=== PATIENT | male | born 1975 | race Hispanic/Latino ===

== ENCOUNTER 2017-09-18 19:22 | Inpatient (IN) | payer MEDICARE, OTHER ==
[~2017-09-18] VITALS: Ht 165.1 cm; Wt 73.7 kg
[~2017-09-18 19:22] MED LIST: CEFTIN500 MG PO; CITALOPRAM HBR20 MG PO; CLONAZEPAM0.5 MG PO; COPAXONE20 MG SQ; COPAXONE20 MG/KIT SQ; LACTULOSE20 GM/30 M PO; LEVAQUIN500 MG PO; MULTIVITAMIN1 EAC1 PO; NORCO 10-325 T1 EACH PO; OXYBUTYNIN CHLOR5 MG PO; ULTRAM50 MG PO; Z.0.CLONAZEPAM0.5 MG; Z.0.COLACE100 MG PO; Z.1.TIZANIDINE HCL2 PO; [UNRECOGNIZED DRUG - OTHER] PO
[2017-09-18 19:52] LABS: BASOPHILS # (AUTO) 0.1 (0.0-0.1); BASOPHILS % 0.4 % (0.0-1.0); EOSINOPHILS # (AUTO) 0.1 (0.0-0.4); EOSINOPHILS % 0.5 % (0.0-6.0); HEMATOCRIT 47.2 % (38.2-49.6); HEMOGLOBIN 16.3 g/dL (14.0-18.0); LYMPHOCYTES # (AUTO) 2.7 (1.0-3.2); MEAN CORPUSCULAR HEMOGLOBIN 30.1 pg (28-32); MEAN CORPUSCULAR HGB CONC 34.5 g/dL (31-35); MEAN CORPUSCULAR VOLUME 87.2 fL (81-99); MONOCYTES # (AUTO) 0.7 (0.2-0.8); MONOCYTES % 5.8 % (4.4-11.3); NEUTROPHILS # (AUTO) 8.4 (2.1-6.9); PLATELET COUNT 295 x10e3/uL (140-360); RED BLOOD COUNT 5.41 x10e6/uL (4.3-5.7); RED CELL DISTRIBUTION WIDTH 12.1 % (11.7-14.4)
[2017-09-18 20:11] LABS: ALANINE AMINOTRANSFERASE 19 IU/L (0-55); ALBUMIN 3.9 g/dL (3.5-5.0); ALBUMIN/GLOBULIN RATIO 1.1 (0.8-2.0); ALKALINE PHOSPHATASE 115 IU/L (40-150); ANION GAP 10.5 mmol/L (8-16); BLOOD UREA NITROGEN 14 mg/dL (7-26); BUN/CREATININE RATIO 20 (6-25); CALCIUM 9.3 mg/dL (8.4-10.2); CARBON DIOXIDE 28 mmol/L (22-29); CHLORIDE 103 mmol/L (98-107); CREATININE, SERUM 0.71 mg/dL (0.72-1.25); EST GLOMERULAR FILTRATION RATE > 60 ML/MIN (60-); GLUCOSE 91 mg/dL (74-118); POTASSIUM 3.5 mmol/L (3.5-5.1); SODIUM 138 mmol/L (136-145)
[2017-09-18] MEDS ORDERED: AMITIZA24 MCG PO (20:16)
[2017-09-18 20:58] LABS: BILIRUBIN,URINE NEGATIVE (NEGATIVE); COLOR,URINE YELLOW (YELLOW); KETONES,URINE NEGATIVE (NEGATIVE); LEUKOCYTE ESTERASE ,URINE 2+ (NEGATIVE); NITRITE,URINE NEGATIVE (NEGATIVE); PROTEIN,URINE DIPSTICK NEGATIVE (NEGATIVE); URINE UROBILINOGEN 0.2 mg/dL (0.2 - 1)
[2017-09-18 20:59] LABS: CLARITY,URINE HAZY (CLEAR)
[2017-09-18 21:03] LABS: AMORPHOUS SEDIMENT,URINE MODERATE (FEW); BACTERIA,URINE MODERATE /HPF; MUCUS,URINE FEW (RARE); WBC,URINE (MAN) 21-50 /HPF (0-5)
--- NOTE | 2017-09-18 21:34 | Diagnostic Imaging Report ---
EXAMINATION: Head CT without contrast. HISTORY:Headache. COMPARISON:CT brain from 09/25/2012. TECHNIQUE: Multidetector axial images were obtained from the foramen magnum to the vertex without contrast. The images were reconstructed using brain and bone algorithms. Thin section brain images were reformatted into coronal and sagittal planes. Intravenous contrast: None IMAGE QUALITY: Acceptable. FINDINGS: Skull/scalp: No abnormality. Parenchyma: Nonspecific few, scattered supratentorial white matter hypodensity are likely related to known demyelinating disease. Mild to moderate atrophy of the corpus callosum. No acute hemorrhage, mass or acute major vascular territorial infarct. Arteries: No density suggestive of thrombosis. Dural sinuses: No abnormal density suggestive of thrombosis. Ventricles: Unchanged mild prominence of the lateral and third ventricles. Extra-axial spaces: No abnormal density. Brain volume: Normal for age. Craniocervical junction: No mass, Chiari malformation, or basilar invagination. Sella: No mass. Paranasal/mastoid sinuses: Imaged portions unremarkable. IMPRESSION: No acute intracranial abnormality, particularly no acute hemorrhage, mass or acute major vascular territorial infarct. Interval development of mild supratentorial white matter microvascular disease, possibly related to known multiple sclerosis as described in MRI from 08/06/2012. Unchanged mild prominence of bilateral lateral and third ventricles and mild cerebral volume loss, advanced for patient's given age. Signed by: Dr. Ana M Ward M.D. on 09/18/2017 9:30 PM
[2017-09-18] MEDS ORDERED: VANCOMYCIN 1GM/NS 250 ML 250 ML IV STA (21:59)
[2017-09-18] MEDS ORDERED: MEROPENEM 1 GM VIAL ONE (22:09)
[2017-09-18] MEDS: MEROPENEM 1GRAM 1 GM in SODIUM CHLORIDE 0.9% 100 ML 100 ML IV SCH (22:20)
[2017-09-18] MEDS ORDERED: D5.45%NS/KCL 20MEQ 1,000 ML IV ONE (23:15)
[2017-09-18] MEDS ORDERED: ONDANSETRON HCL INJ 2 MG/ML VIAL IV PRN (23:15)
[2017-09-19] VITALS (9 sets, daily range): BP systolic 115–147; BP diastolic 67–96
[2017-09-19] MEDS ORDERED: D5.45%NS/KCL 20MEQ 1,000 ML IV ONE (03:41)
[2017-09-19] MEDS ORDERED: MEROPENEM 1 GM VIAL ONE ×3 (03:53→22:30)
[2017-09-19] MEDS: MEROPENEM 1GRAM 1 GM in SODIUM CHLORIDE 0.9% 100 ML 100 ML IV SCH ×3 (05:13→22:26)
[2017-09-19 06:12] LABS: BASOPHILS % 0.4 % (0.0-1.0); EOSINOPHILS # (AUTO) 0.1 (0.0-0.4); EOSINOPHILS % 1.1 % (0.0-6.0); HEMATOCRIT 44.3 % (38.2-49.6); LYMPHOCYTES # (AUTO) 2.1 (1.0-3.2); LYMPHOCYTES % 21.1 % (18.0-39.1); MEAN CORPUSCULAR HEMOGLOBIN 29.9 pg (28-32); MEAN CORPUSCULAR HGB CONC 33.9 g/dL (31-35); MEAN CORPUSCULAR VOLUME 88.2 fL (81-99); MONOCYTES # (AUTO) 0.8 (0.2-0.8); MONOCYTES % 7.9 % (4.4-11.3); NEUTROPHILS # (AUTO) 6.8 (2.1-6.9); NEUTROPHILS % 69.1 % (38.7-80.0); PLATELET COUNT 261 x10e3/uL (140-360); RED BLOOD COUNT 5.02 x10e6/uL (4.3-5.7); RED CELL DISTRIBUTION WIDTH 12.2 % (11.7-14.4)
[2017-09-19 07:28] LABS: ANION GAP 14.5 mmol/L (8-16); BLOOD UREA NITROGEN 14 mg/dL (7-26); BUN/CREATININE RATIO 22 (6-25); CALCIUM 8.8 mg/dL (8.4-10.2); CARBON DIOXIDE 21 mmol/L (22-29); CHLORIDE 109 mmol/L (98-107); CREATININE, SERUM 0.64 mg/dL (0.72-1.25); EST GLOMERULAR FILTRATION RATE > 60 ML/MIN (60-); GLUCOSE 115 mg/dL (74-118); POTASSIUM 3.5 mmol/L (3.5-5.1); SODIUM 141 mmol/L (136-145)
[2017-09-19 07:29] LABS: ALANINE AMINOTRANSFERASE 16 IU/L (0-55); ALBUMIN 3.6 g/dL (3.5-5.0); ALBUMIN/GLOBULIN RATIO 1.1 (0.8-2.0); ALKALINE PHOSPHATASE 102 IU/L (40-150)
[2017-09-19] MEDS: LUBIPROSTONE 24 MCG CAP PO SCH ×2 (08:56→16:28)
[2017-09-19] MEDS: CITALOPRAM HYDROBROMIDE 20 MG TAB PO SCH (08:56)
[2017-09-19] MEDS: GLATIRAMER (COPOLYMER-1) 20 MG SYR SQ SCH (09:00)
--- NOTE | 2017-09-19 09:00 | Progress Note ---
NO DICTATION, LENGTH 0:3 Job#: [id number] RI
--- NOTE | 2017-09-19 09:14 | History and Physical ---
CHIEF COMPLAINT: Confusion. HISTORY OF PRESENT ILLNESS: A 42-year-old man with a history of multiple sclerosis, history of complicated urinary tract infection with catheter-associated infection due to suprapubic catheter, now developing confusion. Here, he was found to have a urinary tract infection, and was admitted for further evaluation and management. PAST MEDICAL HISTORY: Complicated urinary tract infection with catheter-associated urinary tract infection, multiple sclerosis, chronic indwelling suprapubic catheter, urinary retention, status post suprapubic catheter placement, ambulatory dysfunction with multiple extremity contractures, anxiety/depression. PAST SURGICAL HISTORY: Suprapubic catheter placement. ALLERGIES: PER ELECTRONIC MEDICAL RECORD. FAMILY HISTORY: Noncontributory. SOCIAL HISTORY: No alcohol or illicits. MEDICATIONS: Per electronic medical record. REVIEW OF SYSTEMS: Unreliable. PHYSICAL EXAMINATION VITAL SIGNS: Have been reviewed. GENERAL: A tired-appearing man resting in bed. HEENT: Anicteric. Pupils respond to light. No oral lesions. CARDIOVASCULAR: Normal S1 and S2. LUNGS: He has moderate breath sounds. ABDOMEN: Soft and nontender. : He has a suprapubic catheter in place. EXTREMITIES: No edema. He has contracted lower extremities. Left arm contracture. SKIN: Dry. PSYCHIATRIC: Unable to assess. NEUROLOGICAL: Awake, alert and appropriate. LABS: Reviewed. MEDICATIONS: Reviewed. ASSESSMENT AND PLAN: This is a 42-year-old man with: 1. Complicated urinary tract infection/suprapubic catheter-associated urinary tract infection: Started on meropenem. Will get infectious disease on board to assist in management. 2. Indwelling suprapubic catheter: Urology consulted. Should be changed at this time. 3. Acute delirium secondary to urinary tract infection. 4. Multiple sclerosis: Continue . 5. Anxiety/depression: Continue citalopram. 6. Prophylaxis: Will use sequential compression devices. 7. Disposition: Antibiotics and skilled facility placement. Job#: [id number] AMISH
--- NOTE | 2017-09-19 15:14 | Consultation ---
DATE OF CONSULTATION: September 19, 2017 REASON FOR CONSULTATION: Evaluate and assist in treatment of the patient with complicated genitourinary tract infection. Information is gathered from the current medical record. I interviewed the patient at the bedside. He is a 42-year-old male with multiple sclerosis, who is bedridden with contractures. He has a suprapubic Roth catheter. He has had past urinary tract infections. He was admitted to the hospital on September 18, 2017, with reports of confusion. There was no report of fevers. No report of hematuria. At presentation, he had a temperature of 98.2 degrees Fahrenheit. His pulse rate was 80. His respiratory rate was 18. His blood pressure was 118/79. His CBC showed a white count of 11.9. Creatinine was 0.7. Urinalysis showed hazy urine with negative nitrite, positive esterase, 11-20 rbcs, 21-50 wbcs with moderate bacteria. His urine culture is pending. Blood cultures are pending. There is concern for urinary tract infection for which he has been started on treatment with meropenem. MEDICAL HISTORY: As reported above. There is no report of diabetes mellitus, hypertension, chronic kidney disease, liver disease, myocardial infarction, or CVA. SOCIAL HISTORY: The patient is bedridden with contractures. No report of tobacco, alcohol or other forms of recreational drug use. FAMILY HISTORY: Noncontributory to his current hospitalization. ALLERGIES: HE IS REPORTED ALLERGIC TO LEVOFLOXACIN. As reported earlier, he is on treatment with meropenem. The rest of his medications are per medication administration report. REVIEW OF SYSTEMS: The patient is awake. His sensorium is clear. He is oriented to person, place and time. He has no complaint of headache or neck stiffness. No sore throat. No report of nausea, vomiting or diarrhea. No hematuria. PHYSICAL EXAMINATION GENERAL: He is an adult male. He is alert, responsive. He appears ill, but nontoxic. He is in no acute distress. VITALS: Maximum temperature recorded since admission is 98.2 degrees Fahrenheit. He is hemodynamically stable. HEENT: He has no pallor. No icterus. No oropharyngeal lesions. NECK: Supple. CHEST: Symmetric. Lungs are clear. HEART: Sounds are regular. There is no significant murmur. ABDOMEN: Soft and nontender. Bowel sounds are present. : A suprapubic Roth catheter is in place. The site is without acute erythema. There is scant mucopurulent material at the exit site. EXTREMITIES: No acute erythema of his extremities. He has contractures of his lower extremities. His white count is 11.9 at presentation and 9.8 currently. Hemoglobin 15 and platelet count 261,000. Differential on the white count appear unremarkable. His serum creatinine is 0.6 currently. Urine and blood cultures are pending. CT of the brain reports no acute intracranial abnormality. IMPRESSION: This 42-year-old male with multiple sclerosis and suprapubic Roth catheter presenting with altered mental status has a urinary tract infection. Cultures are pending, including blood and urine. His leukocytosis has resolved. He is afebrile. I suggest continue treatment with meropenem. Follow up on his cultures. Monitor temperature, CBC and renal function. Monitor clinical response to treatment. I have discussed the findings and treatment with the patient at the bedside. I will discuss the patient with the primary physician, who I thank for the consult and the opportunity to participate in the patient's care. Job#: [id number] AMISH
--- NOTE | 2017-09-19 15:33 | Diagnostic Imaging Report ---
PROCEDURE: A single AP view of the chest. COMPARISON: Chest radiograph 09/25/2012 INDICATIONS: PICC LINE PLACEMENT FINDINGS: Lines/tubes: Right PICC tip overlies the cavoatrial junction. Lungs: The lungs are well inflated. Mild left basilar atelectasis. There is no evidence of pneumonia or pulmonary edema. Pleura: There is no pleural effusion or pneumothorax. Heart and mediastinum: The heart and the mediastinum are unremarkable. Bones: No acute bony abnormality. IMPRESSION: 1. Right PICC tip overlies the cavoatrial junction. 2. No acute cardiopulmonary disease. Dictated by: Marcos Frank M.D. on 09/19/2017 at 15:42 Electronically approved by: Marcos Frank M.D. on 09/19/2017 at 15:42
[2017-09-19] MEDS ORDERED: DIPHENHYDRAMINE HCL 25 MG CAP PO PRN (16:15)
[2017-09-19] MEDS: FAMOTIDINE 20 MG/2 ML VIAL IV SCH (16:27)
--- NOTE | 2017-09-19 21:55 | Consultation ---
DATE OF CONSULTATION: September 19, 2017 INITIAL VISIT SERVICE: Urology. ATTENDING PHYSICIAN: Dr. Bernardo Montilla HISTORY OF PRESENT ILLNESS: This is a 42-year-old quadriplegic patient that has MS and is known to me for quite some time. Patient was admitted to the hospital with diagnosis of change in mental status. He has been treated for urinary retention, neurogenic bladder, and he does have a suprapubic tube in place. In the past, he had several UTIs. SOCIAL HISTORY: Patient is bedridden he reports. No use of alcohol, illicit drugs, or tobacco. MEDICATIONS: See MAR. ALLERGIES TO MEDICATION: LEVAQUIN. REVIEW OF SYSTEMS: Twelve systems reviewed. Patient is awake. Presently, his mental status appears to be unremarkable. Except what is related to the quadriplegia and the SP tube, everything else is negative. PHYSICAL EXAMINATION: GENERAL: Patient is alert and oriented x3. VITAL SIGNS: Blood pressure 120/80, pulse 88, temperature 98, respirations 18. HEAD: Symmetric. EYES: Normal movement. NECK: No JVD. No masses. CHEST: Clear. HEART: Regular. ABDOMEN: Soft. : SP site unremarkable, suprapubic tube is functioning well. External genitalia, no masses. LABORATORY DATA: White count 9.84, hemoglobin 15. Potassium 3.5. Rest of the electrolytes unremarkable. Bilirubin 0.8. CT scan of the brain appeared to be unremarkable with some areas that may suggest MS. IMPRESSION: 1. Multiple sclerosis. 2. Quadriplegia. 3. Suprapubic tube. 4. History of change in mental status. 5. Urinary tract infection. PLAN: Recommend to keep the Roth catheter in the suprapubic site. We are going to follow him . Thank you. Job#: [id number]
[2017-09-20] VITALS (8 sets, daily range): BP systolic 111–141; BP diastolic 76–91
[2017-09-20] MEDS ORDERED: MEROPENEM 1 GM VIAL ONE ×2 (05:02→06:31)
[2017-09-20] MEDS: MEROPENEM 1GRAM 1 GM in SODIUM CHLORIDE 0.9% 100 ML 100 ML IV SCH (05:42)
--- NOTE | 2017-09-20 07:54 | Progress Note ---
DATE: September 20, 2017 TIME: 7:16 a.m. OVERNIGHT: No events. REVIEW OF SYSTEMS: Unobtainable. PHYSICAL EXAMINATION: VITAL SIGNS: Reviewed temperature 97.1, pulse 82, blood pressure 114/82. GENERAL APPEARANCE: Tired-appearing man resting in bed. HEENT: Anicteric. CARDIOVASCULAR: Normal S1 and S2. LUNGS: Bilateral breath sounds. ABDOMEN: Soft, nontender, nondistended. : He has suprapubic catheter in place. EXTREMITIES: No edema. He has contracted lower extremity, left arm contracture. SKIN: Dry. PSYCHIATRIC: Unable to assess. NEUROLOGICAL: Awake, alert. LABS: Reviewed. MEDICATIONS: Reviewed. ASSESSMENT: A 42-year-old man: 1. Complicated urinary tract infection/suprapubic catheter-associated urinary tract infection. 2. Acute delirium secondary to urinary tract infection. 3. Multiple sclerosis. 4. Anxiety/depression. PLAN: 1. Continue IV meropenem. 2. Continue multiple sclerosis medication. 3. Continue Pepcid for GI prophylaxis. 4. Physical therapy as tolerated inpatient. 5. SCD bilaterally. 6. Skilled facility placement is pending. 7. Follow up microbiology. All cultures negative to date. Job#: [id number]
[2017-09-20] MEDS: LUBIPROSTONE 24 MCG CAP PO SCH ×2 (08:48→17:22)
[2017-09-20] MEDS: CITALOPRAM HYDROBROMIDE 20 MG TAB PO SCH (08:54)
[2017-09-20] MEDS: FAMOTIDINE 20 MG/2 ML VIAL IV SCH ×2 (09:01→21:04)
[2017-09-20] MEDS: GLATIRAMER (COPOLYMER-1) 20 MG SYR SQ SCH (12:25)
--- NOTE | 2017-09-20 14:49 | Progress Note ---
DATE: September 20, 2017 INFECTIOUS DISEASE PROGRESS NOTE The patient is awake and responsive. He is in no acute distress. He is not coughing. No dyspnea. No vomiting. No diarrhea. No adverse medication reaction reported. PHYSICAL EXAMINATION VITALS: In the past 24 hours, maximum temperature was up to 98.4 degrees Fahrenheit. He is hemodynamically stable. HEENT: He has no pallor. No icterus. No oropharyngeal lesions. NECK: Supple. CHEST: Symmetric. The lungs are clear. HEART: Sounds are regular. There is no new murmur. ABDOMEN: Soft, nontender. Bowel sounds are normal. EXTREMITIES: No acute erythema of the extremities. His white count 11.9 on September 18, 2017 and 9.8 on September 19, 2017. His creatinine 0.6 on September 19, 2017. His urine culture on September 18, 2017 is growing 2 different strains of gram-negative rods. One set of blood culture from September 18, 2017 is negative, one set is positive. Identification of the blood culture isolate is not available. IMPRESSION: He has gram-negative urinary tract infection. He has a positive blood culture, difficult to determine at this point whether this is contamination or true positive culture. The patient is afebrile. His leukocytosis has resolved. He has multiple sclerosis. He has a suprapubic Roth catheter. I suggest continue his antibiotics, monitor temperature, CBC and renal function. Follow up on his cultures. Continue supportive care. Job#: [id number] AMBER
[2017-09-20] MEDS: MEROPENEM 1 GM VIAL IV SCH ×2 (15:05→21:04)
[2017-09-20] MEDS ORDERED: SODIUM CHLORIDE 0.9% 250ML 250 ML ONE (19:31)
[2017-09-21] VITALS (8 sets, daily range): BP systolic 113–127; BP diastolic 60–84
[2017-09-21] MEDS: MEROPENEM 1 GM VIAL IV SCH ×3 (05:07→21:00)
--- NOTE | 2017-09-21 07:10 | Progress Note ---
DATE: September 21, 2017 TIME: 6:30 a.m. OVERNIGHT: No events. REVIEW OF SYSTEMS: No chest pain. PHYSICAL EXAMINATION VITAL SIGNS: Reviewed. GENERAL: Tired-appearing man resting in bed. HEENT: Anicteric. CARDIOVASCULAR: Normal S1/S2. LUNGS: Bilateral breath sounds. ABDOMEN: Soft, nontender, nondistended. : Suprapubic catheter in place. EXTREMITIES: No edema. He has contracted left arm and he has contracted left lower extremity. SKIN: Dry. PSYCHIATRIC: Flat affect. NEUROLOGICAL: Awake and alert. LABS: Reviewed. MEDICATIONS: Reviewed. ASSESSMENT: A 42-year-old man. 1. Complicated urinary tract infection/suprapubic catheter-associated urinary tract infection. 2. Acute delirium secondary to urinary tract infection. 3. Multiple sclerosis. 4. Anxiety/depression. 5. Questionable bacteremia. PLAN 1. Continue IV meropenem. 2. Continue treatment for multiple sclerosis. 3. Obtain labs this morning. 4. Follow up cultures, gram-negative rods in the urine and gram-negative rods in the blood. 5. SNF pending. Job#: [id number] CQ
[2017-09-21 08:21] LABS: BASOPHILS # (AUTO) 0.1 (0.0-0.1); BASOPHILS % 0.7 % (0.0-1.0); EOSINOPHILS # (AUTO) 0.5 (0.0-0.4); EOSINOPHILS % 5.2 % (0.0-6.0); HEMATOCRIT 44.4 % (38.2-49.6); HEMOGLOBIN 15.6 g/dL (14.0-18.0); LYMPHOCYTES # (AUTO) 2.2 (1.0-3.2); LYMPHOCYTES % 24.3 % (18.0-39.1); MEAN CORPUSCULAR HEMOGLOBIN 30.5 pg (28-32); MEAN CORPUSCULAR HGB CONC 35.1 g/dL (31-35); MEAN CORPUSCULAR VOLUME 86.9 fL (81-99); MONOCYTES # (AUTO) 0.8 (0.2-0.8); MONOCYTES % 9.1 % (4.4-11.3); NEUTROPHILS # (AUTO) 5.4 (2.1-6.9); NEUTROPHILS % 60.5 % (38.7-80.0); PLATELET COUNT 268 x10e3/uL (140-360); RED BLOOD COUNT 5.11 x10e6/uL (4.3-5.7); RED CELL DISTRIBUTION WIDTH 12.1 % (11.7-14.4)
[2017-09-21] MEDS: GLATIRAMER (COPOLYMER-1) 20 MG SYR SQ SCH (09:00)
[2017-09-21 09:04] LABS: ANION GAP 12.6 mmol/L (8-16); BLOOD UREA NITROGEN 11 mg/dL (7-26); BUN/CREATININE RATIO 17 (6-25); CALCIUM 9.1 mg/dL (8.4-10.2); CARBON DIOXIDE 26 mmol/L (22-29); CHLORIDE 107 mmol/L (98-107); CREATININE, SERUM 0.66 mg/dL (0.72-1.25); EST GLOMERULAR FILTRATION RATE > 60 ML/MIN (60-); GLUCOSE 103 mg/dL (74-118); MAGNESIUM 1.8 MG/DL (1.3-2.1); PHOSPHORUS 2.4 MG/DL (2.3-4.7); POTASSIUM 3.6 mmol/L (3.5-5.1); SODIUM 142 mmol/L (136-145)
[2017-09-21] MEDS: MEGESTROL ACETATE 40 MG TAB PO SCH ×2 (09:37→17:06)
[2017-09-21] MEDS: FAMOTIDINE 20 MG/2 ML VIAL IV SCH ×2 (09:37→20:55)
[2017-09-21] MEDS: CITALOPRAM HYDROBROMIDE 20 MG TAB PO SCH (09:37)
[2017-09-21] MEDS: LUBIPROSTONE 24 MCG CAP PO SCH ×2 (09:37→17:06)
--- NOTE | 2017-09-21 13:46 | Progress Note ---
DATE: September 21, 2017 The patient is fairly stable. He is alert and responsive. He is not coughing. No dyspnea at rest. No vomiting. No diarrhea. No adverse medication reaction reported. PHYSICAL EXAMINATION VITALS: In the past 24 hours, he had temperatures up to 98.6 degrees Fahrenheit. He is hemodynamically stable. HEENT: There is no pallor. No icterus. No oropharyngeal lesions. NECK: Supple. CHEST: Symmetric. The lungs are clear. HEART: Sounds are regular. There is no new murmur. ABDOMEN: Soft. Bowel sounds are present. EXTREMITIES: No acute erythema of the extremities. SKIN: He has facial seborrhea. His white count is 8.9. His creatinine 0.6. His urine culture from September 18, 2017 growing 2 different strains of gram-negative rods. His blood cultures from September 18, 2017 growing coagulase-negative staph and gram-negative bacillus as well as strep species. IMPRESSION: He is on treatment for sepsis and gram-negative urinary tract infection. I suspect his blood culture is contaminated. He is afebrile. There is no leukocytosis currently. I suggest continue current antibiotic treatment, follow up on his urine culture, continue supportive care. Job#: [id number] VAS
[2017-09-22] VITALS: BP 126/81
[2017-09-22 04:00] VITALS: BP 121/76
[2017-09-22] MEDS: MEROPENEM 1 GM VIAL IV SCH ×2 (05:02→14:27)
[2017-09-22 08:15] VITALS: BP 111/74
--- NOTE | 2017-09-22 08:47 | Progress Note ---
DATE: September 22, 2017 The patient is fairly stable. He is awake and responsive. He is in no acute distress. He is not coughing. No dyspnea at rest. No vomiting. No diarrhea. No other systemic complaints reported. PHYSICAL EXAMINATION VITALS: In the past 24 hours, his maximum temperature was up to 98.9 degrees Fahrenheit. He is hemodynamically stable. HEENT: There is no pallor. No icterus. No oropharyngeal lesions. He has facial seborrheic dermatitis. NECK: Supple. CHEST: Symmetric. Lungs are clear. HEART: Sounds are regular without significant murmur. ABDOMEN: Soft. Bowel sounds are present. EXTREMITIES: No acute erythema of his extremities. On September 21, 2017, his white count was 8.9. His creatinine was 0.6. His urine culture from September 18, 2017, is growing Citrobacter, and a 2nd gram-negative sandrita that has not yet been identified. Blood cultures are contaminated with coagulase-negative staph. IMPRESSION: He has a urinary tract infection associated with suprapubic Roth catheter. He has contaminated blood culture. He is afebrile. There is no leukocytosis. I suggest to continue his antibiotics. Follow up on his cultures. Monitor temperature, CBC and renal function. Continue supportive care. Job#: [id number] AMISH
[2017-09-22] MEDS: LUBIPROSTONE 24 MCG CAP PO SCH ×2 (09:00→17:00)
[2017-09-22] MEDS: CITALOPRAM HYDROBROMIDE 20 MG TAB PO SCH (09:00)
[2017-09-22] MEDS: MEGESTROL ACETATE 40 MG TAB PO SCH ×2 (09:00→17:00)
[2017-09-22] MEDS ORDERED: GLATIRAMER (COPOLYMER-1) 20 MG SYR SQ SCH (10:00)
[2017-09-22] MEDS: FAMOTIDINE 20 MG/2 ML VIAL IV SCH (10:15)
--- NOTE | 2017-09-22 11:09 | Progress Note ---
DATE: September 22, 2017 TIME: 6 a.m. OVERNIGHT: No events. REVIEW OF SYSTEMS: Denies any chest pain. PHYSICAL EXAMINATION VITAL SIGNS: Reviewed. GENERAL: A tired-appearing man resting in bed. HEENT: Anicteric. CARDIOVASCULAR: Normal S1 and S2. LUNGS: Moderate breath sounds. ABDOMEN: Soft, nontender and nondistended. EXTREMITIES: No edema or calf tenderness. He has contracted lower extremities. SKIN: Dry. PSYCHIATRIC: Flat affect. NEUROLOGICAL: Awake and alert. LABS: Reviewed. MEDICATIONS: Reviewed. ASSESSMENT: A 42-year-old man with: 1. Complicated urinary tract infection/suprapubic catheter associated urinary tract infection with Citrobacter freundii. 2. Bacteremia with coagulase-negative staphylococcus and gram-negative bacillus. 3. Acute delirium secondary to urinary tract infection. 4. Multiple sclerosis. 5. Anxiety/depression. 6. Sepsis due to bacteremia. PLAN 1. Continue IV meropenem per infectious disease. 2. Continue physical therapy. 3. Continue treatment for multiple sclerosis. 4. SNF placement is pending. Will need at least 14 days of IV antibiotics. Job#: [id number] HI
[2017-09-22 11:50] VITALS: BP 122/85
[2017-09-22 16:00] VITALS: BP 118/74
[2017-09-22 16:18] VITALS: BP 118/74
--- NOTE | 2017-10-17 09:09 | Discharge Summary ---
PRINCIPAL DIAGNOSES 1. Complicated urinary tract infection. 2. Suprapubic catheter associated urinary tract infection with Citrobacter freundii. 3. Bacteremia with coagulase-negative staphylococcus and gram-negative bacillus. 4. Acute delirium secondary to urinary tract infection. 5. Anxiety disorder. 6. Sepsis due to bacteremia. SECONDARY DIAGNOSIS: Multiple sclerosis. CHIEF COMPLAINT: Confusion. HISTORY OF PRESENT ILLNESS: A 42-year-old man developing confusion. Refer to the H and P for further details. HOSPITAL COURSE: The patient was found to have complicated urinary tract infection with suprapubic catheter associated urinary tract infection with findings of Citrobacter freundii as the organism. He had bacteremia with coagulase-negative staph and gram-negative bacillus. Had acute delirium secondary to UTI. Anxiety and sepsis due to bacteremia. He received antibiotics of IV meropenem and transitioned to skilled facility for 14 days of antibiotics. Suprapubic catheter was changed. DISCHARGE MEDICATIONS: Per electronic medical records. FOLLOWUP 1. Primary care doctor in 1 week. 2. Urology in 2 weeks. CONDITION ON DISCHARGE: Stable and improving. DISCHARGE LOCATION: Skilled facility. JOSETTE KELLEY MD Job#: [id number] RI
== END 2017-09-22 19:07 | DRG 698 ==
LOC: ER 19:22 → ERHOLD 23:35 → MED/SURG2 09-19 00:06 → IMCU 09-20 00:11
PROVIDERS: ADMIT Internal Medicine; ATTEND Internal Medicine
PROC: 02HV33Z Insertion of Infusion Device into Superior Vena Cava, Percutaneous Approach (ICD-10-PCS; principal; 2017-09-19)
DX: T83.511A Infection and inflammatory reaction due to indwelling urethral catheter, initial encounter (principal); G82.50 Quadriplegia, unspecified; A41.1 Sepsis due to other specified staphylococcus; G95.89 Other specified diseases of spinal cord; N30.90 Cystitis, unspecified without hematuria; F41.8 Other specified anxiety disorders; R41.0 Disorientation, unspecified; G35 Multiple sclerosis; N31.9 Neuromuscular dysfunction of bladder, unspecified; Z74.01 Bed confinement status; F41.9 Anxiety disorder, unspecified; F32.9 Major depressive disorder, single episode, unspecified
CPT/HCPCS: 36415; 36569; 70450; 71045; 80048; 80053; 81001; 83605; 83735; 84100; 85025; 87040; 87071; 87086; 87186; 87205; 87400; 97139; 99284; J1595; J2185; J3370; J7050

== ENCOUNTER 2018-02-24 14:09 | Observation (INO) | payer MEDICARE, OTHER ==
[~2018-02-24] VITALS: Ht 165.1 cm; Wt 73.5 kg
[~2018-02-24 14:09] MED LIST changes: +AMITIZA24 MCG PO
[2018-02-24] MEDS ORDERED: SODIUM CHLORIDE 0.9% 1000ML 1,000 ML IV STA (14:12)
[2018-02-24] MEDS ORDERED: ONDANSETRON HCL INJ 2 MG/ML VIAL IV STA (14:12)
[2018-02-24] MEDS ORDERED: PANTOPRAZOLE 40 MG 10ML VIAL IV STA (14:12)
--- OUTSIDE RECORDS SUMMARY | 2018-02-24 14:13 | XMS REPORT ---
Author Author [facility] Address Unknown Phone Unavailable Care Team Providers Care Generation Manager Name Role Phone JOSETTE KELLEY Unavailable Unavailable Problems This patient has no known problems. Allergies, Adverse Reactions, Alerts This patient has no known allergies or adverse reactions. Medications This patient has no known medications. Results Test Description Test Time Test Comments Text Results Atomic Results Result Comments CHEST XRAY LINE PLACEMENT [place] [address] Patient Name: ARIK VELIZ MR #: [id number] : 1975 Age/Sex: 42/M Req #: [id number] Adm Physician: JOSETTE KELLEY MD Ordered by: JOSETTE KELLEY MD Report #: [id number] Location: MED/SURG2 Room/Bed: [facility] _ Procedure: [id number] DX/CHEST XRAY LINE PLACEMENT Exam Date: 09/19/17 Exam Time: 1525 REPORT STATUS: Signed PROCEDURE: A single AP view of the chest. COMPARISON: Chest radiograph 09/25/2012 INDICATIONS: PICC LINE PLACEMENT FINDINGS : Lines/tubes: Right PICC tip overlies the cavoatrial junction. Lungs: The lungs are well inflated. Mild left basilar atelectasis. There is no evidence of pneumonia or pulmonary edema. Pleura: There is no pleural effusion or pneumothorax. Heart and mediastinum: The heart and the mediastinum are unremarkable. Bones: No acute bony abnormality. IMPRESSION: 1. Right PICC tip overlies the cavoatrial junction. 2. No acute cardiopulmonary disease. Dictated by: Marcos Medina M.D. on 10/2017 at 15:42 Electronically approved by: Marcos Medina M.D. on 09/19 at 15:42 Dictated By: MARCOS MEDINA MD 41 Transcribed By: ARIELLA on 09/19/171541 COPY TO: JOSETTE KELLEY MD CT BRAIN WO [place] [id number] [place] [address] Patient Name: ARIK VELIZ MR #: [id number] : 1975 Age/Sex: 42/M Req # : [id number] Adm Physician: Ordered by: LEMUEL BARRIOS MD Report #: [id number] Location: ER Room/Bed: Procedure: [id number] CT/CT BRAIN WO Exam Date: 09/18/17 Exam Time: 2029 REPORT STATUS: Signed EXAMINATION: Head CT without contrast. HISTORY:Headache. COMPARISON:CT brain from 09/25/2012. TECHNIQUE: Multidetector axial images were obtained from the foramen magnum to the vertex without contrast. The images were reconstructed using brain and bone algorithms. Thin section brain images were reformatted into coronal and sagittal planes. Intravenous contrast: None IMAGE QUALITY: Acceptable. FINDINGS: Skull/scalp: No abnormality. Parenchyma: Nonspecific few, scattered supratentorial white matter hypodensity are likely related to known demyelinating disease. Mild to moderate atrophy of the corpus callosum. No acute hemorrhage, mass or acute major vascular territorial infarct. Arteries: No density suggestive of thrombosis. Dural sinuses: No abnormal density suggestive of thrombosis. Ventricles: Unchanged mild prominence of the lateral and third ventricles. Extra-axial spaces: No abnormal density. Brain volume: Normal for age. Craniocervical junction: No mass, Chiari malformation, or basilar invagination. Sella: No mass. Paranasal/mastoid sinuses: Imaged portions unremarkable. IMPRESSION: No acute intracranial abnormality, particularly no acute hemorrhage, mass or acute major vascular territorial infarct. Interval development of mild supratentorial white matter microvascular disease, possibly related to known multiple sclerosis as described in MRI from 08/06/2012. Unchanged mild prominence of bilateral lateral and third ventricles and mild cerebral volume loss, advanced for patient's given age. Signed by: Dr. Ana M Ward M.D. on 09/18/2017 9:30 PM Dictated By: ANA M WARD MD 29 Transcribed By: ZO on 09/18/172129 COPY TO: LEMUEL BARRIOS MD
[2018-02-24 15:02] LABS: BASOPHILS # (AUTO) 0.1 (0.0-0.1); BASOPHILS % 0.6 % (0.0-1.0); EOSINOPHILS # (AUTO) 0.1 (0.0-0.4); EOSINOPHILS % 1.4 % (0.0-6.0); HEMATOCRIT 43.6 % (38.2-49.6); HEMOGLOBIN 14.9 g/dL (14.0-18.0); LYMPHOCYTES # (AUTO) 2.8 (1.0-3.2); LYMPHOCYTES % 28.1 % (18.0-39.1); MEAN CORPUSCULAR HEMOGLOBIN 30.2 pg (28-32); MEAN CORPUSCULAR HGB CONC 34.2 g/dL (31-35); MEAN CORPUSCULAR VOLUME 88.4 fL (81-99); MONOCYTES # (AUTO) 0.8 (0.2-0.8); MONOCYTES % 8.3 % (4.4-11.3); NEUTROPHILS # (AUTO) 6.2 (2.1-6.9); NEUTROPHILS % 61.3 % (38.7-80.0); PLATELET COUNT 271 x10e3/uL (140-360); RED BLOOD COUNT 4.93 x10e6/uL (4.3-5.7)
[2018-02-24] MEDS ORDERED: MORPHINE SULFATE 2 MG/ML SYR IV STA (15:06)
[2018-02-24 15:21] LABS: ALANINE AMINOTRANSFERASE 21 IU/L (0-55); ALBUMIN 3.7 g/dL (3.5-5.0); ALBUMIN/GLOBULIN RATIO 1.2 (0.8-2.0); ALKALINE PHOSPHATASE 109 IU/L (40-150); AMYLASE 49 U/L (25-125); ANION GAP 11.8 mmol/L (8-16); BLOOD UREA NITROGEN 18 mg/dL (7-26); BUN/CREATININE RATIO 23 (6-25); CALCIUM 9.1 mg/dL (8.4-10.2); CARBON DIOXIDE 28 mmol/L (22-29); CHLORIDE 105 mmol/L (98-107); CREATININE, SERUM 0.77 mg/dL (0.72-1.25); EST GLOMERULAR FILTRATION RATE > 60 ML/MIN (60-); GLUCOSE 106 mg/dL (74-118); LIPASE 19 U/L (8-78); POTASSIUM 3.8 mmol/L (3.5-5.1); SODIUM 141 mmol/L (136-145)
[2018-02-24] MEDS ORDERED: ONDANSETRON HCL INJ 2 MG/ML VIAL IV ONE (15:30)
[2018-02-24] MEDS ORDERED: PANTOPRAZOLE 40 MG 10ML VIAL IV ONE (15:30)
[2018-02-24 15:32] LABS: BILIRUBIN,URINE NEGATIVE (NEGATIVE); CLARITY,URINE SL CLOUDY (CLEAR); COLOR,URINE YELLOW (YELLOW); KETONES,URINE NEGATIVE (NEGATIVE); LEUKOCYTE ESTERASE ,URINE 1+ (NEGATIVE); NITRITE,URINE NEGATIVE (NEGATIVE); PROTEIN,URINE DIPSTICK TRACE (NEGATIVE); URINE UROBILINOGEN 0.2 mg/dL (0.2 - 1)
[2018-02-24 15:36] LABS: WBC,URINE (MAN) >50 /HPF (0-5)
[2018-02-24 15:39] LABS: BACTERIA,URINE FEW /HPF
[2018-02-24 15:44] LABS: EPITHELIAL CELLS,URINE FEW /LPF
[2018-02-24] MEDS ORDERED: SODIUM CHLORIDE 0.9% 50ML 50 ML ONE (16:45)
[2018-02-24] MEDS ORDERED: CEFTRIAXONE SOD 1 GM VIAL IV ONE (16:45)
--- NOTE | 2018-02-24 16:58 | Diagnostic Imaging Report ---
EXAM: CT Abdomen and Pelvis WITH contrast INDICATION: Abdominal pain. History of multiple sclerosis. COMPARISON: None. TECHNIQUE: Abdomen and pelvis were scanned utilizing a multidetector helical scanner from the lung base to the ischial tuberosities after administration of IV contrast. Coronal and sagittal reformations were obtained. Routine protocol was performed. Scan was performed when during portal venous phase. IV CONTRAST: 100 mL of Isovue-370 ORAL CONTRAST: None RADIATION DOSE: Total DLP: 572.34 mGy*cm Estimated effective dose: DLP x 0.015 mSv COMPLICATIONS: None FINDINGS: LINES and TUBES: There is a suprapubic catheter within the bladder. LOWER THORAX: Subsegmental atelectasis in the lung bases. HEPATOBILIARY: No focal hepatic lesions. No biliary ductal dilation. GALLBLADDER: No radio-opaque stones or sludge. No wall thickening. SPLEEN: No splenomegaly. PANCREAS: No focal masses or ductal dilatation. ADRENALS: No adrenal nodules KIDNEYS/URETERS: Kidneys enhance symmetrically. No hydronephrosis. 1.3 cm hypodensity in the upper pole the right kidney (series 2, image 23) appears to contain thin septations. Other tiny hypodensities in the right kidney are too small to characterize. No stones. GI TRACT: The rectum is distended with mild, circumferential wall thickening of the distal rectum which could be due to chronic constipation. No bowel obstruction. Appendix is normal. PELVIC ORGANS/BLADDER: The bladder is collapsed by a suprapubic catheter. A curvilinear density at the tip of the suprapubic catheter may be a portion of the catheter or chronic bladder/prostate calcification. LYMPH NODES: No lymphadenopathy. VESSELS: Unremarkable. PERITONEUM / RETROPERITONEUM: No free air or fluid. BONES: Unremarkable. SOFT TISSUES: Unremarkable. IMPRESSION: 1. The rectum is distended. There is mild circumferential wall thickening of the distal rectum which may be due to chronic constipation. 2. The bladder is collapsed by a suprapubic catheter. A curvilinear density at the tip of the suprapubic catheter may represent a portion of the catheter or a chronic bladder/prostate calcification. 3. Mildly complex cystic lesion in the upper pole the right kidney. Recommend nonemergent renal protocol CT or MRI (with and without contrast) for further evaluation. Signed by: Dr. Alcon Taylor M.D. on 02/24/2018 4:54 PM
[2018-02-24] MEDS ORDERED: METHYLPREDNISOLONE SOD SUCC 125 MG/2ML VIAL IV ONE (17:00)
[2018-02-24] MEDS ORDERED: DIPHENHYDRAMINE HCL INJ 50 MG/ML VIAL IV ONE ×2 (17:00→18:30)
[2018-02-24] MEDS ORDERED: DIPHENHYDRAMINE HCL INJ 50 MG/ML VIAL ONE (17:01)
[2018-02-24] MEDS ORDERED: SODIUM CHLORIDE 0.9% 1000ML 1,000 ML ONE (17:43)
[2018-02-24] MEDS ORDERED: ONDANSETRON HCL INJ 2 MG/ML VIAL IV PRN (17:45)
[2018-02-24] MEDS ORDERED: SODIUM CHLORIDE 0.9% 100 ML 100 ML IV ONE (17:45)
[2018-02-24] MEDS ORDERED: DIPHENHYDRAMINE HCL INJ 50 MG/ML VIAL IV PRN (17:45)
[2018-02-24] MEDS: SODIUM CHLORIDE 0.9% 1000ML 1,000 ML IV SCH ×3 (17:55→22:19)
[2018-02-24] MEDS: METHYLPREDNISOLONE SOD SUCC 40 MG/ML VIAL IV SCH (18:25)
[2018-02-24] MEDS ORDERED: FAMOTIDINE 20 MG/2 ML VIAL IV ONE (18:30)
[2018-02-24 20:00] VITALS: BP 136/79
[2018-02-24 22:00] VITALS: BP 136/79
[2018-02-25] VITALS (7 sets, daily range): BP systolic 113–175; BP diastolic 70–80
[2018-02-25] MEDS ORDERED: SODIUM CHLORIDE 0.9% 50ML 50 ML ONE (00:17)
[2018-02-25] MEDS ORDERED: IOPAMIDOL 370 MG/ML 200 ML INFUS..BTL INJ ONE (00:17)
[2018-02-25] MEDS: SODIUM CHLORIDE 0.9% 1000ML 1,000 ML IV SCH ×5 (00:39→20:50)
[2018-02-25] MEDS: METHYLPREDNISOLONE SOD SUCC 40 MG/ML VIAL IV SCH ×5 (05:26→23:03)
[2018-02-25] MEDS: NITROFURANTOIN MACROCRYSTALS 100 MG CAP PO SCH ×2 (08:20→17:06)
[2018-02-25 10:04] LABS: BASOPHILS % 0.2 % (0.0-1.0); HEMATOCRIT 49.4 % (38.2-49.6); HEMOGLOBIN 16.5 g/dL (14.0-18.0); LYMPHOCYTES # (AUTO) 1.4 (1.0-3.2); LYMPHOCYTES % 13.6 % (18.0-39.1); MEAN CORPUSCULAR HEMOGLOBIN 30.4 pg (28-32); MEAN CORPUSCULAR HGB CONC 33.4 g/dL (31-35); MEAN CORPUSCULAR VOLUME 91.1 fL (81-99); MONOCYTES # (AUTO) 0.1 (0.2-0.8); MONOCYTES % 0.5 % (4.4-11.3); NEUTROPHILS # (AUTO) 8.8 (2.1-6.9); NEUTROPHILS % 85.2 % (38.7-80.0); PLATELET COUNT 225 x10e3/uL (140-360); RED BLOOD COUNT 5.42 x10e6/uL (4.3-5.7); RED CELL DISTRIBUTION WIDTH 12.3 % (11.7-14.4)
[2018-02-25 12:32] LABS: ALANINE AMINOTRANSFERASE 22 IU/L (0-55); ALBUMIN 3.8 g/dL (3.5-5.0); ALBUMIN/GLOBULIN RATIO 1.1 (0.8-2.0); ALKALINE PHOSPHATASE 115 IU/L (40-150); ANION GAP 17.1 mmol/L (8-16); BLOOD UREA NITROGEN 9 mg/dL (7-26); BUN/CREATININE RATIO 12 (6-25); CALCIUM 9.5 mg/dL (8.4-10.2); CARBON DIOXIDE 20 mmol/L (22-29); CHLORIDE 110 mmol/L (98-107); CREATININE, SERUM 0.74 mg/dL (0.72-1.25); EST GLOMERULAR FILTRATION RATE > 60 ML/MIN (60-); GLUCOSE 168 mg/dL (74-118); POTASSIUM 4.1 mmol/L (3.5-5.1); SODIUM 143 mmol/L (136-145)
[2018-02-25] MEDS ORDERED: TRAMADOL HCL 50 MG TAB PO PRN (18:30)
[2018-02-25] MEDS: LINEZOLID 600 MG/D5W 300ML 300 ML IV SCH (19:15)
[2018-02-26] VITALS (8 sets, daily range): BP systolic 102–142; BP diastolic 54–81
[2018-02-26] MEDS: SODIUM CHLORIDE 0.9% 1000ML 1,000 ML IV SCH ×4 (01:41→17:45)
[2018-02-26 05:45] LABS: BASOPHILS % 0.1 % (0.0-1.0); HEMATOCRIT 43.9 % (38.2-49.6); HEMOGLOBIN 14.9 g/dL (14.0-18.0); LYMPHOCYTES # (AUTO) 1.6 (1.0-3.2); LYMPHOCYTES % 8.4 % (18.0-39.1); MEAN CORPUSCULAR HEMOGLOBIN 30.5 pg (28-32); MEAN CORPUSCULAR HGB CONC 33.9 g/dL (31-35); MONOCYTES # (AUTO) 0.5 (0.2-0.8); MONOCYTES % 2.8 % (4.4-11.3); NEUTROPHILS # (AUTO) 16.2 (2.1-6.9); PLATELET COUNT 270 x10e3/uL (140-360); RED BLOOD COUNT 4.88 x10e6/uL (4.3-5.7); RED CELL DISTRIBUTION WIDTH 12.3 % (11.7-14.4)
[2018-02-26] MEDS: MEROPENEM 500MG 500 MG in SODIUM CHLORIDE 0.9% 50ML 50 ML IV SCH ×3 (05:48)
[2018-02-26] MEDS: METHYLPREDNISOLONE SOD SUCC 40 MG/ML VIAL IV SCH ×3 (05:48→21:50)
[2018-02-26 06:02] LABS: ANION GAP 14.1 mmol/L (8-16); BLOOD UREA NITROGEN 8 mg/dL (7-26); BUN/CREATININE RATIO 12 (6-25); CALCIUM 9.1 mg/dL (8.4-10.2); CARBON DIOXIDE 24 mmol/L (22-29); CHLORIDE 109 mmol/L (98-107); CREATININE, SERUM 0.65 mg/dL (0.72-1.25); EST GLOMERULAR FILTRATION RATE > 60 ML/MIN (60-); GLUCOSE 131 mg/dL (74-118); POTASSIUM 4.1 mmol/L (3.5-5.1); SODIUM 143 mmol/L (136-145)
--- NOTE | 2018-02-26 07:22 | Progress Note ---
DATE: February 26, 2018 OVERNIGHT: No events. REVIEW OF SYSTEMS: Denies any chest pain or shortness of breath. PHYSICAL EXAMINATION VITAL SIGNS: Reviewed. GENERAL: A tired-appearing man resting in bed. HEENT: Anicteric. CARDIOVASCULAR: Normal S1 and S2. LUNGS: Moderate breath sounds. ABDOMEN: Soft, nontender and nondistended. EXTREMITIES: He has contractures of all extremities except the right arm. NEUROLOGIC: He moves his right arm. He is alert and appropriate. SKIN: Dry. PSYCHIATRIC: Flat affect. LABS: Reviewed. MEDICATIONS: Reviewed. ASSESSMENT: A 42-year-old man with: 1. Complicated urinary tract infection/catheter-associated urinary tract infection. 2. Metabolic acidosis. 3. Constipation. 4. Right kidney cystic lesion. 5. Allergic rash due to drug reaction. 6. Ambulatory dysfunction. 7. Multiple sclerosis. 8. Anxiety disorder. PLAN 1. Continue IV meropenem. 2. Continue steroids for allergic reaction. 3. Continue linezolid. 4. Antibiotics per infectious disease. 5. Monitor closely. 6. The patient has multidrug organism in urine . Follow up urology recommendations. Job#: [id number] PR
[2018-02-26] MEDS: LINEZOLID 600 MG/D5W 300ML 300 ML IV SCH ×2 (08:27→21:50)
[2018-02-26] MEDS: FAMOTIDINE 20 MG TAB PO SCH ×2 (08:27→17:21)
[2018-02-26] MEDS: CITALOPRAM HYDROBROMIDE 20 MG TAB PO SCH (08:27)
[2018-02-26] MEDS: GLATIRAMER SC SCH (08:28)
[2018-02-26] MEDS: MULTIVITAMINS/MINERALS TAB PO SCH (08:28)
--- NOTE | 2018-02-26 08:35 | History and Physical ---
NO DICTATION, LENGTH 0:1 Job#: [id number] RI
--- NOTE | 2018-02-26 08:55 | Consultation ---
DATE OF CONSULTATION: February 26, 2018 UROLOGY CONSULTATION CHIEF UROLOGIC COMPLAINT/REASON FOR CONSULTATION: Urinary tract infection and leaking SP tube. HISTORY OF PRESENT ILLNESS: Mr. Orellana is a 42-year-old male patient of Dr. Dang Warner, who was admitted through the emergency room with urologic diagnosis consisting of urinary tract infection and urinary incontinence. However, no call was made to the urologist whom he is being treated by. The patient denied fevers nor chills. States his suprapubic changed just 10-12 days ago. Denied gross hematuria. Has had some urinary incontinence around the tube site, which has been chronic. PAST MEDICAL HISTORY: Notable for neurogenic bladder, multiple sclerosis, multiple urinary tract infections, anxiety disorder, delirium, history of sepsis, history of hematuria. MEDICATIONS: Please see MAR. ALLERGIES: LEVAQUIN, CEFTRIAXONE AND TAPE. SOCIAL HISTORY: Denied smoking or drinking. FAMILY HISTORY: Denied urologic stones or malignancies. REVIEW OF SYSTEMS: Noncontributory to the above 12-point review of systems. PHYSICAL EXAMINATION GENERAL: A middle-aged male currently in no acute distress. VITALS: Temperature 97, pulse 69, respirations 18, blood pressure 142/64. HEENT: The sclerae are anicteric. NECK: Supple. BACK: Without costovertebral angle tenderness bilaterally. ABDOMEN: Soft. It is nontender. It is not distended. There is no palpable mass. No palpable hernias. No palpable lymphadenopathy. : Normal male external genitalia. Suprapubic tube draining crystal clear urine. There is a dry sponge dressing around the tape. There is no evidence of leakage around the suprapubic tube at this time. The suprapubic tube is draining as I was speaking to the patient. EXTREMITIES: Contracted and nontender. NEURO: Alert. PSYCH: Mood appropriate. SKIN: Normal color. PERTINENT LABORATORY DATA: CT scan showing a 1.3 cm right complex renal cyst. Urinalysis greater than 50 whites, 6-10 reds. Hemoglobin 14, hematocrit 43 and platelet count 270,000, white cell count 2300. Sodium 143, potassium 4.1, chloride 109, bicarb 24, BUN 8, creatinine 0.65, glucose 131. IMPRESSION 1. Chronic suprapubic tube. 2. Neurogenic bladder. 3. Urinary tract infection, [id number]. 4. Microscopic hematuria. 5. Complex renal cyst, right side. 6. Leukocytosis. 7. Urinary incontinence. PLAN: The patient will need dedicated imaging for the complex renal cysts, which can be safely performed as an outpatient. For the patient's urinary tract infection, he has been started on broad-spectrum antibiotics. Agree with this until culture-specific antibiotics are available. Reminder that the patient need for an annual cystoscopy. Would not change the tube more frequently than monthly unless there is encrustation or obstruction, which the CT scan has ruled out. Due to the patient's body habitus, occasional leakage around the suprapubic tube currently appears to have been resolved. For the hypertension, will defer this to the primary service. Would continue multidisciplinary care. Thank you, Dr. Montilla, for allowing us to continue to participate in the care of this patient. Job#: [id number] RI cc:MD MEHDI FERNANDES MD NEHEMIA HAMPEL, MD
[2018-02-26] MEDS ORDERED: TIZANIDINE HCL 4 MG TAB PO SCH (09:00)
[2018-02-26] MEDS ORDERED: LUBIPROSTONE 24 MCG CAP PO SCH (09:00)
[2018-02-26] MEDS ORDERED: CLONAZEPAM 0.5 MG TAB PO PRN (14:45)
--- NOTE | 2018-02-26 15:31 | Consultation ---
DATE OF CONSULTATION: February 26, 2018 INFECTIOUS DISEASE CONSULTATION REASON FOR CONSULTATION: To evaluate and assist in treating a patient with suspected urinary tract infection. HISTORY: Information is gathered from the current medical record. The patient is known to me from previous hospitalization. I interviewed the patient's mother at the bedside. The patient is a 42-year-old male with multiple sclerosis with neurogenic bladder for which he has had a suprapubic Roth catheter for more than 10 years. He has had recurrent urinary tract infections., The mother reports that the patient has been having urine coming out of the suprapubic Roth catheter as well as through the penile urethra. She reports that the patient was recently seen at [facility], at which time he had some hematuria. He was apparently treated for a urinary tract infection. He is admitted to this facility mainly with the concern of urine coming out of the suprapubic Roth catheter as well as the penile urethra. There is no report of fevers. The patient has had no significant temperature spike since his presentation. His temperature was 97.6 degrees at presentation here. The highest temperature recorded is 98.4. On February 24, he had a urinalysis that showed a slightly cloudy urine with 2+ blood, positive esterase, negative nitrite, 6-10 RBCs, more than 50 WBCs, and a few bacteria. His urine culture is reported negative at 36 to 48 hours. His blood cultures drawn on February 26 are being processed. His CBC at the time of presentation showed a white count of 10,000. His white count has since increased to 18.3. It should be noted that the patient is on treatment with Solu-Medrol. His medical history is as reported above. There is no report of chronic kidney disease, liver disease, myocardial infarction or CVA. SOCIAL HISTORY: No report of recent tobacco, alcohol or other forms of recreational drug use. FAMILY HISTORY: Not contributory to his current hospitalization. HE IS REPORTED ALLERGIC TO CEPHALOSPORINS AND FLUOROQUINOLONES. OVERNIGHT HE WAS STARTED ON TREATMENT WITH MEROPENEM. WHILE RECEIVING THE FIRST DOSE, HIS HEART RATE INCREASED TO 125 FROM AROUND 60. THE NURSING STAFF REPORTS THAT HE BECAME FLUSHED. THE MEROPENEM WAS DISCONTINUED. CARBAPENEMS SHOULD, THEREFORE, BE ADDED TO HIS LIST OF ALLERGIES. MEDICATIONS: He is on Zyvox currently. The rest of his medications are per the medication administration report. REVIEW OF SYSTEMS: The patient is alert and responsive. He is in no acute distress. He is not coughing currently. No dyspnea at rest. No headache or neck stiffness. No sore throat. No nausea, vomiting or diarrhea. No pruritus or rash. The mother reports that the patient has been having some involuntary movements of his right upper extremity since today. PHYSICAL EXAMINATION GENERAL: He is an adult male. He is awake, responsive. He appears nontoxic and is in no acute distress. VITAL SIGNS: His maximum temperature recorded since admission is 98.4 degrees Fahrenheit, his current temperature 96.7. His pulse rate 75. Respiratory rate 18. Blood pressure 102/54. HEENT: Shows no gross pallor, no obvious icterus. There is mild facial seborrhea. NECK: Supple. CHEST: Symmetric. LUNGS: Clear. HEART: Sounds are regular without a significant murmur. ABDOMEN: Full, soft. Bowel sounds are present. A suprapubic Roth catheter is in place. The nursing staff reports that since the patient's admission here they have not noticed any wetness of his diaper to indicate urine coming through the penile urethra, and Roth suprapubic catheter is in place. The drainage appears clear. EXTREMITIES: No acute erythema of his extremities. His white count currently 18.3. Again it should be noted that he is on Solu-Medrol. His hemoglobin 14.9, platelet count 270. Differential on the white count 88% neutrophils. His serum creatinine 0.6. His urine culture from February 24 is negative. Blood cultures drawn today are pending. CT of the abdomen and pelvis from February 24 reports a distended rectum with circumferential wall thickening of the distal rectum which may be due to chronic constipation. The bladder is collapsed, with a suprapubic Roth catheter. There is a complex cystic lesion in the upper pole of the right kidney. IMPRESSION: This 42-year-old male with multiple sclerosis and neurogenic bladder has a chronic suprapubic Roth catheter. His urine culture from February 24 is negative. Currently he does not have an active urinary tract infection. There is no other obvious focus of infection. His leukocytosis is likely due to steroid therapy. HE DEVELOPED TACHYCARDIA AND GENERALIZED FLUSHING WHEN MEROPENEM WAS BEING ADMINISTERED. THERE IS CONCERN FOR AN ALLERGIC REACTION. I suggest since the patient is afebrile and his urine culture is negative we should discontinue all antibiotics and monitor him clinically, continue to follow up on his cultures and continue supportive care. I have discussed the findings and impression with the patient and his mother at the bedside along with the nursing care of the patient. I will discuss the patient with Dr. Montilla, whom I thank for the consult and opportunity to participate in the patient's care. Job#: [id number] EV
--- NOTE | 2018-02-26 15:34 | History and Physical ---
CHIEF COMPLAINT: Fever and urinary discomfort. HISTORY OF PRESENT ILLNESS: This is a 42-year-old male with a history of multiple sclerosis and recurrent complicated urinary tract infection secondary to suprapubic catheter-associated infection, now developing a fever at home and discomfort in the pelvic region, brought to the hospital and found to have a urinary tract infection. He is admitted for further evaluation and management. He denies any chest pain or shortness of breath. PAST MEDICAL HISTORY: Complicated urinary tract infection with catheter-associated urinary tract infection; multiple sclerosis; chronic indwelling suprapubic catheter; urinary retention, status post suprapubic catheter placement; ambulatory dysfunction with multiple extremity contractures; anxiety/depression; bacteremia with coagulase-negative Staph aureus and gram-negative bacillus; sepsis due to bacteremia; ESBL Klebsiella pneumonia infection in the blood; Enterococcus faecalis infection in the blood and Staphylococcus coagulase-negative staph infections in the blood in September 2017; and Citrobacter freundii infection in the urine in September 2017. PAST SURGICAL HISTORY: Suprapubic catheter placement. ALLERGIES: PER ELECTRONIC MEDICAL RECORD. FAMILY AND SOCIAL HISTORY: Patient lives with his mother. No alcohol, illicits, or cigarettes. MEDICATIONS: Per electronic medical record. REVIEW OF SYSTEMS: Denies any chest pain or shortness of breath. PHYSICAL EXAMINATION VITAL SIGNS: Reviewed. GENERAL: A tired-appearing man resting in bed. HEENT: Anicteric. CARDIOVASCULAR: Normal S1 and S2. LUNGS: Moderate breath sounds. ABDOMEN: Soft. : He has a suprapubic catheter in place. EXTREMITIES: No edema. He does have contractures of the lower extremities. His left arm is contracted. He is able to move his right arm only. SKIN: Dry. PSYCHIATRIC: Flat affect. NEUROLOGICAL: Awake and appropriate. LABS: Reviewed. MEDICATIONS: Reviewed. ASSESSMENT AND PLAN: This is a 42-year-old man with 1. Complicated urinary tract infection/suprapubic catheter-associated urinary tract infection: We will continue antibiotics. Infectious disease consultation. Patient had a severe reaction to antibiotic in the emergency room. We will get infectious disease on board. Patient likely needs meropenem or other antibiotics as he could have extended spectrum beta-lactamase infection again. 2. Allergic rash, continue steroid therapy as HE HAD ALLERGY TO ANTIBIOTIC TREATMENT IN THE EMERGENCY ROOM. 3. Metabolic acidosis, recheck. 4. Constipation. Continue . 5. Right kidney cystic lesion. Consider further workup. 6. Ambulatory dysfunction on physical deconditioning. We will get physical therapy consultation. 7. History of multiple sclerosis, continue glatiramer treatment. 8. Anxiety/depression: Continue citalopram. 9. Prophylaxis: We will use sequential compression device and Pepcid. 7. Disposition: Monitor closely. Follow up cultures. Infectious disease consultation. Job#: [id number] CF
[2018-02-26] MEDS: ENOXAPARIN INJ 80 MG/0.8 ML SYR SC SCH (20:36)
[2018-02-27] VITALS: BP 128/81
[2018-02-27] MEDS: SODIUM CHLORIDE 0.9% 1000ML 1,000 ML IV SCH (01:45)
[2018-02-27] MEDS: METHYLPREDNISOLONE SOD SUCC 40 MG/ML VIAL IV SCH ×2 (01:59→08:59)
[2018-02-27 04:00] VITALS: BP 136/73
[2018-02-27] MEDS: LINEZOLID 600 MG/D5W 300ML 300 ML IV SCH (06:57)
[2018-02-27 07:15] VITALS: BP 138/86
[2018-02-27 07:58] VITALS: BP 138/86
[2018-02-27] MEDS ORDERED: PREDNISONE20 MG PO (08:07)
[2018-02-27] MEDS ORDERED: FAMOTIDINE20 MG PO (08:07)
[2018-02-27] MEDS ORDERED: FUROSEMIDE INJ 10 MG/ML 2 ML VIAL IV NR (08:15)
[2018-02-27] MEDS: GLATIRAMER SC SCH (08:39)
[2018-02-27 08:51] LABS: BASOPHILS % 0.1 % (0.0-1.0); HEMATOCRIT 44.5 % (38.2-49.6); HEMOGLOBIN 15.1 g/dL (14.0-18.0); LYMPHOCYTES # (AUTO) 1.6 (1.0-3.2); LYMPHOCYTES % 8.3 % (18.0-39.1); MEAN CORPUSCULAR HEMOGLOBIN 30.1 pg (28-32); MEAN CORPUSCULAR HGB CONC 33.9 g/dL (31-35); MEAN CORPUSCULAR VOLUME 88.8 fL (81-99); MONOCYTES # (AUTO) 0.4 (0.2-0.8); MONOCYTES % 2.2 % (4.4-11.3); NEUTROPHILS # (AUTO) 17.3 (2.1-6.9); NEUTROPHILS % 88.8 % (38.7-80.0); PLATELET COUNT 283 x10e3/uL (140-360); RED BLOOD COUNT 5.01 x10e6/uL (4.3-5.7); RED CELL DISTRIBUTION WIDTH 12.6 % (11.7-14.4)
[2018-02-27] MEDS: ENOXAPARIN INJ 80 MG/0.8 ML SYR SC SCH (08:59)
[2018-02-27] MEDS: MULTIVITAMINS/MINERALS TAB PO SCH (08:59)
[2018-02-27] MEDS: FAMOTIDINE 20 MG TAB PO SCH (08:59)
[2018-02-27] MEDS: CITALOPRAM HYDROBROMIDE 20 MG TAB PO SCH (08:59)
[2018-02-27 10:29] LABS: CLARITY,URINE SL CLOUDY (CLEAR); COLOR,URINE YELLOW (YELLOW); LEUKOCYTE ESTERASE ,URINE TRACE (NEGATIVE)
[2018-02-27 10:30] LABS: BILIRUBIN,URINE NEGATIVE (NEGATIVE); KETONES,URINE NEGATIVE (NEGATIVE); NITRITE,URINE NEGATIVE (NEGATIVE); PROTEIN,URINE DIPSTICK NEGATIVE (NEGATIVE); URINE UROBILINOGEN 0.2 mg/dL (0.2 - 1)
[2018-02-27 11:40] VITALS: BP 135/68
[2018-02-27] MEDS ORDERED: LUBIPROSTONE 24 MCG CAP PO SCH (21:00)
== END 2018-02-27 13:30 | disposition home or self-care (01) ==
LOC: ER 14:09 → ERHOLD 18:06 → MED/SURG3 19:42 → ACU 02-26 11:35
PROVIDERS: ADMIT Internal Medicine; ATTEND Internal Medicine
DX: T83.510A Infection and inflammatory reaction due to cystostomy catheter, initial encounter (principal); G35 Multiple sclerosis; E87.2 Acidosis; K59.00 Constipation, unspecified; R53.81 Other malaise; T36.1X5A Adverse effect of cephalosporins and other beta-lactam antibiotics, initial encounter; Y92.230 Patient room in hospital as the place of occurrence of the external cause; N31.9 Neuromuscular dysfunction of bladder, unspecified; Z88.1 Allergy status to other antibiotic agents; Z87.440 Personal history of urinary (tract) infections; R31.29 Other microscopic hematuria; N28.1 Cyst of kidney, acquired; D72.829 Elevated white blood cell count, unspecified; R32 Unspecified urinary incontinence; I10 Essential (primary) hypertension; T83.030A Leakage of cystostomy catheter, initial encounter; F41.9 Anxiety disorder, unspecified
CPT/HCPCS: 36415 ×4; 74177; 80048; 80053 ×2; 81001; 81003; 82150; 82948; 83690; 85025 ×4; 87040; 87086; 93971; 96361 ×2; 97139; 99285; G0378 ×4; J0696; J1200 ×2; J1595; J1650; J1940; J2020 ×3; J2185 ×2; J2270; J2405; J2920 ×4; J2930; J7030 ×3; Q9967

== ENCOUNTER 2018-03-18 12:39 | Emergency (ER) | payer MEDICARE, OTHER ==
[~2018-03-18] VITALS: Ht 165.1 cm; Wt 73.5 kg
[~2018-03-18 12:39] MED LIST changes: +FAMOTIDINE20 MG PO; +PREDNISONE20 MG PO
[2018-03-18] MEDS ORDERED: SODIUM CHLORIDE 0.9% 1000ML 1,000 ML IV STA (12:49)
[2018-03-18 14:06] LABS: BASOPHILS # (AUTO) 0.1 (0.0-0.1); BASOPHILS % 0.4 % (0.0-1.0); EOSINOPHILS # (AUTO) 0.1 (0.0-0.4); HEMATOCRIT 46.5 % (38.2-49.6); HEMOGLOBIN 15.8 g/dL (14.0-18.0); LYMPHOCYTES # (AUTO) 3.8 (1.0-3.2); LYMPHOCYTES % 29.8 % (18.0-39.1); MEAN CORPUSCULAR HEMOGLOBIN 30.4 pg (28-32); MEAN CORPUSCULAR VOLUME 89.6 fL (81-99); MONOCYTES % 8.1 % (4.4-11.3); NEUTROPHILS # (AUTO) 7.7 (2.1-6.9); NEUTROPHILS % 60.4 % (38.7-80.0); PLATELET COUNT 291 x10e3/uL (140-360); RED BLOOD COUNT 5.19 x10e6/uL (4.3-5.7); RED CELL DISTRIBUTION WIDTH 12.3 % (11.7-14.4)
[2018-03-18 14:10] LABS: INR 1.08; PARTIAL THROMBOPLASTIN TIME 26.6 seconds (23.8-35.5); PROTHROMBIN TIME 13.2 seconds (11.9-14.5)
[2018-03-18] MEDS ORDERED: GENTAMICIN SULFATE 320 MG in SODIUM CHLORIDE 0.9% 100 ML 100 ML IV ONE (14:15)
[2018-03-18 14:19] LABS: ALANINE AMINOTRANSFERASE 49 IU/L (0-55); ALBUMIN 3.8 g/dL (3.5-5.0); ALBUMIN/GLOBULIN RATIO 1.1 (0.8-2.0); ALKALINE PHOSPHATASE 100 IU/L (40-150); ANION GAP 14.1 mmol/L (8-16); BLOOD UREA NITROGEN 14 mg/dL (7-26); BUN/CREATININE RATIO 17 (6-25); CALCIUM 9.7 mg/dL (8.4-10.2); CARBON DIOXIDE 32 mmol/L (22-29); CHLORIDE 101 mmol/L (98-107); CREATININE, SERUM 0.84 mg/dL (0.72-1.25); EST GLOMERULAR FILTRATION RATE > 60 ML/MIN (60-); GLUCOSE 98 mg/dL (74-118); POTASSIUM 4.1 mmol/L (3.5-5.1); SODIUM 143 mmol/L (136-145)
[2018-03-18 14:36] LABS: BILIRUBIN,URINE NEGATIVE (NEGATIVE); CLARITY,URINE SL CLOUDY (CLEAR); COLOR,URINE RED (YELLOW); KETONES,URINE NEGATIVE (NEGATIVE); LEUKOCYTE ESTERASE ,URINE 1+ (NEGATIVE); NITRITE,URINE NEGATIVE (NEGATIVE); PROTEIN,URINE DIPSTICK 1+ (NEGATIVE); URINE UROBILINOGEN 0.2 mg/dL (0.2 - 1)
[2018-03-18 15:14] LABS: RBC,URINE >50 /HPF (0-5)
[2018-03-18 17:14] VITALS: BP 119/80
== END 2018-03-18 17:22 ==
LOC: ER 12:39
DX: Z46.6 Encounter for fitting and adjustment of urinary device (principal); I05.0 Rheumatic mitral stenosis; F41.9 Anxiety disorder, unspecified; F32.9 Major depressive disorder, single episode, unspecified
CPT/HCPCS: 36415; 51702; 80053; 81001; 85025; 85610; 85730; 99284; J1580; J7030

== ENCOUNTER → 2018-04-25 | Outpatient (CLI) | payer MEDICARE, OTHER ==
--- NOTE | 2018-04-25 18:33 | Diagnostic Imaging Report ---
PROCEDURE:X-RAY MODIFIED BARIUM SWALLOW COMPARISON:None. INDICATIONS:Not provided. DISCUSSION: Fluoroscopic examination was performed in conjunction with speech pathology, during swallowing of a variety of thin and thick liquid consistencies. Laryngeal penetration was noted to the level of the vocal cords with thin liquids, nectar thick liquids, and honey thick liquids. Overt miriam aspiration of thin liquids was observed during swallowing with cup and straw sips. Minimal to miriam overt aspiration was observed with nectar thick liquids during swallowing with cup and straw sips. Minimal overt aspiration was observed with honey thick liquids during swallowing with cup and straw sips. CONCLUSION: Aspiration across multiple consistencies as above. Please see the report from speech pathology for complete details. Dictated by: Marcos Frank M.D. on 04/25/2018 at 18:39 Electronically approved by: Marcos Frank M.D. on 04/25/2018 at 18:39
== END ==
LOC: DX 12:58
PROVIDERS: ATTEND Internal Medicine
DX: R13.10 Dysphagia, unspecified (principal)
CPT/HCPCS: 74230; 92611; G8996; G8997

== ENCOUNTER 2018-06-16 18:19 | Inpatient (IN) | payer MEDICARE, OTHER ==
[~2018-06-16] VITALS: Ht 165.1 cm; Wt 78.7 kg
[~2018-06-16 18:19] MED LIST changes: +COPAXONE20 MG/KIT SC; +SENNA S TABLET1 EACH PO; +TIZANIDINE HCL4 M1
[2018-06-16] MEDS ORDERED: ACETAMINOPHEN 1000 MG/100 ML IV STA (19:05)
[2018-06-16] MEDS ORDERED: SODIUM CHLORIDE 0.9% 1000ML 1,000 ML ONE (19:09)
[2018-06-16] MEDS: SODIUM CHLORIDE 0.9% 1000ML 1,000 ML IV SCH ×5 (19:28→23:19)
[2018-06-16 20:08] LABS: INR 0.92; PROTHROMBIN TIME 13.2 seconds (11.9-14.5)
[2018-06-16 20:12] LABS: BASOPHILS # (AUTO) 0.1 (0.0-0.1); BASOPHILS % 0.4 % (0.0-1.0); EOSINOPHILS % 0.3 % (0.0-6.0); HEMATOCRIT 43.7 % (38.2-49.6); HEMOGLOBIN 14.5 g/dL (14.0-18.0); LYMPHOCYTES # (AUTO) 1.4 (1.0-3.2); LYMPHOCYTES % 10.2 % (18.0-39.1); MEAN CORPUSCULAR HEMOGLOBIN 29.4 pg (28-32); MEAN CORPUSCULAR HGB CONC 33.2 g/dL (31-35); MEAN CORPUSCULAR VOLUME 88.5 fL (81-99); MONOCYTES # (AUTO) 1.1 (0.2-0.8); MONOCYTES % 7.7 % (4.4-11.3); NEUTROPHILS # (AUTO) 11.2 (2.1-6.9); NEUTROPHILS % 80.9 % (38.7-80.0); PLATELET COUNT 305 x10e3/uL (140-360); RED BLOOD COUNT 4.94 x10e6/uL (4.3-5.7); RED CELL DISTRIBUTION WIDTH 12.9 % (11.7-14.4)
[2018-06-16 20:17] LABS: ALANINE AMINOTRANSFERASE 15 IU/L (0-55); ALBUMIN 3.9 g/dL (3.5-5.0); ALBUMIN/GLOBULIN RATIO 1.1 (0.8-2.0); ALKALINE PHOSPHATASE 115 IU/L (40-150); BLOOD UREA NITROGEN 14 mg/dL (7-26); BUN/CREATININE RATIO 19 (6-25); CALCIUM 9.4 mg/dL (8.4-10.2); CARBON DIOXIDE 26 mmol/L (22-29); CHLORIDE 104 mmol/L (98-107); CREATININE, SERUM 0.75 mg/dL (0.72-1.25); EST GLOMERULAR FILTRATION RATE > 60 ML/MIN (60-); GLUCOSE 98 mg/dL (74-118); SODIUM 141 mmol/L (136-145)
--- NOTE | 2018-06-16 20:55 | Diagnostic Imaging Report ---
EXAM: CHEST SINGLE (PORTABLE), AP 1 view INDICATION: P now pain COMPARISON: None FINDINGS: LINES/TUBES: None LUNGS: No consolidations or edema. Subsegmental atelectasis left lung base. PLEURA: No effusions or pneumothorax. HEART AND MEDIASTINUM: Normal size and contour. BONES AND SOFT TISSUES: No acute findings. IMPRESSION: No acute thoracic abnormality. Signed by: Dr. Teresa Tavarez M.D. on 06/16/2018 8:51 PM
[2018-06-16 21:31] LABS: CLARITY,URINE HAZY (CLEAR); COLOR,URINE YELLOW (YELLOW); LEUKOCYTE ESTERASE ,URINE TRACE (NEGATIVE)
[2018-06-16 21:32] LABS: BILIRUBIN,URINE NEGATIVE (NEGATIVE); KETONES,URINE NEGATIVE (NEGATIVE); NITRITE,URINE POSITIVE (NEGATIVE); PROTEIN,URINE DIPSTICK NEGATIVE (NEGATIVE); RBC,URINE >50 /HPF (0-5); URINE UROBILINOGEN 0.2 mg/dL (0.2 - 1); WBC,URINE (MAN) >50 /HPF (0-5)
[2018-06-16 21:33] LABS: BACTERIA,URINE MODERATE /HPF; EPITHELIAL CELLS,URINE FEW /LPF; YEAST,URINE MODERATE
[2018-06-16] MEDS: PIPER-TAZ 3.375 GM 50 ML IV SCH (21:48)
[2018-06-16] MEDS ORDERED: ONDANSETRON HCL INJ 2 MG/ML VIAL IV PRN (22:00)
[2018-06-16] MEDS ORDERED: MORPHINE SULFATE 2 MG/ML SYR IV PRN (22:00)
[2018-06-16 22:52] VITALS: BP 168/72
[2018-06-17] VITALS (7 sets, daily range): BP systolic 114–138; BP diastolic 68–93
[2018-06-17] MEDS: SODIUM CHLORIDE 0.9% 1000ML 1,000 ML IV SCH ×16 (00:20→20:36)
[2018-06-17 05:19] LABS: BASOPHILS # (AUTO) 0.1 (0.0-0.1); BASOPHILS % 0.5 % (0.0-1.0); EOSINOPHILS # (AUTO) 0.1 (0.0-0.4); EOSINOPHILS % 0.6 % (0.0-6.0); HEMATOCRIT 40.5 % (38.2-49.6); HEMOGLOBIN 13.4 g/dL (14.0-18.0); LYMPHOCYTES % 16.2 % (18.0-39.1); MEAN CORPUSCULAR HEMOGLOBIN 29.1 pg (28-32); MEAN CORPUSCULAR HGB CONC 33.1 g/dL (31-35); MONOCYTES # (AUTO) 1.4 (0.2-0.8); MONOCYTES % 10.7 % (4.4-11.3); NEUTROPHILS # (AUTO) 9.1 (2.1-6.9); NEUTROPHILS % 71.8 % (38.7-80.0); PLATELET COUNT 246 x10e3/uL (140-360)
[2018-06-17] MEDS: PIPER-TAZ 3.375 GM 50 ML IV SCH ×3 (06:36→17:13)
[2018-06-17] MEDS ORDERED: TRAMADOL HCL 50 MG TAB PO PRN (08:00)
[2018-06-17 08:02] LABS: ALANINE AMINOTRANSFERASE 14 IU/L (0-55); ALBUMIN 3.4 g/dL (3.5-5.0); ALBUMIN/GLOBULIN RATIO 1.2 (0.8-2.0); ALKALINE PHOSPHATASE 97 IU/L (40-150); ANION GAP 13.7 mmol/L (8-16); BLOOD UREA NITROGEN 7 mg/dL (7-26); BUN/CREATININE RATIO 11 (6-25); CALCIUM 8.6 mg/dL (8.4-10.2); CARBON DIOXIDE 22 mmol/L (22-29); CHLORIDE 110 mmol/L (98-107); CREATININE, SERUM 0.65 mg/dL (0.72-1.25); EST GLOMERULAR FILTRATION RATE > 60 ML/MIN (60-); GLUCOSE 107 mg/dL (74-118); POTASSIUM 3.7 mmol/L (3.5-5.1); SODIUM 142 mmol/L (136-145)
[2018-06-17] MEDS: LUBIPROSTONE 24 MCG CAP PO SCH ×2 (08:56→17:13)
[2018-06-17] MEDS: OXYBUTYNIN CHLORIDE 5 MG TAB PO SCH ×3 (08:56→20:36)
[2018-06-17] MEDS: TIZANIDINE HCL 4 MG TAB PO SCH ×2 (08:56→17:13)
[2018-06-17] MEDS: SENNA-S TABLET PO SCH ×2 (08:56→17:14)
[2018-06-17] MEDS: CLONAZEPAM 0.5 MG TAB PO SCH ×2 (08:56→20:36)
[2018-06-17] MEDS ORDERED: GLATIRAMER (COPOLYMER-1) 20 MG SYR SQ SCH (09:00)
--- NOTE | 2018-06-17 13:52 | History and Physical ---
CHIEF COMPLAINT: Penile pain and fever. HISTORY OF PRESENT ILLNESS: This is a 43-year-old man with a history of recurrent, complicated, and catheter-associated urinary tract infection including ESBL organisms, now developing fever at home and penile pain, prompted visit to hospital. The last time his suprapubic catheter changed was in early May. No other symptoms. PAST MEDICAL HISTORY: Complicated urinary tract infection/catheter-associated urinary tract infection, ESBL Klebsiella pneumoniae UTI, Enterococcus faecalis bacteremia, Staphylococcus coag-negative staph bacteremia in September 2017, Citrobacter freundii infection in the urine in September 2017, multiple sclerosis, chronic indwelling suprapubic catheter, urinary retention/suprapubic catheter placement, ambulatory dysfunction with multiple extremity contractures, anxiety/depression, sepsis due to bacteremia, and constipation. PAST SURGICAL HISTORY: Suprapubic catheter placement. ALLERGIES: PER ELECTRONIC MEDICAL RECORD. FAMILY/SOCIAL HISTORY: Patient lives with his mother. No alcohol. MEDICATIONS: Per electronic medical record. REVIEW OF SYSTEMS: Unobtainable at this time. PHYSICAL EXAMINATION VITAL SIGNS: Reviewed. GENERAL APPEARANCE: Tired-appearing man, resting in bed. HEENT: Anicteric. CARDIOVASCULAR: Normal S1, S2. LUNGS: He has moderate breath sounds. ABDOMEN: Soft, nontender. He has suprapubic catheter in place, which was not bleeding and dry. : His penis normal, exam done in presence of his mom. EXTREMITIES: He has contracted lower extremities and contracted left arm. Right arm is mobile and functional. SKIN: Dry. PSYCHIATRIC: Flat affect. NEUROLOGICAL: Alert, oriented, appropriate. LABS: Reviewed. MEDICATIONS: Reviewed. ASSESSMENT: This is a 43-year-old man with; 1. Complicated urinary tract infection/suprapubic catheter-associated urinary tract infection, this was present on admission. He has had extended-spectrum beta-lactamases infections in the past. 2. Elevated signs of sepsis. 3. Depression. 4. Multiple sclerosis. 5. Chronic urinary retention, status post suprapubic catheter placement. 6. Ambulatory dysfunction. 7. Constipation. PLAN 1. IV Zosyn, the patient had an allergy to meropenem. 2. Infectious disease consultation. 3. Urology consultation. 4. Followup cultures. 5. Resume home medications for multiple sclerosis. 6. Avoid anticoagulation as patient has had severe hematuria on last admission. Job#: [id number] CORNELIO
[2018-06-17] MEDS ORDERED: ACETAMINOPHEN 325 MG TAB PO PRN (17:30)
[2018-06-17] MEDS ORDERED: ACETAMINOPHEN 325 MG TAB PO ONE (18:00)
[2018-06-17] MEDS: FLUCONAZOLE 200 MG/100 ML 100 ML IV SCH (18:00)
[2018-06-18] VITALS (7 sets, daily range): BP systolic 81–134; BP diastolic 57–82
[2018-06-18] MEDS: PIPER-TAZ 3.375 GM 50 ML IV SCH ×5 (00:15→23:36)
[2018-06-18 06:33] LABS: BASOPHILS # (AUTO) 0.1 (0.0-0.1); BASOPHILS % 0.4 % (0.0-1.0); EOSINOPHILS # (AUTO) 0.2 (0.0-0.4); EOSINOPHILS % 1.3 % (0.0-6.0); LYMPHOCYTES # (AUTO) 2.9 (1.0-3.2); LYMPHOCYTES % 20.1 % (18.0-39.1); MEAN CORPUSCULAR HEMOGLOBIN 29.5 pg (28-32); MEAN CORPUSCULAR HGB CONC 33.3 g/dL (31-35); MEAN CORPUSCULAR VOLUME 88.6 fL (81-99); MONOCYTES # (AUTO) 1.9 (0.2-0.8); MONOCYTES % 13.1 % (4.4-11.3); NEUTROPHILS # (AUTO) 9.4 (2.1-6.9); NEUTROPHILS % 64.7 % (38.7-80.0); PLATELET COUNT 257 x10e3/uL (140-360)
[2018-06-18 06:52] LABS: ANION GAP 13.7 mmol/L (8-16); BLOOD UREA NITROGEN 6 mg/dL (7-26); BUN/CREATININE RATIO 9 (6-25); CALCIUM 8.3 mg/dL (8.4-10.2); CARBON DIOXIDE 23 mmol/L (22-29); CHLORIDE 109 mmol/L (98-107); CREATININE, SERUM 0.65 mg/dL (0.72-1.25); EST GLOMERULAR FILTRATION RATE > 60 ML/MIN (60-); GLUCOSE 94 mg/dL (74-118); POTASSIUM 3.7 mmol/L (3.5-5.1); SODIUM 142 mmol/L (136-145)
[2018-06-18] MEDS: SODIUM CHLORIDE 0.9% 1000ML 1,000 ML IV SCH ×5 (07:11→21:46)
[2018-06-18 07:47] LABS: LYMPHOCYTES % (MANUAL) 28 % (19-48); MONOCYTES % (MANUAL) 5 % (3.4-9.0); NEUTROPHILS % (MANUAL) 65 % (40-74)
[2018-06-18 07:48] LABS: PLATELET ESTIMATE ADEQUATE; PLATELET MORPHOLOGY COMMENT NORMAL; RBC MORPHOLOGY COMMENT NORMAL
[2018-06-18] MEDS: LUBIPROSTONE 24 MCG CAP PO SCH ×2 (09:00→17:09)
[2018-06-18] MEDS: SENNA-S TABLET PO SCH ×2 (09:00→17:09)
[2018-06-18] MEDS ORDERED: INFLUENZA VIRUS VAC SPLIT INJ 0.5 ML SYR IM NR (10:00)
[2018-06-18] MEDS ORDERED: INFLUENZA VIRUS VAC SPLIT INJ 0.5 ML SYR IM ONE (10:00)
[2018-06-18] MEDS: TIZANIDINE HCL 4 MG TAB PO SCH ×2 (10:26→17:09)
[2018-06-18] MEDS: CLONAZEPAM 0.5 MG TAB PO SCH ×2 (10:26→20:27)
[2018-06-18] MEDS: OXYBUTYNIN CHLORIDE 5 MG TAB PO SCH ×3 (10:26→20:27)
--- NOTE | 2018-06-18 10:50 | Consultation ---
DATE OF CONSULTATION: June 18, 2018 INFECTIOUS DISEASE CONSULTATION REASON FOR CONSULTATION: Catheter-associated urinary tract infection. Thank you, Dr. Montilla, for asking me to see this patient. HISTORY: The patient is a 43-year-old man referred for catheter-associated urinary tract infection. He presented to the emergency department on June 16, 2018, with fever and malodorous urine. The patient has neurogenic bladder from advanced multiple sclerosis. He has a suprapubic catheter exchanged once a month. The exchange was done on June 01, 2018. In the emergency department, he was noted to have a temperature of 100.1 degrees Fahrenheit, pulse 117, respiratory rate 20, blood pressure 132/92, and oxygen saturation 99% on room air. Initial laboratory studies showed leukocyte count of 13,830 with 80.9% neutrophils and abnormal urinalysis. Chest x-ray showed no acute cardiopulmonary abnormality. Urine culture later grew Klebsiella pneumonia ESBL positive and yeast. PAST MEDICAL HISTORY: Multiple sclerosis, neurogenic bladder and bedridden. PAST SURGICAL HISTORY: Suprapubic catheter placement. ALLERGIES: CEFTRIAXONE, FLUOROQUINOLONES AND MEROPENEM, WHICH CAUSED DIFFUSE ERYTHEMA AND CAUSED RASH. MEDICATIONS: See MAR. The current antimicrobials are Zosyn 3.375 g IVPB q.6 h. and fluconazole 200 mg IVPB q.24 h. IMMUNIZATION: He has not received influenza or pneumococcal vaccination. FAMILY HISTORY: Noncontributory. SOCIAL HISTORY: No alcohol or tobacco use. REVIEW OF SYSTEMS: As per history of present illness. PHYSICAL EXAMINATION GENERAL: No acute distress. VITAL SIGNS: T-max 99.5, pulse 79, respiratory rate 20, blood pressure 116/82, weight 166 pounds. HEENT: Atraumatic. There is no icterus or injection of conjunctivae. There is no ear or nasal discharge. Moist oral mucosa. No pharyngeal erythema. NECK: Supple. No lymphadenopathy. LUNGS: Good air entry bilaterally. HEART: Normal S1 and S2. Regular. ABDOMEN: The suprapubic catheter exit site is without redness or discharge. Soft. There is suprapubic tenderness. EXTREMITIES: There is mild contractures of the limbs. No edema, clubbing or cyanosis. SKIN: There is no acute erythema or breakdown. [employer]ES REPRESENTATIVE: Awake, alert and oriented. LABORATORY AND DIAGNOSTICS: WBC 14,540, hemoglobin 13, platelets 257,000, neutrophils 64.3, lymphs 20.1, monos 13.1, eosinophil 1.3, basophils 0.4. BUN 6 and creatinine 0.65. Urine culture grew Klebsiella pneumoniae, ESBL positive and yeast. Blood culture grew gram-positive cocci in clusters from 1 bottle. Chest x-ray showed no acute thoracic abnormality. IMPRESSION 1. Complicated cystitis, present on admission. 2. Neurogenic bladder. 3. Positive blood culture due to gram-positive cocci in clusters. 4. Multiple sclerosis. PLAN: Continue current antimicrobials and administer influenza vaccination. Job#: [id number] AMISH ESCOBEDO
--- NOTE | 2018-06-18 11:55 | Progress Note ---
DATE: June 18, 2018 TIME: 8:05 a.m. OVERNIGHT: No events. REVIEW OF SYSTEMS: The patient denies any symptoms. Denies chest pain or shortness of breath. Denies any fever, chills or sweats. Denies any headache. Denies any vomiting. PHYSICAL EXAMINATION VITAL SIGNS: Have been reviewed. GENERAL: A tired-appearing man resting in bed. HEENT: Anicteric. CARDIOVASCULAR: Normal S1 and S2. LUNGS: Moderate breath sounds. ABDOMEN: Soft and nontender. He has a suprapubic catheter in place. Not bleeding. : Penis is normal in appearance. EXTREMITIES: He has contractures of the lower extremities and the left arm. Right arm is mobile and functional. SKIN: Dry. PSYCHIATRIC: Flat affect. NEUROLOGIC: Alert, awake and appropriate. LABS: Reviewed. MEDICATIONS: Reviewed. ASSESSMENT: A 43-year-old man with: 1. Complicated urinary tract infection/suprapubic catheter-associated urinary tract infection present on admission: He has gram-negative rods growing and he has a history of extended spectrum beta-lactamase infection. 2. Signs of sepsis. 3. Depression. 4. Multiple sclerosis. 5. Chronic urinary retention: Status post suprapubic catheter placement. 6. Ambulatory dysfunction. 7. Constipation. PLAN 1. Continue IV Zosyn. He is allergic to meropenem. 2. Follow up cultures. 3. Urology and infectious disease on board. 4. Check labs this morning. Job#: [id number] AMISH
[2018-06-18] MEDS ORDERED: MORPHINE SULFATE INJ 4 MG/ML INJ IV PRN (12:45)
[2018-06-18] MEDS: FLUCONAZOLE 200 MG/100 ML 100 ML IV SCH (17:41)
[2018-06-19] VITALS (7 sets, daily range): BP systolic 96–128; BP diastolic 60–87
[2018-06-19] MEDS: SODIUM CHLORIDE 0.9% 1000ML 1,000 ML IV SCH ×3 (05:45→23:06)
[2018-06-19] MEDS: PIPER-TAZ 3.375 GM 50 ML IV SCH ×4 (05:45→23:06)
[2018-06-19] MEDS: CLONAZEPAM 0.5 MG TAB PO SCH ×2 (08:50→20:18)
[2018-06-19] MEDS ORDERED: GLATIRAMER ACETATE 40 MG/ML SYRINGE SQ SCH (09:00)
[2018-06-19] MEDS: LUBIPROSTONE 24 MCG CAP PO SCH ×2 (09:23→17:16)
[2018-06-19] MEDS: OXYBUTYNIN CHLORIDE 5 MG TAB PO SCH ×3 (09:23→20:18)
[2018-06-19] MEDS: SENNA-S TABLET PO SCH ×2 (09:24→17:16)
[2018-06-19] MEDS: TIZANIDINE HCL 4 MG TAB PO SCH ×2 (09:24→17:16)
[2018-06-19] MEDS ORDERED: COPAXONE 40 MG SC SCH (10:00)
[2018-06-19] MEDS: GLATIRAMER ACETATE 40 MG/ML SYRINGE SQ SCH (15:46)
[2018-06-19] MEDS: FLUCONAZOLE 200 MG/100 ML 100 ML IV SCH (17:16)
--- NOTE | 2018-06-19 23:06 | Progress Note ---
DATE: June 19, 2018 TIME: 7:30 a.m. OVERNIGHT: No events. REVIEW OF SYSTEMS: Unreliable. PHYSICAL EXAM VITAL SIGNS: Reviewed. GENERAL: A tired-appearing man resting in bed. HEENT: Anicteric. CARDIOVASCULAR: Normal S1, S2. LUNGS: Moderate breath sounds. ABDOMEN: Soft, nontender. He has a suprapubic catheter in place. EXTREMITIES: He has contractures of lower extremities and contractility of left arm. His right arm is mobile and functional. SKIN: Dry. PSYCHIATRIC: Flat affect. NEUROLOGIC: Awake and appropriate. LABS: Reviewed. MEDICATIONS: Reviewed. ASSESSMENT: A 43-year-old man. 1. Extended spectrum beta-lactamase klebsiella urinary tract infection. 2. Complicated/catheter-associated urinary tract infection, which was present on admission. 3. Signs of sepsis. 4. Depression. 5. Multiple sclerosis. 6. Chronic urinary retention. 7. Ambulatory dysfunction. 8. Constipation. PLAN 1. Continue IV Zosyn. Patient is allergic to meropenem. 2. Continue follow up labs. 3. SNF placement versus home with IV antibiotics. 4. Discharge planning. Job#: [id number] CQ
[2018-06-20] VITALS (8 sets, daily range): BP systolic 101–127; BP diastolic 60–89
--- NOTE | 2018-06-20 00:32 | Consultation ---
DATE OF CONSULTATION: June 19, 2018 INFECTIOUS DISEASE INITIAL CONSULTATION CONSULTING PHYSICIAN: Dr. Bernardo Montilla REASON FOR CONSULTATION: Urinary tract infection, management of IV antibiotics. HISTORY OF PRESENT ILLNESS: This is a 43-year-old male with past medical history of recurrent and complicated catheter-associated urinary tract infections including ESBL organisms, Enterococcus faecalis bacteremia, Staphylococcus coag-negative bacteremia in September 2017, Citrobacter freundii infection in the urine in September 2017, multiple sclerosis, chronic indwelling suprapubic catheter, urinary retention, suprapubic catheter placement, multiple extremity contractures, anxiety, depression, sepsis due to bacteremia, chronic constipation. He was admitted to [facility] after developing fever, T-max of 102 degrees Fahrenheit at home with pain in the penile area. Last suprapubic catheter was changed on May 27, 2018. PAST SURGICAL HISTORY: Includes suprapubic catheter placement. PAST MEDICAL HISTORY: See HPI. ALLERGIES: NO KNOWN DRUG ALLERGIES. FAMILY AND SOCIAL HISTORY: Patient lives with mother. Negative ETOH. Negative tobacco. Negative for illicit drug use. MEDICATIONS: See MAR. REVIEW OF SYSTEMS: Unobtainable due to patient's altered mental status. PHYSICAL EXAMINATION: VITAL SIGNS: Currently, temp 96.2 degrees Fahrenheit, blood pressure 117/87, heart rate 71, respirations 16. GENERAL APPEARANCE: Patient is sleeping comfortably in bed, in no acute distress. HEENT: Head normocephalic, atraumatic. Extraocular movements intact. PERRLA. Trachea midline. NECK: No lymphadenopathy. CARDIOVASCULAR: Regular rate and rhythm. Normal S1 and S2. No murmurs audible. LUNGS: Clear to auscultation bilaterally. Symmetrical chest expansion. ABDOMEN: Soft, nontender. Bowel sounds present x4. Suprapubic catheter in place. No bleeding or erythema to periwound. EXTREMITIES: Contracted lower extremities in the left arm. SKIN: Warm and dry. There are no wounds noted. NEUROLOGICAL: He is alert and oriented x2 to 3. LABS: Dated June 19, white blood cell count 14.54, hemoglobin of 13, hematocrit 39, platelet count of 257,000. Sodium 142, potassium 3.7, chloride 109, bicarb 23, BUN of 6, creatinine 0.65, glucose of 94. Urine cultures growing Klebsiella pneumoniae, ESBL as well as some yeast. ASSESSMENT: 1. Complicated urinary tract infection with suprapubic catheter-associated urinary tract infection that was present on admission. Got Klebsiella pneumoniae with extended-spectrum beta-lactamase. 2. Leukocytosis. 3. Multiple sclerosis. 4. Chronic urinary retention. 5. Depression. 6. Constipation. 7. Ambulatory dysfunction. PLAN: Will continue IV Zosyn and fluconazole. Urology has been consulted. Case was discussed with Dr. Spears. She will see patient in the morning. Thank you Dr. Montilla for the consultation. We will follow the patient along with you. Dictated By: Chase Gonzalez NP Job#: [id number]
[2018-06-20] MEDS: SODIUM CHLORIDE 0.9% 1000ML 1,000 ML IV SCH ×2 (05:33→17:11)
[2018-06-20] MEDS: PIPER-TAZ 3.375 GM 50 ML IV SCH ×3 (05:33→17:12)
[2018-06-20] MEDS: LUBIPROSTONE 24 MCG CAP PO SCH ×2 (09:20→17:11)
[2018-06-20] MEDS: OXYBUTYNIN CHLORIDE 5 MG TAB PO SCH ×3 (09:20→21:40)
[2018-06-20] MEDS: CLONAZEPAM 0.5 MG TAB PO SCH ×2 (09:20→21:40)
[2018-06-20] MEDS: SENNA-S TABLET PO SCH ×2 (09:20→17:11)
[2018-06-20] MEDS: TIZANIDINE HCL 4 MG TAB PO SCH ×2 (09:20→17:11)
--- NOTE | 2018-06-20 15:15 | Diagnostic Imaging Report ---
EXAM: CT Abdomen and Pelvis WITHOUT contrast INDICATION: Stone COMPARISON: CT pelvis 05/18/[address] abdomen pelvis 02/24/2018. TECHNIQUE: Abdomen and pelvis were scanned utilizing a multidetector helical scanner from the lung base to the pubic symphysis without administration of IV contrast. Absence of intravenous contrast decreases sensitivity for detection of focal lesions and vascular pathology. Coronal and sagittal reformations were obtained. Routine protocol was performed. IV CONTRAST: None. ORAL CONTRAST: Water RADIATION DOSE: Total DLP: 601.9 mGy*cm Estimated effective dose: (DLP x 0.015 x size factor) mSv COMPLICATIONS: None FINDINGS: LINES and TUBES: There is a suprapubic catheter within the bladder. LOWER THORAX: Unremarkable HEPATOBILIARY: The dome of the bladder is excluded from the study. No focal hepatic lesions. No biliary ductal dilation. GALLBLADDER: No radio-opaque stones or sludge. No wall thickening. SPLEEN: No splenomegaly. PANCREAS: No focal masses or ductal dilatation. ADRENALS: No adrenal nodules KIDNEYS/URETERS: No hydronephrosis. No cystic or solid mass lesions. No stones. Previously noted right upper pole hypodense lesion is not well seen on non-contrast study and is better characterized on CT abdomen/pelvis with contrast from 02/24/2018. GI TRACT: No evidence of bowel obstruction. Again noted is retained stool within the rectum, which is dilated, measuring up to 10.2 cm. Normal appendix. PELVIC ORGANS/BLADDER: Suprapubic catheter is within a nondistended bladder. A chronic appearing bladder stone is again noted, the stone is slightly smaller compared to CT on 02/24/18. LYMPH NODES: No lymphadenopathy. VESSELS: Unremarkable. PERITONEUM / RETROPERITONEUM: No free air or fluid. BONES AND SOFT TISSUES: No acute bony abnormality. IMPRESSION: No evidence of renal stone. Suprapubic catheter in place. Chronic appearing bladder stone. Signed by: Dr. Raffi Medina MD on 06/20/2018 3:12 PM
[2018-06-20] MEDS: FLUCONAZOLE 200 MG/100 ML 100 ML IV SCH (18:10)
--- NOTE | 2018-06-20 22:29 | Progress Note ---
DATE: June 20, 2018 TIME: 6:35 a.m. OVERNIGHT: No events. REVIEW OF SYSTEMS: Unreliable. PHYSICAL EXAMINATION VITAL SIGNS: Reviewed. GENERAL: A tired-appearing man resting in bed. HEENT: Anicteric. CARDIOVASCULAR: Normal S1 and S2. LUNGS: Moderate breath sounds. ABDOMEN: Soft. Suprapubic catheter in place. EXTREMITIES: He has contractures of the lower extremities and contracture to the left arm. Right arm mobile and functional. SKIN: Dry. PSYCHIATRIC: Flat affect. NEUROLOGIC: Awake. LABS: Reviewed. MEDICATIONS: Reviewed. ASSESSMENT: A 43-year-old man with: 1. Extended spectrum beta-lactamase Klebsiella urinary tract infection. 2. Complicated/catheter-associated urinary tract infection, which was present on admission. 3. Samara albicans infection in the urine. 4. Depression. 5. Multiple sclerosis. 6. Status post sepsis. 7. Ambulatory dysfunction. 8. Constipation. 9. Coagulase-negative staphylococcus in 1 of 2 blood cultures, possibly a contaminate. PLAN 1. Continue IV Zosyn. 2. Continue antifungal. 3. SNF placement versus IV antibiotics as per infectious disease. 4. Follow up further lab testing. Job#: [id number] AMISH
[2018-06-21] VITALS (8 sets, daily range): BP systolic 98–129; BP diastolic 77–88
[2018-06-21] MEDS: PIPER-TAZ 3.375 GM 50 ML IV SCH ×4 (00:22→17:57)
[2018-06-21] MEDS: SODIUM CHLORIDE 0.9% 1000ML 1,000 ML IV SCH ×4 (04:39→22:16)
[2018-06-21] MEDS: LUBIPROSTONE 24 MCG CAP PO SCH ×2 (09:42→17:57)
[2018-06-21] MEDS: CLONAZEPAM 0.5 MG TAB PO SCH ×2 (09:42→22:16)
[2018-06-21] MEDS: OXYBUTYNIN CHLORIDE 5 MG TAB PO SCH ×3 (09:42→22:16)
[2018-06-21] MEDS: SENNA-S TABLET PO SCH ×2 (09:42→17:57)
[2018-06-21] MEDS: TIZANIDINE HCL 4 MG TAB PO SCH ×2 (09:42→17:57)
[2018-06-21] MEDS: GLATIRAMER ACETATE 40 MG/ML SYRINGE SQ SCH (13:02)
[2018-06-21] MEDS ORDERED: MAGNESIUM HYDROXIDE 30 ML UDC PO ONE (16:30)
[2018-06-21] MEDS: BISACODYL 5 MG TAB EC PO SCH (17:57)
[2018-06-21] MEDS: FLUCONAZOLE 200 MG/100 ML 100 ML IV SCH (18:50)
[2018-06-22] VITALS (8 sets, daily range): BP systolic 100–130; BP diastolic 63–80
[2018-06-22] MEDS: PIPER-TAZ 3.375 GM 50 ML IV SCH ×4 (00:01→17:22)
[2018-06-22] MEDS: SODIUM CHLORIDE 0.9% 1000ML 1,000 ML IV SCH ×3 (00:45→15:14)
[2018-06-22] MEDS: SENNA-S TABLET PO SCH ×2 (09:17→17:21)
[2018-06-22] MEDS: BISACODYL 5 MG TAB EC PO SCH (09:17)
[2018-06-22] MEDS: CLONAZEPAM 0.5 MG TAB PO SCH ×2 (09:17→20:00)
[2018-06-22] MEDS: OXYBUTYNIN CHLORIDE 5 MG TAB PO SCH ×3 (09:17→20:37)
[2018-06-22] MEDS: TIZANIDINE HCL 4 MG TAB PO SCH ×2 (09:17→17:21)
[2018-06-22] MEDS: LUBIPROSTONE 24 MCG CAP PO SCH ×2 (09:17→17:21)
[2018-06-22 09:52] LABS: BASOPHILS # (AUTO) 0.1 (0.0-0.1); BASOPHILS % 0.6 % (0.0-1.0); EOSINOPHILS # (AUTO) 0.2 (0.0-0.4); EOSINOPHILS % 1.9 % (0.0-6.0); HEMATOCRIT 44.3 % (38.2-49.6); LYMPHOCYTES # (AUTO) 2.3 (1.0-3.2); LYMPHOCYTES % 27.6 % (18.0-39.1); MEAN CORPUSCULAR HEMOGLOBIN 29.3 pg (28-32); MEAN CORPUSCULAR HGB CONC 31.6 g/dL (31-35); MEAN CORPUSCULAR VOLUME 92.7 fL (81-99); MONOCYTES # (AUTO) 0.5 (0.2-0.8); MONOCYTES % 5.6 % (4.4-11.3); NEUTROPHILS # (AUTO) 5.4 (2.1-6.9); NEUTROPHILS % 63.8 % (38.7-80.0); PLATELET COUNT 240 x10e3/uL (140-360); RED BLOOD COUNT 4.78 x10e6/uL (4.3-5.7)
[2018-06-22 10:12] LABS: BLOOD UREA NITROGEN 8 mg/dL (7-26); BUN/CREATININE RATIO 10 (6-25); CARBON DIOXIDE 21 mmol/L (22-29); CHLORIDE 111 mmol/L (98-107); CREATININE, SERUM 0.84 mg/dL (0.72-1.25); EST GLOMERULAR FILTRATION RATE > 60 ML/MIN (60-); GLUCOSE 128 mg/dL (74-118); SODIUM 143 mmol/L (136-145)
[2018-06-22] MEDS: FLUCONAZOLE 200 MG/100 ML 100 ML IV SCH (18:49)
[2018-06-23] VITALS (8 sets, daily range): BP systolic 105–210; BP diastolic 67–89
[2018-06-23] MEDS: PIPER-TAZ 3.375 GM 50 ML IV SCH ×4 (05:20→17:19)
[2018-06-23] MEDS: CLONAZEPAM 0.5 MG TAB PO SCH ×2 (08:40→20:00)
[2018-06-23] MEDS: OXYBUTYNIN CHLORIDE 5 MG TAB PO SCH ×3 (09:26→20:51)
[2018-06-23] MEDS: LUBIPROSTONE 24 MCG CAP PO SCH ×2 (09:26→17:18)
[2018-06-23] MEDS: SENNA-S TABLET PO SCH ×2 (09:26→17:18)
[2018-06-23] MEDS: BISACODYL 5 MG TAB EC PO SCH (09:26)
[2018-06-23] MEDS: TIZANIDINE HCL 4 MG TAB PO SCH ×2 (09:27→17:18)
[2018-06-23] MEDS: SODIUM CHLORIDE 0.9% 1000ML 1,000 ML IV SCH ×2 (11:00→20:30)
[2018-06-23] MEDS: FLUCONAZOLE 200 MG/100 ML 100 ML IV SCH (18:06)
[2018-06-24] VITALS: BP 107/56
--- NOTE | 2018-06-24 01:31 | Progress Note ---
DATE: June 22, 2018 TIME: 08:05 a.m. OVERNIGHT: No events. REVIEW OF SYSTEMS: Unreliable. PHYSICAL EXAMINATION VITAL SIGNS: Reviewed. GENERAL: A tired-appearing man resting in bed. HEENT: Anicteric. CARDIOVASCULAR: Normal S1 and S2. LUNGS: Moderate breath sounds. ABDOMEN: Soft and nontender. Suprapubic catheter in place. EXTREMITIES: Contractures of the lower extremities and left arm. SKIN: Dry. PSYCHIATRIC: Flat affect. NEUROLOGIC: Awake and alert. LABS: Reviewed. MEDICATIONS: Reviewed. ASSESSMENT: A 43-year-old man with: 1. Extended spectrum beta-lactamase Klebsiella urinary tract infection. 2. Complicated/catheter-associated urinary tract infection, which was present on admission. 3. Samara albicans infection in the urine. 4. Depression. 5. Multiple sclerosis. 6. Ambulatory dysfunction. 7. Constipation. 8. Bladder infection. PLAN 1. IV antibiotics. 2. Antifungal. 3. Local care. 4. Discharge planning and check labs. Job#: [id number] HARSHIL
--- NOTE | 2018-06-24 01:34 | Progress Note ---
DATE: June 23, 2018 TIME: 8:05 a.m. OVERNIGHT: No events. REVIEW OF SYSTEMS: Unreliable. PHYSICAL EXAMINATION VITAL SIGNS: Reviewed. GENERAL: A tired-appearing man resting in bed. HEENT: Anicteric. CARDIOVASCULAR: Normal S1 and S2. LUNGS: Normal breath sounds. ABDOMEN: Soft and nontender. He has a suprapubic catheter in place. EXTREMITIES: He has contractures of the lower extremities and left arm. SKIN: Dry. PSYCHIATRIC: Flat affect. NEUROLOGIC: Awake. LABS: Reviewed. MEDICATIONS: Reviewed. ASSESSMENT: A 43-year-old man with: 1. Extended spectrum beta-lactamase Klebsiella urinary tract infection. 2. Complicated/catheter-associated urinary tract infection, which was present on admission. 3. Saamra albicans infection in the urine. 4. Depression. 5. Multiple sclerosis. 6. Ambulatory dysfunction. 7. Constipation. 8. Coagulase-negative staphylococcus infection in 1 of 2 blood cultures. PLAN 1. Continue antibiotics. 2. Continue local care. 3. Per infection disease, IV antibiotics over the weekend; likely home on Monday. Job#: [id number] RAMÍREZ
[2018-06-24] MEDS: SODIUM CHLORIDE 0.9% 1000ML 1,000 ML IV SCH ×3 (05:10→22:07)
[2018-06-24 06:17] LABS: BASOPHILS # (AUTO) 0.1 (0.0-0.1); BASOPHILS % 0.5 % (0.0-1.0); EOSINOPHILS # (AUTO) 0.3 (0.0-0.4); EOSINOPHILS % 2.9 % (0.0-6.0); HEMATOCRIT 37.7 % (38.2-49.6); HEMOGLOBIN 12.5 g/dL (14.0-18.0); LYMPHOCYTES # (AUTO) 3.5 (1.0-3.2); LYMPHOCYTES % 35.6 % (18.0-39.1); MEAN CORPUSCULAR HEMOGLOBIN 28.9 pg (28-32); MEAN CORPUSCULAR HGB CONC 33.2 g/dL (31-35); MONOCYTES # (AUTO) 0.8 (0.2-0.8); MONOCYTES % 7.7 % (4.4-11.3); NEUTROPHILS # (AUTO) 5.1 (2.1-6.9); NEUTROPHILS % 52.9 % (38.7-80.0); PLATELET COUNT 366 x10e3/uL (140-360); RED BLOOD COUNT 4.32 x10e6/uL (4.3-5.7)
[2018-06-24 06:21] LABS: MEAN CORPUSCULAR VOLUME 87.3 fL (81-99)
[2018-06-24 07:15] LABS: ANION GAP 6.6 mmol/L (8-16); BLOOD UREA NITROGEN 6 mg/dL (7-26); BUN/CREATININE RATIO 9 (6-25); CALCIUM 9.5 mg/dL (8.4-10.2); CARBON DIOXIDE 28 mmol/L (22-29); CHLORIDE 112 mmol/L (98-107); CREATININE, SERUM 0.66 mg/dL (0.72-1.25); EST GLOMERULAR FILTRATION RATE > 60 ML/MIN (60-); GLUCOSE 91 mg/dL (74-118); POTASSIUM 3.6 mmol/L (3.5-5.1); SODIUM 143 mmol/L (136-145)
[2018-06-24 08:15] VITALS: BP 122/90
[2018-06-24 08:30] VITALS: BP 122/90
[2018-06-24] MEDS: BISACODYL 5 MG TAB EC PO SCH (09:00)
[2018-06-24] MEDS: OXYBUTYNIN CHLORIDE 5 MG TAB PO SCH ×3 (09:18→21:00)
[2018-06-24] MEDS: LUBIPROSTONE 24 MCG CAP PO SCH ×2 (09:18→17:48)
[2018-06-24] MEDS: SENNA-S TABLET PO SCH ×2 (09:18→17:00)
[2018-06-24] MEDS: TIZANIDINE HCL 4 MG TAB PO SCH ×2 (09:18→17:48)
[2018-06-24 12:38] VITALS: BP 116/84
[2018-06-24 16:29] VITALS: BP 109/87
--- NOTE | 2018-06-24 19:52 | Progress Note ---
DATE: June 24, 2018 TIME: 12:15. OVERNIGHT: No acute events. REVIEW OF SYSTEMS: Unreliable. PHYSICAL EXAMINATION VITAL SIGNS: T 96.9, P 56, R 14, BP 122/90, and SpO2 95% on RA. GENERAL: This is a tired-appearing man, resting quietly in bed with eyes closed, arousable to stimuli. HEENT: Normocephalic. Oral mucosa moist and intact with poor dentition. Trachea midline. CV: S1 and S2 without clicks, murmurs, or rubs. LUNGS: Bilateral breath sounds are clear with fair excursion. ABDOMEN: Soft and nontender. Positive suprapubic catheter in place with dressing and diaper noted. EXTREMITIES: Bilateral contractures with padding to lower extremities. Left elbow and shoulder with limited range of motion as well. SKIN: Dry. PSYCHIATRIC: Flat affect. NEUROLOGIC: Follows 1-step commands, somewhat verbal with examiner and states he is tired. LABS: WBC is 9.68, H and H 12.5/37.7, platelets 366, NA 143, K 3.5, Cl 112, CO2 28, gap 6.6, BUN 6, creatinine 0.66, GFR 16. MEDICATIONS 1. Ditropan 5 mg tab p.o. t.i.d. 2. Normal saline at 125 mL an hour IV. 3. Zanaflex 4 mg p.o. b.i.d. 4. Senokot-F p.o. b.i.d. 5. Lubiprostone 24 mcg p.o. b.i.d. 6. Fluconazole IV q.d. 7. Zofran 4 mg p.r.n. 8. Dulcolax 10 mg p.o. daily. 9. Tylenol 650 mg q. 6 hours p.r.n. ASSESSMENT AND PLAN: This is a 43-year-old man with; 1. Extended spectrum beta-lactamase Klebsiella urinary tract infection. Continue intravenous antibiotic. 2. Complicated catheter-associated urinary tract infection, present on admission. Infectious consult reviewed. Urology consult noted. 3. Samara albicans infection in the urine, intravenous fluconazole. 4. Depression. 5. Multiple sclerosis. Medications as above. 6. Ambulatory dysfunction. 7. Constipation, resolved, with previous stated orders. Nursing staff medications noted significantly effective. 8. Coagulase-negative Staphylococcus infection in prior blood culture. Appreciate infectious disease input. DISPOSITION: Continue IV antibiotics and local care as indicated above. DISCHARGE: Pending. Dictated by: Sekou Gregorio NP Job#: [id number] LPA
[2018-06-24 20:00] VITALS: BP 113/77
[2018-06-25] VITALS (7 sets, daily range): BP systolic 109–141; BP diastolic 77–89
[2018-06-25] MEDS: SODIUM CHLORIDE 0.9% 1000ML 1,000 ML IV SCH (06:17)
[2018-06-25] MEDS: SENNA-S TABLET PO SCH (09:21)
[2018-06-25] MEDS: BISACODYL 5 MG TAB EC PO SCH (09:21)
[2018-06-25] MEDS: OXYBUTYNIN CHLORIDE 5 MG TAB PO SCH (09:21)
[2018-06-25] MEDS: LUBIPROSTONE 24 MCG CAP PO SCH (09:21)
[2018-06-25] MEDS: TIZANIDINE HCL 4 MG TAB PO SCH (09:21)
[2018-06-25] MEDS ORDERED: CIPRO500 MG PO (09:24)
--- NOTE | 2018-06-26 22:07 | Discharge Summary ---
PRINCIPAL DIAGNOSES: 1. Extended-spectrum beta-lactamase Klebsiella urinary tract infection. 2. Complicated and catheter-associated urinary tract infection present on admission. 3. Samara albicans infection in the urine. 4. Depression. 5. Coagulase-negative staphylococcus infection in 1 of 2 blood cultures. 6. Constipation. SECONDARY DIAGNOSIS: Ambulatory dysfunction and multiple sclerosis. CHIEF COMPLAINT AND HISTORY OF PRESENT ILLNESS: Please refer to [facility] and [facility]. HOSPITAL COURSE: Patient found to have ESBL Klebsiella urinary tract infection related to complicated and catheter-associated urinary tract infection due to suprapubic catheter. Had Samara albicans infection in the urine. Also had coagulase-negative staph in 1 of 2 blood cultures. Patient received IV antibiotics, subsequently transitioned home on oral medication per infectious disease . FOLLOWUP: 1. Patient will follow up with primary care doctor in 1 week. 2. Follow up with infectious disease, Dr. Spears in 1 week. CONDITION ON DISCHARGE: Stable and improving. DISCHARGE LOCATION: Home. JOSETTE KELLEY MD Job#: [id number]
== END 2018-06-25 13:07 | disposition home or self-care (01) | DRG 698 ==
LOC: ER 18:19 → ERHOLD 21:55 → MED/SURG2 22:44 → IMCU 06-18 04:38 → MED/SURG3 06-18 14:45
PROVIDERS: ADMIT Internal Medicine; ATTEND Internal Medicine
DX: T83.510A Infection and inflammatory reaction due to cystostomy catheter, initial encounter (principal); A41.9 Sepsis, unspecified organism; N30.01 Acute cystitis with hematuria; B37.49 Other urogenital candidiasis; G82.20 Paraplegia, unspecified; T83.511A Infection and inflammatory reaction due to indwelling urethral catheter, initial encounter; G35 Multiple sclerosis; R33.9 Retention of urine, unspecified; K59.00 Constipation, unspecified; F32.9 Major depressive disorder, single episode, unspecified; N31.9 Neuromuscular dysfunction of bladder, unspecified; Z74.01 Bed confinement status; B96.1 Klebsiella pneumoniae [K. pneumoniae] as the cause of diseases classified elsewhere; Z16.12 Extended spectrum beta lactamase (ESBL) resistance; Z88.1 Allergy status to other antibiotic agents; Z91.048 Other nonmedicinal substance allergy status; N28.1 Cyst of kidney, acquired; D64.9 Anemia, unspecified
CPT/HCPCS: 36415; 71045; 74176; 80048; 80053; 81001; 83605; 83735; 85025; 85610; 85730; 87040; 87071; 87086; 87186; 87205; 96361; 96367; 96372; 99285; J1450; J1595; J2270; J2405; J2543; J7030

== ENCOUNTER 2018-08-13 11:18 | Inpatient (IN) | payer MEDICARE, OTHER ==
[~2018-08-13] VITALS: Ht 165.1 cm; Wt 80.7 kg
[~2018-08-13 11:18] MED LIST changes: +CIPRO500 MG PO
[2018-08-13 14:00] LABS: BASOPHILS % 0.3 % (0.0-1.0); EOSINOPHILS % 0.2 % (0.0-6.0); HEMATOCRIT 44.6 % (38.2-49.6); LYMPHOCYTES # (AUTO) 2.3 (1.0-3.2); LYMPHOCYTES % 19.1 % (18.0-39.1); MEAN CORPUSCULAR HEMOGLOBIN 28.6 pg (28-32); MEAN CORPUSCULAR HGB CONC 33.6 g/dL (31-35); MONOCYTES # (AUTO) 0.9 (0.2-0.8); MONOCYTES % 7.3 % (4.4-11.3); NEUTROPHILS # (AUTO) 8.9 (2.1-6.9); NEUTROPHILS % 72.9 % (38.7-80.0); PLATELET COUNT 318 x10e3/uL (140-360); RED BLOOD COUNT 5.25 x10e6/uL (4.3-5.7); RED CELL DISTRIBUTION WIDTH 13.4 % (11.7-14.4)
[2018-08-13 14:18] LABS: ALANINE AMINOTRANSFERASE 18 IU/L (0-55); ALBUMIN 4.1 g/dL (3.5-5.0); ALBUMIN/GLOBULIN RATIO 1.1 (0.8-2.0); ALKALINE PHOSPHATASE 106 IU/L (40-150); ANION GAP 13.3 mmol/L (8-16); BLOOD UREA NITROGEN 17 mg/dL (7-26); BUN/CREATININE RATIO 25 (6-25); CALCIUM 9.7 mg/dL (8.4-10.2); CARBON DIOXIDE 25 mmol/L (22-29); CHLORIDE 103 mmol/L (98-107); CREATININE, SERUM 0.69 mg/dL (0.72-1.25); EST GLOMERULAR FILTRATION RATE > 60 ML/MIN (60-); GLUCOSE 82 mg/dL (74-118); POTASSIUM 4.3 mmol/L (3.5-5.1); SODIUM 137 mmol/L (136-145)
[2018-08-13] MEDS ORDERED: PIPER-TAZ 3.375 GM 50 ML IV SCH (20:30)
[2018-08-13 22:31] LABS: CLARITY,URINE TURBID (CLEAR); COLOR,URINE YELLOW (YELLOW)
[2018-08-13 22:32] LABS: LEUKOCYTE ESTERASE ,URINE 2+ (NEGATIVE); NITRITE,URINE POSITIVE (NEGATIVE); PROTEIN,URINE DIPSTICK 3+ (NEGATIVE)
[2018-08-13 22:33] LABS: BACTERIA,URINE MANY /HPF; BILIRUBIN,URINE NEGATIVE (NEGATIVE); EPITHELIAL CELLS,URINE RARE /LPF; KETONES,URINE TRACE (NEGATIVE); RBC,URINE 0-5 /HPF (0-5); URINE UROBILINOGEN 0.2 mg/dL (0.2 - 1)
[2018-08-14] VITALS (8 sets, daily range): BP systolic 111–135; BP diastolic 71–102
[2018-08-14] MEDS ORDERED: SODIUM CHLORIDE 0.9% 250ML 250 ML ONE (03:59)
[2018-08-14] MEDS: PIPER-TAZ 3.375 GM 50 ML IV SCH ×3 (04:58→20:02)
[2018-08-14] MEDS ORDERED: TRAMADOL HCL 50 MG TAB PO PRN (07:45)
[2018-08-14] MEDS: CLONAZEPAM 0.5 MG TAB PO SCH ×2 (09:00→20:24)
[2018-08-14] MEDS: SENNA-S TABLET PO SCH ×2 (09:00→17:34)
[2018-08-14] MEDS: TIZANIDINE HCL 4 MG TAB PO SCH ×2 (09:45→17:34)
[2018-08-14] MEDS: CITALOPRAM HYDROBROMIDE 20 MG TAB PO SCH (09:45)
[2018-08-14] MEDS: FAMOTIDINE 20 MG TAB PO SCH ×2 (09:45→17:34)
[2018-08-14] MEDS: OXYBUTYNIN CHLORIDE 5 MG TAB PO SCH ×3 (09:45→20:24)
[2018-08-14] MEDS: LUBIPROSTONE 24 MCG CAP PO SCH ×2 (10:00→17:34)
[2018-08-15] VITALS (7 sets, daily range): BP systolic 108–137; BP diastolic 77–83
[2018-08-15] MEDS: PIPER-TAZ 3.375 GM 50 ML IV SCH ×3 (03:48→21:00)
--- NOTE | 2018-08-15 07:53 | Progress Note ---
DATE: August 15, 2018 TIME: 7:20 a.m. OVERNIGHT: No change. He had a suprapubic catheter change. REVIEW OF SYSTEMS: Unobtainable. PHYSICAL EXAMINATION VITAL SIGNS: Reviewed. GENERAL: A tired-appearing man resting in bed. HEENT: Anicteric. CARDIOVASCULAR: Normal S1 and S2. LUNGS: He has moderate breath sounds. ABDOMEN: Soft. : He has a suprapubic catheter in place. EXTREMITIES: No edema. He has contractures of bilateral lower extremities and left arm. He has movement of the right arm. SKIN: Dry. PSYCHIATRIC: Flat affect. NEUROLOGICAL: Awake and alert. LABS: Reviewed. MEDICATIONS: Reviewed. ASSESSMENT: A 43-year-old man with: 1. Urinary retention. 2. Complicated/catheter-associated urinary tract infection. 3. Depression. 4. Ambulatory dysfunction. PLAN 1. Continue antibiotics. 2. Catheter has been changed. 3. Follow up cultures. 4. Discharge planning. Possibly home later today versus tomorrow if cultures remain negative. Job#: [id number] ND
[2018-08-15] MEDS: FAMOTIDINE 20 MG TAB PO SCH ×2 (08:00→16:15)
--- NOTE | 2018-08-15 08:01 | History and Physical ---
DATE OF SERVICE: 08/14/2018 at 2 p.m. CHIEF COMPLAINT: Suprapubic catheter malfunction. HISTORY OF PRESENT ILLNESS: This is a 43-year-old man with history of suprapubic catheter with recurrent complicated urinary tract infections, now developing malfunction of the catheter. He was brought to the hospital for further evaluation and management. PAST MEDICAL HISTORY 1. Complicated urinary tract infections/catheter-associated urinary tract infections, ESBL Klebsiella pneumoniae urinary tract infection, Enterococcus faecalis bacteremia, Staphylococcus coagulase-negative staph bacteremia in September 2017; citrobacter freundii infection in the urine in March 2018. 2. Multiple sclerosis. 3. Chronic indwelling suprapubic catheter. 4. Urinary retention. 5. Ambulatory dysfunction with multiple extremity contractures. 6. Anxiety/depression. 7. Sepsis due to bacteremia. 8. Constipation. PAST SURGICAL HISTORY: Suprapubic catheter placement. ALLERGIES: PER ELECTRONIC MEDICAL RECORD. FAMILY/SOCIAL HISTORY: Patient lives with mother. No alcohol, illicits or cigarettes. MEDICATIONS: Per electronic medical record. REVIEW OF SYSTEMS: Unreliable. VITAL SIGNS: Reviewed. PHYSICAL EXAMINATION GENERAL: A tired-appearing man resting in bed. HEENT: Anicteric. CARDIOVASCULAR: Normal S1 and S2. LUNGS: Moderate breath sounds. ABDOMEN: Soft. He has a suprapubic catheter in place. Dressing is clean and dry. EXTREMITIES: He has contracted lower extremities and left arm. His right arm is mobile and functional. SKIN: Dry. PSYCHIATRIC: Flat affect. NEUROLOGIC: Awake. LABS: Reviewed. MEDICATIONS: Reviewed. ASSESSMENT: This is a 43-year-old man. 1. Urinary retention. 2. Complicated/catheter-associated urinary tract infection. 3. Depression. 4. Ambulatory dysfunction. PLAN 1. Continue IV Zosyn. 2. Follow up cultures. 3. Catheter exchange is pending. 4. Continue home medications. 5. Continue Pepcid for GI prophylaxis. 6. Disposition: Await catheter change. Job#: [id number]
[2018-08-15] MEDS: CLONAZEPAM 0.5 MG TAB PO SCH ×2 (08:55→21:00)
[2018-08-15] MEDS: TIZANIDINE HCL 4 MG TAB PO SCH ×2 (08:55→16:16)
[2018-08-15] MEDS: SENNA-S TABLET PO SCH ×2 (08:55→16:15)
[2018-08-15] MEDS: LUBIPROSTONE 24 MCG CAP PO SCH ×2 (08:55→16:15)
[2018-08-15] MEDS: CITALOPRAM HYDROBROMIDE 20 MG TAB PO SCH (08:55)
[2018-08-15] MEDS: OXYBUTYNIN CHLORIDE 5 MG TAB PO SCH ×3 (08:55→21:00)
[2018-08-15] MEDS: GLATIRAMER 40 MG SC SCH (08:56)
[2018-08-15] MEDS ORDERED: SODIUM CHLORIDE 0.9% 50ML 50 ML ONE (21:13)
[2018-08-16] VITALS: BP 123/81
[2018-08-16 04:00] VITALS: BP 115/71
[2018-08-16] MEDS: PIPER-TAZ 3.375 GM 50 ML IV SCH ×3 (04:24→20:30)
[2018-08-16 07:54] LABS: BASOPHILS % 0.4 % (0.0-1.0); EOSINOPHILS # (AUTO) 0.2 (0.0-0.4); EOSINOPHILS % 2.3 % (0.0-6.0); HEMATOCRIT 41.9 % (38.2-49.6); HEMOGLOBIN 14.1 g/dL (14.0-18.0); LYMPHOCYTES # (AUTO) 2.1 (1.0-3.2); MEAN CORPUSCULAR HEMOGLOBIN 28.1 pg (28-32); MEAN CORPUSCULAR HGB CONC 33.7 g/dL (31-35); MEAN CORPUSCULAR VOLUME 83.5 fL (81-99); MONOCYTES % 10.2 % (4.4-11.3); NEUTROPHILS # (AUTO) 6.5 (2.1-6.9); NEUTROPHILS % 65.9 % (38.7-80.0); PLATELET COUNT 320 x10e3/uL (140-360); RED BLOOD COUNT 5.02 x10e6/uL (4.3-5.7); RED CELL DISTRIBUTION WIDTH 13.6 % (11.7-14.4)
[2018-08-16 08:00] VITALS: BP 113/65
[2018-08-16 08:13] LABS: ANION GAP 11.4 mmol/L (8-16); BLOOD UREA NITROGEN 13 mg/dL (7-26); BUN/CREATININE RATIO 19 (6-25); CALCIUM 9.2 mg/dL (8.4-10.2); CARBON DIOXIDE 25 mmol/L (22-29); CHLORIDE 105 mmol/L (98-107); CREATININE, SERUM 0.69 mg/dL (0.72-1.25); EST GLOMERULAR FILTRATION RATE > 60 ML/MIN (60-); GLUCOSE 104 mg/dL (74-118); POTASSIUM 3.4 mmol/L (3.5-5.1); SODIUM 138 mmol/L (136-145)
[2018-08-16] MEDS: OXYBUTYNIN CHLORIDE 5 MG TAB PO SCH ×3 (09:07→20:34)
[2018-08-16] MEDS: CITALOPRAM HYDROBROMIDE 20 MG TAB PO SCH (09:07)
[2018-08-16] MEDS: LUBIPROSTONE 24 MCG CAP PO SCH ×2 (09:07→17:00)
[2018-08-16] MEDS: SENNA-S TABLET PO SCH ×2 (09:07→17:00)
[2018-08-16] MEDS: CLONAZEPAM 0.5 MG TAB PO SCH ×2 (09:07→20:34)
[2018-08-16] MEDS: FAMOTIDINE 20 MG TAB PO SCH ×2 (09:07→16:30)
[2018-08-16] MEDS: TIZANIDINE HCL 4 MG TAB PO SCH ×2 (09:07→17:00)
[2018-08-16 11:59] VITALS: BP 110/62
[2018-08-16 15:51] VITALS: BP 116/86
[2018-08-16 21:36] VITALS: BP 107/72
[2018-08-17] VITALS (7 sets, daily range): BP systolic 112–126; BP diastolic 71–86
[2018-08-17] MEDS: PIPER-TAZ 3.375 GM 50 ML IV SCH ×2 (04:24→12:30)
[2018-08-17] MEDS: FAMOTIDINE 20 MG TAB PO SCH ×2 (07:30→17:04)
[2018-08-17 08:47] LABS: BASOPHILS % 0.4 % (0.0-1.0); EOSINOPHILS # (AUTO) 0.3 (0.0-0.4); EOSINOPHILS % 3.4 % (0.0-6.0); HEMATOCRIT 43.4 % (38.2-49.6); HEMOGLOBIN 14.4 g/dL (14.0-18.0); LYMPHOCYTES # (AUTO) 2.1 (1.0-3.2); LYMPHOCYTES % 26.6 % (18.0-39.1); MEAN CORPUSCULAR HEMOGLOBIN 28.3 pg (28-32); MEAN CORPUSCULAR HGB CONC 33.2 g/dL (31-35); MEAN CORPUSCULAR VOLUME 85.4 fL (81-99); MONOCYTES # (AUTO) 0.7 (0.2-0.8); MONOCYTES % 8.6 % (4.4-11.3); NEUTROPHILS # (AUTO) 4.8 (2.1-6.9); PLATELET COUNT 307 x10e3/uL (140-360); RED BLOOD COUNT 5.08 x10e6/uL (4.3-5.7); RED CELL DISTRIBUTION WIDTH 13.7 % (11.7-14.4)
[2018-08-17] MEDS: LUBIPROSTONE 24 MCG CAP PO SCH ×2 (09:23→17:44)
[2018-08-17] MEDS: SENNA-S TABLET PO SCH ×2 (09:23→17:44)
[2018-08-17] MEDS: TIZANIDINE HCL 4 MG TAB PO SCH ×2 (09:23→17:44)
[2018-08-17] MEDS: CITALOPRAM HYDROBROMIDE 20 MG TAB PO SCH (09:23)
[2018-08-17] MEDS: OXYBUTYNIN CHLORIDE 5 MG TAB PO SCH ×3 (09:23→21:18)
[2018-08-17] MEDS: CLONAZEPAM 0.5 MG TAB PO SCH ×2 (09:23→21:18)
[2018-08-17] MEDS: GLATIRAMER 40 MG SC SCH (13:00)
[2018-08-17] MEDS ORDERED: DIPHENHYDRAMINE HCL 25 MG CAP PO PRN (17:00)
[2018-08-17] MEDS: SODIUM CHLORIDE 0.9% 1000ML 1,000 ML IV SCH (17:57)
[2018-08-17] MEDS: CEFEPIME HCL 1 GM VIAL IV SCH (17:57)
[2018-08-17] MEDS: SODIUM CHLORIDE 0.9% IV SCH (18:20)
[2018-08-17] MEDS: TOBRAMYCIN IV SCH (18:20)
[2018-08-17] MEDS ORDERED: TOBRAMYCIN 40 MG/ML 2ML VIAL IV SCH (22:00)
[2018-08-18] VITALS (8 sets, daily range): BP systolic 95–117; BP diastolic 54–84
[2018-08-18] MEDS: CEFEPIME HCL 1 GM VIAL IV SCH ×3 (01:00→18:21)
[2018-08-18] MEDS: SODIUM CHLORIDE 0.9% IV SCH ×3 (02:12→18:22)
[2018-08-18] MEDS: TOBRAMYCIN IV SCH ×3 (02:12→18:22)
[2018-08-18] MEDS: CLONAZEPAM 0.5 MG TAB PO SCH ×2 (09:05→21:01)
[2018-08-18] MEDS: OXYBUTYNIN CHLORIDE 5 MG TAB PO SCH ×3 (09:05→21:01)
[2018-08-18] MEDS: CITALOPRAM HYDROBROMIDE 20 MG TAB PO SCH (09:05)
[2018-08-18] MEDS: SENNA-S TABLET PO SCH ×2 (09:05→18:21)
[2018-08-18] MEDS: TIZANIDINE HCL 4 MG TAB PO SCH ×2 (09:05→18:22)
[2018-08-18] MEDS: LUBIPROSTONE 24 MCG CAP PO SCH ×2 (09:05→18:21)
[2018-08-18] MEDS: FAMOTIDINE 20 MG TAB PO SCH ×2 (09:05→18:21)
[2018-08-18] MEDS: SODIUM CHLORIDE 0.9% 1000ML 1,000 ML IV SCH (14:46)
[2018-08-19] VITALS (8 sets, daily range): BP systolic 90–134; BP diastolic 60–97
[2018-08-19] MEDS: CEFEPIME HCL 1 GM VIAL IV SCH ×3 (00:39→17:43)
[2018-08-19] MEDS: SODIUM CHLORIDE 0.9% IV SCH ×3 (02:30→18:05)
[2018-08-19] MEDS: TOBRAMYCIN IV SCH ×3 (02:30→18:05)
[2018-08-19] MEDS: FAMOTIDINE 20 MG TAB PO SCH ×2 (07:46→16:30)
[2018-08-19] MEDS: LUBIPROSTONE 24 MCG CAP PO SCH ×2 (08:30→17:43)
[2018-08-19] MEDS: TIZANIDINE HCL 4 MG TAB PO SCH ×2 (09:30→17:43)
[2018-08-19] MEDS: SENNA-S TABLET PO SCH ×2 (09:30→17:43)
[2018-08-19] MEDS: CLONAZEPAM 0.5 MG TAB PO SCH ×2 (09:30→21:02)
[2018-08-19] MEDS: CITALOPRAM HYDROBROMIDE 20 MG TAB PO SCH (09:30)
[2018-08-19] MEDS: OXYBUTYNIN CHLORIDE 5 MG TAB PO SCH ×3 (09:30→21:02)
[2018-08-19] MEDS: SODIUM CHLORIDE 0.9% 1000ML 1,000 ML IV SCH (12:29)
[2018-08-20] VITALS (7 sets, daily range): BP systolic 127–158; BP diastolic 70–92
[2018-08-20] MEDS: CEFEPIME HCL 1 GM VIAL IV SCH ×3 (01:20→16:15)
[2018-08-20] MEDS: TOBRAMYCIN IV SCH ×3 (02:19→17:20)
[2018-08-20] MEDS: SODIUM CHLORIDE 0.9% IV SCH ×3 (02:19→17:20)
[2018-08-20 05:56] LABS: BASOPHILS # (AUTO) 0.1 (0.0-0.1); BASOPHILS % 0.6 % (0.0-1.0); EOSINOPHILS # (AUTO) 0.4 (0.0-0.4); EOSINOPHILS % 3.7 % (0.0-6.0); HEMATOCRIT 40.8 % (38.2-49.6); HEMOGLOBIN 13.5 g/dL (14.0-18.0); LYMPHOCYTES # (AUTO) 2.2 (1.0-3.2); LYMPHOCYTES % 22.8 % (18.0-39.1); MEAN CORPUSCULAR HEMOGLOBIN 28.4 pg (28-32); MEAN CORPUSCULAR HGB CONC 33.1 g/dL (31-35); MEAN CORPUSCULAR VOLUME 85.7 fL (81-99); MONOCYTES # (AUTO) 0.8 (0.2-0.8); MONOCYTES % 8.4 % (4.4-11.3); NEUTROPHILS # (AUTO) 6.2 (2.1-6.9); NEUTROPHILS % 64.2 % (38.7-80.0); PLATELET COUNT 290 x10e3/uL (140-360); RED BLOOD COUNT 4.76 x10e6/uL (4.3-5.7); RED CELL DISTRIBUTION WIDTH 13.7 % (11.7-14.4)
[2018-08-20 06:21] LABS: ANION GAP 13.4 mmol/L (8-16); BLOOD UREA NITROGEN 6 mg/dL (7-26); BUN/CREATININE RATIO 9 (6-25); CALCIUM 8.8 mg/dL (8.4-10.2); CARBON DIOXIDE 25 mmol/L (22-29); CHLORIDE 109 mmol/L (98-107); CREATININE, SERUM 0.64 mg/dL (0.72-1.25); EST GLOMERULAR FILTRATION RATE > 60 ML/MIN (60-); GLUCOSE 97 mg/dL (74-118); POTASSIUM 3.4 mmol/L (3.5-5.1); SODIUM 144 mmol/L (136-145)
[2018-08-20] MEDS: OXYBUTYNIN CHLORIDE 5 MG TAB PO SCH ×3 (09:24→21:45)
[2018-08-20] MEDS: FAMOTIDINE 20 MG TAB PO SCH ×2 (09:24→16:15)
[2018-08-20] MEDS: LUBIPROSTONE 24 MCG CAP PO SCH ×2 (09:24→16:15)
[2018-08-20] MEDS: SENNA-S TABLET PO SCH ×2 (09:24→16:15)
[2018-08-20] MEDS: CLONAZEPAM 0.5 MG TAB PO SCH ×2 (09:24→21:45)
[2018-08-20] MEDS: CITALOPRAM HYDROBROMIDE 20 MG TAB PO SCH (09:24)
[2018-08-20] MEDS: TIZANIDINE HCL 4 MG TAB PO SCH ×2 (09:25→16:16)
[2018-08-20] MEDS: SODIUM CHLORIDE 0.9% 1000ML 1,000 ML IV SCH (09:29)
[2018-08-20] MEDS: GLATIRAMER 40 MG SC SCH (09:33)
[2018-08-20] MEDS ORDERED: POTASSIUM CHLORIDE 20 MEQ TAB CR PO NR (13:30)
[2018-08-20] MEDS ORDERED: POTASSIUM CHLORIDE 20MEQ/15ML UDC PO NR (14:00)
[2018-08-20] MEDS ORDERED: SODIUM CHLORIDE 0.9% 50ML 50 ML ONE (15:58)
[2018-08-21] VITALS (7 sets, daily range): BP systolic 99–137; BP diastolic 68–92
[2018-08-21] MEDS: CEFEPIME HCL 1 GM VIAL IV SCH ×3 (00:18→16:57)
[2018-08-21] MEDS: SODIUM CHLORIDE 0.9% 1000ML 1,000 ML IV SCH ×2 (01:30→21:39)
[2018-08-21] MEDS: SODIUM CHLORIDE 0.9% IV SCH ×3 (02:00→17:51)
[2018-08-21] MEDS: TOBRAMYCIN IV SCH ×3 (02:00→17:51)
[2018-08-21 06:16] LABS: BASOPHILS % 0.5 % (0.0-1.0); EOSINOPHILS # (AUTO) 0.3 (0.0-0.4); EOSINOPHILS % 3.8 % (0.0-6.0); HEMATOCRIT 37.4 % (38.2-49.6); HEMOGLOBIN 12.4 g/dL (14.0-18.0); LYMPHOCYTES # (AUTO) 2.5 (1.0-3.2); LYMPHOCYTES % 29.4 % (18.0-39.1); MEAN CORPUSCULAR HEMOGLOBIN 28.4 pg (28-32); MEAN CORPUSCULAR HGB CONC 33.2 g/dL (31-35); MEAN CORPUSCULAR VOLUME 85.6 fL (81-99); MONOCYTES # (AUTO) 0.9 (0.2-0.8); MONOCYTES % 10.2 % (4.4-11.3); NEUTROPHILS # (AUTO) 4.7 (2.1-6.9); NEUTROPHILS % 55.6 % (38.7-80.0); PLATELET COUNT 287 x10e3/uL (140-360); RED BLOOD COUNT 4.37 x10e6/uL (4.3-5.7); RED CELL DISTRIBUTION WIDTH 13.9 % (11.7-14.4)
[2018-08-21 06:33] LABS: ANION GAP 9.5 mmol/L (8-16); BLOOD UREA NITROGEN 7 mg/dL (7-26); BUN/CREATININE RATIO 11 (6-25); CALCIUM 8.7 mg/dL (8.4-10.2); CARBON DIOXIDE 25 mmol/L (22-29); CHLORIDE 111 mmol/L (98-107); CREATININE, SERUM 0.61 mg/dL (0.72-1.25); EST GLOMERULAR FILTRATION RATE > 60 ML/MIN (60-); GLUCOSE 104 mg/dL (74-118); POTASSIUM 3.5 mmol/L (3.5-5.1); SODIUM 142 mmol/L (136-145)
[2018-08-21] MEDS ORDERED: SODIUM CHLORIDE 0.9% 50ML 50 ML ONE ×2 (07:21→15:46)
[2018-08-21] MEDS: SENNA-S TABLET PO SCH ×2 (08:54→16:57)
[2018-08-21] MEDS: OXYBUTYNIN CHLORIDE 5 MG TAB PO SCH ×3 (08:54→21:39)
[2018-08-21] MEDS: FAMOTIDINE 20 MG TAB PO SCH ×2 (08:54→16:57)
[2018-08-21] MEDS: CITALOPRAM HYDROBROMIDE 20 MG TAB PO SCH (08:54)
[2018-08-21] MEDS: TIZANIDINE HCL 4 MG TAB PO SCH ×2 (08:54→16:57)
[2018-08-21] MEDS: LUBIPROSTONE 24 MCG CAP PO SCH ×2 (08:54→16:57)
[2018-08-22] VITALS: BP 118/80
[2018-08-22] MEDS: CEFEPIME HCL 1 GM VIAL IV SCH ×3 (01:00→17:52)
[2018-08-22] MEDS: SODIUM CHLORIDE 0.9% IV SCH ×3 (02:00→18:16)
[2018-08-22] MEDS: TOBRAMYCIN IV SCH ×3 (02:00→18:16)
[2018-08-22 04:00] VITALS: BP 102/63
[2018-08-22 08:06] VITALS: BP 121/71
[2018-08-22] MEDS: OXYBUTYNIN CHLORIDE 5 MG TAB PO SCH ×2 (09:57→14:45)
[2018-08-22] MEDS: CITALOPRAM HYDROBROMIDE 20 MG TAB PO SCH (09:57)
[2018-08-22] MEDS: TIZANIDINE HCL 4 MG TAB PO SCH ×2 (09:57→17:52)
[2018-08-22] MEDS: LUBIPROSTONE 24 MCG CAP PO SCH ×2 (09:57→17:52)
[2018-08-22] MEDS: GLATIRAMER 40 MG SC SCH (09:57)
[2018-08-22] MEDS: SENNA-S TABLET PO SCH ×2 (09:57→17:52)
[2018-08-22] MEDS: FAMOTIDINE 20 MG TAB PO SCH ×2 (09:57→17:52)
[2018-08-22 11:38] VITALS: BP 100/59
[2018-08-22 16:28] VITALS: BP 124/73
[2018-08-22] MEDS: SODIUM CHLORIDE 0.9% 1000ML 1,000 ML IV SCH (17:30)
== END 2018-08-22 20:00 | DRG 699 ==
LOC: ER 11:18 → ERHOLD 15:38 → UNDOADMOB 15:38 → ERHOLD 08-14 02:40 → IMCU 08-14 05:15 → OBSVTOIN 08-15 11:35 → MED/SURG3 08-15 20:24
PROVIDERS: ADMIT Internal Medicine; ATTEND Internal Medicine
PROC: 0T2BX0Z Change Drainage Device in Bladder, External Approach (ICD-10-PCS; principal; 2018-08-14)
PROC: 02HV33Z Insertion of Infusion Device into Superior Vena Cava, Percutaneous Approach (ICD-10-PCS; 2018-08-18)
PROC: B548ZZA Ultrasonography of Superior Vena Cava, Guidance (ICD-10-PCS; 2018-08-18)
DX: T83.511A Infection and inflammatory reaction due to indwelling urethral catheter, initial encounter (principal); G82.20 Paraplegia, unspecified; T83.010A Breakdown (mechanical) of cystostomy catheter, initial encounter; R30.0 Dysuria; Z87.440 Personal history of urinary (tract) infections; G35 Multiple sclerosis; R33.8 Other retention of urine; F32.9 Major depressive disorder, single episode, unspecified; N28.1 Cyst of kidney, acquired; Z88.1 Allergy status to other antibiotic agents; Z91.048 Other nonmedicinal substance allergy status; B96.4 Proteus (mirabilis) (morganii) as the cause of diseases classified elsewhere; B96.5 Pseudomonas (aeruginosa) (mallei) (pseudomallei) as the cause of diseases classified elsewhere; N34.2 Other urethritis; D64.9 Anemia, unspecified; Z16.11 Resistance to penicillins; Z16.29 Resistance to other single specified antibiotic
CPT/HCPCS: 36415; 74470; 80048; 80053; 81001; 84132; 85025; 87086; 87186; 96361; 96367; 96376; 99284; G0378; J0692; J2543; J3260; J7030; J7050

== ENCOUNTER 2019-03-01 18:36 | Emergency (ER) | payer MEDICARE, OTHER ==
[~2019-03-01] VITALS: Ht 165.1 cm; Wt 80.7 kg
--- NOTE | 2019-03-01 19:20 | NUR ---
bladder scan performed, 0ml x 4 scans. freitas is draining into bag to gravity. specimen collected and sent to lab. pt refuses blood draw, aware
--- NOTE | 2019-03-01 19:21 | NUR ---
PT REFUSED BLOOD DRAW; DAKOTA CARSON NOTIFIED
[2019-03-01 19:24] LABS: BILIRUBIN,URINE SMALL (NEGATIVE); CLARITY,URINE SL CLOUDY (CLEAR); COLOR,URINE YELLOW (YELLOW); KETONES,URINE TRACE (NEGATIVE); LEUKOCYTE ESTERASE ,URINE LARGE (NEGATIVE); NITRITE,URINE POSITIVE (NEGATIVE); URINE UROBILINOGEN 2 mg/dL (0.2 - 1)
[2019-03-01 19:29] LABS: PROTEIN,URINE DIPSTICK 2+ (NEGATIVE)
--- NOTE | 2019-03-01 19:31 | NUR ---
mom and caregiver here, dr blake spoke with them at length regarding plan of care, verbalized understanding.
[2019-03-01 19:35] LABS: BACTERIA,URINE MANY /HPF
--- NOTE | 2019-03-01 20:00 | NUR ---
dr blake discussed with dr whitney huber, pt to be discharged home with po antibx. rx given to mom and caregiver. [facility] notified for transport home
== END 2019-03-01 21:00 | disposition home or self-care (01) ==
LOC: ER 18:36
DX: T83.511A Infection and inflammatory reaction due to indwelling urethral catheter, initial encounter (principal); N30.01 Acute cystitis with hematuria; B96.4 Proteus (mirabilis) (morganii) as the cause of diseases classified elsewhere; Y84.6 Urinary catheterization as the cause of abnormal reaction of the patient, or of later complication, without mention of misadventure at the time of the procedure; Y92.009 Unspecified place in unspecified non-institutional (private) residence as the place of occurrence of the external cause
CPT/HCPCS: 81001; 87086; 87186; 99283

== ENCOUNTER → 2019-04-08 | Outpatient (CLI) | payer MEDICARE, OTHER ==
[~2019-04-08] MED LIST changes: +MIRALAX17 GM PO
--- NOTE | 2019-04-08 10:20 | Diagnostic Imaging Report ---
EXAM: Renal Ultrasound INDICATION: ^UTI/MICROSCOPIC HEMATURIA COMPARISON: None TECHNIQUE: Transverse and longitudinal images of the kidneys and bladder were obtained. FINDINGS: Right Kidney: Length: 9.0 cm Appearance: Normal echogenicity. Collecting system: No hydronephrosis Stones: None Cyst/Mass: 1.2 x 1.0 x 1.1 cm cystic lesion with thin internal septations and minimal internal vascularity. Left Kidney: Length: 10.6 cm Appearance: Normal echogenicity. Collecting system: No hydronephrosis Stones: None Cyst/Mass: None Bladder: Decompressed bladder with Roth catheter. IMPRESSION: 1.2 x 1.0 x 1.1 cm cystic lesion at the upper pole of the right kidney with thin internal septations and minimal internal vascularity. Recommend follow-up on subsequent imaging. Signed by: Radha Dixon MD on 04/08/2019 10:17 AM
== END ==
LOC: US 08:35
PROVIDERS: ATTEND Urology
DX: N39.0 Urinary tract infection, site not specified (principal); R31.21 Asymptomatic microscopic hematuria
CPT/HCPCS: 76770

== ENCOUNTER 2019-05-27 14:20 | Inpatient (IN) | payer MEDICARE, OTHER ==
[~2019-05-27] VITALS: Ht 170.2 cm; Wt 64.4 kg
[~2019-05-27 14:20] MED LIST changes: -MIRALAX17 GM PO
--- NOTE | 2019-05-27 15:06 | NUR ---
H&P cc: difficulty urinating via suprapubic cath HISTORY OF PRESENT ILLNESS: This is a 43-year-old man with history of suprapubic catheter with recurrent complicated urinary tract infections, now developing malfunction of the catheter. He was brought to the hospital for further evaluation and management. PAST MEDICAL HISTORY 1. Complicated urinary tract infections/catheter-associated urinary tract infections, ESBL Klebsiella pneumoniae urinary tract infection, Enterococcus faecalis bacteremia, Staphylococcus coagulase-negative staph bacteremia in September 2017; citrobacter freundii infection in the urine in March 2018. 2. Multiple sclerosis. 3. Chronic indwelling suprapubic catheter. 4. Urinary retention. 5. Ambulatory dysfunction with multiple extremity contractures. 6. Anxiety/depression. 7. Sepsis due to bacteremia. 8. Constipation. PAST SURGICAL HISTORY: Suprapubic catheter placement. ALLERGIES: PER ELECTRONIC MEDICAL RECORD. FAMILY/SOCIAL HISTORY: Patient lives with mother. No alcohol, illicits or cigarettes. MEDICATIONS: Per electronic medical record. REVIEW OF SYSTEMS: Unreliable. VITAL SIGNS: Reviewed. PHYSICAL EXAMINATION GENERAL: A tired-appearing man resting in bed. HEENT: Anicteric. CARDIOVASCULAR: Normal S1 and S2. LUNGS: Moderate breath sounds. ABDOMEN: Soft. M ildly tender mid abdomen He has a suprapubic catheter in place. Dressing is clean and dry. EXTREMITIES: He has contracted lower extremities and left arm. His right arm is mobile and functional. SKIN: Dry. PSYCHIATRIC: Flat affect. NEUROLOGIC: Awake. LABS: Reviewed. MEDICATIONS: Reviewed. ASSESSMENT: This is a 43-year-old man. 1. Urinary retention. 2. Presumed Complicated/catheter-associated urinary tract infection. 3. Suprapubic catheter dysfunction 4. Depression. 5. Ambulatory dysfunction. PLAN 1. Continue IV Zosyn. 2. Follow up cultures. 3. Catheter exchange is pending. 4. Continue home medications. 5. Continue Pepcid for GI prophylaxis. 6. Disposition: Await catheter change. F/u UA using condom catheter. Bernardo Montilla MD, PhD.
[2019-05-27] MEDS ORDERED: ONDANSETRON HCL INJ 2MG/ML 2ML 2 MG/ML VIAL IV ONE (17:23)
[2019-05-27] MEDS ORDERED: SODIUM CHLORIDE 0.9% 1000ML 1,000 ML IV STA (17:23)
[2019-05-27] MEDS ORDERED: SODIUM CHLORIDE 0.9% 1000ML 500 ML IV STA (17:23)
[2019-05-27] MEDS ORDERED: MORPHINE SULFATE 2 MG/ML SYR 1ML IV ONE (17:23)
[2019-05-27] MEDS ORDERED: MORPHINE SULFATE 2 MG/ML SYR 1ML IV PRN (17:30)
[2019-05-27] MEDS ORDERED: AZTREONAM 1 GM/NS 50 ML 50 ML IV ONE (17:30)
[2019-05-27] MEDS ORDERED: ONDANSETRON HCL INJ 2MG/ML 2ML 2 MG/ML VIAL IV PRN (17:30)
--- NOTE | 2019-05-27 17:40 | NUR ---
PT PRESENTED WITH 100 CC IN TORRES BAG, SPECIMEN WAS NOT COLLECTED IT IS NOT CONSIDERED TO BE A CLEAN SPECIMEN, PT UNABLE TO RECALL HOW LONG URINE HAS BEEN PRESENT IN BAG, INFORMED DR. MERCADO.
[2019-05-27 17:53] LABS: BASOPHILS # (AUTO) 0.1 (0.0-0.1); BASOPHILS % 0.5 % (0.0-1.0); EOSINOPHILS # (AUTO) 0.1 (0.0-0.4); EOSINOPHILS % 0.6 % (0.0-6.0); HEMATOCRIT 42.9 % (38.2-49.6); HEMOGLOBIN 14.6 g/dL (14.0-18.0); LYMPHOCYTES # (AUTO) 2.4 (1.0-3.2); LYMPHOCYTES % 22.5 % (18.0-39.1); MEAN CORPUSCULAR HEMOGLOBIN 30.1 pg (28-32); MEAN CORPUSCULAR VOLUME 88.5 fL (81-99); MONOCYTES # (AUTO) 0.7 (0.2-0.8); MONOCYTES % 6.7 % (4.4-11.3); NEUTROPHILS # (AUTO) 7.5 (2.1-6.9); NEUTROPHILS % 69.3 % (38.7-80.0); PLATELET COUNT 318 x10e3/uL (140-360); RED BLOOD COUNT 4.85 x10e6/uL (4.3-5.7); RED CELL DISTRIBUTION WIDTH 12.4 % (11.7-14.4)
[2019-05-27 18:01] LABS: INR 0.92; PROTHROMBIN TIME 12.9 seconds (11.9-14.5)
[2019-05-27 18:02] LABS: PARTIAL THROMBOPLASTIN TIME 32.9 seconds (23.8-35.5)
[2019-05-27 18:11] LABS: ALANINE AMINOTRANSFERASE 37 IU/L (0-55); ALBUMIN 3.8 g/dL (3.5-5.0); ALBUMIN/GLOBULIN RATIO 1.1 (0.8-2.0); ALKALINE PHOSPHATASE 123 IU/L (40-150); BLOOD UREA NITROGEN 18 mg/dL (7-26); BUN/CREATININE RATIO 25 (6-25); CALCIUM 9.3 mg/dL (8.4-10.2); CARBON DIOXIDE 26 mmol/L (22-29); CHLORIDE 104 mmol/L (98-107); CREATINE KINASE 35 IU/L (30-200); CREATININE, SERUM 0.71 mg/dL (0.72-1.25); EST GLOMERULAR FILTRATION RATE > 60 ML/MIN (60-); GLUCOSE 97 mg/dL (74-118); LIPASE 18 U/L (8-78); MAGNESIUM 2.1 MG/DL (1.3-2.1); SODIUM 140 mmol/L (136-145)
[2019-05-27 18:19] LABS: B-TYPE NATRIURETIC PEPTIDE2 < 10.0 pg/mL (0-100)
--- NOTE | 2019-05-27 18:29 | Diagnostic Imaging Report ---
EXAM: CT Abdomen and Pelvis WITHOUT contrast INDICATION: ^STONE PROTOCOL ^[id number] ^1755 ^Y COMPARISON: Renal ultrasound 04/08/[address] abdomen and pelvis 06/20/2018 TECHNIQUE: Abdomen and pelvis were scanned utilizing a multidetector helical scanner from the lung base to the pubic symphysis without administration of IV contrast. Absence of intravenous contrast decreases sensitivity for detection of focal lesions and vascular pathology. Coronal and sagittal reformations were obtained. Routine protocol was performed. IV CONTRAST: None. ORAL CONTRAST: Water RADIATION DOSE: Total DLP: 427 mGy*cm Estimated effective dose: (DLP x 0.015 x size factor) mSv COMPLICATIONS: None FINDINGS: LINES and TUBES: Suprapubic catheter within the urinary bladder is seen in adequate position. LOWER THORAX: Unremarkable HEPATOBILIARY: No focal hepatic lesions. No biliary ductal dilation. GALLBLADDER: No radio-opaque stones or sludge. No wall thickening. SPLEEN: No splenomegaly. PANCREAS: No focal masses or ductal dilatation. ADRENALS: No adrenal nodules KIDNEYS/URETERS: No hydronephrosis. No cystic or solid mass lesions. No stones. GI TRACT: The rectum is markedly distended and filled with large amount of a specific feces suggestive of fecal impaction. Otherwise, no abnormal distention, wall thickening, or evidence of bowel obstruction. Appendix is normal. PELVIC ORGANS/BLADDER: The urinary bladder is partially collapsed and anteriorly displaced by a severely distended rectum. LYMPH NODES: No lymphadenopathy. VESSELS: Unremarkable. PERITONEUM / RETROPERITONEUM: No free air or fluid. BONES: Unremarkable. SOFT TISSUES: Unremarkable. IMPRESSION: 1. Severe distention of the rectal with retention of large amount of feces highly suggestive of fecal impaction. 2. Suprapubic catheter in adequate position with a partially coiled in the bladder. Note that the urinary bladder has been anteriorly displaced by the enlarged rectum. Signed by: Dr. Jina Beavers M.D. on 05/27/2019 6:25 PM
--- NOTE | 2019-05-27 18:30 | Diagnostic Imaging Report ---
EXAMINATION: CHEST SINGLE (PORTABLE) INDICATION: ^ERMD ORDER ^[id number] ^1755 ^Y COMPARISON: CT abdomen and pelvis 05/27/2019 and chest radiograph 06/16/2018 FINDINGS: AP view TUBES and LINES: None. LUNGS: Lungs are well inflated. Mild bibasilar atelectasis. There is no evidence of pneumonia or pulmonary edema. PLEURA: No pleural effusion or pneumothorax. HEART AND MEDIASTINUM: The cardiomediastinal silhouette is unremarkable.. BONES AND SOFT TISSUES: No acute osseous lesion. Soft tissues are unremarkable. UPPER ABDOMEN: No free air under the diaphragm. IMPRESSION: No acute thoracic abnormality. Stable mild bibasilar atelectasis. Signed by: Dr. Jina Beavers M.D. on 05/27/2019 6:26 PM
--- NOTE | 2019-05-27 19:05 | NUR ---
Jonh beltran in [facility] - 05/27/19 at 1939 by MAU UA SPECIMEN COLLECTED FROM URINE PRESENT IN TORRES BAG, SENT TO LAB FOR UA.
[2019-05-27] MEDS ORDERED: MINERAL OIL 132 ML BTL PR PRN (19:30)
[2019-05-27] MEDS ORDERED: LACTULOSE SYRUP 20 GM/30 ML UDC PO ONE (19:30)
[2019-05-27] MEDS ORDERED: BISACODYL 10 MG SUPP PR ONE (19:30)
--- NOTE | 2019-05-27 22:22 | NUR ---
PER ALBERTO CROFT DR. IS REQUESTING TO NOT CHANGE SUPRAPUBIC CATH, WILL AWAIT FOR PT TO HAVE BM TO FACILIATE SPECIMEN PRODUCTION.
--- NOTE | 2019-05-27 23:18 | NUR ---
PT HAD LARGE BOWEL MOVEMENT, INCONTIENCE CARE PROVIDED.
--- NOTE | 2019-05-27 23:28 | NUR ---
PT CONTINUES WITHOUT URINE IN COLLECTION BAG, NOTED THAT SOME URINE IS PRESENT AROUND SUPRAPUBIC AREA, CLEANED PT AND APPLIED NEW DRESSING TO SITE.
--- NOTE | 2019-05-27 23:32 | NUR ---
AWAITING PRODUCTION OF SPECIMEN FOR UA, WILL CONTINUE TO MONITOR.
[2019-05-28] VITALS (10 sets, daily range): BP systolic 108–130; BP diastolic 61–98
[2019-05-28] MEDS: SODIUM CHLORIDE 0.9% 1000ML 1,000 ML IV SCH ×4 (01:28→18:31)
--- NOTE | 2019-05-28 03:52 | NUR ---
PT IS TRANSFERRED FROM ER AOX2 .RESPIRATIONS ARE EVEN AND UNLABORED IV AT RT AC 20G .BILATERAL EXTREMITIES CONTRACTED.SUPRA PUBIC CATHETER IS NOT WORKING NOTED URINE IN THE DIAPER .NOT ABLE TO COLLECT THE URINE PT HAD BOWEL MOMENT X2 .NS IS RUNNING AT 125 CC/HR CALL LIGHT WITH IN REACH .CONTINUE TO MONITOR
--- NOTE | 2019-05-28 03:56 | NUR ---
HOME MEDS ARE NOT RENEWED ,WAITING FOR THE CURRENT HOME MEDS FROM THE FAMILY
[2019-05-28] MEDS ORDERED: TRAMADOL HCL 50 MG TAB PO PRN (06:45)
--- NOTE | 2019-05-28 06:49 | NUR ---
NO URINE IN THE F/C BAG AND NOT ABLE TO COLLECT URINE . IV ABT IS NOT GIVEN .NOTIFIED DR KELLEY AND GIVEN ORDER FOR PUTTING CONDOM CATHETER TO COLLECT URINE ORDER TO DO KUB .BEDSIDE REPORT GIVEN TO THE ONCOMING NURSE
[2019-05-28 08:24] LABS: BASOPHILS % 0.3 % (0.0-1.0); EOSINOPHILS # (AUTO) 0.1 (0.0-0.4); EOSINOPHILS % 0.6 % (0.0-6.0); HEMOGLOBIN 14.7 g/dL (14.0-18.0); LYMPHOCYTES # (AUTO) 2.7 (1.0-3.2); LYMPHOCYTES % 20.2 % (18.0-39.1); MEAN CORPUSCULAR HEMOGLOBIN 30.2 pg (28-32); MEAN CORPUSCULAR HGB CONC 34.2 g/dL (31-35); MEAN CORPUSCULAR VOLUME 88.3 fL (81-99); MONOCYTES % 7.4 % (4.4-11.3); NEUTROPHILS # (AUTO) 9.4 (2.1-6.9); NEUTROPHILS % 71.2 % (38.7-80.0); PLATELET COUNT 310 x10e3/uL (140-360); RED BLOOD COUNT 4.87 x10e6/uL (4.3-5.7); RED CELL DISTRIBUTION WIDTH 12.4 % (11.7-14.4)
[2019-05-28 08:32] LABS: ALANINE AMINOTRANSFERASE 30 IU/L (0-55); ALBUMIN 3.7 g/dL (3.5-5.0); ALBUMIN/GLOBULIN RATIO 1.2 (0.8-2.0); ALKALINE PHOSPHATASE 119 IU/L (40-150); ANION GAP 15.8 mmol/L (8-16); BLOOD UREA NITROGEN 15 mg/dL (7-26); BUN/CREATININE RATIO 23 (6-25); CALCIUM 9.3 mg/dL (8.4-10.2); CARBON DIOXIDE 24 mmol/L (22-29); CHLORIDE 105 mmol/L (98-107); CREATININE, SERUM 0.66 mg/dL (0.72-1.25); EST GLOMERULAR FILTRATION RATE > 60 ML/MIN (60-); GLUCOSE 98 mg/dL (74-118); POTASSIUM 3.8 mmol/L (3.5-5.1); SODIUM 141 mmol/L (136-145)
[2019-05-28] MEDS: GLATIRAMER 20 MG SC SCH (09:00)
[2019-05-28] MEDS: FAMOTIDINE 20 MG TAB PO SCH ×2 (09:58→18:31)
[2019-05-28] MEDS: CLONAZEPAM 0.5 MG TAB PO SCH ×2 (09:58→21:00)
[2019-05-28] MEDS: CITALOPRAM HYDROBROMIDE 20 MG TAB PO SCH (09:58)
[2019-05-28] MEDS: TIZANIDINE HCL 4 MG TAB PO SCH ×2 (09:59→18:32)
[2019-05-28] MEDS: SENNA-S TABLET PO SCH ×2 (09:59→18:32)
[2019-05-28] MEDS: LUBIPROSTONE 24 MCG CAP PO SCH ×2 (11:52→18:31)
--- NOTE | 2019-05-28 12:02 | NUR ---
PT NEEDS AN EARLY DISCHARGE TIME DUE TO GETTING HIS 24 HOUR PROVIDER SET UP TO ASSIST AT HOME HE GETS 90 HOURS A WEEK AND MOTHER DOES REST.
[2019-05-28] MEDS: AZTREONAM 1 GM/NS 50 ML 50 ML IV SCH ×2 (12:18→18:31)
--- NOTE | 2019-05-28 12:57 | NUR ---
IM- progress note O/N; no events ROS: unobtainable VITAL SIGNS: Reviewed. PHYSICAL EXAMINATION GENERAL: A tired-appearing man resting in bed. HEENT: Anicteric. CARDIOVASCULAR: Normal S1 and S2. LUNGS: Moderate breath sounds. ABDOMEN: Soft. M ildly tender mid abdomen He has a suprapubic catheter in place. Dressing is clean and dry. EXTREMITIES: He has contracted lower extremities and left arm. His right arm is mobile and functional. SKIN: Dry. PSYCHIATRIC: Flat affect. NEUROLOGIC: Awake. LABS: Reviewed. MEDICATIONS: Reviewed. ASSESSMENT: This is a 43-year-old man. 1. Urinary retention. 2. Presumed Complicated/catheter-associated urinary tract infection. 3. Suprapubic catheter dysfunction 4. Depression. 5. Ambulatory dysfunction. PLAN 1. Continue IV Zosyn. 2. Follow up cultures. 3. Catheter exchange is pending. 4. Continue home medications. 5. Continue Pepcid for GI prophylaxis. 6. Disposition: Await catheter change. F/u UA using condom catheter. 05/28 f/u Urine; cont abx; f/u urology; Bernardo Montilla MD, PhD.
[2019-05-28 13:42] LABS: BILIRUBIN,URINE NEGATIVE (NEGATIVE); CLARITY,URINE CLOUDY (CLEAR); COLOR,URINE YELLOW (YELLOW); KETONES,URINE TRACE (NEGATIVE); LEUKOCYTE ESTERASE ,URINE SMALL (NEGATIVE); NITRITE,URINE POSITIVE (NEGATIVE); PROTEIN,URINE DIPSTICK 2+ (NEGATIVE); URINE UROBILINOGEN 1 mg/dL (0.2 - 1)
[2019-05-28 14:10] LABS: BACTERIA,URINE MODERATE /HPF
--- NOTE | 2019-05-28 14:40 | NUR ---
Visit made by the Spiritual Care Department Pastoral Visitor, Verito Barcenas. PV provided pastoral presence, prayer, hospitality, and supportive listening. Pastoral Visitor informed pt/family of the scope of Segment Block Layer Services and availability. GERMAIN SEVERINO Device Repair Technician Spiritual Care Department O: [phone] Pager: [phone] ([phone] number calling from)
--- NOTE | 2019-05-28 14:47 | Diagnostic Imaging Report ---
Abdomen, 1 view. History: Abdominal pain. Findings: Air is scattered throughout nondilated small and large bowel. There are no masses or abnormal calcifications. The osseous structures are intact. IMPRESSION: Non-specific bowel gas pattern. Signed by: Emigdio Pimentel on 05/28/2019 2:44 PM
--- NOTE | 2019-05-28 19:00 | NUR ---
BS rounds completed with morning nurse. Pt alert to name. Lying in bed HOB 90 degrees. Denies pain at this time. Call lau within reach. Will continue to monitor.
[2019-05-29] VITALS (9 sets, daily range): BP systolic 100–142; BP diastolic 67–96
[2019-05-29] MEDS ORDERED: BISACODYL 10 MG SUPP PR ONE (00:30)
[2019-05-29] MEDS ORDERED: CITRATE OF MAGNESIA 300ML BOTTLE PO ONE ×2 (01:15→03:15)
[2019-05-29] MEDS: SODIUM CHLORIDE 0.9% 1000ML 1,000 ML IV SCH ×3 (03:00→20:45)
--- NOTE | 2019-05-29 04:00 | NUR ---
Called sister, Lewis baxter with numbers on facesheet, unable to contact. Patient needs consent for EGD. Pt is currently NPO. Will continue to try and notify family. Addendum: 05/29/19 at 0611 by Eitan Blankenship RN wrong chart
[2019-05-29] MEDS: AZTREONAM 1 GM/NS 50 ML 50 ML IV SCH ×2 (05:19→17:41)
--- NOTE | 2019-05-29 07:30 | NUR ---
pt had large BM: liquid and brown in color Addendum: 05/29/19 at 1445 by Tosha Padron RN Amended: Links added.
--- NOTE | 2019-05-29 07:34 | NUR ---
IM- progress note O/N; no events ROS: unobtainable VITAL SIGNS: Reviewed. PHYSICAL EXAMINATION GENERAL: A tired-appearing man resting in bed. HEENT: Anicteric. CARDIOVASCULAR: Normal S1 and S2. LUNGS: Moderate breath sounds. ABDOMEN: Soft. M ildly tender mid abdomen He has a suprapubic catheter in place. Dressing is clean and dry. EXTREMITIES: He has contracted lower extremities and left arm. His right arm is mobile and functional. SKIN: Dry. PSYCHIATRIC: Flat affect. NEUROLOGIC: Awake. LABS: Reviewed. MEDICATIONS: Reviewed. ASSESSMENT: This is a 43-year-old man. 1. Urinary retention. 2. Presumed Complicated/catheter-associated urinary tract infection. 3. Suprapubic catheter dysfunction 4. Depression. 5. Ambulatory dysfunction. PLAN 1. Continue IV Zosyn. 2. Follow up cultures. 3. Catheter exchange is pending. 4. Continue home medications. 5. Continue Pepcid for GI prophylaxis. 6. Disposition: Await catheter change. F/u UA using condom catheter. 05/28 f/u Urine; cont abx; f/u urology; 05/29 check cbc; cont abx; Bernardo Montilla MD, PhD.
[2019-05-29 08:40] LABS: BASOPHILS # (AUTO) 0.1 (0.0-0.1); BASOPHILS % 0.4 % (0.0-1.0); EOSINOPHILS # (AUTO) 0.2 (0.0-0.4); EOSINOPHILS % 0.9 % (0.0-6.0); HEMATOCRIT 47.5 % (38.2-49.6); HEMOGLOBIN 15.8 g/dL (14.0-18.0); LYMPHOCYTES # (AUTO) 1.8 (1.0-3.2); LYMPHOCYTES % 7.8 % (18.0-39.1); MEAN CORPUSCULAR HGB CONC 33.3 g/dL (31-35); MEAN CORPUSCULAR VOLUME 90.3 fL (81-99); MONOCYTES # (AUTO) 1.8 (0.2-0.8); MONOCYTES % 7.7 % (4.4-11.3); NEUTROPHILS # (AUTO) 19.6 (2.1-6.9); NEUTROPHILS % 82.7 % (38.7-80.0); PLATELET COUNT 314 x10e3/uL (140-360); RED BLOOD COUNT 5.26 x10e6/uL (4.3-5.7); RED CELL DISTRIBUTION WIDTH 12.3 % (11.7-14.4)
[2019-05-29] MEDS ORDERED: ONDANSETRON HCL 4 MG ORAL DISINTEGRATING TAB PO PRN (08:45)
[2019-05-29] MEDS: SENNA-S TABLET PO SCH ×2 (09:00→17:00)
[2019-05-29] MEDS: TIZANIDINE HCL 4 MG TAB PO SCH ×2 (09:20→17:42)
[2019-05-29] MEDS: FAMOTIDINE 20 MG TAB PO SCH ×2 (09:20→17:42)
[2019-05-29] MEDS: LUBIPROSTONE 24 MCG CAP PO SCH ×2 (09:20→17:00)
[2019-05-29] MEDS: CITALOPRAM HYDROBROMIDE 20 MG TAB PO SCH (09:21)
[2019-05-29] MEDS: CLONAZEPAM 0.5 MG TAB PO SCH ×2 (09:21→21:00)
[2019-05-29] MEDS: GLATIRAMER 20 MG SC SCH ×2 (09:22→09:23)
--- NOTE | 2019-05-29 15:57 | NUR ---
pt had small BM: liquid and brown in color Addendum: 05/29/19 at 1558 by Tosha Padron RN Amended: Links added.
[2019-05-29] MEDS: PIPER-TAZ 3.375 GM 50 ML IV SCH (20:45)
--- NOTE | 2019-05-29 20:45 | NUR ---
PATIENT IN STABLE CONDITION, NO SIGNS OF DISTRESS NOTED. PATIENT DOES NOT COMPLAIN OF PAIN AT THIS TIME, AND REFUSED HIS KLONOPIN MEDICATION VOICED THAT HE WAS ALREADY SLEEPY. BED IS LOCKED IN LOWEST POSITION POSSIBLE, BOTH SIDE RAILS ARE UP, CALL LIGHT WITHIN EASY REACH, WILL CONTINUE TO MONITOR.
[2019-05-30] VITALS (8 sets, daily range): BP systolic 100–142; BP diastolic 61–95
[2019-05-30] MEDS ORDERED: CITRATE OF MAGNESIA 300ML BOTTLE PO ONE (00:30)
[2019-05-30] MEDS ORDERED: BISACODYL 5 MG TAB EC PO PRN (00:30)
[2019-05-30] MEDS: PIPER-TAZ 3.375 GM 50 ML IV SCH ×2 (02:05→06:08)
--- NOTE | 2019-05-30 02:14 | Consultation ---
DATE OF CONSULTATION: 05/28/2019 Infectious Disease Initial Consultation DICTATOR FOR: Dr. Slime Spears. CONSULTING PHYSICIAN: Bernardo Montilla MD. REASON FOR CONSULTATION: Sepsis and urinary tract infection. HISTORY OF PRESENT ILLNESS: This is a 44-year-old male with past medical history of multiple sclerosis, hypertension, neurogenic bladder with chronic indwelling suprapubic catheter, hypothyroidism, chronic UTI, and anxiety, who presented via EMS to the [facility] ED secondary to a clogged suprapubic catheter. Upon workup, he was found to have elevated white blood cell count as well as urinary tract infection, growing gram negative sandrita organism. He was initially started on Azactam IV. WBCs were 13,000. Today, the patient was afebrile. Did voice suprapubic pain as well as left lower quadrant and right lower quadrant discomfort. He was also found to have per CT scan rectal impaction. He was given laxatives last night and apparently this did well. Blood cultures are currently negative 24 hours. PAST MEDICAL HISTORY: See HPI. PAST SURGICAL HISTORY: See HPI. MEDICATIONS: See MAR. ALLERGIES: TAPE, CEFTRIAXONE, CIPROFLOXACIN, LEVOFLOXACIN, AND MEROPENEM. SOCIAL HISTORY: Denies any tobacco, EtOH, or illicit drug use. FAMILY HISTORY: Hypertension in a first-degree relative. PHYSICAL EXAMINATION: VITAL SIGNS: Currently, temperature is 97.3, heart rate is 83, respirations 18, and blood pressure is 108/72. HEENT: Head, normocephalic and atraumatic. PERRLA. Extraocular movements intact. NECK: Supple. No lymphadenopathy. CHEST: Clear to auscultation bilaterally. HEART: Regular rate and rhythm. Normal S1 and S2. ABDOMEN: Slightly distended. Diffuse abdominal tenderness noted. Suprapubic catheter is clogged. The patient also is found to have rectal impaction. EXTREMITIES: Contracted, both upper and lower extremities. No cyanosis or edema is noted. NEUROLOGIC: Nonfocal. Cranial nerves II through XII grossly intact. LABORATORY DATA: Labs dated, 05/28, showed WBCs of 13.1, hemoglobin 14.7, hematocrit 43, platelet count 310. Sodium 141, potassium 3.8, chloride 108, bicarb 24, BUN 15, creatinine 0.6, glucose is 98, lactic acid level of 5.8. Urine culture growing gram negative sandrita, greater than 100,000 CFU. Preliminary results only. Radiology studies; CT scan showing large rectal distention pressing the bladder forward, but otherwise negative. ASSESSMENT: 1. Sepsis secondary to urinary tract infection and clogged suprapubic catheter. 2. Gram negative urinary tract infection. However, results are pending. 3. Chronic indwelling suprapubic catheter. 4. Multiple sclerosis. PLAN AND RECOMMENDATIONS: We will continue with Azactam. We will get CBC and BMP in the morning. Urology following the patient and plans to exchange suprapubic catheter out. We will continue to follow the patient along with you. Further recommendations to follow based on the patient's clinic course. Thank you, Dr. Montilla for the consultation. Case was discussed with Dr. Spears. LAURA Cuellar/MODL /[id number]
[2019-05-30] MEDS: SODIUM CHLORIDE 0.9% 1000ML 1,000 ML IV SCH ×4 (05:26→23:39)
[2019-05-30 05:55] LABS: ANION GAP 12.1 mmol/L (8-16); BLOOD UREA NITROGEN 7 mg/dL (7-26); BUN/CREATININE RATIO 10 (6-25); CALCIUM 8.7 mg/dL (8.4-10.2); CARBON DIOXIDE 27 mmol/L (22-29); CHLORIDE 105 mmol/L (98-107); CREATININE, SERUM 0.72 mg/dL (0.72-1.25); EST GLOMERULAR FILTRATION RATE > 60 ML/MIN (60-); GLUCOSE 84 mg/dL (74-118); POTASSIUM 4.1 mmol/L (3.5-5.1); SODIUM 140 mmol/L (136-145)
--- NOTE | 2019-05-30 06:55 | NUR ---
IM- progress note O/N; no events ROS: unobtainable VITAL SIGNS: Reviewed. PHYSICAL EXAMINATION GENERAL: A tired-appearing man resting in bed. HEENT: Anicteric. CARDIOVASCULAR: Normal S1 and S2. LUNGS: Moderate breath sounds. ABDOMEN: Soft. M ildly tender mid abdomen He has a suprapubic catheter in place. Dressing is clean and dry. EXTREMITIES: He has contracted lower extremities and left arm. His right arm is mobile and functional. SKIN: Dry. PSYCHIATRIC: Flat affect. NEUROLOGIC: Awake. LABS: Reviewed. MEDICATIONS: Reviewed. ASSESSMENT: This is a 43-year-old man. 1. Urinary retention. 2. Presumed Complicated/catheter-associated urinary tract infection. 3. Suprapubic catheter dysfunction 4. Depression. 5. Ambulatory dysfunction. PLAN 1. Continue IV Zosyn. 2. Follow up cultures. 3. Catheter exchange is pending. 4. Continue home medications. 5. Continue Pepcid for GI prophylaxis. 6. Disposition: Await catheter change. F/u UA using condom catheter. 05/28 f/u Urine; cont abx; f/u urology; 05/29 check cbc; cont abx; 05/30 f/u labs; suprapubic catheter mgmt per urology. Bernardo Montilla MD, PhD.
--- NOTE | 2019-05-30 07:30 | NUR ---
Walking rounds completed and the patient is sleeping, no visitors, IV infusing.
[2019-05-30 07:34] LABS: BASOPHILS # (AUTO) 0.1 (0.0-0.1); BASOPHILS % 0.6 % (0.0-1.0); EOSINOPHILS # (AUTO) 0.4 (0.0-0.4); EOSINOPHILS % 3.5 % (0.0-6.0); HEMATOCRIT 40.3 % (38.2-49.6); HEMOGLOBIN 13.2 g/dL (14.0-18.0); LYMPHOCYTES # (AUTO) 2.7 (1.0-3.2); LYMPHOCYTES % 25.9 % (18.0-39.1); MEAN CORPUSCULAR HEMOGLOBIN 29.7 pg (28-32); MEAN CORPUSCULAR HGB CONC 32.8 g/dL (31-35); MEAN CORPUSCULAR VOLUME 90.8 fL (81-99); MONOCYTES # (AUTO) 0.9 (0.2-0.8); MONOCYTES % 8.3 % (4.4-11.3); NEUTROPHILS # (AUTO) 6.3 (2.1-6.9); NEUTROPHILS % 61.5 % (38.7-80.0); PLATELET COUNT 295 x10e3/uL (140-360); RED BLOOD COUNT 4.44 x10e6/uL (4.3-5.7); RED CELL DISTRIBUTION WIDTH 12.4 % (11.7-14.4)
--- NOTE | 2019-05-30 09:00 | NUR ---
Patient has been given his meds and the mom is at the bedside. The mom refused the klonopin because the patient is too sleepy afterward. He slept 8 hours during the day yesterday. Will note the change.
[2019-05-30] MEDS: SENNA-S TABLET PO SCH ×2 (11:09→17:00)
[2019-05-30] MEDS: LUBIPROSTONE 24 MCG CAP PO SCH ×2 (11:09→17:00)
[2019-05-30] MEDS: FAMOTIDINE 20 MG TAB PO SCH ×2 (11:09→16:30)
[2019-05-30] MEDS: CITALOPRAM HYDROBROMIDE 20 MG TAB PO SCH (11:09)
[2019-05-30] MEDS: TIZANIDINE HCL 4 MG TAB PO SCH ×2 (11:09→17:00)
[2019-05-30] MEDS: CLONAZEPAM 0.5 MG TAB PO SCH ×3 (11:09→21:06)
--- NOTE | 2019-05-30 13:50 | NUR ---
patient changed and repositioned, patient taking med with no problem
--- NOTE | 2019-05-30 18:55 | NUR ---
walking round complete, patient is awake and watching tele
[2019-05-30] MEDS ORDERED: METHYLPREDNISOLONE SOD SUCC 125 MG/2ML VIAL IV SCH (21:00)
--- NOTE | 2019-05-30 21:00 | NUR ---
PATIENT IN STABLE CONDITION, NO SIGNS OF DISTRESS NOTED. PATIENT DOES NOT COMPLAIN OF PAIN AT THIS TIME, AND REFUSED HIS KLONOPIN MEDICATION VOICED THAT HE WAS ALREADY SLEEPY, PATIENT ALSO REPOSITIONED. BED IS LOCKED IN LOWEST POSITION POSSIBLE, BOTH SIDE RAILS ARE UP, CALL LIGHT WITHIN EASY REACH, WILL CONTINUE TO MONITOR.
[2019-05-31 04:00] VITALS: BP 143/86
--- NOTE | 2019-05-31 06:15 | NUR ---
RADIOLOGY IS AT BEDSIDE WITH PATIENT FOR X-RAY.
--- NOTE | 2019-05-31 07:30 | NUR ---
PT IN BED RESTING NO S/S DISCOMFORT
--- NOTE | 2019-05-31 08:02 | Diagnostic Imaging Report ---
EXAM: Abdomen Radiograph 1 View(s) INDICATION: Abdominal pain COMPARISON: Abdominal radiograph 05/28/2019 FINDINGS: No abnormalities in the lower chest. No lines or tubes. Similar gaseous distention of loops of bowel compared to 05/28/2019. No abnormal abdominal calcifications.. No abnormal soft tissue masses. No pneumoperitoneum. No acute osseous abnormality. Mild degenerative changes in the lumbar spine and pelvis. IMPRESSION: Similar gaseous distention of loops of bowel compared to 05/28/2019. Low suspicion for bowel obstruction. Signed by: Refugio Gonzalez DO on 05/31/2019 7:59 AM
--- NOTE | 2019-05-31 08:20 | NUR ---
IM- progress note O/N; no events ROS: unobtainable VITAL SIGNS: Reviewed. PHYSICAL EXAMINATION GENERAL: A tired-appearing man resting in bed. HEENT: Anicteric. CARDIOVASCULAR: Normal S1 and S2. LUNGS: Moderate breath sounds. ABDOMEN: Soft. M ildly tender mid abdomen He has a suprapubic catheter in place. Dressing is clean and dry. EXTREMITIES: He has contracted lower extremities and left arm. His right arm is mobile and functional. SKIN: Dry. PSYCHIATRIC: Flat affect. NEUROLOGIC: Awake. LABS: Reviewed. MEDICATIONS: Reviewed. ASSESSMENT: This is a 43-year-old man. 1. Urinary retention. 2. Presumed Complicated/catheter-associated urinary tract infection. 3. Suprapubic catheter dysfunction 4. Depression. 5. Ambulatory dysfunction. PLAN 1. Continue IV Zosyn. 2. Follow up cultures. 3. Catheter exchange is pending. 4. Continue home medications. 5. Continue Pepcid for GI prophylaxis. 6. Disposition: Await catheter change. F/u UA using condom catheter. 05/28 f/u Urine; cont abx; f/u urology; 05/29 check cbc; cont abx; 05/30 f/u labs; suprapubic catheter mgmt per urology. 05/31 leukocytosis resolved; Proteus mirabilis and Pseudomonas aeruginosa UTIs; off abx? defer to ID. d/c planning; Bernardo Montilla MD, PhD.
[2019-05-31] MEDS: FAMOTIDINE 20 MG TAB PO SCH ×2 (08:30→17:28)
[2019-05-31] MEDS: METHYLPREDNISOLONE SOD SUCC 40 MG/ML VIAL 1ML IV SCH ×2 (08:30→20:00)
[2019-05-31] MEDS: LUBIPROSTONE 24 MCG CAP PO SCH ×2 (08:30→17:28)
[2019-05-31] MEDS: CITALOPRAM HYDROBROMIDE 20 MG TAB PO SCH (08:30)
--- NOTE | 2019-05-31 08:30 | NUR ---
MOTHER AT BEDSIDE ,C/O PT GLASSES ARE MISSING,SEARCHED ROOM AND [facility]ENS BUT WAS NOT ABLE TO FIND GLASSES ,NOTIFIED NURSE RN ENT.
[2019-05-31 08:49] VITALS: BP 131/87
[2019-05-31] MEDS: CLONAZEPAM 0.5 MG TAB PO SCH ×2 (09:00→20:00)
[2019-05-31 09:16] VITALS: BP 131/87
[2019-05-31] MEDS: GLATIRAMER 20 MG SC SCH (09:19)
[2019-05-31] MEDS: POLYETHYLENE GLYCOL 3350 17 GM PACK PO SCH (09:20)
[2019-05-31] MEDS: SENNA-S TABLET PO SCH ×2 (09:20→17:28)
[2019-05-31] MEDS: TIZANIDINE HCL 4 MG TAB PO SCH ×2 (09:20→17:28)
[2019-05-31] MEDS: SODIUM CHLORIDE 0.9% 1000ML 1,000 ML IV SCH ×2 (09:28→17:59)
[2019-05-31 12:00] VITALS: BP 129/96
--- NOTE | 2019-05-31 12:14 | NUR ---
EDUCATED ABOUT IMM, SIGNED, FILED IN CHART, WITH COPY LEFT WITH FAMILY AT BEDSIDE.
[2019-05-31] MEDS: AZTREONAM 1 GM/NS 50 ML 50 ML IV SCH ×2 (14:00→21:50)
[2019-05-31] MEDS ORDERED: CEFTAZIDIME 1 GM VIAL IV SCH (14:00)
[2019-05-31 16:18] VITALS: BP 102/67
--- NOTE | 2019-05-31 17:59 | NUR ---
PT UP IN BED NO DISTRESS NOTED ,DENIES PAIN,
--- NOTE | 2019-05-31 19:00 | NUR ---
Pt visited in room during nursing rounds. Patient alert and oriented x3. Suprapubic catheter in place draining clear yellow urine. Pt is bed bound due to hx of multiple sclerosis. Incontinent. On GI soft nectar-thickened diet. On IVF (NS at 125ml/hr) and scheduled IV antibiotics. Call lau within reach. Bed alarm active.
--- NOTE | 2019-05-31 19:10 | NUR ---
Dr. Eros Paz at bedside visiting patient. aware of patient condition.
[2019-05-31 19:30] VITALS: BP 103/67
[2019-06-01] VITALS (7 sets, daily range): BP systolic 88–128; BP diastolic 52–85
[2019-06-01] MEDS: SODIUM CHLORIDE 0.9% 1000ML 1,000 ML IV SCH ×3 (02:52→13:47)
--- NOTE | 2019-06-01 03:00 | NUR ---
Dr. Arian Rosas came and visited pt in room. MD aware of patient condition.
[2019-06-01] MEDS: AZTREONAM 1 GM/NS 50 ML 50 ML IV SCH ×3 (06:26→21:40)
--- NOTE | 2019-06-01 07:30 | NUR ---
pt in bed sleeping no s/s discomfort.
[2019-06-01] MEDS: FAMOTIDINE 20 MG TAB PO SCH ×2 (08:30→17:23)
[2019-06-01] MEDS: CLONAZEPAM 0.5 MG TAB PO SCH ×2 (09:00→21:40)
[2019-06-01] MEDS: LUBIPROSTONE 24 MCG CAP PO SCH ×2 (09:31→17:23)
[2019-06-01] MEDS: CITALOPRAM HYDROBROMIDE 20 MG TAB PO SCH (09:31)
[2019-06-01] MEDS: METHYLPREDNISOLONE SOD SUCC 40 MG/ML VIAL 1ML IV SCH ×2 (09:31→21:40)
[2019-06-01] MEDS: SENNA-S TABLET PO SCH ×2 (09:32→17:23)
[2019-06-01] MEDS: TIZANIDINE HCL 4 MG TAB PO SCH ×2 (09:32→17:24)
[2019-06-01] MEDS: POLYETHYLENE GLYCOL 3350 17 GM PACK PO SCH (09:32)
--- NOTE | 2019-06-01 17:24 | NUR ---
pt upp in bed denies pain ,no distress ntoed.
--- NOTE | 2019-06-01 17:39 | NUR ---
Nutrition Screen Note RD Recommendation for Physician: 1.Continue with current diet order as tolerated Plan of Care: RD following, monitoring for tolerance and adequacy Nutrition reason for involvement: LOS Primary Diagnose(s): Abdominal pain, uncomplicated UTI, complication of catheter PMH: 1. Complicated urinary tract infections/catheter-associated urinary tract infections 2. Multiple sclerosis. 3. Chronic indwelling suprapubic catheter. 4. Urinary retention. 5. Ambulatory dysfunction with multiple extremity contractures. 6. Anxiety/depression. 7. Sepsis due to bacteremia 8. Constipation. Ht: 67in Wt: 130lbs BMI: 20.35kg/m2 IBW:148lb+/- 10% RD Assessment: (06/01) Chart reviewed. Labs and meds reviewed. 43 y/o M admitted with UTI. Visited patient in room, appeared to be in the middle of eating lunch. Patients mother reports she along with provider help patient with feeding. Reports overall good appetite and intake during admission and at home, tolerating current diet. Denied any N/V/D/C or any difficulties with chewing/swallowing. Noted UBW of 130lbs and showed no specific nutrition related concerns. Will continue to monitor and follow as needed. Current Diet: GI soft diet Malnutrition Evaluation (06/01) The patient does not meet criteria for a specified degree of malnutrition at this time. Will re-evaluate at follow-up as appropriate. Diet Education Needs Assessment: Diet education not indicated. Nutrition Care Level: LOW Signed: Shirley Orellana, MS, RDN, LD
--- NOTE | 2019-06-01 19:00 | NUR ---
Pt visited in room during nursing rounds. Patient alert and oriented x3. Suprapubic catheter in place draining clear yellow urine. Pt is bed bound due to hx of multiple sclerosis. Incontinent. Turn Q2hrs. On GI soft nectar-thickened diet. On IVF and scheduled IV antibiotics. Call lau within reach. Bed alarm active.
[2019-06-02] VITALS (8 sets, daily range): BP systolic 95–142; BP diastolic 63–91
[2019-06-02] MEDS: SODIUM CHLORIDE 0.9% 1000ML 1,000 ML IV SCH (02:30)
[2019-06-02] MEDS: AZTREONAM 1 GM/NS 50 ML 50 ML IV SCH ×3 (06:26→21:49)
--- NOTE | 2019-06-02 07:30 | NUR ---
pt up in bed sleeping ,no s/s discomfort ,supra pubic cath in place,clear urine
[2019-06-02] MEDS: CLONAZEPAM 0.5 MG TAB PO SCH ×2 (08:45→20:40)
[2019-06-02] MEDS: LUBIPROSTONE 24 MCG CAP PO SCH ×2 (08:45→17:37)
[2019-06-02] MEDS: FAMOTIDINE 20 MG TAB PO SCH ×2 (08:45→17:00)
[2019-06-02] MEDS: CITALOPRAM HYDROBROMIDE 20 MG TAB PO SCH (08:45)
[2019-06-02] MEDS: METHYLPREDNISOLONE SOD SUCC 40 MG/ML VIAL 1ML IV SCH ×2 (08:45→20:40)
[2019-06-02] MEDS: SENNA-S TABLET PO SCH ×2 (08:46→17:37)
[2019-06-02] MEDS: TIZANIDINE HCL 4 MG TAB PO SCH ×2 (08:46→17:37)
[2019-06-02] MEDS: POLYETHYLENE GLYCOL 3350 17 GM PACK PO SCH ×2 (08:46→17:37)
--- NOTE | 2019-06-02 10:25 | NUR ---
IM- progress note O/N; no events ROS: unobtainable VITAL SIGNS: Reviewed. PHYSICAL EXAMINATION GENERAL: A tired-appearing man resting in bed. HEENT: Anicteric. CARDIOVASCULAR: Normal S1 and S2. LUNGS: Moderate breath sounds. ABDOMEN: Soft. M ildly tender mid abdomen He has a suprapubic catheter in place. Dressing is clean and dry. EXTREMITIES: He has contracted lower extremities and left arm. His right arm is mobile and functional. SKIN: Dry. PSYCHIATRIC: Flat affect. NEUROLOGIC: Awake. LABS: Reviewed. MEDICATIONS: Reviewed. ASSESSMENT: This is a 43-year-old man. 1. Urinary retention. 2. Presumed Complicated/catheter-associated urinary tract infection. 3. Suprapubic catheter dysfunction 4. Depression. 5. Ambulatory dysfunction. PLAN 1. Continue IV Zosyn. 2. Follow up cultures. 3. Catheter exchange is pending. 4. Continue home medications. 5. Continue Pepcid for GI prophylaxis. 6. Disposition: Await catheter change. F/u UA using condom catheter. 05/28 f/u Urine; cont abx; f/u urology; 05/29 check cbc; cont abx; 05/30 f/u labs; suprapubic catheter mgmt per urology. 05/31 leukocytosis resolved; Proteus mirabilis and Pseudomonas aeruginosa UTIs; off abx? defer to ID. d/c planning; 06/01 cont IV abx over weekend for complicated UTI. 06/02 d/c planning; Bernardo Montilla MD, PhD.
[2019-06-02 11:32] LABS: BASOPHILS % 0.2 % (0.0-1.0); EOSINOPHILS % 0.1 % (0.0-6.0); HEMATOCRIT 41.6 % (38.2-49.6); HEMOGLOBIN 14.2 g/dL (14.0-18.0); LYMPHOCYTES # (AUTO) 1.3 (1.0-3.2); LYMPHOCYTES % 9.8 % (18.0-39.1); MEAN CORPUSCULAR HEMOGLOBIN 30.3 pg (28-32); MEAN CORPUSCULAR HGB CONC 34.1 g/dL (31-35); MEAN CORPUSCULAR VOLUME 88.7 fL (81-99); MONOCYTES # (AUTO) 0.7 (0.2-0.8); MONOCYTES % 4.9 % (4.4-11.3); NEUTROPHILS # (AUTO) 11.3 (2.1-6.9); NEUTROPHILS % 84.7 % (38.7-80.0); PLATELET COUNT 333 x10e3/uL (140-360); RED BLOOD COUNT 4.69 x10e6/uL (4.3-5.7); RED CELL DISTRIBUTION WIDTH 12.7 % (11.7-14.4)
[2019-06-02 11:46] LABS: ANION GAP 12.9 mmol/L (8-16); BLOOD UREA NITROGEN 8 mg/dL (7-26); BUN/CREATININE RATIO 13 (6-25); CALCIUM 8.9 mg/dL (8.4-10.2); CARBON DIOXIDE 27 mmol/L (22-29); CHLORIDE 108 mmol/L (98-107); CREATININE, SERUM 0.64 mg/dL (0.72-1.25); EST GLOMERULAR FILTRATION RATE > 60 ML/MIN (60-); GLUCOSE 162 mg/dL (74-118); POTASSIUM 3.9 mmol/L (3.5-5.1); SODIUM 144 mmol/L (136-145)
--- NOTE | 2019-06-02 14:19 | NUR ---
spoke to dr mckeon re; antibiotics ,stated will see pt tomorrow and determine which antibiotic to go home on
--- NOTE | 2019-06-02 14:50 | NUR ---
Visit made by the Spiritual Care Department Pastoral Visitor, Braden Yost. PV provided pastoral presence, communion, prayer, hospitality, and supportive listening. Pastoral Visitor informed pt/family of the scope of Licensed Appraiser Services and availability. GERMAIN SEVERINO Tool Keeper Spiritual Care Department O: [phone] Pager: [phone] ([phone] number calling from)
--- NOTE | 2019-06-02 17:38 | NUR ---
PT UP IN BED DENIES PAION,NO DISTRESS NOTED,
--- NOTE | 2019-06-02 19:00 | NUR ---
Pt visited in room during nursing rounds. Patient alert and oriented x3. Suprapubic catheter in place draining clear yellow urine. Pt is bed bound and contracted on all upper and lower extremities due to hx of multiple sclerosis. Incontinent and diapered. Turn Q2hrs. On GI soft nectar-thickened diet. On scheduled IV antibiotics. Call lau within reach. Bed alarm active.
[2019-06-02] MEDS ORDERED: SODIUM CHLORIDE 0.9% 250ML 250 ML ONE (20:45)
[2019-06-03 04:29] VITALS: BP 111/82
[2019-06-03] MEDS: AZTREONAM 1 GM/NS 50 ML 50 ML IV SCH (06:17)
[2019-06-03] MEDS ORDERED: MIRALAX17 GM PO (07:14)
[2019-06-03] MEDS ORDERED: PREDNISONE20 MG PO (07:14)
--- NOTE | 2019-06-03 07:19 | NUR ---
D/C Summary Principal Dx: 1. Urinary retention. 2. Complicated/catheter-associated urinary tract infection with Proteus mirabilis and Pseudomonas aeruginosa Secondary dx: 1. Suprapubic catheter dysfunction 2. Depression. 3. Ambulatory dysfunction. PLAN 1. Continue IV Zosyn. 2. Follow up cultures. 3. Catheter exchange is pending. 4. Continue home medications. 5. Continue Pepcid for GI prophylaxis. 6. Disposition: Await catheter change. F/u UA using condom catheter. 05/28 f/u Urine; cont abx; f/u urology; 05/29 check cbc; cont abx; 05/30 f/u labs; suprapubic catheter mgmt per urology. 05/31 leukocytosis resolved; Proteus mirabilis and Pseudomonas aeruginosa UTIs; off abx? defer to ID. d/c planning; 06/01 cont IV abx over weekend for complicated UTI. 06/02 d/c planning; d/c home f/u pcp 1 week and 1 week stable d/c >35mins Bernardo Montilla MD, PhD.
--- NOTE | 2019-06-03 07:45 | NUR ---
spoke to Dr. Spears and informed that patient to be discharged today, states "that patient can be discharged and that no script is needed for antibiotics and to follow up in office in 2 days, call placed to Dr. Montilla that no antibiotics are needed, ok given to discharge
[2019-06-03 08:08] VITALS: BP 116/77
[2019-06-03] MEDS: LUBIPROSTONE 24 MCG CAP PO SCH (08:27)
[2019-06-03] MEDS: FAMOTIDINE 20 MG TAB PO SCH (08:27)
[2019-06-03] MEDS: GLATIRAMER 20 MG SC SCH ×2 (08:29→08:39)
[2019-06-03 08:30] VITALS: BP 116/77
[2019-06-03] MEDS: METHYLPREDNISOLONE SOD SUCC 40 MG/ML VIAL 1ML IV SCH (08:36)
[2019-06-03] MEDS: SENNA-S TABLET PO SCH (08:37)
[2019-06-03] MEDS: POLYETHYLENE GLYCOL 3350 17 GM PACK PO SCH (08:37)
[2019-06-03] MEDS: TIZANIDINE HCL 4 MG TAB PO SCH (08:37)
[2019-06-03] MEDS: CLONAZEPAM 0.5 MG TAB PO SCH (08:37)
[2019-06-03] MEDS: CITALOPRAM HYDROBROMIDE 20 MG TAB PO SCH (08:37)
== END 2019-06-03 11:07 | disposition home or self-care (01) | DRG 698 ==
LOC: ER 14:20 → ERHOLD 19:42 → MED/SURG3 05-28 00:34
PROVIDERS: ADMIT Internal Medicine; ATTEND Internal Medicine
DX: T83.511A Infection and inflammatory reaction due to indwelling urethral catheter, initial encounter (principal); A41.9 Sepsis, unspecified organism; N39.0 Urinary tract infection, site not specified; G35 Multiple sclerosis; E03.9 Hypothyroidism, unspecified; F41.9 Anxiety disorder, unspecified; K56.41 Fecal impaction; B96.89 Other specified bacterial agents as the cause of diseases classified elsewhere; R33.9 Retention of urine, unspecified; F32.9 Major depressive disorder, single episode, unspecified; R21 Rash and other nonspecific skin eruption
CPT/HCPCS: 36415; 71045; 74018; 74019; 74176; 80048; 80053; 81001; 82550; 82553; 83605; 83690; 83735; 83880; 84443; 84484; 85025; 85610; 85730; 87040; 87086; 87186; 93005; 99285; J2543; J2920; J2930; J7030; J7050

== ENCOUNTER 2020-07-27 20:50 | Emergency (ER) | payer MEDICARE, OTHER ==
[~2020-07-27] VITALS: Ht 170.2 cm; Wt 64.4 kg
[~2020-07-27 20:50] MED LIST changes: +MIRALAX17 GM PO
--- OUTSIDE RECORDS SUMMARY | 2020-07-27 21:29 | XMS REPORT | Continuity of Care Document ---
Author Author [facility] t Organization [facility] Address [address] [place] [address] Phone Unavailable Care Team Providers Care Hat Lacer Name Role Phone MICHOACANO ARSHAD MD PCP BERNARDO KELLEY Attphys Unavailable HAMPEL, NEHEMIA Attphys Unavailable MICHOACANO ARSHAD Attphys Unavailable Emiliano KILGORE Attphys Unavailable BERNARDO KELLEY Admphys Unavailable Payers Payer Name Policy Type Policy Number Effective Date Expiration Date Agatha Azevedo [facility] [id number] 2017 00:00:00 [facility] [id number] 2016 00:00 :00 [facility] Problems Condition Name Condition Details Condition Category Status Onset Date Resolution Date Last Treatment Date Treating Clinician Comments Source 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 Problem Active 2015-05-02 00:00:00 [facility] Multiple sclerosis Multiple sclerosis Problem Active 2015-05-02 00:00:0 0 [facility] Allergic reaction Allergic reaction Problem Active [facility] Atrophic urethritis Atrophic urethritis Problem Active [facility] Confusion Confusion Problem Active [facility] Presence of suprapubic catheter Suprapubic catheter Problem Active [facility] Urinary tract infection Urinary tract infection Problem Active [facility] Obstruction of Roth catheter Complication, blocked Roth cathet er Problem Active [facility] Indwelling catheter present on admission Indwelling ca theter present on admission Problem Active [facility] Problem with Roth catheter Roth catheter problem Problem Active [facility] Abdominal pain Abdominal pain Problem Active [facility] Allergies, Adverse Reactions, Alerts Allergy Name Allergy Type Status Severity Reaction(s) Onset Date Inacti ve Date Treating Clinician Comments Source ciprofloxacin DA Active SV 2019-09-18 00:00:00 [facility] adhesive tape DA Active SV 2019-09-18 00:00:00 [facility] ceftriaxone DA Active U 2019-09-18 00:00:00 [facility] meropenem DA Active U 2019-09-18 00:00:00 [facility] levofloxacin DA Active SV 2019-09-18 00:00:00 [facility] ciprofloxacin DA Active SV 2019-07-22 00:00:00 [facility] adhesive tape DA Active SV 2019-07-22 00:00:00 [facility] ceftriaxone DA Active U 2019-07-22 00:00:00 [facility] meropenem DA Active U 2019-07-22 00:00:00 [facility] levofloxacin DA Active SV 2019-07-22 00:00:00 [facility] ciprofloxacin DA Active SV 2019-07-03 00:00:00 [facility] adhesive tape DA Active SV 2019-07-03 00:00:00 [facility] ceftriaxone DA Active U 2019-07-03 00:00:00 [facility] meropenem DA Active U 2019-07-03 00:00:00 [facility] levofloxacin DA Active SV 2019-07-03 00:00:00 [facility] ceftriaxone DA Active U 2019-04-15 00:00:00 [facility] meropenem DA Active U 2019-04-15 00:00:00 [facility] ciprofloxacin DA Active SV 2019-03-04 00:00:00 [facility] meropenem DA Active SV 2019-03-04 00:00:00 [facility] ceftriaxone DA Active MO 2019-01-18 00:00:00 [facility] levofloxacin DA Active U 2019-01-18 00:00:00 [facility] Ciprofloxacin Allergy to Substance Active 2018-06-16 00:00: 00 [facility] Ceftriaxone Allergy to Substance Active Severe hives, SOB, re dness 2018-06-16 00:00:00 [facility] Meropenem Allergy to Substance Active 2018-06-16 00:00:00 [facility] Levofloxacin Allergy to Substance Active Severe Rash, Hives, SOB 2018-06-16 00:00:00 [facility] TAPE Allergy to Substance Active Moderate 2018-02-24 00:00:00 [facility] ciprofloxacin DA Active SV 2018-01-08 00:00:00 [facility] adhesive tape DA Active SV 2018-01-08 00:00:00 [facility] levofloxacin DA Active SV 2018-01-08 00:00:00 [facility] levofloxacin DA Active U 2016-10-31 00:00:00 [facility] Medications Ordered Medication Name Filled Medication Name Start Date Stop Da te Current Medication? Ordering Clinician Indication Dosage Frequency Signature (SIG) Comments Components Source Polyethylene Glycol 3350 (Miralax) 17 Gm Powd.pack Ronn yethylene Glycol 3350 (Miralax) 17 Gm Powd.pack 2019-06-03 00:00:00 Yes Bernardo Kelley Md 17 Daily [facility] Prednisone 20 Mg Tab Prednisone 20 Mg Tab 2019-06-03 00:00:00 Yes Bernardo Kelley Md 20 Daily [facility] Ciprofloxacin Hcl (Cipro) 500 Mg Tablet, 500 Mg Oral C iprofloxacin Hcl (Cipro) 500 Mg Tablet, 500 Mg Oral 2018-06-25 00:00:00 2019-06-03 00:00:00 No Bernardo Kelley Md 500 Every 12 Hours [facility] Famotidine 20 Mg Tab Famotidine 20 Mg Tab 2018-05-23 00:00:00 Yes Bernardo Kelley Md 20 Twice Daily Before Meals [facility] Sennosides/Docusate Sodium (Senna S Tablet) 1 Each Tab let Sennosides/Docusate Sodium (Senna S Tablet) 1 Each Tablet 2018-05-23 00:00:00 Yes Bernardo Kelley Md 1 Twice A Day [facility] Famotidine 20 Mg Tab, 20 Mg Oral Famotidine 20 Mg Tab, 20 Mg Oral 2018-02-27 00:00:00 2018-05-18 00:00:00 No Bernardo Kelley Md 20 Twic e Daily Before Meals [facility] Prednisone 20 Mg Tab, 20 Mg Oral Prednisone 20 Mg Tab, 20 Mg Oral 2018-02-27 00:00:2018-05-18 00:00:00 No Bernardo Kelley Md 20 Daily [facility] Citalopram Hydrobromide (Citalopram Hbr) 20 Mg Tablet Citalopram Hydrobromide (Citalopram Hbr) 20 Mg Tablet Yes 20 Daily [facility] Clonazepam 0.5 Mg Tablet Clonazepam 0.5 Mg Tablet Yes .5 Every 12 Hours [facility] Glatiramer (Copolymer-1) (Copaxone) 20 Mg/Kit Syr Glat iramer (Copolymer-1) (Copaxone) 20 Mg/Kit Syr Yes 40 Three Times P er Week [facility] Lubiprostone (Amitiza) 24 Mcg Capsule Lubiprostone (Amitiza) 24 Mcg Capsule Yes 24 Twice A Day [facility] Oxybutynin Chloride 5 Mg Tablet Oxybutynin Chloride 5 Mg Tablet Yes 5 Three Times A Day [facility] Tizanidine Hcl 4 Mg Capsule Tizanidine Hcl 4 Mg Capsule Yes 4 Twice A Day [facility] Tramadol Hcl (Ultram) 50 Mg Tablet Tramadol Hcl (Ultram) 50 Mg Tablet Yes 50 Every 6 Hours as needed for Pain [facility] Glatiramer (Copolymer-1) (Copaxone) 20 Mg/Kit Syr, 20 Mg Sub-Q Glatiramer (Copolymer-1) (Copaxone) 20 Mg/Kit Syr, 20 Mg Sub-Q 2018-05-18 00:0 0:00 No 20 Daily [facility] Lubiprostone (Amitiza) 24 Mcg Capsule, 24 Mcg Oral Lub iprostone (Amitiza) 24 Mcg Capsule, 24 Mcg Oral 2018-05-18 00:00:00 No 24 Twi ce A Day [facility] Multivitamins (Multivitamin) 1 Each Capsule, 1 Tab Ora l Multivitamins (Multivitamin) 1 Each Capsule, 1 Tab Oral 2018-05-18 00:00:00 No 1 Rt Daily [facility] Tizanidine Hcl 2 Mg Tablet, 2 Mg Oral Tizanidine Hcl 2 Mg Tablet , 2 Mg Oral 2018-05-18 00:00:00 No 2 Twice A Day [facility] Clonazepam 0.5 Mg Tablet, 0.5 Mg Oral Clonazepam 0.5 Mg Tablet, 0.5 Mg Oral 2017-09-18 00:00:00 No .5 Twice A Day [facility] Hydrocodone Bit/Acetaminophen (Crandon 10-325 Tablet) 1 Each Tablet, 10 Mg Oral Hydrocodone Bit/Acetaminophen (Crandon 10-325 Tablet) 1 Each Tablet, 10 Mg Oral 2017-09-18 00:00:00 No 10 Every 4 Hours as nee ded for Pain [facility] Cefuroxime Axetil (Ceftin) 500 Mg Tablet, 500 Mg Oral Cefuroxime Axetil (Ceftin) 500 Mg Tablet, 500 Mg Oral 2014-09-05 00:00:00 No 500 Twice A Day [facility] Docusate Sodium (Colace) 100 Mg Capsule, 100 Mg Oral D ocusate Sodium (Colace) 100 Mg Capsule, 100 Mg Oral 2014-09-05 00:00:00 No 100 Rt Daily [facility] Lactulose 20 Gm/30 Ml Solution, 30 Ml Oral Lactulose 2 0 Gm/30 Ml Solution, 30 Ml Oral 2014-09-05 00:00:00 No 30 Every 6 Hours for Constipation [facility] Oxybutynin Chloride 5 Mg Tablet, 5 Mg Oral Oxybutynin Chloride 5 Mg Tablet, 5 Mg Oral 2014-09-05 00:00:00 No 5 Twice A Day [facility] Clonazepam 0.5 Mg Tablet, Clonazepam 0.5 Mg Tablet, 00:00:00 No Rt Bid [facility] Glatiramer (Copolymer-1) (Copaxone) 20 Mg Kit, 20 Mg S ub-Q Glatiramer (Copolymer-1) (Copaxone) 20 Mg Kit, 20 Mg Sub-Q 2012-09-26 00:00:00 No 20 Rt Daily [facility] Levofloxacin (Levaquin) 500 Mg Tablet, 500 Mg Oral Lev ofloxacin (Levaquin) 500 Mg Tablet, 500 Mg Oral 2012-09-26 00:00:00 No 500 D aily [facility] Tyanidine , Oral Tyanidine , Oral 2012-09-26 00:00:00 No Twice A Day [facility] Procedures Procedure Date / Time Performed Performing Clinician [facility] e CT of abdomen and pelvis without contrast 2019-05-27 00:00:00 MICKIE RAGSDALE [facility] Ultrasound, renal 2019-04-08 00:00:00 AMALIA PETERS [facility] INSERTION OF INFUSION DEV INTO SUP VENA CAVA, PERC APPROACH 2018-08-18 00:00:00 BERNARDO KELLEY [facility] ULTRASONOGRAPHY OF SUPERIOR VENA CAVA, GUIDANCE 2018-08-18 0 0:00:00 BERNARDO KELLEY [facility] CHANGE DRAINAGE DEVICE IN BLADDER, EXTERNAL APPROACH 2018-07 00:00:00 CAROLINA PETERS [facility] Encounters Start Date/Time End Date/Time En[facility] ID Source 2019-05-27 19:42:00 2019-06-03 11:07:00 Discharged Inpatient [address] [facility] [id number] [facility] 2019-04-08 08:35:00 2019-04-08 08:35:00 Registered Clinic [address] [facility] [id number] [facility] 2019-03-01 18:36:00 2019-03-01 21:00:[address] [facility] [id number] [facility] 2018-08-15 11:35:00 2018-08-22 20:00:[address] [facility] [id number] [facility] 2018-06-16 21:55:00 2018-06-25 13:07:00 Discharged Inpatient [address] [facility] [id number] [facility] 2018-05-18 20:41:00 2018-05-23 15:25:00 Discharged Inpatient [address] [facility] [id number] [facility] 2018-04-25 12:58:00 2018-04-25 12:58:00 Registered Clinic [address] [facility] [id number] [facility] 2018-03-18 12:39:00 2018-03-18 17:22:[address] [facility] [id number] [facility] 2018-02-24 18:06:00 2018-02-27 13:30:00 Discharged Inpatient (obs) [address] [facility] [id number] [facility] 2017-09-18 23:35:00 2017-09-22 19:07:00 Discharged Inpatient ER BERNARDO KELLEY [facility] [id number] [facility] Results Test Description Test Time Test Comments Results Result Comments Source URINALYSIS COMPLETE 2020-04-10 12:47:00 Test Item UA COLOR (test code = COLU) YELLOW YELLOW UA APPEARANCE (test code = APPU) CLOUDY CLEAR A UA GLUCOSE DIPSTICK (test code = DGLUU) norm mg/dL NEGATIVE UA BILIRUBIN DIPSTICK (test code = BILU) NEGATIVE mg/dL NEGATIVE UA KETONE DIPSTICK (test code = KETU) neg mg/dL NEGATIVE UA SPECIFIC GRAVITY (test code = SGU) 1.005 1.001-1.035 UA BLOOD DIPSTICK (test code = FAIZAN) 250 (4+) Flynn/uL NEGATIVE A UA PH DIPSTICK (test code = FREDI) 7.0 5.0-8.0 UA PROTEIN DIPSTICK (test code = PROU) 100 (2+) mg/dL Neg-15 A UA UROBILINIOGEN DIPSTICK (test code = URO) norm mg/dL 0.0-0.2 UA NITRITE DIPSTICK (test code = SARIAH) POSITIVE NEGATIVE UA LEUKOCYTE ESTERASE DIPSTICK (test code = LEUU) 500 Sahil/uL (3+) u L NEGATIVE A UA WBC (test code = WBCU) >50 per HPF 0-5 A UA RBC (test code = RBCU) 15-25 per HPF 0-5 A UA EPITHELIAL CELLS (test code = EPIU) Few (2-5/hpf) per HPF Few UA BACTERIA (test code = BACU) LOADED per HPF NONE A Urine Source? Clean CatchURINALYSIS [id number] 12:39:00* Test Item Value Reference Range Interpretation Comments UA COLOR (test code = COLU) YELLOW YELLOW UA APPEARANCE (test code = APPU) CLOUDY CLEAR A UA GLUCOSE DIPSTICK (test code = DGLUU) norm mg/dL NEGATIVE UA BILIRUBIN DIPSTICK (test code = BILU) NEGATIVE mg/dL NEGATIVE UA KETONE DIPSTICK (test code = KETU) neg mg/dL NEGATIVE UA SPECIFIC GRAVITY (test code = SGU) 1.005 1.001-1.035 UA BLOOD DIPSTICK (test code = FAIZAN) 250 (4+) Flynn/uL NEGATIVE A UA PH DIPSTICK (test code = FREDI) 7.0 5.0-8.0 UA PROTEIN DIPSTICK (test code = PROU) 100 (2+) mg/dL Neg-15 A UA UROBILINIOGEN DIPSTICK (test code = URO) norm mg/dL 0.0-0.2 UA NITRITE DIPSTICK (test code = SARIAH) POSITIVE NEGATIVE UA LEUKOCYTE ESTERASE DIPSTICK (test code = LEUU) 500 Sahil/uL (3+) u L NEGATIVE A UA WBC (test code = WBCU) per HPF 0-5 UA RBC (test code = RBCU) per HPF 0-5 UA EPITHELIAL CELLS (test code = EPIU) per HPF Few UA BACTERIA (test code = BACU) per HPF NONE Urine Source? Clean CatchBASIC METABOLIC [id number] 13:38:00* Test Item Value Reference Range Interpretation Comments SODIUM (test code = NA) 141 mmol/L 136-145 N POTASSIUM (test code = K) 4.4 mmol/L 3.5-5.1 N CHLORIDE (test code = CL) 102 mmol/L 101-109 N CARBON DIOXIDE (test code = CO2) 29.6 mmol/L 21-32 N ANION GAP (test code = GAP) 14 mmol/L 10-20 N GLUCOSE (test code = GLU) 90 mg/dL 74-106 N BLOOD UREA NITROGEN (test code = BUN) 14 mg/dL 3-21 N GLOMERULAR FILTRATION RATE (test code = GFR) > 60 mL/min >=60 Estimated GFR by using Modified MDRD formula.Chronic kidney disease is defined as either kidney damageor GFR <60 mL/min/1.73 m2 for >3 months. CREATININE (test code = CREAT) 0.76 mg/dL 0.55-1.3 N BUN/CREATININE RATIO (test code = BUN/CREA) 18.4 10-20 N CALCIUM (test code = CA) 8.9 mg/dL 8.4-10.2 N URINALYSIS [id number] 13:01:00* Test Item Value Reference Range Interpretation Comments UA COLOR (test code = COLU) DARK YELLOW YELLOW A UA APPEARANCE (test code = APPU) Cloudy CLEAR A UA GLUCOSE DIPSTICK (test code = DGLUU) norm mg/dL NEGATIVE UA BILIRUBIN DIPSTICK (test code = BILU) NEGATIVE mg/dL NEGATIVE UA KETONE DIPSTICK (test code = KETU) neg mg/dL NEGATIVE UA SPECIFIC GRAVITY (test code = SGU) 1.010 1.001-1.035 UA BLOOD DIPSTICK (test code = FAIZAN) 250 (4+) Flynn/uL NEGATIVE A UA PH DIPSTICK (test code = FREDI) 8.0 5.0-8.0 UA PROTEIN DIPSTICK (test code = PROU) 30 (1+) mg/dL Neg-15 A UA UROBILINIOGEN DIPSTICK (test code = URO) 1 mg/dL 0.0-0.2 A UA NITRITE DIPSTICK (test code = SARIAH) POSITIVE NEGATIVE UA LEUKOCYTE ESTERASE DIPSTICK (test code = LEUU) 500 Sahil/uL (3+) u L NEGATIVE A UA WBC (test code = WBCU) >100 per HPF 0-5 A UA RBC (test code = RBCU) >100 per HPF 0-5 UA EPITHELIAL CELLS (test code = EPIU) Few (2-5/hpf) per HPF Few UA BACTERIA (test code = BACU) MODERATE per HPF NONE A Urine Source? Clean CatchURINALYSIS [id number] 13:00:00* Test Item Value Reference Range Interpretation Comments UA COLOR (test code = COLU) DARK YELLOW YELLOW A UA APPEARANCE (test code = APPU) Cloudy CLEAR A UA GLUCOSE DIPSTICK (test code = DGLUU) norm mg/dL NEGATIVE UA BILIRUBIN DIPSTICK (test code = BILU) NEGATIVE mg/dL NEGATIVE UA KETONE DIPSTICK (test code = KETU) neg mg/dL NEGATIVE UA SPECIFIC GRAVITY (test code = SGU) 1.010 1.001-1.035 UA BLOOD DIPSTICK (test code = FAIZAN) 250 (4+) Flynn/uL NEGATIVE A UA PH DIPSTICK (test code = FREDI) 8.0 5.0-8.0 UA PROTEIN DIPSTICK (test code = PROU) 30 (1+) mg/dL Neg-15 A UA UROBILINIOGEN DIPSTICK (test code = URO) 1 mg/dL 0.0-0.2 A UA NITRITE DIPSTICK (test code = SARIAH) POSITIVE NEGATIVE UA LEUKOCYTE ESTERASE DIPSTICK (test code = LEUU) 500 Sahil/uL (3+) u L NEGATIVE A UA WBC (test code = WBCU) per HPF 0-5 UA RBC (test code = RBCU) per HPF 0-5 UA EPITHELIAL CELLS (test code = EPIU) per HPF Few UA BACTERIA (test code = BACU) per HPF NONE Urine Source? Clean Catch- XR ABDOMEN AP 1 [id number] 13:30:00 Name: ARIK VELIZ [facility] : 1975 Age/S:44 /M [address] [facility] Unit#:[id number] Loc: [place] [address] Phys: Zacarias Cook MD Dis Date: PHONE #: [phone] Status: REG ER FAX #: [phone] Exam Date: 02/04/2020 Re ason: suprapubic catheter placement EXAMS: CPT CODE: [id number] XR ABDOMEN AP 1 V [id number] HISTORY: Suprapubic catheter placeme nt. COMPARISON: CT pelvis from November 27, 2016 2 view s of the abdomen: The safety deposit supervisor view demonstrating suprapubic catheter in the pelvis. Large amount of fecal material in the rectosigmoid region. The second image demonstrated contrast opacifying what appears to be urinary bladder however small amount of contrast is noted and is difficult to assess. IMPRESSION: Small amount of contrast in the pelvis around the suprapubic catheter likely within the bladder however is difficult to assess due to instillation of a smal l amount of contrast. Additional contrast recommended for further defini tion. at 13 30 Reported and signed by: Joseph Shannon M.D. CC: Zacarias Cook MD; Michoacano Arshad Technbhavna st: Adilia Patino RT(R)(CT) Trnscrpt Data: 2019 (1330) [email or web address] Orig Print D/T: S: 02/04/2020 (13 33) PAGE 1 Signed Report URINALYSIS [id number] 16:06:00* Test Item Value Reference Range Interpretation Comments UA COLOR (test code = COLU) Light-Yellow YELLOW UA APPEARANCE (test code = APPU) Cloudy CLEAR A UA GLUCOSE DIPSTICK (test code = DGLUU) NEGATIVE mg/dL NEGATIVE UA BILIRUBIN DIPSTICK (test code = BILU) NEGATIVE mg/dL NEGATIVE UA KETONE DIPSTICK (test code = KETU) NEGATIVE mg/dL NEGATIVE UA SPECIFIC GRAVITY (test code = SGU) 1.015 1.001-1.035 UA BLOOD DIPSTICK (test code = FAIZAN) 0.03 mg/dL (Trace) mg/dL NEGATI VE A UA PH DIPSTICK (test code = FREDI) 8.0 5.0-8.0 UA PROTEIN DIPSTICK (test code = PROU) 20 (Trace) mg/dL NEGATIVE A UA UROBILINIOGEN DIPSTICK (test code = URO) Normal mg/dL NEGATIVE UA NITRITE DIPSTICK (test code = SARIAH) NEGATIVE NEGATIVE UA LEUKOCYTE ESTERASE W REFLEX (test code = LEUUR) 500 Sahil/u L (3+) Sahil/uL NEGATIVE A UA WBC (test code = WBCU) 51-100 per HPF 0-5 A UA RBC (test code = RBCU) 3-5 #/HPF 0-5 UA WBC CLUMPS (test code = WBCUCL) 3-6 /HPF NONE A UA EPITHELIAL CELLS (test code = EPIU) FEW per HPF FEW UA BACTERIA (test code = BACU) MANY #/HPF NONE A UA HYALINE CAST (test code = HYALU) 0-2 #/LPF 0-5 UA MUCUS (test code = MUCU) FEW #/LPF FEW UA AMORPHOUS SEDIMENT (test code = AMORU) FEW #/LPF Urine Source? Clean Catch- XR CHEST 1 [id number] 12:20:00 FAX: Mag Santillan DO [place]: B St: REG FAX: Michoacano Weber MD [phone] Name: JOSE ALFREDOARIKO [facility] : 1975 Age/S: 44/M [address] Unit #: [id number] Loc: [place], [place] [address] Phys: Mag Santillan DO Acct: [id number] Dis Date: Status: REG ER PHONE #: [phone] Exam Date: 11/05/2019 1150 FAX #: [phone] Reason: CODE SEPSIS EXAMS: CPT CODE: [id number] XR CHEST 1 V [id number] REASON FOR EXAM: CODE SEPSIS Exam Order Date: 11/05/2019 10:57 AM Ordering Sarah: Mag Santillan DO PROCEDURE: - XR CHEST 1 V COMPARISON: Chest x-ray May 13, 2019 FINDINGS: The lungs are hypoinflated but clear. Th ere is no pleural effusion or pneumothorax. Pulmonary vascularity is withi n normal limits. Cardiomediastinal silhouette is normal in size fo r technique. The mediastinal contours are within normal limits. Musculoskeletal structures are within normal limits. The visua lized upper abdomen is within normal limits. IMPRESSION: No acute cardiopulmonary process. Location: [facility] at 1220 Reported and signed by: Andrae Knight MD CC: Mag Santillan DO; Michoacano Arshad Technologist: RT ZORAIDA(R) Trnscrd Date/Time/By: 11/05/2019 (1220) : By: celso [email or web address] Orig Print D/T: S: 11/05/2019 (6631) P AGE 3 Signed Report BASIC METABOLIC [id number] 12:17:00* Test Item Value Reference Range Interpretation Comments SODIUM (test code = NA) 143 mmol/L 136-145 N POTASSIUM (test code = K) 4.7 mmol/L 3.5-5.1 N CHLORIDE (test code = CL) 108.0 mmol/L 98-107 H CARBON DIOXIDE (test code = CO2) 26.0 mmol/L 21-32 N ANION GAP (test code = GAP) 13.7 10-20 N GLUCOSE (test code = GLU) 87 mg/dL 74-106 N BLOOD UREA NITROGEN (test code = BUN) 19 mg/dL 7-18 H GLOMERULAR FILTRATION RATE (test code = GFR) > 60 mL/min >=60 Estimated GFR by using Modified MDRD formula.Chronic kidney disease is defined as either kidney damageor GFR <60 mL/min/1.73 m2 for >3 months. CREATININE (test code = CREAT) 0.60 mg/dL 0.7-1.3 L BUN/CREATININE RATIO (test code = BUN/CREA) 31.7 10-20 H CALCIUM (test code = CA) 9.2 mg/dL 8.5-10.1 N HEPATIC FUNCTION [id number] 12:17:00* Test Item Value Reference Range Interpretation Comments TOTAL PROTEIN (test code = PROT) 7.4 gram/dL 6.4-8.2 N ALBUMIN (test code = ALB) 3.7 g/dL 3.4-5.0 N GLOBULIN (test code = GLOB) 3.7 gram/dL 2.7-4.2 N ALBUMIN/GLOBULIN RATIO (test code = A/G) 1.0 0.75-1.50 N BILIRUBIN TOTAL (test code = BILT) 0.40 mg/dL 0.0-1.0 N BILIRUBIN DIRECT (test code = BILD) 0.11 mg/dL 0.0-0.20 N SGOT/AST (test code = AST) 24 IUnit/L 15-37 N SGPT/ALT (test code = ALT) 31 IUnit/L 12-78 N ALKALINE PHOSPHATASE TOTAL (test code = ALKP) 136 IUnit/L 45-117 H Note change in reference range due to change in reagent. [id number] 12:17:00* Test Item Value Reference Range Interpretation Comments TROPONIN-I (test code = TROPI) <0.015 ng/mL 0-0.045 N LACTIC [id number] 12:17:00* Test Item Value Reference Range Interpretation Comments LACTIC ACID (test code = LACT) 1.2 mmol/L 0.4-1.9 N BASIC METABOLIC [id number] 12:04:00* Test Item Value Reference Range Interpretation Comments SODIUM (test code = NA) 143 mmol/L 136-145 N POTASSIUM (test code = K) 4.7 mmol/L 3.5-5.1 N CHLORIDE (test code = CL) 108.0 mmol/L 98-107 H CARBON DIOXIDE (test code = CO2) mmol/L 21-32 ANION GAP (test code = GAP) 10-20 GLUCOSE (test code = GLU) mg/dL 74-106 BLOOD UREA NITROGEN (test code = BUN) mg/dL 7-18 GLOMERULAR FILTRATION RATE (test code = GFR) mL/min >=60 CREATININE (test code = CREAT) mg/dL 0.7-1.3 BUN/CREATININE RATIO (test code = BUN/CREA) 10-20 CALCIUM (test code = CA) mg/dL 8.5-10.1 HEPATIC FUNCTION [id number] 12:04:00* Test Item Value Reference Range Interpretation Comments TOTAL PROTEIN (test code = PROT) gram/dL 6.4-8.2 ALBUMIN (test code = ALB) g/dL 3.4-5.0 GLOBULIN (test code = GLOB) gram/dL 2.7-4.2 ALBUMIN/GLOBULIN RATIO (test code = A/G) 0.75-1.50 BILIRUBIN TOTAL (test code = BILT) mg/dL 0.0-1.0 BILIRUBIN DIRECT (test code = BILD) mg/dL 0.0-0.20 SGOT/AST (test code = AST) IUnit/L 15-37 SGPT/ALT (test code = ALT) IUnit/L 12-78 ALKALINE PHOSPHATASE TOTAL (test code = ALKP) IUnit/L 45-117 [id number] 12:04:00* Test Item Value Reference Range Interpretation Comments TROPONIN-I (test code = TROPI) ng/mL 0-0.045 CBC W/AUTO [id number] 12:00:00* Test Item Value Reference Range Interpretation Comments WHITE BLOOD CELL (test code = WBC) 9.5 K/mm3 4.5-12.5 N RED BLOOD CELL (test code = RBC) 4.93 mill/mm3 4.0-5.8 N HEMOGLOBIN (test code = HGB) 14.7 gram/dL 13.0-17.5 N HEMATOCRIT (test code = HCT) 44.1 % 42.0-52.0 N MEAN CELL VOLUME (test code = MCV) 89.5 fL 80-98 N MEAN CELL HGB (test code = MCH) 29.8 picogram 27.0-33.0 N MEAN CELL HGB CONCETRATION (test code = MCHC) 33.3 gram/dL 33.0-36. 0 N RED CELL DISTRIBUTION WIDTH (test code = RDW) 12.6 % 11.6-16. 2 N RED CELL DISTRIBUTION WIDTH SD (test code = RDW-SD) 41.0 fL 37 .0-51.0 N PLATELET COUNT (test code = PLT) 282 K/mm3 150-450 N MEAN PLATELET VOLUME (test code = MPV) 10.9 fL 6.7-11.0 N NEUTROPHIL % (test code = NT%) 61.1 % 39.0-69.0 N IMMATURE GRANULOCYTE % (test code = IG%) 0.2 % 0.0-5.0 N LYMPHOCYTE % (test code = LY%) 28.3 % 25.0-55.0 N MONOCYTE % (test code = MO%) 9.1 % 0.0-10.0 N EOSINOPHIL % (test code = EO%) 0.7 % 0.0-5.0 N BASOPHIL % (test code = BA%) 0.6 % 0.0-1.0 N NUCLEATED RBC % (test code = NRBC%) 0.0 % 0-0 N NEUTROPHIL # (test code = NT#) 5.78 K/mm3 1.8-7.7 N IMMATURE GRANULOCYTE # (test code = IG#) 0.02 x10 3/uL 0-0.03 N LYMPHOCYTE # (test code = LY#) 2.68 K/mm3 1.0-5.0 N MONOCYTE # (test code = MO#) 0.86 K/mm3 0-0.8 H EOSINOPHIL # (test code = EO#) 0.07 K/mm3 0.0-0.5 N BASOPHIL # (test code = BA#) 0.06 K/mm3 0.0-0.2 N NUCLEATED RBC # (test code = NRBC#) 0.00 K/mm3 0.0-0.1 N MANUAL DIFF REQUIRED (test code = MDIFF) NO CBC W/AUTO [id number] 11:59:00* Test Item Value Reference Range Interpretation Comments WHITE BLOOD CELL (test code = WBC) K/mm3 4.5-12.5 RED BLOOD CELL (test code = RBC) mill/mm3 4.0-5.8 HEMOGLOBIN (test code = HGB) 14.7 gram/dL 13.0-17.5 N HEMATOCRIT (test code = HCT) 44.1 % 42.0-52.0 N MEAN CELL VOLUME (test code = MCV) fL 80-98 MEAN CELL HGB (test code = MCH) picogram 27.0-33.0 MEAN CELL HGB CONCETRATION (test code = MCHC) gram/dL 33.0-36. 0 RED CELL DISTRIBUTION WIDTH (test code = RDW) % 11.6-16. 2 RED CELL DISTRIBUTION WIDTH SD (test code = RDW-SD) fL 37 .0-51.0 PLATELET COUNT (test code = PLT) K/mm3 150-450 MEAN PLATELET VOLUME (test code = MPV) fL 6.7-11.0 NEUTROPHIL % (test code = NT%) % 39.0-69.0 IMMATURE GRANULOCYTE % (test code = IG%) % 0.0-5.0 LYMPHOCYTE % (test code = LY%) % 25.0-55.0 MONOCYTE % (test code = MO%) % 0.0-10.0 EOSINOPHIL % (test code = EO%) % 0.0-5.0 BASOPHIL % (test code = BA%) % 0.0-1.0 NEUTROPHIL # (test code = NT#) K/mm3 1.8-7.7 LYMPHOCYTE # (test code = LY#) K/mm3 1.0-5.0 MONOCYTE # (test code = MO#) K/mm3 0-0.8 EOSINOPHIL # (test code = EO#) K/mm3 0.0-0.5 BASOPHIL # (test code = BA#) K/mm3 0.0-0.2 [id number] 12:18:00* Test Item Value Reference Range Interpretation Comments GLUBED (test code = GLUBED) 104 mg/dL 74-106 N Performed by certified burglar alarm operator at [facility] COMPREHENSIVE METABOLIC [id number] 05:29:00* Test Item Value Reference Range Interpretation Comments SODIUM (test code = NA) 142 mmol/L 136-145 N POTASSIUM (test code = K) 4.0 mmol/L 3.5-5.1 N CHLORIDE (test code = CL) 110.0 mmol/L 98-107 H CARBON DIOXIDE (test code = CO2) 27.0 mmol/L 21-32 N ANION GAP (test code = GAP) 9.0 10-20 L GLUCOSE (test code = GLU) 95 mg/dL 74-106 N BLOOD UREA NITROGEN (test code = BUN) 9 mg/dL 7-18 N GLOMERULAR FILTRATION RATE (test code = GFR) > 60 mL/min >=60 Estimated GFR by using Modified MDRD formula.Chronic kidney disease is defined as either kidney damageor GFR <60 mL/min/1.73 m2 for >3 months. CREATININE (test code = CREAT) 0.50 mg/dL 0.7-1.3 L BUN/CREATININE RATIO (test code = BUN/CREA) 18.0 10-20 N TOTAL PROTEIN (test code = PROT) 6.6 gram/dL 6.4-8.2 N ALBUMIN (test code = ALB) 3.1 g/dL 3.4-5.0 L GLOBULIN (test code = GLOB) 3.5 gram/dL 2.7-4.2 N ALBUMIN/GLOBULIN RATIO (test code = A/G) 0.9 0.75-1.50 N CALCIUM (test code = CA) 8.8 mg/dL 8.5-10.1 N BILIRUBIN TOTAL (test code = BILT) 0.50 mg/dL 0.0-1.0 N SGOT/AST (test code = AST) 26 IUnit/L 15-37 N SGPT/ALT (test code = ALT) 33 IUnit/L 12-78 N ALKALINE PHOSPHATASE TOTAL (test code = ALKP) 114 IUnit/L 45-117 N Note change in reference range due to change in reagent. COMPREHENSIVE METABOLIC [id number] 05:21:00* Test Item Value Reference Range Interpretation Comments SODIUM (test code = NA) 142 mmol/L 136-145 N POTASSIUM (test code = K) 4.0 mmol/L 3.5-5.1 N CHLORIDE (test code = CL) 110.0 mmol/L 98-107 H CARBON DIOXIDE (test code = CO2) mmol/L 21-32 ANION GAP (test code = GAP) 10-20 GLUCOSE (test code = GLU) mg/dL 74-106 BLOOD UREA NITROGEN (test code = BUN) mg/dL 7-18 GLOMERULAR FILTRATION RATE (test code = GFR) mL/min >=60 CREATININE (test code = CREAT) mg/dL 0.7-1.3 BUN/CREATININE RATIO (test code = BUN/CREA) 10-20 TOTAL PROTEIN (test code = PROT) gram/dL 6.4-8.2 ALBUMIN (test code = ALB) g/dL 3.4-5.0 GLOBULIN (test code = GLOB) gram/dL 2.7-4.2 ALBUMIN/GLOBULIN RATIO (test code = A/G) 0.75-1.50 CALCIUM (test code = CA) mg/dL 8.5-10.1 BILIRUBIN TOTAL (test code = BILT) mg/dL 0.0-1.0 SGOT/AST (test code = AST) IUnit/L 15-37 SGPT/ALT (test code = ALT) IUnit/L 12-78 ALKALINE PHOSPHATASE TOTAL (test code = ALKP) IUnit/L 45-117 CBC W/AUTO [id number] 05:05:00* Test Item Value Reference Range Interpretation Comments WHITE BLOOD CELL (test code = WBC) 9.3 K/mm3 4.5-12.5 N RED BLOOD CELL (test code = RBC) 4.59 mill/mm3 4.0-5.8 N HEMOGLOBIN (test code = HGB) 13.6 gram/dL 13.0-17.5 N HEMATOCRIT (test code = HCT) 41.7 % 42.0-52.0 L MEAN CELL VOLUME (test code = MCV) 90.8 fL 80-98 N MEAN CELL HGB (test code = MCH) 29.6 picogram 27.0-33.0 N MEAN CELL HGB CONCETRATION (test code = MCHC) 32.6 gram/dL 33.0-36. 0 L RED CELL DISTRIBUTION WIDTH (test code = RDW) 12.7 % 11.6-16. 2 N RED CELL DISTRIBUTION WIDTH SD (test code = RDW-SD) 41.9 fL 37 .0-51.0 N PLATELET COUNT (test code = PLT) 288 K/mm3 150-450 N MEAN PLATELET VOLUME (test code = MPV) 10.7 fL 6.7-11.0 N NEUTROPHIL % (test code = NT%) 56.8 % 39.0-69.0 N IMMATURE GRANULOCYTE % (test code = IG%) 0.3 % 0.0-5.0 N LYMPHOCYTE % (test code = LY%) 31.6 % 25.0-55.0 N MONOCYTE % (test code = MO%) 9.4 % 0.0-10.0 N EOSINOPHIL % (test code = EO%) 1.1 % 0.0-5.0 N BASOPHIL % (test code = BA%) 0.8 % 0.0-1.0 N NUCLEATED RBC % (test code = NRBC%) 0.0 % 0-0 N NEUTROPHIL # (test code = NT#) 5.28 K/mm3 1.8-7.7 N IMMATURE GRANULOCYTE # (test code = IG#) 0.03 x10 3/uL 0-0.03 N LYMPHOCYTE # (test code = LY#) 2.94 K/mm3 1.0-5.0 N MONOCYTE # (test code = MO#) 0.87 K/mm3 0-0.8 H EOSINOPHIL # (test code = EO#) 0.10 K/mm3 0.0-0.5 N BASOPHIL # (test code = BA#) 0.07 K/mm3 0.0-0.2 N NUCLEATED RBC # (test code = NRBC#) 0.00 K/mm3 0.0-0.1 N MANUAL DIFF REQUIRED (test code = MDIFF) NO COMPREHENSIVE METABOLIC [id number] 05:45:00* Test Item Value Reference Range Interpretation Comments SODIUM (test code = NA) 143 mmol/L 136-145 N POTASSIUM (test code = K) 4.0 mmol/L 3.5-5.1 N CHLORIDE (test code = CL) 110.0 mmol/L 98-107 H CARBON DIOXIDE (test code = CO2) 26.0 mmol/L 21-32 N ANION GAP (test code = GAP) 11.0 10-20 N GLUCOSE (test code = GLU) 112 mg/dL 74-106 H BLOOD UREA NITROGEN (test code = BUN) 12 mg/dL 7-18 N GLOMERULAR FILTRATION RATE (test code = GFR) > 60 mL/min >=60 Estimated GFR by using Modified MDRD formula.Chronic kidney disease is defined as either kidney damageor GFR <60 mL/min/1.73 m2 for >3 months. CREATININE (test code = CREAT) 0.60 mg/dL 0.7-1.3 L BUN/CREATININE RATIO (test code = BUN/CREA) 20.0 10-20 N TOTAL PROTEIN (test code = PROT) 6.4 gram/dL 6.4-8.2 N ALBUMIN (test code = ALB) 3.2 g/dL 3.4-5.0 L GLOBULIN (test code = GLOB) 3.2 gram/dL 2.7-4.2 N ALBUMIN/GLOBULIN RATIO (test code = A/G) 1.0 0.75-1.50 N CALCIUM (test code = CA) 8.7 mg/dL 8.5-10.1 N BILIRUBIN TOTAL (test code = BILT) 0.50 mg/dL 0.0-1.0 N SGOT/AST (test code = AST) 17 IUnit/L 15-37 N SGPT/ALT (test code = ALT) 36 IUnit/L 12-78 N ALKALINE PHOSPHATASE TOTAL (test code = ALKP) 120 IUnit/L 45-117 H Note change in reference range due to change in reagent. COMPREHENSIVE METABOLIC [id number] 05:40:00* Test Item Value Reference Range Interpretation Comments SODIUM (test code = NA) 143 mmol/L 136-145 N POTASSIUM (test code = K) 4.0 mmol/L 3.5-5.1 N CHLORIDE (test code = CL) 110.0 mmol/L 98-107 H CARBON DIOXIDE (test code = CO2) mmol/L 21-32 ANION GAP (test code = GAP) 10-20 GLUCOSE (test code = GLU) mg/dL 74-106 BLOOD UREA NITROGEN (test code = BUN) mg/dL 7-18 GLOMERULAR FILTRATION RATE (test code = GFR) mL/min >=60 CREATININE (test code = CREAT) mg/dL 0.7-1.3 BUN/CREATININE RATIO (test code = BUN/CREA) 10-20 TOTAL PROTEIN (test code = PROT) gram/dL 6.4-8.2 ALBUMIN (test code = ALB) g/dL 3.4-5.0 GLOBULIN (test code = GLOB) gram/dL 2.7-4.2 ALBUMIN/GLOBULIN RATIO (test code = A/G) 0.75-1.50 CALCIUM (test code = CA) mg/dL 8.5-10.1 BILIRUBIN TOTAL (test code = BILT) mg/dL 0.0-1.0 SGOT/AST (test code = AST) IUnit/L 15-37 SGPT/ALT (test code = ALT) IUnit/L 12-78 ALKALINE PHOSPHATASE TOTAL (test code = ALKP) IUnit/L 45-117 CBC W/AUTO [id number] 05:05:00* Test Item Value Reference Range Interpretation Comments WHITE BLOOD CELL (test code = WBC) 10.4 K/mm3 4.5-12.5 N RED BLOOD CELL (test code = RBC) 4.75 mill/mm3 4.0-5.8 N HEMOGLOBIN (test code = HGB) 14.2 gram/dL 13.0-17.5 N HEMATOCRIT (test code = HCT) 41.7 % 42.0-52.0 L MEAN CELL VOLUME (test code = MCV) 87.8 fL 80-98 N MEAN CELL HGB (test code = MCH) 29.9 picogram 27.0-33.0 N MEAN CELL HGB CONCETRATION (test code = MCHC) 34.1 gram/dL 33.0-36. 0 N RED CELL DISTRIBUTION WIDTH (test code = RDW) 12.6 % 11.6-16. 2 N RED CELL DISTRIBUTION WIDTH SD (test code = RDW-SD) 40.6 fL 37 .0-51.0 N PLATELET COUNT (test code = PLT) 309 K/mm3 150-450 N MEAN PLATELET VOLUME (test code = MPV) 10.5 fL 6.7-11.0 N NEUTROPHIL % (test code = NT%) 64.3 % 39.0-69.0 N IMMATURE GRANULOCYTE % (test code = IG%) 0.2 % 0.0-5.0 N LYMPHOCYTE % (test code = LY%) 27.0 % 25.0-55.0 N MONOCYTE % (test code = MO%) 7.3 % 0.0-10.0 N EOSINOPHIL % (test code = EO%) 0.7 % 0.0-5.0 N BASOPHIL % (test code = BA%) 0.5 % 0.0-1.0 N NUCLEATED RBC % (test code = NRBC%) 0.0 % 0-0 N NEUTROPHIL # (test code = NT#) 6.70 K/mm3 1.8-7.7 N IMMATURE GRANULOCYTE # (test code = IG#) 0.02 x10 3/uL 0-0.03 N LYMPHOCYTE # (test code = LY#) 2.81 K/mm3 1.0-5.0 N MONOCYTE # (test code = MO#) 0.76 K/mm3 0-0.8 N EOSINOPHIL # (test code = EO#) 0.07 K/mm3 0.0-0.5 N BASOPHIL # (test code = BA#) 0.05 K/mm3 0.0-0.2 N NUCLEATED RBC # (test code = NRBC#) 0.00 K/mm3 0.0-0.1 N URINALYSIS [id number] 11:43:00* Test Item Value Reference Range Interpretation Comments UA COLOR (test code = COLU) YELLOW YELLOW UA APPEARANCE (test code = APPU) TURBID CLEAR A UA GLUCOSE DIPSTICK (test code = DGLUU) NEGATIVE mg/dL NEGATIVE UA BILIRUBIN DIPSTICK (test code = BILU) NEGATIVE mg/dL NEGATIVE UA KETONE DIPSTICK (test code = KETU) NEGATIVE mg/dL NEGATIVE UA SPECIFIC GRAVITY (test code = SGU) 1.023 1.001-1.035 UA BLOOD DIPSTICK (test code = FAIZAN) Negative mg/dL NEGATIVE UA PH DIPSTICK (test code = FREDI) 8.5 5.0-8.0 UA PROTEIN DIPSTICK (test code = PROU) 300 (3+) mg/dL NEGATIVE A UA UROBILINIOGEN DIPSTICK (test code = URO) Normal mg/dL NEGATIVE UA NITRITE DIPSTICK (test code = SARIAH) POSITIVE NEGATIVE A UA LEUKOCYTE ESTERASE W REFLEX (test code = LEUUR) 500 Sahil/u L (3+) Sahil/uL NEGATIVE A UA WBC (test code = WBCU) 51-100 per HPF 0-5 A UA RBC (test code = RBCU) 0-3 per HPF 0-5 UA WBC CLUMPS (test code = WBCUCL) >10 /HPF NONE A UA EPITHELIAL CELLS (test code = EPIU) FEW per HPF FEW UA BACTERIA (test code = BACU) FEW #/HPF NONE A UA TRIPLE PHOSPHATE CRYSTALS (test code = TRPHOSU) MODERATE #/HPF N ONE A UA MUCUS (test code = MUCU) FEW #/LPF FEW UA YEAST (test code = YEASTU) MODERATE #/HPF NONE A UA OVAL FAT BODY (test code = OFBU) NONE NONE Urine Source? Clean CatchURINALYSIS [id number] 11:38:00* Test Item Value Reference Range Interpretation Comments UA COLOR (test code = COLU) YELLOW YELLOW UA APPEARANCE (test code = APPU) TURBID CLEAR A UA GLUCOSE DIPSTICK (test code = DGLUU) NEGATIVE mg/dL NEGATIVE UA BILIRUBIN DIPSTICK (test code = BILU) NEGATIVE mg/dL NEGATIVE UA KETONE DIPSTICK (test code = KETU) NEGATIVE mg/dL NEGATIVE UA SPECIFIC GRAVITY (test code = SGU) 1.023 1.001-1.035 UA BLOOD DIPSTICK (test code = FAIZAN) Negative mg/dL NEGATIVE UA PH DIPSTICK (test code = FREDI) 8.5 5.0-8.0 UA PROTEIN DIPSTICK (test code = PROU) 300 (3+) mg/dL NEGATIVE A UA UROBILINIOGEN DIPSTICK (test code = URO) Normal mg/dL NEGATIVE UA NITRITE DIPSTICK (test code = SARIAH) POSITIVE NEGATIVE A UA LEUKOCYTE ESTERASE W REFLEX (test code = LEUUR) 500 Sahli/u L (3+) Sahil/uL NEGATIVE A UA WBC (test code = WBCU) 51-100 per HPF 0-5 A UA RBC (test code = RBCU) per HPF 0-5 UA WBC CLUMPS (test code = WBCUCL) >10 /HPF NONE A UA EPITHELIAL CELLS (test code = EPIU) FEW per HPF FEW UA BACTERIA (test code = BACU) FEW #/HPF NONE A UA TRIPLE PHOSPHATE CRYSTALS (test code = TRPHOSU) MODERATE #/HPF N ONE A UA MUCUS (test code = MUCU) FEW #/LPF FEW UA YEAST (test code = YEASTU) MODERATE #/HPF NONE A UA OVAL FAT BODY (test code = OFBU) NONE NONE Urine Source? Clean CatchBASIC METABOLIC [id number] 11:30:00* Test Item Value Reference Range Interpretation Comments SODIUM (test code = NA) 143 mmol/L 136-145 N POTASSIUM (test code = K) 4.5 mmol/L 3.5-5.1 N CHLORIDE (test code = CL) 107.0 mmol/L 98-107 N CARBON DIOXIDE (test code = CO2) 30.0 mmol/L 21-32 N ANION GAP (test code = GAP) 10.5 10-20 N GLUCOSE (test code = GLU) 95 mg/dL 74-106 N BLOOD UREA NITROGEN (test code = BUN) 21 mg/dL 7-18 H GLOMERULAR FILTRATION RATE (test code = GFR) > 60 mL/min >=60 Estimated GFR by using Modified MDRD formula.Chronic kidney disease is defined as either kidney damageor GFR <60 mL/min/1.73 m2 for >3 months. CREATININE (test code = CREAT) 0.60 mg/dL 0.7-1.3 L BUN/CREATININE RATIO (test code = BUN/CREA) 35.0 10-20 H CALCIUM (test code = CA) 9.1 mg/dL 8.5-10.1 N HEPATIC FUNCTION [id number] 11:30:00* Test Item Value Reference Range Interpretation Comments TOTAL PROTEIN (test code = PROT) 7.8 gram/dL 6.4-8.2 N ALBUMIN (test code = ALB) 3.7 g/dL 3.4-5.0 N GLOBULIN (test code = GLOB) 4.1 gram/dL 2.7-4.2 N ALBUMIN/GLOBULIN RATIO (test code = A/G) 0.9 0.75-1.50 N BILIRUBIN TOTAL (test code = BILT) 0.30 mg/dL 0.0-1.0 N BILIRUBIN DIRECT (test code = BILD) 0.11 mg/dL 0.0-0.20 N SGOT/AST (test code = AST) 26 IUnit/L 15-37 N SGPT/ALT (test code = ALT) 50 IUnit/L 12-78 N ALKALINE PHOSPHATASE TOTAL (test code = ALKP) 122 IUnit/L 45-117 H Note change in reference range due to change in reagent. [id number] 11:30:00* Test Item Value Reference Range Interpretation Comments LIPASE (test code = LIP) 92 U/L 73.0-393.0 N BASIC METABOLIC [id number] 11:23:00* Test Item Value Reference Range Interpretation Comments SODIUM (test code = NA) 143 mmol/L 136-145 N POTASSIUM (test code = K) 4.5 mmol/L 3.5-5.1 N CHLORIDE (test code = CL) 107.0 mmol/L 98-107 N CARBON DIOXIDE (test code = CO2) mmol/L 21-32 ANION GAP (test code = GAP) 10-20 GLUCOSE (test code = GLU) mg/dL 74-106 BLOOD UREA NITROGEN (test code = BUN) mg/dL 7-18 GLOMERULAR FILTRATION RATE (test code = GFR) mL/min >=60 CREATININE (test code = CREAT) mg/dL 0.7-1.3 BUN/CREATININE RATIO (test code = BUN/CREA) 10-20 CALCIUM (test code = CA) mg/dL 8.5-10.1 HEPATIC FUNCTION [id number] 11:23:00* Test Item Value Reference Range Interpretation Comments TOTAL PROTEIN (test code = PROT) gram/dL 6.4-8.2 ALBUMIN (test code = ALB) g/dL 3.4-5.0 GLOBULIN (test code = GLOB) gram/dL 2.7-4.2 ALBUMIN/GLOBULIN RATIO (test code = A/G) 0.75-1.50 BILIRUBIN TOTAL (test code = BILT) mg/dL 0.0-1.0 BILIRUBIN DIRECT (test code = BILD) mg/dL 0.0-0.20 SGOT/AST (test code = AST) IUnit/L 15-37 SGPT/ALT (test code = ALT) IUnit/L 12-78 ALKALINE PHOSPHATASE TOTAL (test code = ALKP) IUnit/L 45-117 [id number] 11:23:00* Test Item Value Reference Range Interpretation Comments LIPASE (test code = LIP) U/L 73.0-393.0 CBC W/O [id number] 11:17:00* Test Item Value Reference Range Interpretation Comments WHITE BLOOD CELL (test code = WBC) 10.5 K/mm3 4.5-12.5 N RED BLOOD CELL (test code = RBC) 5.01 mill/mm3 4.0-5.8 N HEMOGLOBIN (test code = HGB) 15.1 gram/dL 13.0-17.5 N HEMATOCRIT (test code = HCT) 45.7 % 42.0-52.0 N MEAN CELL VOLUME (test code = MCV) 91.2 fL 80-98 N MEAN CELL HGB (test code = MCH) 30.1 picogram 27.0-33.0 N MEAN CELL HGB CONCETRATION (test code = MCHC) 33.0 gram/dL 33.0-36. 0 N RED CELL DISTRIBUTION WIDTH (test code = RDW) 12.7 % 11.6-16. 2 N PLATELET COUNT (test code = PLT) 324 K/mm3 150-450 N MEAN PLATELET VOLUME (test code = MPV) 10.9 fL 6.7-11.0 N CBC W/O [id number] 11:11:00* Test Item Value Reference Range Interpretation Comments WHITE BLOOD CELL (test code = WBC) K/mm3 4.5-12.5 RED BLOOD CELL (test code = RBC) mill/mm3 4.0-5.8 HEMOGLOBIN (test code = HGB) 15.1 gram/dL 13.0-17.5 N HEMATOCRIT (test code = HCT) 45.7 % 42.0-52.0 N MEAN CELL VOLUME (test code = MCV) fL 80-98 MEAN CELL HGB (test code = MCH) picogram 27.0-33.0 MEAN CELL HGB CONCETRATION (test code = MCHC) gram/dL 33.0-36. 0 RED CELL DISTRIBUTION WIDTH (test code = RDW) % 11.6-16. 2 PLATELET COUNT (test code = PLT) K/mm3 150-450 MEAN PLATELET VOLUME (test code = MPV) fL 6.7-11.0 URINALYSIS [id number] 15:39:00* Test Item Value Reference Range Interpretation Comments UA COLOR (test code = COLU) Light-Yellow YELLOW UA APPEARANCE (test code = APPU) Cloudy CLEAR A UA GLUCOSE DIPSTICK (test code = DGLUU) NEGATIVE mg/dL NEGATIVE UA BILIRUBIN DIPSTICK (test code = BILU) NEGATIVE mg/dL NEGATIVE UA KETONE DIPSTICK (test code = KETU) NEGATIVE mg/dL NEGATIVE UA SPECIFIC GRAVITY (test code = SGU) 1.005 1.001-1.035 UA BLOOD DIPSTICK (test code = FAIZAN) 0.2 mg/dL (2+) mg/dL NEGATIVE A UA PH DIPSTICK (test code = FREDI) 8.0 5.0-8.0 UA PROTEIN DIPSTICK (test code = PROU) NEGATIVE mg/dL NEGATIVE UA UROBILINIOGEN DIPSTICK (test code = URO) Normal mg/dL NEGATIVE UA NITRITE DIPSTICK (test code = SARIAH) NEGATIVE NEGATIVE UA LEUKOCYTE ESTERASE W REFLEX (test code = LEUUR) 500 Sahil/u L (3+) Sahil/uL NEGATIVE A UA WBC (test code = WBCU) 5-10 per HPF 0-5 A UA RBC (test code = RBCU) 0-2 #/HPF 0-5 UA EPITHELIAL CELLS (test code = EPIU) FEW per HPF FEW UA BACTERIA (test code = BACU) MODERATE #/HPF NONE A UA TRIPLE PHOSPHATE CRYSTALS (test code = TRPHOSU) MANY #/HPF NON E UA MUCUS (test code = MUCU) FEW #/LPF FEW UA AMORPHOUS SEDIMENT (test code = AMORU) MODERATE #/LPF Urine Source? CatheterCOMPREHENSIVE METABOLIC [id number] 05:59:00* Test Item Value Reference Range Interpretation Comments SODIUM (test code = NA) 141 mmol/L 136-145 N POTASSIUM (test code = K) 4.1 mmol/L 3.5-5.1 N CHLORIDE (test code = CL) 106.0 mmol/L 98-107 N CARBON DIOXIDE (test code = CO2) 30.0 mmol/L 21-32 N ANION GAP (test code = GAP) 9.1 10-20 L GLUCOSE (test code = GLU) 103 mg/dL 74-106 N BLOOD UREA NITROGEN (test code = BUN) 12 mg/dL 7-18 N GLOMERULAR FILTRATION RATE (test code = GFR) > 60 mL/min >=60 Estimated GFR by using Modified MDRD formula.Chronic kidney disease is defined as either kidney damageor GFR <60 mL/min/1.73 m2 for >3 months. CREATININE (test code = CREAT) 0.60 mg/dL 0.7-1.3 L BUN/CREATININE RATIO (test code = BUN/CREA) 19.5 10-20 N TOTAL PROTEIN (test code = PROT) 7.8 gram/dL 6.4-8.2 N ALBUMIN (test code = ALB) 3.6 g/dL 3.4-5.0 N GLOBULIN (test code = GLOB) 4.2 gram/dL 2.7-4.2 N ALBUMIN/GLOBULIN RATIO (test code = A/G) 0.9 0.75-1.50 N CALCIUM (test code = CA) 9.6 mg/dL 8.5-10.1 N BILIRUBIN TOTAL (test code = BILT) 0.40 mg/dL 0.0-1.0 N SGOT/AST (test code = AST) 27 IUnit/L 15-37 N SGPT/ALT (test code = ALT) 46 IUnit/L 12-78 N ALKALINE PHOSPHATASE TOTAL (test code = ALKP) 139 IUnit/L 45-117 H Note change in reference range due to change in reagent. COMPREHENSIVE METABOLIC [id number] 05:44:00* Test Item Value Reference Range Interpretation Comments SODIUM (test code = NA) 141 mmol/L 136-145 N POTASSIUM (test code = K) 4.1 mmol/L 3.5-5.1 N CHLORIDE (test code = CL) 106.0 mmol/L 98-107 N CARBON DIOXIDE (test code = CO2) mmol/L 21-32 ANION GAP (test code = GAP) 10-20 GLUCOSE (test code = GLU) mg/dL 74-106 BLOOD UREA NITROGEN (test code = BUN) mg/dL 7-18 GLOMERULAR FILTRATION RATE (test code = GFR) mL/min >=60 CREATININE (test code = CREAT) mg/dL 0.7-1.3 BUN/CREATININE RATIO (test code = BUN/CREA) 10-20 TOTAL PROTEIN (test code = PROT) gram/dL 6.4-8.2 ALBUMIN (test code = ALB) g/dL 3.4-5.0 GLOBULIN (test code = GLOB) gram/dL 2.7-4.2 ALBUMIN/GLOBULIN RATIO (test code = A/G) 0.75-1.50 CALCIUM (test code = CA) mg/dL 8.5-10.1 BILIRUBIN TOTAL (test code = BILT) mg/dL 0.0-1.0 SGOT/AST (test code = AST) IUnit/L 15-37 SGPT/ALT (test code = ALT) IUnit/L 12-78 ALKALINE PHOSPHATASE TOTAL (test code = ALKP) IUnit/L 45-117 CBC W/AUTO [id number] 05:18:00* Test Item Value Reference Range Interpretation Comments WHITE BLOOD CELL (test code = WBC) 12.1 K/mm3 4.5-12.5 N RED BLOOD CELL (test code = RBC) 5.46 mill/mm3 4.0-5.8 N HEMOGLOBIN (test code = HGB) 16.0 gram/dL 13.0-17.5 N HEMATOCRIT (test code = HCT) 49.6 % 42.0-52.0 N MEAN CELL VOLUME (test code = MCV) 90.8 fL 80-98 N MEAN CELL HGB (test code = MCH) 29.3 picogram 27.0-33.0 N MEAN CELL HGB CONCETRATION (test code = MCHC) 32.3 gram/dL 33.0-36. 0 L RED CELL DISTRIBUTION WIDTH (test code = RDW) 12.5 % 11.6-16. 2 N RED CELL DISTRIBUTION WIDTH SD (test code = RDW-SD) 41.5 fL 37 .0-51.0 N PLATELET COUNT (test code = PLT) 355 K/mm3 150-450 N MEAN PLATELET VOLUME (test code = MPV) 10.8 fL 6.7-11.0 N NEUTROPHIL % (test code = NT%) 57.9 % 39.0-69.0 N IMMATURE GRANULOCYTE % (test code = IG%) 0.2 % 0.0-5.0 N LYMPHOCYTE % (test code = LY%) 30.1 % 25.0-55.0 N MONOCYTE % (test code = MO%) 9.9 % 0.0-10.0 N EOSINOPHIL % (test code = EO%) 1.2 % 0.0-5.0 N BASOPHIL % (test code = BA%) 0.7 % 0.0-1.0 N NUCLEATED RBC % (test code = NRBC%) 0.0 % 0-0 N NEUTROPHIL # (test code = NT#) 6.99 K/mm3 1.8-7.7 N IMMATURE GRANULOCYTE # (test code = IG#) 0.03 x10 3/uL 0-0.03 N LYMPHOCYTE # (test code = LY#) 3.63 K/mm3 1.0-5.0 N MONOCYTE # (test code = MO#) 1.19 K/mm3 0-0.8 H EOSINOPHIL # (test code = EO#) 0.14 K/mm3 0.0-0.5 N BASOPHIL # (test code = BA#) 0.08 K/mm3 0.0-0.2 N NUCLEATED RBC # (test code = NRBC#) 0.00 K/mm3 0.0-0.1 N CBC W/AUTO [id number] 05:17:00* Test Item Value Reference Range Interpretation Comments WHITE BLOOD CELL (test code = WBC) K/mm3 4.5-12.5 RED BLOOD CELL (test code = RBC) mill/mm3 4.0-5.8 HEMOGLOBIN (test code = HGB) 16.0 gram/dL 13.0-17.5 N HEMATOCRIT (test code = HCT) 49.6 % 42.0-52.0 N MEAN CELL VOLUME (test code = MCV) fL 80-98 MEAN CELL HGB (test code = MCH) picogram 27.0-33.0 MEAN CELL HGB CONCETRATION (test code = MCHC) gram/dL 33.0-36. 0 RED CELL DISTRIBUTION WIDTH (test code = RDW) % 11.6-16. 2 RED CELL DISTRIBUTION WIDTH SD (test code = RDW-SD) fL 37 .0-51.0 PLATELET COUNT (test code = PLT) K/mm3 150-450 MEAN PLATELET VOLUME (test code = MPV) fL 6.7-11.0 NEUTROPHIL % (test code = NT%) % 39.0-69.0 IMMATURE GRANULOCYTE % (test code = IG%) % 0.0-5.0 LYMPHOCYTE % (test code = LY%) % 25.0-55.0 MONOCYTE % (test code = MO%) % 0.0-10.0 EOSINOPHIL % (test code = EO%) % 0.0-5.0 BASOPHIL % (test code = BA%) % 0.0-1.0 NEUTROPHIL # (test code = NT#) K/mm3 1.8-7.7 LYMPHOCYTE # (test code = LY#) K/mm3 1.0-5.0 MONOCYTE # (test code = MO#) K/mm3 0-0.8 EOSINOPHIL # (test code = EO#) K/mm3 0.0-0.5 BASOPHIL # (test code = BA#) K/mm3 0.0-0.2 [id number] 17:23:00* Test Item Value Reference Range Interpretation Comments GLUBED (test code = GLUBED) 99 mg/dL 74-106 N Performed by certified burglar alarm operator at [facility] URINALYSIS [id number] 13:38:00* Test Item Value Reference Range Interpretation Comments UA COLOR (test code = COLU) Light-Yellow YELLOW UA APPEARANCE (test code = APPU) Cloudy CLEAR A UA GLUCOSE DIPSTICK (test code = DGLUU) NEGATIVE mg/dL NEGATIVE UA BILIRUBIN DIPSTICK (test code = BILU) NEGATIVE mg/dL NEGATIVE UA KETONE DIPSTICK (test code = KETU) NEGATIVE mg/dL NEGATIVE UA SPECIFIC GRAVITY (test code = SGU) 1.014 1.001-1.035 UA BLOOD DIPSTICK (test code = FAIZAN) 0.03 mg/dL (Trace) mg/dL NEGATI VE A UA PH DIPSTICK (test code = FREDI) 8.5 5.0-8.0 UA PROTEIN DIPSTICK (test code = PROU) 30 (1+) mg/dL NEGATIVE A UA UROBILINIOGEN DIPSTICK (test code = URO) Normal mg/dL NEGATIVE UA NITRITE DIPSTICK (test code = SARIAH) POSITIVE NEGATIVE A UA LEUKOCYTE ESTERASE W REFLEX (test code = LEUUR) 500 Sahil/u L (3+) Sahil/uL NEGATIVE A UA WBC (test code = WBCU) 21-50 per HPF 0-5 A UA RBC (test code = RBCU) 11-20 #/HPF 0-5 A UA WBC CLUMPS (test code = WBCUCL) 3-6 /HPF NONE A UA EPITHELIAL CELLS (test code = EPIU) Moderate (5-10/hpf) per HPF FEW A UA BACTERIA (test code = BACU) FEW #/HPF NONE A Urine Source? Clean CatchBASIC METABOLIC [id number] 13:21:00* Test Item Value Reference Range Interpretation Comments SODIUM (test code = NA) 142 mmol/L 136-145 N POTASSIUM (test code = K) 4.2 mmol/L 3.5-5.1 N CHLORIDE (test code = CL) 109.0 mmol/L 98-107 H CARBON DIOXIDE (test code = CO2) 29.0 mmol/L 21-32 N ANION GAP (test code = GAP) 8.2 10-20 L GLUCOSE (test code = GLU) 102 mg/dL 74-106 N BLOOD UREA NITROGEN (test code = BUN) 13 mg/dL 7-18 N GLOMERULAR FILTRATION RATE (test code = GFR) > 60 mL/min >=60 Estimated GFR by using Modified MDRD formula.Chronic kidney disease is defined as either kidney damageor GFR <60 mL/min/1.73 m2 for >3 months. CREATININE (test code = CREAT) 0.50 mg/dL 0.7-1.3 L BUN/CREATININE RATIO (test code = BUN/CREA) 26.0 10-20 H CALCIUM (test code = CA) 9.3 mg/dL 8.5-10.1 N HEPATIC FUNCTION [id number] 13:21:00* Test Item Value Reference Range Interpretation Comments TOTAL PROTEIN (test code = PROT) 7.4 gram/dL 6.4-8.2 N ALBUMIN (test code = ALB) 3.5 g/dL 3.4-5.0 N GLOBULIN (test code = GLOB) 3.9 gram/dL 2.7-4.2 N ALBUMIN/GLOBULIN RATIO (test code = A/G) 0.9 0.75-1.50 N BILIRUBIN TOTAL (test code = BILT) 0.30 mg/dL 0.0-1.0 N BILIRUBIN DIRECT (test code = BILD) 0.08 mg/dL 0.0-0.20 N SGOT/AST (test code = AST) 20 IUnit/L 15-37 N SGPT/ALT (test code = ALT) 38 IUnit/L 12-78 N ALKALINE PHOSPHATASE TOTAL (test code = ALKP) 125 IUnit/L 45-117 H Note change in reference range due to change in reagent. CBC W/AUTO [id number] 13:14:00* Test Item Value Reference Range Interpretation Comments WHITE BLOOD CELL (test code = WBC) 8.8 K/mm3 4.5-12.5 N RED BLOOD CELL (test code = RBC) 4.86 mill/mm3 4.0-5.8 N HEMOGLOBIN (test code = HGB) 14.3 gram/dL 13.0-17.5 N HEMATOCRIT (test code = HCT) 42.2 % 42.0-52.0 N MEAN CELL VOLUME (test code = MCV) 86.8 fL 80-98 N MEAN CELL HGB (test code = MCH) 29.4 picogram 27.0-33.0 N MEAN CELL HGB CONCETRATION (test code = MCHC) 33.9 gram/dL 33.0-36. 0 N RED CELL DISTRIBUTION WIDTH (test code = RDW) 12.5 % 11.6-16. 2 N RED CELL DISTRIBUTION WIDTH SD (test code = RDW-SD) 39.6 fL 37 .0-51.0 N PLATELET COUNT (test code = PLT) 355 K/mm3 150-450 N MEAN PLATELET VOLUME (test code = MPV) 10.9 fL 6.7-11.0 N NEUTROPHIL % (test code = NT%) 64.4 % 39.0-69.0 N IMMATURE GRANULOCYTE % (test code = IG%) 0.2 % 0.0-5.0 N LYMPHOCYTE % (test code = LY%) 27.1 % 25.0-55.0 N MONOCYTE % (test code = MO%) 7.3 % 0.0-10.0 N EOSINOPHIL % (test code = EO%) 0.5 % 0.0-5.0 N BASOPHIL % (test code = BA%) 0.5 % 0.0-1.0 N NUCLEATED RBC % (test code = NRBC%) 0.0 % 0-0 N NEUTROPHIL # (test code = NT#) 5.69 K/mm3 1.8-7.7 N IMMATURE GRANULOCYTE # (test code = IG#) 0.02 x10 3/uL 0-0.03 N LYMPHOCYTE # (test code = LY#) 2.39 K/mm3 1.0-5.0 N MONOCYTE # (test code = MO#) 0.64 K/mm3 0-0.8 N EOSINOPHIL # (test code = EO#) 0.04 K/mm3 0.0-0.5 N BASOPHIL # (test code = BA#) 0.04 K/mm3 0.0-0.2 N NUCLEATED RBC # (test code = NRBC#) 0.00 K/mm3 0.0-0.1 N BASIC METABOLIC [id number] 13:12:00* Test Item Value Reference Range Interpretation Comments SODIUM (test code = NA) 142 mmol/L 136-145 N POTASSIUM (test code = K) 4.2 mmol/L 3.5-5.1 N CHLORIDE (test code = CL) 109.0 mmol/L 98-107 H CARBON DIOXIDE (test code = CO2) mmol/L 21-32 ANION GAP (test code = GAP) 10-20 GLUCOSE (test code = GLU) mg/dL 74-106 BLOOD UREA NITROGEN (test code = BUN) mg/dL 7-18 GLOMERULAR FILTRATION RATE (test code = GFR) mL/min >=60 CREATININE (test code = CREAT) mg/dL 0.7-1.3 BUN/CREATININE RATIO (test code = BUN/CREA) 10-20 CALCIUM (test code = CA) mg/dL 8.5-10.1 HEPATIC FUNCTION [id number] 13:12:00* Test Item Value Reference Range Interpretation Comments TOTAL PROTEIN (test code = PROT) gram/dL 6.4-8.2 ALBUMIN (test code = ALB) g/dL 3.4-5.0 GLOBULIN (test code = GLOB) gram/dL 2.7-4.2 ALBUMIN/GLOBULIN RATIO (test code = A/G) 0.75-1.50 BILIRUBIN TOTAL (test code = BILT) mg/dL 0.0-1.0 BILIRUBIN DIRECT (test code = BILD) mg/dL 0.0-0.20 SGOT/AST (test code = AST) IUnit/L 15-37 SGPT/ALT (test code = ALT) IUnit/L 12-78 ALKALINE PHOSPHATASE TOTAL (test code = ALKP) IUnit/L 45-117 Sodium Kmapr4373-09-98 11:47:00* Test Item Value Reference Range Interpretation Comments Sodium Level (test code = 2951-2) 144 136-145 [facility]AllenPotassium Hdksg8259-27-63 11:47:00* Test Item Value Reference Range Interpretation Comments Potassium Level (test code = 2823-3) 3.9 3.5-5.1 [facility]AllenChloride Vkkxr1707-24-17 11:47:00* Test Item Value Reference Range Interpretation Comments Chloride Level (test code = 2075-0) 108 98-107 H [facility] McAllenCarbon Dioxide Ndjew4424-29-68 11:47:00* Test Item Value Reference Range Interpretation Comments Carbon Dioxide Level (test code = 2028-9) 27 22-29 [facility] McAllenAnion [id number] 11:47:00* Test Item Value Reference Range Interpretation Comments Anion Gap (test code = 55156-0) 12.9 8-16 [facility] McAllenBlood Urea Eextxnhp2947-06-56 11:47:00* Test Item Value Reference Range Interpretation Comments Blood Urea Nitrogen (test code = 3094-0) 8 7-26 [facility] McAllenCreatinine2019-09-15 11:47:00* Test Item Value Reference Range Interpretation Comments Creatinine (test code = 2160-0) 0.64 0.72-1.25 L [facility]AllenBUN/Creatinine Lncch2396-06-98 11:47:00* Test Item Value Reference Range Interpretation Comments BUN/Creatinine Ratio (test code = 3097-3) 13 6-25 [facility] McAllenEstimat Glomerular Filtration Rate 2019-06-02 11:47:00* Test Item Value Reference Range Interpretation Comments Estimat Glomerular Filtration Rate (test code = 419266076) > 60 >60 Ranges were taken from the National Kidney Disease Education Program and the [facility] literature.Reference ranges:60 or greater: Hjinru27-88 ( for 3 consecutive months): Chronic kidney disease 15 or less: Kidney failureSouth Texas Health System McAllenGlucose Puaie7076-56-90 11:47:00* Test Item Value Reference Range Interpretation Comments Glucose Level (test code = MHQ1892) 162 74-118 H [facility] McAllenCalcium Efpxt5622-74-57 11:47:00* Test Item Value Reference Range Interpretation Comments Calcium Level (test code = 20416-4) 8.9 8.4-10.2 [facility] McAllenWhite Blood Xneap2556-19-73 11:32:00* Test Item Value Reference Range Interpretation Comments White Blood Count (test code = 6690-2) 13.27 4.8-10.8 H [facility] McAllenRed Blood Acwjl6698-82-35 11:32:00* Test Item Value Reference Range Interpretation Comments Red Blood Count (test code = 789-8) 4.69 4.3-5.7 [facility]AllenHemoglobin2019-09-15 11:32:00* Test Item Value Reference Range Interpretation Comments Hemoglobin (test code = 58617-2) 14.2 14.0-18.0 [facility]AllenHematocrit2019-09-15 11:32:00* Test Item Value Reference Range Interpretation Comments Hematocrit (test code = 4544-3) 41.6 38.2-49.6 [facility] McAllenMean Corpuscular Nakmwu0045-79-54 11:32:00* Test Item Value Reference Range Interpretation Comments Mean Corpuscular Volume (test code = 787-2) 88.7 81-99 [facility]AllenMean Corpuscular Eazxfozaup7226-16-16 11:32:00* Test Item Value Reference Range Interpretation Comments Mean Corpuscular Hemoglobin (test code = 785-6) 30.3 28-32 [facility] McAllenMean Corpuscular Hemoglobin Concent 2019-06-02 11:32:00* Test Item Value Reference Range Interpretation Comments Mean Corpuscular Hemoglobin Concent (test code = 786-4) 34.1 31-35 [facility] McAllenRed Cell Distribution Dogdf5690-19-07 11:32:00* Test Item Value Reference Range Interpretation Comments Red Cell Distribution Width (test code = 72075-4) 12.7 11.7 -14.4 [facility] McAllenPlatelet Tkita1974-71-02 11:32:00* Test Item Value Reference Range Interpretation Comments Platelet Count (test code = 777-3) 333 140-360 [facility] McAllenNeutrophils (%) (Auto)2019-06-02 11:32:00 * Test Item Value Reference Range Interpretation Comments Neutrophils (%) (Auto) (test code = 67710-3) 84.7 38.7-80.0 H [facility] McAllenLymphocytes (%) (Auto)2019-06-02 11:32:00 * Test Item Value Reference Range Interpretation Comments Lymphocytes (%) (Auto) (test code = 736-9) 9.8 18.0-39.1 L [facility] McAllenMonocytes (%) (Auto)2019-06-02 11:32:00* Test Item Value Reference Range Interpretation Comments Monocytes (%) (Auto) (test code = 5905-5) 4.9 4.4-11.3 [facility]AllenEosinophils (%) (Auto)2019-06-02 11:32:00 * Test Item Value Reference Range Interpretation Comments Eosinophils (%) (Auto) (test code = 713-8) 0.1 0.0-6.0 [facility]AllenBasophils (%) (Auto)2019-06-02 11:32:00* Test Item Value Reference Range Interpretation Comments Basophils (%) (Auto) (test code = 706-2) 0.2 0.0-1.0 [facility] McAllenIM GRANULOCYTES %2019-06-02 11:32:00* Test Item Value Reference Range Interpretation Comments IM GRANULOCYTES % (test code = IM GRANULOCYTES %) 0.3 0.0- 1.0 [facility]AllenNeutrophils # (Auto)2019-06-02 11:32:00* Test Item Value Reference Range Interpretation Comments Neutrophils # (Auto) (test code = 751-8) 11.3 2.1-6.9 H [facility] McAllenLymphocytes # (Auto)2019-06-02 11:32:00* Test Item Value Reference Range Interpretation Comments Lymphocytes # (Auto) (test code = 15096-8) 1.3 1.0-3.2 [facility] McAllenMonocytes # (Auto)2019-06-02 11:32:00* Test Item Value Reference Range Interpretation Comments Monocytes # (Auto) (test code = 742-7) 0.7 0.2-0.8 [facility]AllenEosinophils # (Auto)2019-06-02 11:32:00* Test Item Value Reference Range Interpretation Comments Eosinophils # (Auto) (test code = 711-2) 0.0 0.0-0.4 [facility] McAllenBasophils # (Auto)2019-06-02 11:32:00* Test Item Value Reference Range Interpretation Comments Basophils # (Auto) (test code = 704-7) 0.0 0.0-0.1 [facility] McAllenAbsolute Immature Granulocyte (auto 2019-06-02 11:32:00* Test Item Value Reference Range Interpretation Comments Absolute Immature Granulocyte (auto (sekou t code = Absolute Immature Granulocyte (auto) 0.04 0-0.1 [facility] McAllenBlood Yhqhmmi4823-40-11 17:51:00* Test Item Value Reference Range Interpretation Comments Blood Culture (test code = 30342940) NO GROWTH AFTER 5 DAYS, FINAL REPORT [facility] McAllenThyroid Stimulating Hormone (TSH) 2019-05-31 08:37:00* Test Item Value Reference Range Interpretation Comments Thyroid Stimulating Hormone (TSH) (test code = 23842-3) 0.420 0.350-4.940 [facility] McAllenABDOMEN 2 MPTP5233-88-88 07:57:00 [facility] [address] [address] Patient Name: ARIK VELIZ MR #: [id number] : 1975 Age/Sex: 44/M Req #: [id number] Adm Physician: BERNARDO KELLEY MD Ordered by: PAGE CHAVEZ MD Report #: [id number] [facility]: [facility] Room/Bed: [facility] Procedure: [id number] DX /ABDOMEN 2 VIEW Exam Date: 05/31/19 Exam Time: 0630 REPORT STATUS: Signed EXAM: Abdo men Radiograph 1 View(s) INDICATION: Abdominal pain COMPARISON: Abdomin al radiograph 05/28/2019 FINDINGS: No abnormalities in the lower chest. No lines or tubes. Similar gaseous distention of loops of bowel comp ared to 05/28/2019. No abnormal abdominal calcifications.. No abnormal sof t tissue masses. No pneumoperitoneum. No acute osseous abnormality. Mild degenerative changes in the lumbar spine and pelvis. IMPRESSION: Similar gaseous distention of loops of bowel compared to 05/28/2019. Low ailyn picion for bowel obstruction. Signed by: Refugio Rubio DO on 05/31/2019 7: 59 AM Dictated By: REFUGIO A RAMIRO DO 8 Transcribed By: ZO on 05/31/19758 CO PY TO: PAGE CHAVEZ MD Urine Bfdxbey8566-14-08 07:26:00* Test Item Value Reference Range Interpretation Comments Urine Culture (test code = 630-4) Organism: PSEUDOMONAS AERUGINOSA [facility] [address] ([facility])2019-05-28 14:43:00 [facility] [address] [place] [address] Patient Name: ARIK VELIZ MR #: [id number] : 1975 Age/Sex: 44/M Req #: [id number] Adm Physician: BERNARDO KELLEY MD Ordered by: BERNARDO KELLEY MD Report #: [id number] Location: [facility] Room/Bed: [facility] Procedure: [id number] DX/AB [address] ([facility]) Exam Date: 05/28/19 Exam Time: 141 0 REPORT STATUS: Signed Abdom en, 1 view. History: Abdominal pain. Findings: Air is scattered thr oughout nondilated small and large bowel. There are no masses or abnormal calc ifications. The osseous structures are intact. IMPRESSION: Non-specifi c bowel gas pattern. Signed by: Emigdio Pimentel on 05/28/2019 2:44 PM D ictated By: EMIGDIO PIMENTEL MD 43 COPY TO: BERNARDO KELLEY MD Urine [id number] 14:10:00* Test Item Value Reference Range Interpretation Comments Urine WBC (test code = 5821-4) 6-10 0-5 H [facility] McAllenUrine [id number] 14:10:00* Test Item Value Reference Range Interpretation Comments Urine RBC (test code = 29255-4) 11-20 0-5 H [facility] McAllenUrine Gflefupr7794-08-44 14:10:00* Test Item Value Reference Range Interpretation Comments Urine Bacteria (test code = 17933-0) MODERATE NONE H [facility] McAllenUrine Epithelial Jeqhy1515-87-15 14:10:00 * Test Item Value Reference Range Interpretation Comments Urine Epithelial Cells (test code = 65836-6) NONE NONE [facility] McAllenUrine Zzzch3819-16-11 13:49:00* Test Item Value Reference Range Interpretation Comments Urine Color (test code = 5778-6) YELLOW YELLOW [facility]AllenUrine Ansthpk3226-65-29 13:49:00* Test Item Value Reference Range Interpretation Comments Urine Clarity (test code = 26108-5) CLOUDY CLEAR H [facility] McAllenUrine Specific Xjrstxi7973-04-09 13:49:00 * Test Item Value Reference Range Interpretation Comments Urine Specific [facility] (test code = 5811-5) >=1.030 1.010-1.02 5 [facility] McAllenUrine vG3083-65-20 13:49:00* Test Item Value Reference Range Interpretation Comments Urine pH (test code = 37781-0) 6 5-7 [facility]AllenUrine Leukocyte Rterqrzx2726-31-74 13:49:00* Test Item Value Reference Range Interpretation Comments Urine Leukocyte Esterase (test code = 60923-0) SMALL NEGATIV E [facility] McAllenUrine Kgqvbks0491-01-34 13:49:00* Test Item Value Reference Range Interpretation Comments Urine Nitrite (test code = 51728-2) POSITIVE NEGATIVE H [facility] McAllenUrine Guahhry3689-06-64 13:49:00* Test Item Value Reference Range Interpretation Comments Urine Protein (test code = 27920-5) 2+ NEGATIVE H [facility] McAllenUrine Glucose (UA)2019-05-28 13:49:00* Test Item Value Reference Range Interpretation Comments Urine Glucose (UA) (test code = 27066-9) NEGATIVE NEGATIVE [facility] McAllenUrine Xuebnku0147-93-16 13:49:00* Test Item Value Reference Range Interpretation Comments Urine Ketones (test code = 36241-7) TRACE NEGATIVE H [facility] Annmcctvxrsy7701-46-10 13:49:00* Test Item Value Reference Range Interpretation Comments Urine Urobilinogen (test code = 56120-4) 1 0.2-1 [facility]AllenUrine Ftsvdxwfg6369-00-41 13:49:00* Test Item Value Reference Range Interpretation Comments Urine Bilirubin (test code = 1977-8) NEGATIVE NEGATIVE [facility] Azjjv4895-77-43 13:49:00* Test Item Value Reference Range Interpretation Comments Urine Blood (test code = 70854-9) 3+ NEGATIVE [facility] McAllenTotal Elltrprot9201-66-19 08:44:00* Test Item Value Reference Range Interpretation Comments Total Bilirubin (test code = 1975-2) 0.8 0.2-1.2 [facility] McAllenAspartate Amino Transf (AST/SGOT) 2019-05-28 08:44:00* Test Item Value Reference Range Interpretation Comments Aspartate Amino Transf (AST/SGOT) (test code = Aspartate Amino Transf (AST/SGOT)) 16 5-34 [facility] McAllenAlanine Aminotransferase (ALT/SGPT) 2019-05-28 08:44:00* Test Item Value Reference Range Interpretation Comments Alanine Aminotransferase (ALT/SGPT) (test code = 1742-6) 30 0-55 [facility] McAllenTotal Grbgupd3518-21-86 08:44:00* Test Item Value Reference Range Interpretation Comments Total Protein (test code = 2885-2) 6.9 6.5-8.1 [facility] McAllenAlbumin2019-09-10 08:44:00* Test Item Value Reference Range Interpretation Comments Albumin (test code = 1751-7) 3.7 3.5-5.0 [facility] McAllenGlobulin2019-09-10 08:44:00* Test Item Value Reference Range Interpretation Comments Globulin (test code = 43398-0) 3.2 2.3-3.5 [facility] McAllenAlbumin/Globulin Wumkz1676-27-78 08:44:00 * Test Item Value Reference Range Interpretation Comments Albumin/Globulin Ratio (test code = 1759-0) 1.2 0.8-2.0 [facility] McAllenAlkaline Lswusplzatm2872-57-09 08:44:00* Test Item Value Reference Range Interpretation Comments Alkaline Phosphatase (test code = 6768-6) 119 40-150 [facility] McAllenCHEST SINGLE (PORTABLE)2019-05-27 18:25:00 [facility] [address] [place] [address] Patient Name: ARIK VELIZ MR #: [id number] : 1975 Age/Sex: 44/M Req #: [id number] Adm Physician: Ordered by: ROGELIO CARSON, MICKIE CARSON Report #: [id number] Location: ER Room/Bed: Procedure: [id number] DX/CHEST SINGLE (PORTABLE) Exam Date: 05/27/19 Exam Time: 1754 REPORT STATUS: Signed EXAMINATION: CHEST SINGLE (PORTABLE) INDICATION: ERMD ORDER [id number] 1755 Y COMPARISON: CT abdomen and pelvis 05/27/2019 and chest radiograph 06/16/2018 FINDINGS: AP view TUBES and LINES: None. LUNGS: Lungs are well inflated. Mild bibasilar atelectasis. There is no evidence of pneumonia or pulmonary edema. PLEURA: No pleural effusion or pneumothorax. HEART AND MEDIASTINUM: The cardiomediastinal s ilhouette is unremarkable.. BONES AND SOFT TISSUES: No acute osseous les ion. Soft tissues are unremarkable. UPPER ABDOMEN: No free air under the diaphragm. IMPRESSION: No acute thoracic abnormality. Stable m ild bibasilar atelectasis. Signed by: Dr. Jina Beavers M.D. on 05/27/2019 6:26 PM Dictated By: JINA BEAVERS MD Electronical ly Signed By: JINA BEAVERS MD on 05/27/191825 Transcribed By: ELIAN SCALES on 05/27/191825 COPY TO: MICKIE MERCADO CT ABDOMEN/PELVIS WO 2019-05-27 18:20:00 [address] [address] Patient Name: ARIK VELIZ MR #: [id number] : 1975 Age/Sex: 44/M Req #: [id number] Adm Physician: Ordered by: MICKIE MERCADO MD, MD Report #: [id number] Location: ER Room/Bed: Procedure: [id number] CT/CT ABDOMEN/PELVIS WO Exam Date: 05/27/19 Exam Ti me: 1755 REPORT STATUS: Signed E XAM: CT Abdomen and Pelvis WITHOUT contrast INDICATION: STONE DANIEL COL [id number] 1755 Y COMPARISON: Renal ultrasound 04/08/[address] abdomen and pelvis 06/20/2018 TECHNIQUE: Abdomen and pelvis were scanned u tilizing a multidetector helical scanner from the lung base to the pubic symph ysis without administration of IV contrast. Absence of intravenous contrast de creases sensitivity for detection of focal lesions and vascular pathology. Cor onal and sagittal reformations were obtained. Routine protocol was performed. IV CONTRAST: None. ORAL CONTRAST: Water RADIATION DOSE: Total DLP: 427 mGy*cm Estimated effective dose: (DLP x 0.015 x size factor) mSv COMPLICATIONS: None FINDINGS: LINES and TUBES: Suprapubic catheter within the urinary bladder is seen in adequate position. LOWER THORAX: Unremarkable HEPATOBILIARY: No focal hepatic lesions. No biliary ductal dilation. GALLBLADDER: No radio- opaque stones or sludge. No wall thickening. SPLEEN: No splenomegaly. PANCREAS: No focal masses or ductal dilatation. ADRENALS: No adrenal nodules KIDNEYS/URETERS: No hydronephrosis. No cystic or solid mass lesions. No stones. GI TRACT: The rectum is markedly distended and fille d with large amount of a specific feces suggestive of fecal impaction. Otherwi se, no abnormal distention, wall thickening, or evidence of bowel obstruction. Appendix is normal. PELVIC ORGANS/BLADDER: The urinary bladder is partially collapsed and anteriorly displaced by a severely distended rectum. LYMPH NODES: No lymphadenopathy. VESSELS: Unremarkable. PERITONEUM / RETROPERITONEUM: No free air or fluid. BONES: Unremarkable. SOFT TI SSUES: Unremarkable. IMPRESSION: 1. Severe distention of th e rectal with retention of large amount of feces highly suggestive of fecal im paction. 2. Suprapubic catheter in adequate position with a partially coiled in the bladder. Note that the urinary bladder has been anteriorly displaced by the enlarged rectum. Signed by: Dr. Jina Beavers M.D. on 05/27 6:25 PM Dictated By: JINA BEAVERS MD Electronically Sig agustin By: JINA BEAVERS MD on 05/27/191824 Transcribed By: ZO on 05/27/191824 COPY TO: MICKIE MERCADO B-Type Natriuretic Peptide 2019-05-27 18:19:00* Test Item Value Reference Range Interpretation Comments B-Type Natriuretic Peptide (test code = 43105-1) < 10.0 0-100 [facility]AllenCreatine Kinase LT3591-18-89 18:18:00* Test Item Value Reference Range Interpretation Comments Creatine Kinase MB (test code = 51887-9) 0.50 0-5.0 [facility] McAllenTroponin [id number] 18:18:00* Test Item Value Reference Range Interpretation Comments Troponin I (test code = SOF4526) < 0.001 0-0.300 [facility] McAllenMagnesium Ygoht8180-22-52 18:17:00* Test Item Value Reference Range Interpretation Comments Magnesium Level (test code = 50447-3) 2.1 1.3-2.1 [facility] McAllenCreatine Mmakqa5936-96-70 18:17:00* Test Item Value Reference Range Interpretation Comments Creatine Kinase (test code = 2157-6) 35 30-200 [facility] McAllenLipase2019-09-09 18:17:00* Test Item Value Reference Range Interpretation Comments Lipase (test code = 3040-3) 18 8-78 [facility] McAllenLactic Acid Vomcr8506-69-23 18:04:00* Test Item Value Reference Range Interpretation Comments Lactic Acid Level (test code = Lactic Acid Level) 5.8 4.5- 19.8 [facility] McAllenProthrombin Yjnl1396-60-79 18:02:00* Test Item Value Reference Range Interpretation Comments Prothrombin Time (test code = 5902-2) 12.9 11.9-14.5 [facility] McAllenProthromb Time International Ratio 2019-05-27 18:02:00* Test Item Value Reference Range Interpretation Comments Prothromb Time International Ratio (test code = 6301-6) 0.92 Oral Anticoagulant Therapy INR Values:1. Low Intensity Therapy 1.5 - 2.02 . Moderate Intensity Therapy 2.0 - 3.03. High Intensity Therapy(1) 2.5 - 3. 54. High Intensity Therapy(2) 3.0 - 4.05. Panic Value INR > 5.0 [facility] McAllenActivated Partial Thromboplast Time 2019-05-27 18:02:00* Test Item Value Reference Range Interpretation Comments Activated Partial Thromboplast Time (test code = 42781-5) 32.9 23.8-35.5 [facility] McAllenPROCALCITONIN (PCT)2019-05-13 01:33:00* Test Item Value Reference Range Interpretation Comments PROCALCITONIN (PCT) (test code = PROCAL) < 0.05 ng/ml Concentration Interpretation (ng/mL) <0.51 Sepsis is not likely. Local bacterial infection is possible. (LOW RISK for progression to Sepsis) 0.51 - 2.00 Sepsis is possible, but other conditions are known to elevate PCT as well. (MODERATE RISK for progression to Sepsis) > 2.00 Sepsis is likely, unless other causes are known. (HIGH RISK for progression to Severe Sepsis or Septic Shock) 10.00 High likelihood of Severe Sepsis or Septic or higher Shock. *Increased PCT levels may not always be related to systemic bacterial infection.*Low PCT levels do not automatically exclude the presence of bacterial infection.*All results should be interpreted taking into account the patients history. CBC W/AUTO XSPG4096-35-14 01:26:00* Test Item Value Reference Range Interpretation Comments WHITE BLOOD CELL (test code = WBC) 11.8 K/mm3 4.5-12.5 N RED BLOOD CELL (test code = RBC) 4.86 mill/mm3 4.0-5.8 N HEMOGLOBIN (test code = HGB) 14.5 gram/dL 13.0-17.5 N HEMATOCRIT (test code = HCT) 42.9 % 42.0-52.0 N MEAN CELL VOLUME (test code = MCV) 88.3 fL 80-98 N MEAN CELL HGB (test code = MCH) 29.8 picogram 27.0-33.0 N MEAN CELL HGB CONCETRATION (test code = MCHC) 33.8 gram/dL 33.0-36. 0 N RED CELL DISTRIBUTION WIDTH (test code = RDW) 12.3 % 11.6-16. 2 N RED CELL DISTRIBUTION WIDTH SD (test code = RDW-SD) 39.9 fL 37 .0-51.0 N PLATELET COUNT (test code = PLT) 338 K/mm3 150-450 N MEAN PLATELET VOLUME (test code = MPV) 11.5 fL 6.7-11.0 H NEUTROPHIL % (test code = NT%) 61.6 % 39.0-69.0 N IMMATURE GRANULOCYTE % (test code = IG%) 0.3 % 0.0-5.0 N LYMPHOCYTE % (test code = LY%) 28.5 % 25.0-55.0 N MONOCYTE % (test code = MO%) 7.4 % 0.0-10.0 N EOSINOPHIL % (test code = EO%) 1.7 % 0.0-5.0 N BASOPHIL % (test code = BA%) 0.5 % 0.0-1.0 N NUCLEATED RBC % (test code = NRBC%) 0.0 % 0-0 N NEUTROPHIL # (test code = NT#) 7.28 K/mm3 1.8-7.7 N IMMATURE GRANULOCYTE # (test code = IG#) 0.03 x10 3/uL 0-0.03 N LYMPHOCYTE # (test code = LY#) 3.37 K/mm3 1.0-5.0 N MONOCYTE # (test code = MO#) 0.87 K/mm3 0-0.8 H EOSINOPHIL # (test code = EO#) 0.20 K/mm3 0.0-0.5 N BASOPHIL # (test code = BA#) 0.06 K/mm3 0.0-0.2 N NUCLEATED RBC # (test code = NRBC#) 0.00 K/mm3 0.0-0.1 N MANUAL DIFF REQUIRED (test code = MDIFF) NO CBC W/AUTO [id number] 01:24:00* Test Item Value Reference Range Interpretation Comments WHITE BLOOD CELL (test code = WBC) K/mm3 4.5-12.5 RED BLOOD CELL (test code = RBC) mill/mm3 4.0-5.8 HEMOGLOBIN (test code = HGB) 14.5 gram/dL 13.0-17.5 N HEMATOCRIT (test code = HCT) 42.9 % 42.0-52.0 N MEAN CELL VOLUME (test code = MCV) fL 80-98 MEAN CELL HGB (test code = MCH) picogram 27.0-33.0 MEAN CELL HGB CONCETRATION (test code = MCHC) gram/dL 33.0-36. 0 RED CELL DISTRIBUTION WIDTH (test code = RDW) % 11.6-16. 2 RED CELL DISTRIBUTION WIDTH SD (test code = RDW-SD) fL 37 .0-51.0 PLATELET COUNT (test code = PLT) K/mm3 150-450 MEAN PLATELET VOLUME (test code = MPV) fL 6.7-11.0 NEUTROPHIL % (test code = NT%) % 39.0-69.0 IMMATURE GRANULOCYTE % (test code = IG%) % 0.0-5.0 LYMPHOCYTE % (test code = LY%) % 25.0-55.0 MONOCYTE % (test code = MO%) % 0.0-10.0 EOSINOPHIL % (test code = EO%) % 0.0-5.0 BASOPHIL % (test code = BA%) % 0.0-1.0 NEUTROPHIL # (test code = NT#) K/mm3 1.8-7.7 LYMPHOCYTE # (test code = LY#) K/mm3 1.0-5.0 MONOCYTE # (test code = MO#) K/mm3 0-0.8 EOSINOPHIL # (test code = EO#) K/mm3 0.0-0.5 BASOPHIL # (test code = BA#) K/mm3 0.0-0.2 BASIC METABOLIC [id number] 00:38:00* Test Item Value Reference Range Interpretation Comments SODIUM (test code = NA) 142 mmol/L 136-145 N POTASSIUM (test code = K) 3.8 mmol/L 3.5-5.1 N CHLORIDE (test code = CL) 111.0 mmol/L 98-107 H CARBON DIOXIDE (test code = CO2) 25.0 mmol/L 21-32 N ANION GAP (test code = GAP) 9.8 10-20 L GLUCOSE (test code = GLU) 121 mg/dL 74-106 H BLOOD UREA NITROGEN (test code = BUN) 17 mg/dL 7-18 N GLOMERULAR FILTRATION RATE (test code = GFR) > 60 mL/min >=60 Estimated GFR by using Modified MDRD formula.Chronic kidney disease is defined as either kidney damageor GFR <60 mL/min/1.73 m2 for >3 months. CREATININE (test code = CREAT) 0.70 mg/dL 0.7-1.3 N BUN/CREATININE RATIO (test code = BUN/CREA) 25.9 10-20 H CALCIUM (test code = CA) 9.2 mg/dL 8.5-10.1 N [id number] 00:38:00* Test Item Value Reference Range Interpretation Comments TROPONIN-I (test code = TROPI) <0.015 ng/mL 0-0.045 N BASIC METABOLIC [id number] 00:34:00* Test Item Value Reference Range Interpretation Comments SODIUM (test code = NA) 142 mmol/L 136-145 N POTASSIUM (test code = K) 3.8 mmol/L 3.5-5.1 N CHLORIDE (test code = CL) 111.0 mmol/L 98-107 H CARBON DIOXIDE (test code = CO2) mmol/L 21-32 ANION GAP (test code = GAP) 10-20 GLUCOSE (test code = GLU) mg/dL 74-106 BLOOD UREA NITROGEN (test code = BUN) mg/dL 7-18 GLOMERULAR FILTRATION RATE (test code = GFR) mL/min >=60 CREATININE (test code = CREAT) mg/dL 0.7-1.3 BUN/CREATININE RATIO (test code = BUN/CREA) 10-20 CALCIUM (test code = CA) mg/dL 8.5-10.1 [id number] 00:34:00* Test Item Value Reference Range Interpretation Comments TROPONIN-I (test code = TROPI) ng/mL 0-0.045 LACTIC [id number] 00:34:00* Test Item Value Reference Range Interpretation Comments LACTIC ACID (test code = LACT) 0.8 mmol/L 0.4-1.9 N SPECIMEN COMMENTS: repeat if >2 repeat in 3 hours.- XR CHEST 1 [id number] 00:33:00 FAX: Michoacano Weber MD [phone] [place]: St: [facility] FAX: Aly Amaral MD Name: ARIK VELIZ [facility] : 1975 Age/S: 44/M [address] [facility] Unit #: [id number] Loc: [place] [address] Phys: Aly Amaral MD Acct: [id number] Dis Date: Status: REG ER PHONE #: [phone] Exam Date: 05/13/2019 0017 FAX #: [phone] Reason: CODE SEPSIS EXAMS: CPT CODE: [id number] XR CHEST 1 V 14208 EXAM: - XR CHEST 1 V HISTORY: Cough, code sepsis. COMPARISON: 07/22/2016. FINDINGS: Single AP view of the chest is provided. Heart size and vascularity are within normal limits. Hypoinflation of lungs. Left hemidiaphragm is elevated. Left hand is overlying the chest bilaterally limiting evaluation. The lungs are clear of focal consolidation. No effusion, pneumothorax, or acute osseous abnormality. Bowel is filled with gas. IMPRESSION: No significant interval change in exam. No consolidation or effusion. Other findings as mentioned above. at 0033 Reported and signed by: Marcello Davis MD CC: [place]ano rAshad; Aly Amaral MD Technologist: Ok Mustafa RT(R) Trnscrd Date/Time/By: 05/13/2019 (0033) : By: [email or web address] Orig Print D/T: S: 05/13/2019 (0037) PAGE 1 Signed Report US RENAL RETROPERITONEAL [id number] 10:14:00 [place] [address] Patient Name: ARIK VELIZ MR #: [id number] : 1975 Age/Sex: 44/M Req #: [id number] Adm Physician: Ordered by: AMALIA PETERS MD Report #: [id number] Location: US Room/Bed: Procedure: [id number] US /US RENAL RETROPERITONEAL COMP Exam Date: Exam Time : REPORT STATUS: Signed EXAM: R enal Ultrasound INDICATION: UTI/MICROSCOPIC HEMATURIA COMPARISO N: None TECHNIQUE: Transverse and longitudinal images of the kidneys and blad kwan were obtained. FINDINGS: Right Kidney: Length: 9.0 cm Appearance: Normal echogenicity. Collecting system: No hydronephrosis St ones: None Cyst/Mass: 1.2 x 1.0 x 1.1 cm cystic lesion with thin internal sept ations and minimal internal vascularity. Left Kidney: Length: 10.6 cm Appearance: Normal echogenicity. Collecting system: No hydronephrosis St ones: None Cyst/Mass: None Bladder: Decompressed bladder with Roth ca theter. IMPRESSION: 1.2 x 1.0 x 1.1 cm cystic lesion at the upper pole of the right kidney with thin internal septations and minimal internal vasculari ty. Recommend follow-up on subsequent imaging. Signed by: Perlita Eaton MD on 04/08/2019 10:17 AM Dictated By: PERLITA EATON MD 1017 Transcribed By: ZO on 04/08/19 1017 COPY TO: AMALIA PETERS MD URINALYSIS [id number] 17:03:00* Test Item Value Reference Range Interpretation Comments UA COLOR (test code = COLU) YELLOW YELLOW UA APPEARANCE (test code = APPU) CLOUDY CLEAR A UA GLUCOSE DIPSTICK (test code = DGLUU) norm mg/dL NEGATIVE UA BILIRUBIN DIPSTICK (test code = BILU) NEGATIVE mg/dL NEGATIVE UA KETONE DIPSTICK (test code = KETU) neg mg/dL NEGATIVE UA SPECIFIC GRAVITY (test code = SGU) 1.010 1.001-1.035 UA BLOOD DIPSTICK (test code = FAIZAN) 250 (4+) Flynn/uL NEGATIVE A UA PH DIPSTICK (test code = FREDI) 7.0 5.0-8.0 UA PROTEIN DIPSTICK (test code = PROU) 100 (2+) mg/dL Neg-15 A UA UROBILINIOGEN DIPSTICK (test code = URO) norm mg/dL 0.0-0.2 UA NITRITE DIPSTICK (test code = SARIAH) POSITIVE NEGATIVE UA LEUKOCYTE ESTERASE DIPSTICK (test code = LEUU) 500 Sahil/uL (3+) u L NEGATIVE A UA WBC (test code = WBCU) TNTC per HPF 0-5 A UA RBC (test code = RBCU) >100 per HPF 0-5 UA EPITHELIAL CELLS (test code = EPIU) Few (2-5/hpf) per HPF Few UA BACTERIA (test code = BACU) MANY per HPF NONE A UA AMORPHOUS SEDIMENT (test code = AMORU) FEW per LPF NONE A URINALYSIS W/O [id number] 17:03:00* Test Item Value Reference Range Interpretation Comments UA LEUKOCYTE ESTERASE W REFLEX (test code = LEUUR) 500 Sahil/uL (3+) NEGATIVE A URINALYSIS [id number] 16:56:00* Test Item Value Reference Range Interpretation Comments UA COLOR (test code = COLU) YELLOW YELLOW UA APPEARANCE (test code = APPU) CLOUDY CLEAR A UA GLUCOSE DIPSTICK (test code = DGLUU) norm mg/dL NEGATIVE UA BILIRUBIN DIPSTICK (test code = BILU) NEGATIVE mg/dL NEGATIVE UA KETONE DIPSTICK (test code = KETU) neg mg/dL NEGATIVE UA SPECIFIC GRAVITY (test code = SGU) 1.010 1.001-1.035 UA BLOOD DIPSTICK (test code = FAIZAN) 250 (4+) Flynn/uL NEGATIVE A UA PH DIPSTICK (test code = FREDI) 7.0 5.0-8.0 UA PROTEIN DIPSTICK (test code = PROU) 100 (2+) mg/dL Neg-15 A UA UROBILINIOGEN DIPSTICK (test code = URO) norm mg/dL 0.0-0.2 UA NITRITE DIPSTICK (test code = SARIAH) POSITIVE NEGATIVE UA LEUKOCYTE ESTERASE DIPSTICK (test code = LEUU) uL NEGA TIVE UA WBC (test code = WBCU) per HPF 0-5 UA RBC (test code = RBCU) per HPF 0-5 UA EPITHELIAL CELLS (test code = EPIU) per HPF Few UA BACTERIA (test code = BACU) per HPF NONE URINALYSIS W/O [id number] 16:56:00* Test Item Value Reference Range Interpretation Comments UA LEUKOCYTE ESTERASE W REFLEX (test code = LEUUR) 500 Sahil/uL (3+) NEGATIVE A URINALYSIS [id number] 16:56:00* Test Item Value Reference Range Interpretation Comments UA COLOR (test code = COLU) YELLOW YELLOW UA APPEARANCE (test code = APPU) CLOUDY CLEAR A UA GLUCOSE DIPSTICK (test code = DGLUU) norm mg/dL NEGATIVE UA BILIRUBIN DIPSTICK (test code = BILU) NEGATIVE mg/dL NEGATIVE UA KETONE DIPSTICK (test code = KETU) neg mg/dL NEGATIVE UA SPECIFIC GRAVITY (test code = SGU) 1.010 1.001-1.035 UA BLOOD DIPSTICK (test code = FAIZAN) 250 (4+) Flynn/uL NEGATIVE A UA PH DIPSTICK (test code = FREDI) 7.0 5.0-8.0 UA PROTEIN DIPSTICK (test code = PROU) 100 (2+) mg/dL Neg-15 A UA UROBILINIOGEN DIPSTICK (test code = URO) norm mg/dL 0.0-0.2 UA NITRITE DIPSTICK (test code = SARIAH) POSITIVE NEGATIVE UA LEUKOCYTE ESTERASE DIPSTICK (test code = LEUU) uL NEGA TIVE UA WBC (test code = WBCU) per HPF 0-5 UA RBC (test code = RBCU) per HPF 0-5 UA EPITHELIAL CELLS (test code = EPIU) per HPF Few UA BACTERIA (test code = BACU) per HPF NONE URINALYSIS W/O [id number] 16:56:00* Test Item Value Reference Range Interpretation Comments UA LEUKOCYTE ESTERASE W REFLEX (test code = LEUUR) 500 Sahil/uL (3+) NEGATIVE A COMPREHENSIVE METABOLIC [id number] 12:05:00* Test Item Value Reference Range Interpretation Comments SODIUM (test code = NA) 142 mmol/L 135-148 N POTASSIUM (test code = K) 3.9 mmol/L 3.5-5.1 N CHLORIDE (test code = CL) 104 mmol/L 101-109 N CARBON DIOXIDE (test code = CO2) 28.0 mmol/L 21-32 N ANION GAP (test code = GAP) 14 mmol/L 10-20 N GLUCOSE (test code = GLU) 109 mg/dL 74-106 H BLOOD UREA NITROGEN (test code = BUN) 12 mg/dL 3-21 N CREATININE (test code = CREAT) 0.65 mg/dL 0.55-1.3 N BUN/CREATININE RATIO (test code = BUN/CREA) 18.5 10-20 N TOTAL PROTEIN (test code = PROT) 7.2 g/dL 6.5-8.4 N ALBUMIN (test code = ALB) 3.7 g/dL 3.4-4.8 N GLOBULIN (test code = GLOB) 3.5 G/DL 1-10 N ALBUMIN/GLOBULIN RATIO (test code = A/G) 1.1 RATIO 0.75-1.50 N CALCIUM (test code = CA) 9.2 mg/dL 8.4-10.2 N BILIRUBIN TOTAL (test code = BILT) 0.40 mg/dL 0.0-1.0 N SGOT/AST (test code = AST) 19 U/L 6-32 N SGPT/ALT (test code = ALT) 34 U/L 12-78 N N ote: Change in REFERENCE RANGE due to new reagent method. ALKALINE PHOSPHATASE TOTAL (test code = ALKP) 121 U/L 38-126 N LACTIC [id number] 12:05:00* Test Item Value Reference Range Interpretation Comments LACTIC ACID (test code = LACT) 0.6 MMOL/L 0.4-1.9 N CBC W/AUTO [id number] 11:44:00* Test Item Value Reference Range Interpretation Comments WHITE BLOOD CELL (test code = WBC) 7.3 K/mm3 4.5-12.5 N RED BLOOD CELL (test code = RBC) 4.99 mill/mm3 4.0-5.8 N HEMOGLOBIN (test code = HGB) 14.8 gram/dL 13.0-17.5 N HEMATOCRIT (test code = HCT) 43.1 % 42.0-52.0 N MEAN CELL VOLUME (test code = MCV) 86.4 fL 80-98 N MEAN CELL HGB (test code = MCH) 29.7 picogram 27.0-33.0 N MEAN CELL HGB CONCETRATION (test code = MCHC) 34.3 gram/dL 33.0-36. 0 N RED CELL DISTRIBUTION WIDTH (test code = RDW) 12.1 % 11.6-16. 2 N RED CELL DISTRIBUTION WIDTH SD (test code = RDW-SD) 38.6 fL 37 .0-51.0 N PLATELET COUNT (test code = PLT) 316 K/mm3 150-450 N MEAN PLATELET VOLUME (test code = MPV) 10.6 fL 6.7-11.0 N NEUTROPHIL % (test code = NT%) 64.8 % 39.0-69.0 N LYMPHOCYTE % (test code = LY%) 26.6 % 25.0-55.0 N MONOCYTE % (test code = MO%) 7.0 % 0.0-10.0 N EOSINOPHIL % (test code = EO%) 0.5 % 0.0-5.0 N BASOPHIL % (test code = BA%) 1.0 % 0.0-1.0 N NEUTROPHIL # (test code = NT#) 4.75 K/mm3 1.8-7.7 N LYMPHOCYTE # (test code = LY#) 1.95 K/mm3 1.0-5.0 N MONOCYTE # (test code = MO#) 0.51 K/mm3 0-0.8 N EOSINOPHIL # (test code = EO#) 0.04 K/mm3 0.0-0.5 N BASOPHIL # (test code = BA#) 0.07 K/mm3 0.0-0.2 N MANUAL DIFF REQUIRED (test code = MDIFF) NO URINALYSIS [id number] 11:35:00* Test Item Value Reference Range Interpretation Comments UA COLOR (test code = COLU) YELLOW YELLOW UA APPEARANCE (test code = APPU) TURBID CLEAR A UA GLUCOSE DIPSTICK (test code = DGLUU) norm mg/dL NEGATIVE UA BILIRUBIN DIPSTICK (test code = BILU) NEGATIVE mg/dL NEGATIVE UA KETONE DIPSTICK (test code = KETU) 15 (1+) mg/dL NEGATIVE A UA SPECIFIC GRAVITY (test code = SGU) 1.015 1.001-1.035 UA BLOOD DIPSTICK (test code = FAIZAN) 250 (4+) Flynn/uL NEGATIVE A UA PH DIPSTICK (test code = FREDI) 9.0 5.0-8.0 A UA PROTEIN DIPSTICK (test code = PROU) 30 (1+) mg/dL Neg-15 A UA UROBILINIOGEN DIPSTICK (test code = URO) norm mg/dL 0.0-0.2 UA NITRITE DIPSTICK (test code = SARIAH) POSITIVE NEGATIVE UA LEUKOCYTE ESTERASE DIPSTICK (test code = LEUU) 500 Sahil/uL (3+) u L NEGATIVE A UA WBC (test code = WBCU) 10-20 per HPF 0-5 A UA RBC (test code = RBCU) 5-10 per HPF 0-5 A UA EPITHELIAL CELLS (test code = EPIU) None seen per HPF Few UA BACTERIA (test code = BACU) MANY per HPF NONE A UA TRIPLE PHOSPHATE CRYSTALS (test code = TRPHOSU) MANY per LPF NON E A UA AMORPHOUS SEDIMENT (test code = AMORU) MANY per LPF NONE A Urine Source? Clean CatchURINALYSIS [id number] 11:19:00* Test Item Value Reference Range Interpretation Comments UA COLOR (test code = COLU) YELLOW YELLOW UA APPEARANCE (test code = APPU) TURBID CLEAR A UA GLUCOSE DIPSTICK (test code = DGLUU) norm mg/dL NEGATIVE UA BILIRUBIN DIPSTICK (test code = BILU) NEGATIVE mg/dL NEGATIVE UA KETONE DIPSTICK (test code = KETU) 15 (1+) mg/dL NEGATIVE A UA SPECIFIC GRAVITY (test code = SGU) 1.015 1.001-1.035 UA BLOOD DIPSTICK (test code = FAIZAN) 250 (4+) Flynn/uL NEGATIVE A UA PH DIPSTICK (test code = FREDI) 9.0 5.0-8.0 A UA PROTEIN DIPSTICK (test code = PROU) 30 (1+) mg/dL Neg-15 A UA UROBILINIOGEN DIPSTICK (test code = URO) norm mg/dL 0.0-0.2 UA NITRITE DIPSTICK (test code = SARIAH) POSITIVE NEGATIVE UA LEUKOCYTE ESTERASE DIPSTICK (test code = LEUU) 500 Sahil/uL (3+) u L NEGATIVE A UA WBC (test code = WBCU) per HPF 0-5 UA RBC (test code = RBCU) per HPF 0-5 UA EPITHELIAL CELLS (test code = EPIU) per HPF Few UA BACTERIA (test code = BACU) per HPF NONE Urine Source? Clean CatchUrine [id number] 08:16:00* Test Item Value Reference Range Interpretation Comments Urine Culture (test code = 630-4) Organism: PR[facility]US MIRABILIS [facility] [id number] 19:35:00* Test Item Value Reference Range Interpretation Comments Urine WBC (test code = 5821-4) 11-20 0-5 H [facility] [id number] 19:35:00* Test Item Value Reference Range Interpretation Comments Urine RBC (test code = 42427-7) 6-10 0-5 H [facility] [id number] 19:35:00* Test Item Value Reference Range Interpretation Comments Urine Bacteria (test code = 17023-3) MANY NONE H [facility] Epithelial [id number] 19:35:00 * Test Item Value Reference Range Interpretation Comments Urine Epithelial Cells (test code = 56383-9) NONE NONE [facility] [id number] 19:29:00* Test Item Value Reference Range Interpretation Comments Urine Color (test code = 5778-6) YELLOW YELLOW [facility] [id number] 19:29:00* Test Item Value Reference Range Interpretation Comments Urine Clarity (test code = 02976-3) SL CLOUDY CLEAR H [facility] Specific [id number] 19:29:00 * Test Item Value Reference Range Interpretation Comments Urine Specific [facility] (test code = 5811-5) <=1.005 1.010-1.02 5 [facility] [id number] 19:29:00* Test Item Value Reference Range Interpretation Comments Urine pH (test code = 68689-4) 9 5-7 [facility] Leukocyte [id number] 19:29:00* Test Item Value Reference Range Interpretation Comments Urine Leukocyte Esterase (test code = 67088-6) LARGE NEGATIV E [facility] [id number] 19:29:00* Test Item Value Reference Range Interpretation Comments Urine Nitrite (test code = 22943-1) POSITIVE NEGATIVE H [facility] [id number] 19:29:00* Test Item Value Reference Range Interpretation Comments Urine Protein (test code = 45826-0) 2+ NEGATIVE H [facility] Glucose (UA)2019-03-01 19:29:00* Test Item Value Reference Range Interpretation Comments Urine Glucose (UA) (test code = 03201-3) NEGATIVE NEGATIVE [facility] [id number] 19:29:00* Test Item Value Reference Range Interpretation Comments Urine Ketones (test code = 17494-5) TRACE NEGATIVE H [facility] [id number] 19:29:00* Test Item Value Reference Range Interpretation Comments Urine Urobilinogen (test code = 79299-5) 2 0.2-1 [facility] [id number] 19:29:00* Test Item Value Reference Range Interpretation Comments Urine Bilirubin (test code = 1977-8) SMALL NEGATIVE [facility] [id number] 19:29:00* Test Item Value Reference Range Interpretation Comments Urine Blood (test code = 65036-5) 1+ NEGATIVE [facility] A[facility] PELVIS [id number] 14:33:00 Name: ARIK VELIZ [facility] : 1975 Age/S: 43 / M [address] [facility] Unit #: [id number] Loc: [place] [address] Phys: Marco Dutta DO Acct: [id number] Dis Date: Status: REG ER PHONE #: Exam Date: 01/18/2019 1351 FAX #: [phone] Reason: LUQ pain EXAMS: CPT CODE: [id number] CT ABD PELVIS W/CONT 21608 HISTORY: Left upper quadr ant pain. COMPARISON: October 31, 2016. CT of abdom en and pelvis with IV contrast: 100 mL of Isovue-370. Automated exposure c ontrol CT of abdomen: The lung bases are clear. Depe ndent changes. Elevated left hemidiaphragm. The liver is enh ancing homogeneously. No discrete mass is noted within the liver. The live r measured 15.5 cm in length. Main portal vein is patent. Hepatic artery i s patent. Gallbladder is without radiopaque stones. The sple en is not enlarged. The stomach distended incompletely however it is syed l in appearance. Pancreas is enhancing homogeneously. Unremarkable adrenals. Kidneys are free from hydroureteronephrosis. Homogeneous enhancement. Bilateral excretion is noted. Subcentimeter low-attenuation lesion in the right kidney is too small to characterize at 7.7 mm. Follow- up. Widely patent abdominal and pelvic vasculature. No pathologic adenopathy. No bowel obstruction or colitis or diverticulitis or enteritis. Constipation. CT PELVIS: Appe ndix is normal. Pelvic bowel loops are unobstructed. Constipation with fec al impaction in the rectosigmoid colon. Suprapubic catheter within collapsed urinary bladder with calcifications within the dependent portion of the urinary bladder. No pelvic pathologic adenopathy. No free fluid or free air or abscess. The subcutaneous tissues and the musculature are normal in appearance. No lytic or blastic lesions are noted within the bony skeleton. DJD. IMPRESSION: PAGE 1 Signed Report (CONTINUED) Name: ARIK VELIZ [facility] : 1975 Age/S: 43 / M [address] [facility] Unit #: [id number] Loc: [place] [address] Phys: Marco Dutta DO Acct: [id number] Dis Date: Status: REG ER PHONE #: [phone] Exam Date: 11/2018 1351 FAX #: [phone] Reason: LUQ pain EXAMS: CPT CODE: [id number] CT ABD PELVIS W/CONT 14316 <Continued> Suprapubic catheter within collapsed urinary bladder with coarse calcifications within the dependent portion of the urinary bladder. Normal appendix without bowel obstruction or colitis or diverticulitis or enteritis. Fecal impaction in the rectosigmoid colon. No free fluid or free air or abscess. No hydroureteronephrosis either. 7.7 mm low- attenuation lesion in the upper pole of the right kidney is too small to characterize. Follow-up. No pathologic adenopathy. at 1433 Reported and signed by: Joseph Shannon M.D. CC: Marco Dutta DO Technologist:BETSY SANTIAGO(R); Karin Looney CTDI: DLP: Trnscb Date/Time: 01/18/2019 (1433) [email or web address] Orig Print D/T: S: 01/18/2019 (1436) CTDI: DLP: PAGE 2 Signed Report BASIC METABOLIC [id number] 12:46:00* Test Item Value Reference Range Interpretation Comments SODIUM (test code = NA) 142 mmol/L 136-145 N POTASSIUM (test code = K) 4.2 mmol/L 3.5-5.1 N CHLORIDE (test code = CL) 108.0 mmol/L 98-107 H CARBON DIOXIDE (test code = CO2) 30.0 mmol/L 21-32 N ANION GAP (test code = GAP) 8.2 10-20 L GLUCOSE (test code = GLU) 95 mg/dL 74-106 N BLOOD UREA NITROGEN (test code = BUN) 16 mg/dL 7-18 N GLOMERULAR FILTRATION RATE (test code = GFR) > 60 mL/min >=60 Estimated GFR by using Modified MDRD formula.Chronic kidney disease is defined as either kidney damageor GFR <60 mL/min/1.73 m2 for >3 months. CREATININE (test code = CREAT) 0.70 mg/dL 0.7-1.3 N BUN/CREATININE RATIO (test code = BUN/CREA) 22.9 10-20 H CALCIUM (test code = CA) 9.3 mg/dL 8.5-10.1 N HEPATIC FUNCTION [id number] 12:46:00* Test Item Value Reference Range Interpretation Comments TOTAL PROTEIN (test code = PROT) 7.9 gram/dL 6.4-8.2 N ALBUMIN (test code = ALB) 4.0 g/dL 3.4-5.0 N GLOBULIN (test code = GLOB) 3.9 gram/dL 2.7-4.2 N ALBUMIN/GLOBULIN RATIO (test code = A/G) 1.0 0.75-1.50 N BILIRUBIN TOTAL (test code = BILT) 0.40 mg/dL 0.0-1.0 N BILIRUBIN DIRECT (test code = BILD) 0.10 mg/dL 0.0-0.20 N SGOT/AST (test code = AST) 16 IUnit/L 15-37 N SGPT/ALT (test code = ALT) 26 IUnit/L 12-78 N ALKALINE PHOSPHATASE TOTAL (test code = ALKP) 133 IUnit/L 45-117 H Note change in reference range due to change in reagent. [id number] 12:46:00* Test Item Value Reference Range Interpretation Comments LIPASE (test code = LIP) 75 U/L 73.0-393.0 N URINALYSIS [id number] 12:39:00* Test Item Value Reference Range Interpretation Comments UA COLOR (test code = COLU) YELLOW YELLOW UA APPEARANCE (test code = APPU) Cloudy CLEAR A UA GLUCOSE DIPSTICK (test code = DGLUU) NEGATIVE mg/dL NEGATIVE UA BILIRUBIN DIPSTICK (test code = BILU) NEGATIVE mg/dL NEGATIVE UA KETONE DIPSTICK (test code = KETU) 20 (1+) mg/dL NEGATIVE A UA SPECIFIC GRAVITY (test code = SGU) 1.022 1.001-1.035 UA BLOOD DIPSTICK (test code = FAIZAN) 0.03 mg/dL (Trace) mg/dL NEGATI VE A UA PH DIPSTICK (test code = FREDI) 7.5 5.0-8.0 UA PROTEIN DIPSTICK (test code = PROU) 70 (1+) mg/dL NEGATIVE A UA UROBILINIOGEN DIPSTICK (test code = URO) Normal mg/dL NEGATIVE UA NITRITE DIPSTICK (test code = SARIAH) NEGATIVE NEGATIVE UA LEUKOCYTE ESTERASE W REFLEX (test code = LEUUR) 500 Sahil/u L (2+) Sahil/uL NEGATIVE A UA WBC (test code = WBCU) 0-5 per HPF 0-5 UA RBC (test code = RBCU) 0-2 #/HPF 0-5 UA EPITHELIAL CELLS (test code = EPIU) Moderate (5-10/hpf) per HPF FEW A UA BACTERIA (test code = BACU) FEW #/HPF NONE A Urine Source? Clean CatchURINALYSIS [id number] 12:38:00* Test Item Value Reference Range Interpretation Comments UA COLOR (test code = COLU) YELLOW YELLOW UA APPEARANCE (test code = APPU) Cloudy CLEAR A UA GLUCOSE DIPSTICK (test code = DGLUU) NEGATIVE mg/dL NEGATIVE UA BILIRUBIN DIPSTICK (test code = BILU) NEGATIVE mg/dL NEGATIVE UA KETONE DIPSTICK (test code = KETU) 20 (1+) mg/dL NEGATIVE A UA SPECIFIC GRAVITY (test code = SGU) 1.022 1.001-1.035 UA BLOOD DIPSTICK (test code = FAIZAN) 0.03 mg/dL (Trace) mg/dL NEGATI VE A UA PH DIPSTICK (test code = FREDI) 7.5 5.0-8.0 UA PROTEIN DIPSTICK (test code = PROU) 70 (1+) mg/dL NEGATIVE A UA UROBILINIOGEN DIPSTICK (test code = URO) Normal mg/dL NEGATIVE UA NITRITE DIPSTICK (test code = SARIAH) NEGATIVE NEGATIVE UA LEUKOCYTE ESTERASE W REFLEX (test code = LEUUR) 500 Sahil/u L (2+) Sahil/uL NEGATIVE A UA WBC (test code = WBCU) per HPF 0-5 UA RBC (test code = RBCU) per HPF 0-5 UA EPITHELIAL CELLS (test code = EPIU) per HPF Few UA BACTERIA (test code = BACU) per HPF NONE Urine Source? Clean CatchBASIC METABOLIC [id number] 12:37:00* Test Item Value Reference Range Interpretation Comments SODIUM (test code = NA) 142 mmol/L 136-145 N POTASSIUM (test code = K) 4.2 mmol/L 3.5-5.1 N CHLORIDE (test code = CL) 108.0 mmol/L 98-107 H CARBON DIOXIDE (test code = CO2) mmol/L 21-32 ANION GAP (test code = GAP) 10-20 GLUCOSE (test code = GLU) mg/dL 74-106 BLOOD UREA NITROGEN (test code = BUN) mg/dL 7-18 GLOMERULAR FILTRATION RATE (test code = GFR) mL/min >=60 CREATININE (test code = CREAT) mg/dL 0.7-1.3 BUN/CREATININE RATIO (test code = BUN/CREA) 10-20 CALCIUM (test code = CA) mg/dL 8.5-10.1 HEPATIC FUNCTION [id number] 12:37:00* Test Item Value Reference Range Interpretation Comments TOTAL PROTEIN (test code = PROT) gram/dL 6.4-8.2 ALBUMIN (test code = ALB) g/dL 3.4-5.0 GLOBULIN (test code = GLOB) gram/dL 2.7-4.2 ALBUMIN/GLOBULIN RATIO (test code = A/G) 0.75-1.50 BILIRUBIN TOTAL (test code = BILT) mg/dL 0.0-1.0 BILIRUBIN DIRECT (test code = BILD) mg/dL 0.0-0.20 SGOT/AST (test code = AST) IUnit/L 15-37 SGPT/ALT (test code = ALT) IUnit/L 12-78 ALKALINE PHOSPHATASE TOTAL (test code = ALKP) IUnit/L 45-117 [id number] 12:37:00* Test Item Value Reference Range Interpretation Comments LIPASE (test code = LIP) U/L 73.0-393.0 CBC W/O [id number] 12:35:00* Test Item Value Reference Range Interpretation Comments WHITE BLOOD CELL (test code = WBC) 10.6 K/mm3 4.5-12.5 N RED BLOOD CELL (test code = RBC) 4.99 mill/mm3 4.0-5.8 N HEMOGLOBIN (test code = HGB) 14.8 gram/dL 13.0-17.5 N HEMATOCRIT (test code = HCT) 44.5 % 42.0-52.0 N MEAN CELL VOLUME (test code = MCV) 89.2 fL 80-98 N MEAN CELL HGB (test code = MCH) 29.7 picogram 27.0-33.0 N MEAN CELL HGB CONCETRATION (test code = MCHC) 33.3 gram/dL 33.0-36. 0 N RED CELL DISTRIBUTION WIDTH (test code = RDW) 12.2 % 11.6-16. 2 N PLATELET COUNT (test code = PLT) 295 K/mm3 150-450 N MEAN PLATELET VOLUME (test code = MPV) 11.0 fL 6.7-11.0 N CBC W/O [id number] 12:24:00* Test Item Value Reference Range Interpretation Comments WHITE BLOOD CELL (test code = WBC) K/mm3 4.5-12.5 RED BLOOD CELL (test code = RBC) mill/mm3 4.0-5.8 HEMOGLOBIN (test code = HGB) 14.8 gram/dL 13.0-17.5 N HEMATOCRIT (test code = HCT) 44.5 % 42.0-52.0 N MEAN CELL VOLUME (test code = MCV) fL 80-98 MEAN CELL HGB (test code = MCH) picogram 27.0-33.0 MEAN CELL HGB CONCETRATION (test code = MCHC) gram/dL 33.0-36. 0 RED CELL DISTRIBUTION WIDTH (test code = RDW) % 11.6-16. 2 PLATELET COUNT (test code = PLT) K/mm3 150-450 MEAN PLATELET VOLUME (test code = MPV) fL 6.7-11.0 Sodium [id number] 06:35:00* Test Item Value Reference Range Interpretation Comments Sodium Level (test code = 2951-2) 142 136-145 [facility]AllenPot[facility] Ejnjj8628-88-83 06:35:00* Test Item Value Reference Range Interpretation Comments Potassium Level (test code = 2823-3) 3.5 3.5-5.1 [facility]AllenChloride Haabf7300-79-01 06:35:00* Test Item Value Reference Range Interpretation Comments Chloride Level (test code = 2075-0) 111 98-107 H [facility] McAllenCarbon Dioxide Iauxp8988-50-04 06:35:00* Test Item Value Reference Range Interpretation Comments Carbon Dioxide Level (test code = 2028-9) 25 22-29 [facility] McAllenAnion [id number] 06:35:00* Test Item Value Reference Range Interpretation Comments Anion Gap (test code = 14113-2) 9.5 8-16 [facility]AllenBlood Urea Xlogrwof2202-96-10 06:35:00* Test Item Value Reference Range Interpretation Comments Blood Urea Nitrogen (test code = 3094-0) 7 7-26 [facility]AllenCreatinine2018-12-04 06:35:00* Test Item Value Reference Range Interpretation Comments Creatinine (test code = 2160-0) 0.61 0.72-1.25 L [facility]AllenBUN/Creatinine Ufetu0523-34-92 06:35:00* Test Item Value Reference Range Interpretation Comments BUN/Creatinine Ratio (test code = 3097-3) 11 6-25 [facility]AllenEstimat Glomerular Filtration Rate 2018-08-21 06:35:00* Test Item Value Reference Range Interpretation Comments Estimat Glomerular Filtration Rate (test code = 516263730) > 60 >60 Ranges were taken from the National Kidney Disease Education Program and the [facility] literature.Reference ranges:60 or greater: Mkmwuw15-80 ( for 3 consecutive months): Chronic kidney disease 15 or less: Kidney failureSouth [facility] McAllenGlucose Vvdho2643-18-24 06:35:00* Test Item Value Reference Range Interpretation Comments Glucose Level (test code = ZOK6954) 104 74-118 [facility]AllenCalcium Vyits9350-80-28 06:35:00* Test Item Value Reference Range Interpretation Comments Calcium Level (test code = 25589-7) 8.7 8.4-10.[address] [facility] Keevj0055-26-97 06:35:00* Test Item Value Reference Range Interpretation Comments Sodium Level (test code = 2951-2) 142 136-145 [facility]AllenPotassium Fjmkn8653-35-00 06:35:00* Test Item Value Reference Range Interpretation Comments Potassium Level (test code = 2823-3) 3.5 3.5-5.1 [facility] McAllenChloride Kyvtx5297-56-43 06:35:00* Test Item Value Reference Range Interpretation Comments Chloride Level (test code = 2075-0) 111 98-107 H [facility] McAllenCarbon Dioxide Cjxic3777-80-31 06:35:00* Test Item Value Reference Range Interpretation Comments Carbon Dioxide Level (test code = 2028-9) 25 22-29 [facility] McAllenAnion Skl1709-56-64 06:35:00* Test Item Value Reference Range Interpretation Comments Anion Gap (test code = 30842-0) 9.5 8-16 [facility]AllenBlood Urea Dmmrltmr4661-99-92 06:35:00* Test Item Value Reference Range Interpretation Comments Blood Urea Nitrogen (test code = 3094-0) 7 7-26 [facility] McAllenCreatinine2018-12-04 06:35:00* Test Item Value Reference Range Interpretation Comments Creatinine (test code = 2160-0) 0.61 0.72-1.25 L [facility]AllenBUN/Creatinine Jvgdu2698-22-03 06:35:00* Test Item Value Reference Range Interpretation Comments BUN/Creatinine Ratio (test code = 3097-3) 11 6-25 [facility]AllenEstimat Glomerular Filtration Rate 2018-08-21 06:35:00* Test Item Value Reference Range Interpretation Comments Estimat Glomerular Filtration Rate (test code = 468788293) > 60 >60 Ranges were taken from the National Kidney Disease Education Program and the [facility] literature.Reference ranges:60 or greater: Xctutg40-60 ( for 3 consecutive months): Chronic kidney disease 15 or less: Kidney failureSouth [facility] Health [facility] McAllenGlucose Xejja4480-00-73 06:35:00* Test Item Value Reference Range Interpretation Comments Glucose Level (test code = IPU8335) 104 74-118 [facility]AllenCalcium Iwqpn3359-33-49 06:35:00* Test Item Value Reference Range Interpretation Comments Calcium Level (test code = 11817-3) 8.7 8.4-10.2 [facility] McAllenWhite Blood Udfds3757-08-56 06:34:00* Test Item Value Reference Range Interpretation Comments White Blood Count (test code = 6690-2) 8.46 4.8-10.8 [facility] McAllenRed Blood Fdwvo0524-18-16 06:34:00* Test Item Value Reference Range Interpretation Comments Red Blood Count (test code = 789-8) 4.37 4.3-5.7 [facility]AllenHemoglobin2018-12-04 06:34:00* Test Item Value Reference Range Interpretation Comments Hemoglobin (test code = 86435-7) 12.4 14.0-18.0 L [facility]AllenHematocrit2018-12-04 06:34:00* Test Item Value Reference Range Interpretation Comments Hematocrit (test code = 4544-3) 37.4 38.2-49.6 L [facility] McAllenMean Corpuscular Hrvzcn0096-15-21 06:34:00* Test Item Value Reference Range Interpretation Comments Mean Corpuscular Volume (test code = 787-2) 85.6 81-99 [facility]AllenMean Corpuscular Tcfmlvxzpc7151-27-86 06:34:00* Test Item Value Reference Range Interpretation Comments Mean Corpuscular Hemoglobin (test code = 785-6) 28.4 28-32 [facility]AllenMean Corpuscular Hemoglobin Concent 2018-08-21 06:34:00* Test Item Value Reference Range Interpretation Comments Mean Corpuscular Hemoglobin Concent (test code = 786-4) 33.2 31-35 [facility] McAllenRed Cell Distribution Zjhds4257-30-04 06:34:00* Test Item Value Reference Range Interpretation Comments Red Cell Distribution Width (test code = 10820-3) 13.9 11.7 -14.4 [facility] McAllenPlatelet Efnrr5303-81-62 06:34:00* Test Item Value Reference Range Interpretation Comments Platelet Count (test code = 777-3) 287 140-360 [facility] McAllenNeutrophils (%) (Auto)2018-08-21 06:34:00 * Test Item Value Reference Range Interpretation Comments Neutrophils (%) (Auto) (test code = 54303-7) 55.6 38.7-80.0 [facility] McAllenLymphocytes (%) (Auto)2018-08-21 06:34:00 * Test Item Value Reference Range Interpretation Comments Lymphocytes (%) (Auto) (test code = 736-9) 29.4 18.0-39.1 [facility]AllenMonocytes (%) (Auto)2018-08-21 06:34:00* Test Item Value Reference Range Interpretation Comments Monocytes (%) (Auto) (test code = 5905-5) 10.2 4.4-11.3 [facility]AllenEosinophils (%) (Auto)2018-08-21 06:34:00 * Test Item Value Reference Range Interpretation Comments Eosinophils (%) (Auto) (test code = 713-8) 3.8 0.0-6.0 [facility]AllenBasophils (%) (Auto)2018-08-21 06:34:00* Test Item Value Reference Range Interpretation Comments Basophils (%) (Auto) (test code = 706-2) 0.5 0.0-1.0 [facility] McAllenIM GRANULOCYTES %2018-08-21 06:34:00* Test Item Value Reference Range Interpretation Comments IM GRANULOCYTES % (test code = IM GRANULOCYTES %) 0.5 0.0- 1.0 [facility]AllenNeutrophils # (Auto)2018-08-21 06:34:00* Test Item Value Reference Range Interpretation Comments Neutrophils # (Auto) (test code = 751-8) 4.7 2.1-6.9 [facility]AllenLymphocytes # (Auto)2018-08-21 06:34:00* Test Item Value Reference Range Interpretation Comments Lymphocytes # (Auto) (test code = 11166-6) 2.5 1.0-3.2 [facility]AllenMonocytes # (Auto)2018-08-21 06:34:00* Test Item Value Reference Range Interpretation Comments Monocytes # (Auto) (test code = 742-7) 0.9 0.2-0.8 H [facility]AllenEosinophils # (Auto)2018-08-21 06:34:00* Test Item Value Reference Range Interpretation Comments Eosinophils # (Auto) (test code = 711-2) 0.3 0.0-0.4 [facility]AllenBasophils # (Auto)2018-08-21 06:34:00* Test Item Value Reference Range Interpretation Comments Basophils # (Auto) (test code = 704-7) 0.0 0.0-0.1 [facility] McAllenAbsolute Immature Granulocyte (auto 2018-08-21 06:34:00* Test Item Value Reference Range Interpretation Comments Absolute Immature Granulocyte (auto (sekou t code = Absolute Immature Granulocyte (auto) 0.04 0-0.1 [facility]AllenWhite Blood Npyvv0286-56-77 06:34:00* Test Item Value Reference Range Interpretation Comments White Blood Count (test code = 6690-2) 8.46 4.8-10.8 [facility]AllenRed Blood Qwxya1518-44-48 06:34:00* Test Item Value Reference Range Interpretation Comments Red Blood Count (test code = 789-8) 4.37 4.3-5.7 [facility] McAllenHemoglobin2018-12-04 06:34:00* Test Item Value Reference Range Interpretation Comments Hemoglobin (test code = 48233-9) 12.4 14.0-18.0 L [facility]AllenHematocrit2018-12-04 06:34:00* Test Item Value Reference Range Interpretation Comments Hematocrit (test code = 4544-3) 37.4 38.2-49.6 L [facility] McAllenMean Corpuscular Azgesp1496-90-73 06:34:00* Test Item Value Reference Range Interpretation Comments Mean Corpuscular Volume (test code = 787-2) 85.6 81-99 [facility]an Corp[facility] Gkzvsxsgsz1014-90-48 06:34:00* Test Item Value Reference Range Interpretation Comments Mean Corpuscular Hemoglobin (test code = 785-6) 28.4 28-32 [facility] Corpuscular Hemoglobin Concent 2018-08-21 06:34:00* Test Item Value Reference Range Interpretation Comments Mean Corpuscular Hemoglobin Concent (test code = 786-4) 33.2 31-35 [facility]AllenRed Cell Distribution Psiyc0453-42-69 06:34:00* Test Item Value Reference Range Interpretation Comments Red Cell Distribution Width (test code = 57860-7) 13.9 11.7 -14.4 [facility] McAllenPlatelet Hehak3210-08-73 06:34:00* Test Item Value Reference Range Interpretation Comments Platelet Count (test code = 777-3) 287 140-360 [facility]AllenNeutrophils (%) (Auto)2018-08-21 06:34:00 * Test Item Value Reference Range Interpretation Comments Neutrophils (%) (Auto) (test code = 19821-8) 55.6 38.7-80.0 [facility]AllenLymphocytes (%) (Auto)2018-08-21 06:34:00 * Test Item Value Reference Range Interpretation Comments Lymphocytes (%) (Auto) (test code = 736-9) 29.4 18.0-39.1 [facility]AllenMonocytes (%) (Auto)2018-08-21 06:34:00* Test Item Value Reference Range Interpretation Comments Monocytes (%) (Auto) (test code = 5905-5) 10.2 4.4-11.3 [facility]AllenEosinophils (%) (Auto)2018-08-21 06:34:00 * Test Item Value Reference Range Interpretation Comments Eosinophils (%) (Auto) (test code = 713-8) 3.8 0.0-6.0 [facility]AllenBasophils (%) (Auto)2018-08-21 06:34:00* Test Item Value Reference Range Interpretation Comments Basophils (%) (Auto) (test code = 706-2) 0.5 0.0-1.0 [facility]AllenIM GRANULOCYTES %2018-08-21 06:34:00* Test Item Value Reference Range Interpretation Comments IM GRANULOCYTES % (test code = IM GRANULOCYTES %) 0.5 0.0- 1.0 [facility]AllenNeutrophils # (Auto)2018-08-21 06:34:00* Test Item Value Reference Range Interpretation Comments Neutrophils # (Auto) (test code = 751-8) 4.7 2.1-6.9 [facility]AllenLymphocytes # (Auto)2018-08-21 06:34:00* Test Item Value Reference Range Interpretation Comments Lymphocytes # (Auto) (test code = 59611-8) 2.5 1.0-3.2 [facility]AllenMonocytes # (Auto)2018-08-21 06:34:00* Test Item Value Reference Range Interpretation Comments Monocytes # (Auto) (test code = 742-7) 0.9 0.2-0.8 H [facility]AllenEosinophils # (Auto)2018-08-21 06:34:00* Test Item Value Reference Range Interpretation Comments Eosinophils # (Auto) (test code = 711-2) 0.3 0.0-0.4 [facility]AllenBasophils # (Auto)2018-08-21 06:34:00* Test Item Value Reference Range Interpretation Comments Basophils # (Auto) (test code = 704-7) 0.0 0.0-0.1 [facility]AllenAbsolute Immature Granulocyte (auto 2018-08-21 06:34:00* Test Item Value Reference Range Interpretation Comments Absolute Immature Granulocyte (auto (sekou t code = Absolute Immature Granulocyte (auto) 0.04 0-0.1 [facility] Wiijcob6177-93-03 08:24:00* Test Item Value Reference Range Interpretation Comments Urine Culture (test code = 630-4) Organism: PSEUDOMONAS AERUGINOSA [facility] Rotaywv8371-79-20 08:24:00* Test Item Value Reference Range Interpretation Comments Urine Culture (test code = 630-4) Organism: PSEUDOMONAS AERUGINOSA [facility] Crgiwgw3738-66-78 05:48:00* Test Item Value Reference Range Interpretation Comments Urine Culture (test code = 630-4) Organism: PROTEUS MIRABILIS [facility] Unonbgc1262-09-09 05:48:00* Test Item Value Reference Range Interpretation Comments Urine Culture (test code = 630-4) Organism: PROTEUS MIRABILIS [facility] Aoycwvi5651-66-32 05:48:00* Test Item Value Reference Range Interpretation Comments Urine Culture (test code = 630-4) Organism: PROTEUS MIRABILIS [facility] Othbi8485-19-46 22:34:00* Test Item Value Reference Range Interpretation Comments Urine Color (test code = 5778-6) YELLOW YELLOW [facility]AllenUrine Fqycgcr8812-80-32 22:34:00* Test Item Value Reference Range Interpretation Comments Urine Clarity (test code = 27822-7) TURBID CLEAR H [facility] McAllenUrine Specific Rjcgxoe6674-40-77 22:34:00 * Test Item Value Reference Range Interpretation Comments Urine Specific [facility] (test code = 5811-5) 1.005 1.010-1.02 5 L [facility] McAllenUrine oH5635-87-49 22:34:00* Test Item Value Reference Range Interpretation Comments Urine pH (test code = 96304-0) 9 5-7 H [facility]AllenUrine Leukocyte Ytvgamlv2607-73-96 22:34:00* Test Item Value Reference Range Interpretation Comments Urine Leukocyte Esterase (test code = 5799-2) 2+ NEGATIVE H [facility]AllenUrine Xzppork0108-55-13 22:34:00* Test Item Value Reference Range Interpretation Comments Urine Nitrite (test code = 53654-5) POSITIVE NEGATIVE H [facility]AllenUrine Ibwbwwr5176-00-68 22:34:00* Test Item Value Reference Range Interpretation Comments Urine Protein (test code = 5804-0) 3+ NEGATIVE [facility] Glucose (UA)2018-08-13 22:34:00* Test Item Value Reference Range Interpretation Comments Urine Glucose (UA) (test code = 2349-9) NEGATIVE NEGATIVE [facility] Mtdcxqz3505-80-54 22:34:00* Test Item Value Reference Range Interpretation Comments Urine Ketones (test code = 51783-6) TRACE NEGATIVE H [facility] Ryquwmbosrys5145-28-06 22:34:00* Test Item Value Reference Range Interpretation Comments Urine Urobilinogen (test code = 63919-3) 0.2 0.2-1 [facility]AllenUrine Onlcwsidw2550-92-10 22:34:00* Test Item Value Reference Range Interpretation Comments Urine Bilirubin (test code = 1978-6) NEGATIVE NEGATIVE [facility]AllenUrine Flviz4957-03-68 22:34:00* Test Item Value Reference Range Interpretation Comments Urine Blood (test code = 68514-5) TRACE NEGATIVE H [facility] McAllenUrine MPA3260-64-01 22:34:00* Test Item Value Reference Range Interpretation Comments Urine WBC (test code = 5821-4) 6-10 0-5 H [facility]AllenUrine NEY6238-19-08 22:34:00* Test Item Value Reference Range Interpretation Comments Urine RBC (test code = 31409-4) 0-5 0-5 [facility]AllenUrine Gcotfnxw6625-12-74 22:34:00* Test Item Value Reference Range Interpretation Comments Urine Bacteria (test code = 13663-7) MANY NONE H [facility]AllenUrine Epithelial Ratcg9122-23-18 22:34:00 * Test Item Value Reference Range Interpretation Comments Urine Epithelial Cells (test code = 44047-6) RARE NONE [facility]AllenTotal Ncokqbwyx5249-73-85 14:20:00* Test Item Value Reference Range Interpretation Comments Total Bilirubin (test code = 1975-2) 0.4 0.2-1.2 [facility] McAllenAspartate Amino Transf (AST/SGOT) 2018-08-13 14:20:00* Test Item Value Reference Range Interpretation Comments Aspartate Amino Transf (AST/SGOT) (test code = Aspartate Amino Transf (AST/SGOT)) 22 5-34 [facility] McAllenAlanine Aminotransferase (ALT/SGPT) 2018-08-13 14:20:00* Test Item Value Reference Range Interpretation Comments Alanine Aminotransferase (ALT/SGPT) (test code = 1742-6) 18 0-55 [facility]AllenTotal Vkntchi1841-12-93 14:20:00* Test Item Value Reference Range Interpretation Comments Total Protein (test code = 2885-2) 7.8 6.5-8.1 [facility] McAllenAlbumin2018-11-26 14:20:00* Test Item Value Reference Range Interpretation Comments Albumin (test code = 1751-7) 4.1 3.5-5.0 [facility]AllenGlobulin2018-11-26 14:20:00* Test Item Value Reference Range Interpretation Comments Globulin (test code = 45949-7) 3.7 2.3-3.5 H [facility] McAllenAlbumin/Globulin Lnxcx2030-61-93 14:20:00 * Test Item Value Reference Range Interpretation Comments Albumin/Globulin Ratio (test code = 1759-0) 1.1 0.8-2.0 [facility] McAllenAlkaline Bhiklvudjaz6954-50-90 14:20:00* Test Item Value Reference Range Interpretation Comments Alkaline Phosphatase (test code = 6768-6) 106 40-150 [facility]AllenTotal Cjcsduezh9182-67-01 14:20:00* Test Item Value Reference Range Interpretation Comments Total Bilirubin (test code = 1975-2) 0.4 0.2-1.2 [facility] McAllenAspartate Amino Transf (AST/SGOT) 2018-08-13 14:20:00* Test Item Value Reference Range Interpretation Comments Aspartate Amino Transf (AST/SGOT) (test code = Aspartate Amino Transf (AST/SGOT)) 22 5-34 [facility]AllenAlanine Aminotransferase (ALT/SGPT) 2018-08-13 14:20:00* Test Item Value Reference Range Interpretation Comments Alanine Aminotransferase (ALT/SGPT) (test code = 1742-6) 18 0-55 [facility] Rdjhlyv1885-28-47 14:20:00* Test Item Value Reference Range Interpretation Comments Total Protein (test code = 2885-2) 7.8 6.5-8.1 [facility]AllenAlbumin2018-11-26 14:20:00* Test Item Value Reference Range Interpretation Comments Albumin (test code = 1751-7) 4.1 3.5-5.0 [facility]AllenGlobulin2018-11-26 14:20:00* Test Item Value Reference Range Interpretation Comments Globulin (test code = 30397-9) 3.7 2.3-3.5 H [facility]AllenAlbumin/Globulin Kpwsi0043-97-43 14:20:00 * Test Item Value Reference Range Interpretation Comments Albumin/Globulin Ratio (test code = 1759-0) 1.1 0.8-2.0 [facility]AllenAlkaline Ssqfkkpcquz2680-60-18 14:20:00* Test Item Value Reference Range Interpretation Comments Alkaline Phosphatase (test code = 6768-6) 106 40-[address] [facility] Qyijn3545-47-89 07:18:00* Test Item Value Reference Range Interpretation Comments Sodium Level (test code = 2951-2) 143 136-145 [facility] McAllenPotassium Otuns9428-92-88 07:18:00* Test Item Value Reference Range Interpretation Comments Potassium Level (test code = 2823-3) 3.6 3.5-5.1 [facility]AllenChloride Owucd3505-40-25 07:18:00* Test Item Value Reference Range Interpretation Comments Chloride Level (test code = 2075-0) 112 98-107 H [facility] McAllenCarbon Dioxide Kngqh6860-72-51 07:18:00* Test Item Value Reference Range Interpretation Comments Carbon Dioxide Level (test code = 2028-9) 28 22-29 [facility] McAllenAnion Wvk0179-95-64 07:18:00* Test Item Value Reference Range Interpretation Comments Anion Gap (test code = 42627-2) 6.6 8-16 L [facility]AllenBlood Urea Efpdwqgj7101-78-46 07:18:00* Test Item Value Reference Range Interpretation Comments Blood Urea Nitrogen (test code = 3094-0) 6 7-26 L [facility] McAllenCreatinine2018-10-07 07:18:00* Test Item Value Reference Range Interpretation Comments Creatinine (test code = 2160-0) 0.66 0.72-1.25 L [facility]AllenBUN/Creatinine Tfxqd0577-55-98 07:18:00* Test Item Value Reference Range Interpretation Comments BUN/Creatinine Ratio (test code = 3097-3) 9 6-25 [facility] McAllenEstimat Glomerular Filtration Rate 2018-06-24 07:18:00* Test Item Value Reference Range Interpretation Comments Estimat Glomerular Filtration Rate (test code = 581497468) 60- >60 Ranges were taken from the National Kidney Disease Education Program and the [facility] literature.Reference ranges:60 or greater: Dbqbyx39-17 ( for 3 consecutive months): Chronic kidney disease 15 or less: Kidney failureSouth [facility] McAllenGlucose Gbuqo8164-42-62 07:18:00* Test Item Value Reference Range Interpretation Comments Glucose Level (test code = HWV5725) 91 74-118 [facility] McAllenCalcium Qvpzi8912-22-71 07:18:00* Test Item Value Reference Range Interpretation Comments Calcium Level (test code = 41590-8) 9.5 8.4-10.2 [facility]AllenWhite Blood Ctsol1332-33-14 06:21:00* Test Item Value Reference Range Interpretation Comments White Blood Count (test code = 6690-2) 9.68 4.8-10.8 [facility]AllenRed Blood Hveyq6859-65-84 06:21:00* Test Item Value Reference Range Interpretation Comments Red Blood Count (test code = 789-8) 4.32 4.3-5.7 [facility]AllenHemoglobin2018-10-07 06:21:00* Test Item Value Reference Range Interpretation Comments Hemoglobin (test code = 49682-7) 12.5 14.0-18.0 L [facility]AllenHematocrit2018-10-07 06:21:00* Test Item Value Reference Range Interpretation Comments Hematocrit (test code = 4544-3) 37.7 38.2-49.6 L [facility]AllenMean Corpuscular Gqarrd2389-99-40 06:21:00* Test Item Value Reference Range Interpretation Comments Mean Corpuscular Volume (test code = 787-2) 87.3 81-99 [facility]ED[facility] McAllenMean Corpuscular Hemoglobin 2018-06-24 06:21:00* Test Item Value Reference Range Interpretation Comments Mean Corpuscular Hemoglobin (test code = 785-6) 28.9 28-32 [facility]AllenMean Corpuscular Hemoglobin Concent 2018-06-24 06:21:00* Test Item Value Reference Range Interpretation Comments Mean Corpuscular Hemoglobin Concent (test code = 786-4) 33.2 31-35 [facility]AllenRed Cell Distribution Lbkyp2665-82-97 06:21:00* Test Item Value Reference Range Interpretation Comments Red Cell Distribution Width (test code = 70444-0) 13.0 11.7 -14.4 [facility] McAllenPlatelet Axqvm1562-44-40 06:21:00* Test Item Value Reference Range Interpretation Comments Platelet Count (test code = 777-3) 366 140-360 H [facility]AllenNeutrophils (%) (Auto)2018-06-24 06:21:00 * Test Item Value Reference Range Interpretation Comments Neutrophils (%) (Auto) (test code = 09217-0) 52.9 38.7-80.0 [facility]AllenLymphocytes (%) (Auto)2018-06-24 06:21:00 * Test Item Value Reference Range Interpretation Comments Lymphocytes (%) (Auto) (test code = 736-9) 35.6 18.0-39.1 [facility]AllenMonocytes (%) (Auto)2018-06-24 06:21:00* Test Item Value Reference Range Interpretation Comments Monocytes (%) (Auto) (test code = 5905-5) 7.7 4.4-11.3 [facility]AllenEosinophils (%) (Auto)2018-06-24 06:21:00 * Test Item Value Reference Range Interpretation Comments Eosinophils (%) (Auto) (test code = 713-8) 2.9 0.0-6.0 [facility]AllenBasophils (%) (Auto)2018-06-24 06:21:00* Test Item Value Reference Range Interpretation Comments Basophils (%) (Auto) (test code = 706-2) 0.5 0.0-1.0 [facility]AllenIM GRANULOCYTES %2018-06-24 06:21:00* Test Item Value Reference Range Interpretation Comments IM GRANULOCYTES % (test code = IM GRANULOCYTES %) 0.4 0.0- 1.0 [facility]AllenNeutrophils # (Auto)2018-06-24 06:21:00* Test Item Value Reference Range Interpretation Comments Neutrophils # (Auto) (test code = 751-8) 5.1 2.1-6.9 [facility]AllenLymphocytes # (Auto)2018-06-24 06:21:00* Test Item Value Reference Range Interpretation Comments Lymphocytes # (Auto) (test code = 63373-0) 3.5 1.0-3.2 H [facility]AllenMonocytes # (Auto)2018-06-24 06:21:00* Test Item Value Reference Range Interpretation Comments Monocytes # (Auto) (test code = 742-7) 0.8 0.2-0.8 [facility]AllenEosinophils # (Auto)2018-06-24 06:21:00* Test Item Value Reference Range Interpretation Comments Eosinophils # (Auto) (test code = 711-2) 0.3 0.0-0.4 [facility]AllenBasophils # (Auto)2018-06-24 06:21:00* Test Item Value Reference Range Interpretation Comments Basophils # (Auto) (test code = 704-7) 0.1 0.0-0.1 [facility] McAllenAbsolute Immature Granulocyte (auto 2018-06-24 06:21:00* Test Item Value Reference Range Interpretation Comments Absolute Immature Granulocyte (auto (sekou t code = Absolute Immature Granulocyte (auto) 0.04 0-0.1 [facility] Umlitme5001-54-23 20:11:00* Test Item Value Reference Range Interpretation Comments Blood Culture (test code = 53887146) NO GROWTH AFTER 5 DAYS, FINAL REPORT [facility]2018-10-04 20:11:00* Test Item Value Reference Range Interpretation Comments Blood Culture (test code = 97639712) NO GROWTH AFTER 5 DAYS, FINAL REPORT [facility]2018-10-04 20:11:00* Test Item Value Reference Range Interpretation Comments Blood Culture (test code = 82050046) NO GROWTH AFTER 5 DAYS, FINAL REPORT [facility]AllenCT ABDOMEN/PELVIS NU8312-06-96 14:57:00 [facility] [address] [place] [address] Patient Name: ARIK VELIZ MR #: [id number] : 1975 Age/Sex: 43/M Req #: [id number] Adm Physician: BERNARDO KELLEY MD Ordered by: CAROLINA PETERS MD Report #: [id number] Location: M ED/SURG3 Room/Bed: [facility] Procedure: [id number] CT/CT A BDOMEN/PELVIS WO Exam Date: 06/20/18 Exam Time: 1430 REPORT STATUS: Signed EXAM: CT Abdomen and Pelvis WITHOUT contrast INDICATION: Stone COMPARISON: CT pelvis 05/18/[address] abdomen pelvis 018. TECHNIQUE: Abdomen and pelvis were scanned utilizing a multidetector ashley fritz scanner from the lung base to the pubic symphysis without administration o f IV contrast. Absence of intravenous contrast decreases sensitivity for detec tion of focal lesions and vascular pathology. Coronal and sagittal reformation s were obtained. Routine protocol was performed. IV CONTRAST: N one. ORAL CONTRAST: Water RADIATION DOSE: Total DLP: 601.9 mGy*cm Estimated effective dose: (DLP x 0.015 x size facto r) mSv COMPLICATIONS: None FINDINGS: LINES and TUBES: Th ere is a suprapubic catheter within the bladder. LOWER THORAX: Unremarkable HEPATOBILIARY: The dome of the bladder is excluded from the study. No focal hepatic lesions. No biliary ductal dilation. GALLBLADDER: No radio-opa que stones or sludge. No wall thickening. SPLEEN: No splenomegaly. P ANCREAS: No focal masses or ductal dilatation. ADRENALS: No adrenal nodul es KIDNEYS/URETERS: No hydronephrosis. No cystic or solid mass lesions. No stones. Previously noted right upper pole hypodense lesion is not well seen on non-contrast study and is better characterized on CT abdomen/pelvis with contrast from 02/24/2018. GI TRACT: No evidence of bowel obstruction. Again noted is retained stool within the rectum, which is dilated, measuring up to 1 0.2 cm. Normal appendix. PELVIC ORGANS/BLADDER: Suprapubic catheter is with in a nondistended bladder. A chronic appearing bladder stone is again noted, t he stone is slightly smaller compared to CT on 02/24/18. LYMPH NODES: No ly mphadenopathy. VESSELS: Unremarkable. PERITONEUM / RETROPERITONEUM: No free air or fluid. BONES AND SOFT TISSUES: No acute bony abnormality. IMPRESSION: No evidence of renal stone. Suprapubic catheter in place. Chronic appearing bladder stone. Signed by: Dr. Wu Lester MD on 06/20/2018 3:12 PM Dictated By: WU LESTER MD 11 Transcribed By: ZO on 06/20/182 COPY TO: CAROLINA PETERS MD Bacterial urine rppbywz6543-67-35 05:51:00* Test Item Value Reference Range Interpretation Comments Urine Culture (test code = 630-4) Organism: KLEBSIELLA PNEUMONIAE-E SBL [facility] Jgnfytc6239-72-19 10:29:00* Test Item Value Reference Range Interpretation Comments Blood Culture (test code = 600-7) Organism: STAPHYLOCOCCUS SP COAG NEG [facility] Ixeyeqp5744-20-75 10:29:00* Test Item Value Reference Range Interpretation Comments Blood Culture (test code = 600-7) Organism: STAPHYLOCOCCUS SP COAG NEG [facility] Kupgxmh3950-23-56 10:29:00* Test Item Value Reference Range Interpretation Comments Blood Culture (test code = 600-7) Organism: STAPHYLOCOCCUS SP COAG NEG [facility] McAllenDifferential Total Cells Counted 2018-06-18 07:48:00* Test Item Value Reference Range Interpretation Comments Differential Total Cells Counted (test code = Differen tial Total Cells Counted) 100 [facility]AllenNeutrophils % (Manual)2018-06-18 07:48:00 * Test Item Value Reference Range Interpretation Comments Neutrophils % (Manual) (test code = 21969-9) 65 40-74 [facility] McAllenLymphocytes % (Manual)2018-06-18 07:48:00 * Test Item Value Reference Range Interpretation Comments Lymphocytes % (Manual) (test code = 737-7) 28 19-48 [facility]AllenMonocytes % (Manual)2018-06-18 07:48:00* Test Item Value Reference Range Interpretation Comments Monocytes % (Manual) (test code = 744-3) 5 3.4-9.0 [facility] McAllenReactive Vchmhnivoqn7672-62-92 07:48:00* Test Item Value Reference Range Interpretation Comments Reactive Lymphocytes (test code = 25986-8) 2 [facility]AllenPlatelet Qmmpqinp9082-22-25 07:48:00* Test Item Value Reference Range Interpretation Comments Platelet Estimate (test code = 85758-0) ADEQUATE [facility] McAllenPlatelet Morphology Wtmnhyy0940-08-89 07:48:00* Test Item Value Reference Range Interpretation Comments Platelet Morphology Comment (test code = 12421-5) NORMAL [facility]AllenRed Cell Morphology Aotzvpa8787-52-02 07:48:00* Test Item Value Reference Range Interpretation Comments Red Cell Morphology Comment (test code = 6742-1) NORMAL [facility]AllenDifferential Total Cells Counted 2018-06-18 07:48:00* Test Item Value Reference Range Interpretation Comments Differential Total Cells Counted (test code = Differzayra tial Total Cells Counted) 100 [facility]AllenNeutrophils % (Manual)2018-06-18 07:48:00 * Test Item Value Reference Range Interpretation Comments Neutrophils % (Manual) (test code = 56633-5) 65 40-74 [facility]AllenLymphocytes % (Manual)2018-06-18 07:48:00 * Test Item Value Reference Range Interpretation Comments Lymphocytes % (Manual) (test code = 737-7) 28 19-48 [facility]AllenMonocytes % (Manual)2018-06-18 07:48:00* Test Item Value Reference Range Interpretation Comments Monocytes % (Manual) (test code = 744-3) 5 3.4-9.0 [facility]AllenReactive Yzhoijzuqhl7249-41-34 07:48:00* Test Item Value Reference Range Interpretation Comments Reactive Lymphocytes (test code = 27360-7) 2 [facility]AllenPlatelet Jkpjpbyb2196-57-78 07:48:00* Test Item Value Reference Range Interpretation Comments Platelet Estimate (test code = 41853-5) ADEQUATE [facility] McAllenPlatelet Morphology Oxisfny8868-65-88 07:48:00* Test Item Value Reference Range Interpretation Comments Platelet Morphology Comment (test code = 01746-1) NORMAL [facility]AllenRed Cell Morphology Jtnkquw9186-90-32 07:48:00* Test Item Value Reference Range Interpretation Comments Red Cell Morphology Comment (test code = 6742-1) NORMAL [facility] McAllenDifferential Total Cells Counted 2018-06-18 07:48:00* Test Item Value Reference Range Interpretation Comments Differential Total Cells Counted (test code = Differen tial Total Cells Counted) 100 [facility]AllenNeutrophils % (Manual)2018-06-18 07:48:00 * Test Item Value Reference Range Interpretation Comments Neutrophils % (Manual) (test code = 80833-8) 65 40-74 [facility]AllenLymphocytes % (Manual)2018-06-18 07:48:00 * Test Item Value Reference Range Interpretation Comments Lymphocytes % (Manual) (test code = 737-7) 28 19-48 [facility]AllenMonocytes % (Manual)2018-06-18 07:48:00* Test Item Value Reference Range Interpretation Comments Monocytes % (Manual) (test code = 744-3) 5 3.4-9.0 [facility]AllenReactive Ppcegmxaevb5701-78-13 07:48:00* Test Item Value Reference Range Interpretation Comments Reactive Lymphocytes (test code = 46794-7) 2 [facility]AllenPlatelet Hdokeyyo0048-71-09 07:48:00* Test Item Value Reference Range Interpretation Comments Platelet Estimate (test code = 75157-8) ADEQUATE [facility]AllenPlatelet Morphology Jfwtvyi8911-54-33 07:48:00* Test Item Value Reference Range Interpretation Comments Platelet Morphology Comment (test code = 88630-9) NORMAL [facility]AllenRed Cell Morphology Kwpabtq3810-59-44 07:48:00* Test Item Value Reference Range Interpretation Comments Red Cell Morphology Comment (test code = 6742-1) NORMAL [facility] McAllenTotal Dlkixintg8784-70-41 08:14:00* Test Item Value Reference Range Interpretation Comments Total Bilirubin (test code = 1975-2) 0.3 0.2-1.2 [facility] McAllenAspartate Amino Transf (AST/SGOT) 2018-06-17 08:14:00* Test Item Value Reference Range Interpretation Comments Aspartate Amino Transf (AST/SGOT) (test code = Aspartate Amino Transf (AST/SGOT)) 16 5-34 [facility] McAllenAlanine Aminotransferase (ALT/SGPT) 2018-06-17 08:14:00* Test Item Value Reference Range Interpretation Comments Alanine Aminotransferase (ALT/SGPT) (test code = 1742-6) 14 0-55 [facility]AllenTotal Yqmxawj6781-76-11 08:14:00* Test Item Value Reference Range Interpretation Comments Total Protein (test code = 2885-2) 6.2 6.5-8.1 L [facility] McAllenAlbumin2018-09-30 08:14:00* Test Item Value Reference Range Interpretation Comments Albumin (test code = 1751-7) 3.4 3.5-5.0 L [facility] McAllenGlobulin2018-09-30 08:14:00* Test Item Value Reference Range Interpretation Comments Globulin (test code = 77071-0) 2.8 2.3-3.5 [facility] McAllenAlbumin/Globulin Iumjc7281-90-79 08:14:00 * Test Item Value Reference Range Interpretation Comments Albumin/Globulin Ratio (test code = 1759-0) 1.2 0.8-2.0 [facility] McAllenAlkaline Axfmwxpwkdo9216-04-27 08:14:00* Test Item Value Reference Range Interpretation Comments Alkaline Phosphatase (test code = 6768-6) 97 40-150 [facility] McAllenUrine Grzeh8488-37-57 21:33:00* Test Item Value Reference Range Interpretation Comments Urine Color (test code = 5778-6) YELLOW YELLOW [facility]AllenUrine Pvdyzsl2884-64-83 21:33:00* Test Item Value Reference Range Interpretation Comments Urine Clarity (test code = 39133-4) HAZY CLEAR [facility] McAllenUrine Specific Mfjzahz7712-23-99 21:33:00 * Test Item Value Reference Range Interpretation Comments Urine Specific [facility] (test code = 5811-5) 1.005 1.010-1.02 5 L [facility] McAllenUrine sT1154-48-96 21:33:00* Test Item Value Reference Range Interpretation Comments Urine pH (test code = 02755-5) 6 5-7 [facility]AllenUrine Leukocyte Ovsgpuqe9294-66-82 21:33:00* Test Item Value Reference Range Interpretation Comments Urine Leukocyte Esterase (test code = 5799-2) TRACE NEGATIVE H [facility] McAllenUrine Rvgsjxe3985-58-91 21:33:00* Test Item Value Reference Range Interpretation Comments Urine Nitrite (test code = 20339-8) POSITIVE NEGATIVE H [facility] Ozwxwro3725-11-94 21:33:00* Test Item Value Reference Range Interpretation Comments Urine Protein (test code = 5804-0) NEGATIVE NEGATIVE [facility]AllenUrine Glucose (UA)2018-06-16 21:33:00* Test Item Value Reference Range Interpretation Comments Urine Glucose (UA) (test code = 2349-9) NEGATIVE NEGATIVE [facility]AllenUrine Xwpswzc6847-83-92 21:33:00* Test Item Value Reference Range Interpretation Comments Urine Ketones (test code = 02235-8) NEGATIVE NEGATIVE [facility] Vuuilzwhhjgd1649-55-45 21:33:00* Test Item Value Reference Range Interpretation Comments Urine Urobilinogen (test code = 53363-3) 0.2 0.2-1 [facility]AllenUrine Sdanffrrc6283-75-44 21:33:00* Test Item Value Reference Range Interpretation Comments Urine Bilirubin (test code = 1978-6) NEGATIVE NEGATIVE [facility]AllenUrine Pbuux0531-67-50 21:33:00* Test Item Value Reference Range Interpretation Comments Urine Blood (test code = 74115-9) 4+ NEGATIVE H [facility] McAllenUrine VYB3829-30-00 21:33:00* Test Item Value Reference Range Interpretation Comments Urine WBC (test code = 5821-4) 50- 0-5 H [facility] SIW3204-37-02 21:33:00* Test Item Value Reference Range Interpretation Comments Urine RBC (test code = 38816-9) 50- 0-5 H [facility]AllenUrine Rnjxojox3901-02-34 21:33:00* Test Item Value Reference Range Interpretation Comments Urine Bacteria (test code = 69738-0) MODERATE NONE H [facility]AllenUrine Epithelial Wxfcy5028-17-57 21:33:00 * Test Item Value Reference Range Interpretation Comments Urine Epithelial Cells (test code = 59847-0) FEW NONE [facility]AllenUrine Wgqvq5074-81-83 21:33:00* Test Item Value Reference Range Interpretation Comments Urine Yeast (test code = 84676-3) MODERATE NONE H [facility] McAllenUrine Yutxa4947-76-97 21:33:00* Test Item Value Reference Range Interpretation Comments Urine Yeast (test code = 32924-8) MODERATE NONE H [facility]AllenUrine Jjobr2888-16-28 21:33:00* Test Item Value Reference Range Interpretation Comments Urine Yeast (test code = 19754-3) MODERATE NONE H [facility] McAllenCHEST SINGLE (PORTABLE)2018-06-16 20:51:00 [place] [address] Patient Name: ARIK VELIZ MR #: [id number] : 1975 Age/Sex: 43/M Req #: [id number] Adm Physician: Ordered by: LEMUEL BARRIOS MD Report #: [id number] Location: ER Room/Bed: Procedure: [id number] DX/CHEST SINGLE (PORTABLE) Ex am Date: 06/16/18 Exam Time: 1950 REPORT STATUS : Signed EXAM: CHEST SINGLE (PORTABLE), AP 1 view INDICATION: P now pain COMPARISON: None FINDINGS: LINES/TUBES: None LUNGS: No consolidation s or edema. Subsegmental atelectasis left lung base. PLEURA: No effusions o r pneumothorax. HEART AND MEDIASTINUM: Normal size and contour. BONES AND SOFT TISSUES: No acute findings. IMPRESSION: No acute thoracic abnor mality. Signed by: Dr. Arlette Tavarez M.D. on 06/16/2018 8:51 PM Dictated By: ARLETTE TAVAREZ MD 50 Transcribed By: ZO on 06/16/182050 COPY TO: LEMUEL MCMULLEN MD Magnesium Ypefp5180-52-42 20:20:00* Test Item Value Reference Range Interpretation Comments Magnesium Level (test code = 85507-0) 2.0 1.3-2.1 [facility] Rcmkl6048-89-27 20:20:00* Test Item Value Reference Range Interpretation Comments Magnesium Level (test code = 45721-7) 2.0 1.3-2.1 [facility] Muqgq2229-77-51 20:20:00* Test Item Value Reference Range Interpretation Comments Magnesium Level (test code = 73250-1) 2.0 1.3-2.1 [facility] McAllenLactic Acid Lejwh5703-01-96 20:14:00* Test Item Value Reference Range Interpretation Comments Lactic Acid Level (test code = Lactic Acid Level) 12.0 4.5- 19.8 [facility] McAllenLactic Acid Fffae8843-47-25 20:14:00* Test Item Value Reference Range Interpretation Comments Lactic Acid Level (test code = Lactic Acid Level) 12.0 4.5- 19.8 [facility] McAllenLactic Acid Uoseb4708-35-95 20:14:00* Test Item Value Reference Range Interpretation Comments Lactic Acid Level (test code = Lactic Acid Level) 12.0 4.5- 19.8 [facility] McAllenProthrombin Swxd6081-88-17 20:10:00* Test Item Value Reference Range Interpretation Comments Prothrombin Time (test code = 5902-2) 13.2 11.9-14.5 [facility] McAllenProthromb Time International Ratio 2018-06-16 20:10:00* Test Item Value Reference Range Interpretation Comments Prothromb Time International Ratio (test code = 6301-6) 0.92 Oral Anticoagulant Therapy INR Values:1. Low Intensity Therapy 1.5 - 2.02 . Moderate Intensity Therapy 2.0 - 3.03. High Intensity Therapy(1) 2.5 - 3. 54. High Intensity Therapy(2) 3.0 - 4.05. Panic Value INR > 5.0 [facility] McAllenActivated Partial Thromboplast Time 2018-06-16 20:10:00* Test Item Value Reference Range Interpretation Comments Activated Partial Thromboplast Time (test code = 01068-6) 34.0 23.8-35.5 [facility] McAllenProthrombaz Gslg8385-76-44 20:10:00* Test Item Value Reference Range Interpretation Comments Prothrombin Time (test code = 5902-2) 13.2 11.9-14.5 [facility] McAllenProthromb Time International Ratio 2018-06-16 20:10:00* Test Item Value Reference Range Interpretation Comments Prothromb Time International Ratio (test code = 6301-6) 0.92 Oral Anticoagulant Therapy INR Values:1. Low Intensity Therapy 1.5 - 2.02 . Moderate Intensity Therapy 2.0 - 3.03. High Intensity Therapy(1) 2.5 - 3. 54. High Intensity Therapy(2) 3.0 - 4.05. Panic Value INR > 5.0 [facility]AllenActivated Partial Thromboplast Time 2018-06-16 20:10:00* Test Item Value Reference Range Interpretation Comments Activated Partial Thromboplast Time (test code = 11837-0) 34.0 23.8-35.5 [facility]AllenProthrombin Pygj1522-83-34 20:10:00* Test Item Value Reference Range Interpretation Comments Prothrombin Time (test code = 5902-2) 13.2 11.9-14.5 [facility] McAllenProthromb Time International Ratio 2018-06-16 20:10:00* Test Item Value Reference Range Interpretation Comments Prothromb Time International Ratio (test code = 6301-6) 0.92 Oral Anticoagulant Therapy INR Values:1. Low Intensity Therapy 1.5 - 2.02 . Moderate Intensity Therapy 2.0 - 3.03. High Intensity Therapy(1) 2.5 - 3. 54. High Intensity Therapy(2) 3.0 - 4.05. Panic Value INR > 5.0 [facility]AllenActivated Partial Thromboplast Time 2018-06-16 20:10:00* Test Item Value Reference Range Interpretation Comments Activated Partial Thromboplast Time (test code = 56674-9) 34.0 23.8-35.5 [facility]AllenHemoglobin2018-09-05 07:07:00* Test Item Value Reference Range Interpretation Comments Hemoglobin (test code = 15436-1) 11.8 14.0-18.0 L [facility] McAllenHematocrit2018-09-05 07:07:00* Test Item Value Reference Range Interpretation Comments Hematocrit (test code = 4544-3) 35.5 38.2-49.6 L [facility] McAllenBlood Ceplnuo1674-12-12 21:56:00* Test Item Value Reference Range Interpretation Comments Blood Culture (test code = 83028206) NO GROWTH AFTER 72 HOURS [facility] McAllenWhite Blood Gyfvv1057-30-26 05:25:00* Test Item Value Reference Range Interpretation Comments White Blood Count (test code = 6690-2) 12.29 4.8-10.8 H [facility] McAllenRed Blood Majgd4438-25-34 05:25:00* Test Item Value Reference Range Interpretation Comments Red Blood Count (test code = 789-8) 2.44 4.3-5.7 L [facility] McAllenMean Corpuscular Mufmtg8954-99-79 05:25:00* Test Item Value Reference Range Interpretation Comments Mean Corpuscular Volume (test code = 787-2) 90.2 81-99 [facility]AllenMean Corpuscular Nrevvxelhm1631-03-54 05:25:00* Test Item Value Reference Range Interpretation Comments Mean Corpuscular Hemoglobin (test code = 785-6) 30.3 28-32 [facility]AllenMean Corpuscular Hemoglobin Concent 2018-05-21 05:25:00* Test Item Value Reference Range Interpretation Comments Mean Corpuscular Hemoglobin Concent (test code = 786-4) 33.6 31-35 [facility]AllenRed Cell Distribution Wkcng8360-71-41 05:25:00* Test Item Value Reference Range Interpretation Comments Red Cell Distribution Width (test code = 58505-5) 12.8 11.7 -14.4 [facility] McAllenPlatelet Prikv6085-68-11 05:25:00* Test Item Value Reference Range Interpretation Comments Platelet Count (test code = 777-3) 348 140-360 [facility]AllenNeutrophils (%) (Auto)2018-05-21 05:25:00 * Test Item Value Reference Range Interpretation Comments Neutrophils (%) (Auto) (test code = 73210-4) 54.7 38.7-80.0 [facility]AllenLymphocytes (%) (Auto)2018-05-21 05:25:00 * Test Item Value Reference Range Interpretation Comments Lymphocytes (%) (Auto) (test code = 736-9) 33.8 18.0-39.1 [facility]AllenMonocytes (%) (Auto)2018-05-21 05:25:00* Test Item Value Reference Range Interpretation Comments Monocytes (%) (Auto) (test code = 5905-5) 6.8 4.4-11.3 [facility]AllenEosinophils (%) (Auto)2018-05-21 05:25:00 * Test Item Value Reference Range Interpretation Comments Eosinophils (%) (Auto) (test code = 713-8) 3.3 0.0-6.0 [facility]AllenBasophils (%) (Auto)2018-05-21 05:25:00* Test Item Value Reference Range Interpretation Comments Basophils (%) (Auto) (test code = 706-2) 0.7 0.0-1.0 [facility] McAllenIM GRANULOCYTES %2018-05-21 05:25:00* Test Item Value Reference Range Interpretation Comments IM GRANULOCYTES % (test code = IM GRANULOCYTES %) 0.7 0.0- 1.0 [facility]AllenNeutrophils # (Auto)2018-05-21 05:25:00* Test Item Value Reference Range Interpretation Comments Neutrophils # (Auto) (test code = 751-8) 6.7 2.1-6.9 [facility]AllenLymphocytes # (Auto)2018-05-21 05:25:00* Test Item Value Reference Range Interpretation Comments Lymphocytes # (Auto) (test code = 25927-7) 4.2 1.0-3.2 H [facility]AllenMonocytes # (Auto)2018-05-21 05:25:00* Test Item Value Reference Range Interpretation Comments Monocytes # (Auto) (test code = 742-7) 0.8 0.2-0.8 [facility]AllenEosinophils # (Auto)2018-05-21 05:25:00* Test Item Value Reference Range Interpretation Comments Eosinophils # (Auto) (test code = 711-2) 0.4 0.0-0.4 [facility]AllenBasophils # (Auto)2018-05-21 05:25:00* Test Item Value Reference Range Interpretation Comments Basophils # (Auto) (test code = 704-7) 0.1 0.0-0.1 [facility] McAllenAbsolute Immature Granulocyte (auto 2018-05-21 05:25:00* Test Item Value Reference Range Interpretation Comments Absolute Immature Granulocyte (auto (sekou t code = Absolute Immature Granulocyte (auto) 0.09 0-0.1 [facility] McAllenVancomycin Level Yozcdg5450-53-73 23:27:00* Test Item Value Reference Range Interpretation Comments Vancomycin Level Trough (test code = 4092-3) 7.2 5.0-10.0 [facility]AllenVancomycin Level Apsqwt0376-67-02 23:27:00* Test Item Value Reference Range Interpretation Comments Vancomycin Level Trough (test code = 4092-3) 7.2 5.0-10.0 [facility] McAllenVancomycin Level Xwhqls6169-38-77 23:27:00* Test Item Value Reference Range Interpretation Comments Vancomycin Level Trough (test code = 4092-3) 7.2 5.0-10.0 [facility]AllenVancomycin Level Vziolc3109-55-87 23:27:00* Test Item Value Reference Range Interpretation Comments Vancomycin Level Trough (test code = 4092-3) 7.2 5.0-10.0 [facility] Wjdbbas3982-95-47 16:20:00* Test Item Value Reference Range Interpretation Comments Bedside Glucose (test code = 40299-2) 130 70-120 H Meter ID: [id number] Glucose 2018-05-19 16:20:00* Test Item Value Reference Range Interpretation Comments Bedside Glucose (test code = 50530-8) 130 70-120 H Meter ID: [id number] Medical [facility] Glucose 2018-05-19 16:20:00* Test Item Value Reference Range Interpretation Comments Bedside Glucose (test code = 80296-6) 130 70-120 H Meter ID: [id number] [facility] Glucose 2018-05-19 16:20:00* Test Item Value Reference Range Interpretation Comments Bedside Glucose (test code = 69839-1) 130 70-120 H Meter ID: [id number] St[facility] Hospitalodium Level 2018-05-19 05:47:00* Test Item Value Reference Range Interpretation Comments Sodium Level (test code = 2951-2) 136 136-145 [facility]AllenPotassium Fscmd7971-81-15 05:47:00* Test Item Value Reference Range Interpretation Comments Potassium Level (test code = 2823-3) 4.0 3.5-5.1 [facility] McAllenChloride Ghrgu6678-71-89 05:47:00* Test Item Value Reference Range Interpretation Comments Chloride Level (test code = 2075-0) 105 98-107 [facility] McAllenCarbon Dioxide Qeevr1015-68-37 05:47:00* Test Item Value Reference Range Interpretation Comments Carbon Dioxide Level (test code = 2028-9) 22 -29 [facility] McAllenAnion Nqe5138-59-56 05:47:00* Test Item Value Reference Range Interpretation Comments Anion Gap (test code = 86205-2) 13.0 8-16 [facility] McAllenBlood Urea Wsjngwpr4189-26-91 05:47:00* Test Item Value Reference Range Interpretation Comments Blood Urea Nitrogen (test code = 3094-0) 14 7-26 [facility] McAllenCreatinine2018-09-01 05:47:00* Test Item Value Reference Range Interpretation Comments Creatinine (test code = 2160-0) 0.63 0.72-1.25 L [facility] McAllenBUN/Creatinine Matos8813-82-77 05:47:00* Test Item Value Reference Range Interpretation Comments BUN/Creatinine Ratio (test code = 3097-3) 22 6- [facility] McAllenEstimat Glomerular Filtration Rate 2018-05-19 05:47:00* Test Item Value Reference Range Interpretation Comments Estimat Glomerular Filtration Rate (test code = 93843-5) 60- >60 Ranges were taken from the National Kidney Disease Education Program and the [facility] literature.Reference ranges:60 or greater: Jvhqff34-21 ( for 3 consecutive months): Chronic kidney disease 15 or less: Kidney failureSouth [facility] Health System McAllenGlucose Jskrf1107-01-44 05:47:00* Test Item Value Reference Range Interpretation Comments Glucose Level (test code = AJM4296) 132 74-118 H [facility] McAllenCalcium Lhsmq6699-10-63 05:47:00* Test Item Value Reference Range Interpretation Comments Calcium Level (test code = 73425-1) 8.8 8.4-10.2 [facility] McAllenLactic Acid Neasa1273-91-43 22:13:00* Test Item Value Reference Range Interpretation Comments Lactic Acid Level (test code = Lactic Acid Level) 17.6 4.5- 19.8 [facility]CT PEL[facility] Z5929-21-53 21:41:00 [facility] [address] [address] Patient Name: ARIK VELIZ MR #: [id number] : 1975 Age/Sex: 43/M Req #: [id number] Adm Physician: BERNARDO KELLEY MD Ordered by: SANDRO LUCIANO [employer] Report #: [id number] Location: [facility] Room/Bed: [place] [address] Procedure: [id number] CT/C T PELVIS W Exam Date: 05/18/18 Exam Time: 2124 REPORT STATUS: Signed Exam: CT cystogram Indication: Blood coming out of penis, history of suprapubic catheter Comparison: CT of the abdomen and pelvis with IV contrast February 24, 2018 Findings: CT of the pelvis was performed before and after the administration of 100 cc Isovue-370 through the suprapub ic catheter.Dose modulation, iterative reconstruction, and/or weight based adj ustment of the mA/kV was utilized to reduce the radiation dose to as low as re asonably achievable. There is a suprapubic catheter in position. The bladd er was decompressed prior to the administration of contrast via the suprapubic catheter. After the administration of contrast through the suprapubic cathete r, contrast fills the bladder slightly and is seen in the anterior urethra wit hout significant distention of the bladder. There is no evidence of urine leak into the pelvis or urethra. There is a large amount of retained stool in the rectum, which is dilated to 8.5 cm in transverse diameter. Otherwise, the pelvic structures are unremarkable. The prostate is not enlarged. Impres ruth: Cystogram shows a suprapubic catheter in expected position without evid ence of contrast leak into the bladder or urethra. Incidentally there is a large amount of retained stool in the rectum. Signed by: Dr. Arlette black M.D. on 05/18/2018 9:51 PM Dictated By: ARLETTE he Signed By: ARLETTE TAVAREZ MD on 05/18/182150 Transcribed By: ZO on 0 05/18/182150 COPY TO: SANDRO LUCIANO NP Differential Total Cells Uoaexfz2157-49-21 20:34:00* Test Item Value Reference Range Interpretation Comments Differential Total Cells Counted (test code = Differzayra tial Total Cells Counted) 100 [facility]AllenNeutrophils % (Manual)2018-05-18 20:34:00 * Test Item Value Reference Range Interpretation Comments Neutrophils % (Manual) (test code = 47803-8) 95 40-74 H [facility] McAllenLymphocytes % (Manual)2018-05-18 20:34:00 * Test Item Value Reference Range Interpretation Comments Lymphocytes % (Manual) (test code = 737-7) 1 19-48 L [facility] McAllenMonocytes % (Manual)2018-05-18 20:34:00* Test Item Value Reference Range Interpretation Comments Monocytes % (Manual) (test code = 744-3) 2 3.4-9.0 L [facility]AllenEosinophils % (Manual)2018-05-18 20:34:00 * Test Item Value Reference Range Interpretation Comments Eosinophils % (Manual) (test code = 714-6) 1 0-7 [facility] McAllenReactive Umelesampvt8425-47-32 20:34:00* Test Item Value Reference Range Interpretation Comments Reactive Lymphocytes (test code = 45770-4) 1 [facility] McAllenPlatelet Rsbrsrzc5727-55-24 20:34:00* Test Item Value Reference Range Interpretation Comments Platelet Estimate (test code = 59742-2) SLIGHTLY INCREASED [facility] McAllenPlatelet Morphology Jxumekt7442-01-94 20:34:00* Test Item Value Reference Range Interpretation Comments Platelet Morphology Comment (test code = 99630-8) NORMAL [facility] McAllenRed Cell Morphology Ingdxfx3166-67-11 20:34:00* Test Item Value Reference Range Interpretation Comments Red Cell Morphology Comment (test code = 6742-1) NORMAL [facility]AllenEosinophils % (Manual)2018-05-18 20:34:00 * Test Item Value Reference Range Interpretation Comments Eosinophils % (Manual) (test code = 714-6) 1 0-7 [facility]AllenEosinophils % (Manual)2018-05-18 20:34:00 * Test Item Value Reference Range Interpretation Comments Eosinophils % (Manual) (test code = 714-6) 1 0-7 [facility]AllenEosinophils % (Manual)2018-05-18 20:34:00 * Test Item Value Reference Range Interpretation Comments Eosinophils % (Manual) (test code = 714-6) 1 0-7 [facility] McAllenUrine AWB5413-86-55 19:52:00* Test Item Value Reference Range Interpretation Comments Urine WBC (test code = 5821-4) 6-10 0-5 H [facility] McAllenUrine VJB5113-13-21 19:52:00* Test Item Value Reference Range Interpretation Comments Urine RBC (test code = 04554-9) 0-5 0-5 [facility]AllenUrine Vagyylcm2862-86-42 19:52:00* Test Item Value Reference Range Interpretation Comments Urine Bacteria (test code = 43126-9) MANY NONE H [facility] McAllenUrine Epithelial Nugcz1616-63-03 19:52:00 * Test Item Value Reference Range Interpretation Comments Urine Epithelial Cells (test code = 05145-1) FEW NONE [facility] McAllenUrine Koxbb0074-01-58 19:51:00* Test Item Value Reference Range Interpretation Comments Urine Color (test code = 5778-6) YELLOW YELLOW [facility] McAllenUrine Murakab4993-25-31 19:51:00* Test Item Value Reference Range Interpretation Comments Urine Clarity (test code = 16059-8) CLEAR CLEAR [facility] McAllenUrine Specific Vewtmfg6035-34-26 19:51:00 * Test Item Value Reference Range Interpretation Comments Urine Specific [facility] (test code = 5811-5) 1.025 1.010-1.02 5 [facility] McAllenUrine mG7836-16-14 19:51:00* Test Item Value Reference Range Interpretation Comments Urine pH (test code = 85302-2) 6 5-7 [facility] Leukocyte Bwxxaliy8935-70-46 19:51:00* Test Item Value Reference Range Interpretation Comments Urine Leukocyte Esterase (test code = 5799-2) TRACE NEGATIVE H [facility] Xbzchfq2955-41-57 19:51:00* Test Item Value Reference Range Interpretation Comments Urine Nitrite (test code = 66476-3) NEGATIVE NEGATIVE [facility] Bufobkb8076-61-72 19:51:00* Test Item Value Reference Range Interpretation Comments Urine Protein (test code = 5804-0) NEGATIVE NEGATIVE [facility] Glucose (UA)2018-05-18 19:51:00* Test Item Value Reference Range Interpretation Comments Urine Glucose (UA) (test code = 2349-9) NEGATIVE NEGATIVE [facility] Hvtqrwh9768-42-69 19:51:00* Test Item Value Reference Range Interpretation Comments Urine Ketones (test code = 36446-2) NEGATIVE NEGATIVE [facility] Ncxfznntrftg7249-38-72 19:51:00* Test Item Value Reference Range Interpretation Comments Urine Urobilinogen (test code = 88876-0) 0.2 0.2-1 [facility] McAllenUrine Xkyywjbpm1524-55-05 19:51:00* Test Item Value Reference Range Interpretation Comments Urine Bilirubin (test code = 1978-6) NEGATIVE NEGATIVE [facility] Ayfri4642-68-24 19:51:00* Test Item Value Reference Range Interpretation Comments Urine Blood (test code = 88518-6) TRACE NEGATIVE H [facility] McAllenProthrombin Cikz9186-67-28 19:46:00* Test Item Value Reference Range Interpretation Comments Prothrombin Time (test code = 5902-2) 13.2 11.9-14.5 [facility] McAllenProthromb Time International Ratio 2018-05-18 19:46:00* Test Item Value Reference Range Interpretation Comments Prothromb Time International Ratio (test code = 6301-6) 1.08 Oral Anticoagulant Therapy INR Values:1. Low Intensity Therapy 1.5 - 2.02 . Moderate Intensity Therapy 2.0 - 3.03. High Intensity Therapy(1) 2.5 - 3. 54. High Intensity Therapy(2) 3.0 - 4.05. Panic Value INR > 5.0 [facility] McAllenActivated Partial Thromboplast Time 2018-05-18 19:46:00* Test Item Value Reference Range Interpretation Comments Activated Partial Thromboplast Time (test code = 08077-6) 31.5 23.8-35.5 [facility] McAllenMODIFIED BA. WTLABHG2327-07-79 18:39:00 [place] [address] Patient Name: ARIK VELIZ MR #: [id number] : 1975 Age/Sex: 43/M Req #: [id number] Adm Physician: Ordered by: MICHOACANO ARSHAD MD Report #: [id number] Location: DX Room/Bed: Procedure: [id number] DX/MODIFIED BA. SWALLOW Exam Date: 04/25/18 Exam Time: 1305 REPORT STATUS: S igned PROCEDURE: X-RAY MODIFIED BARIUM SWALLOW COMPARISON: None. INDICATIONS: Not provided. DISCUSSION: Fluoroscopic examination was performed in conjunction with speech pathology, during swallowing of a v ariety of thin and thick liquid consistencies. Laryngeal penetration wa s noted to the level of the vocal cords with thin liquids, nectar thick liqui ds, and honey thick liquids. Overt miriam aspiration of thin liquids was ob served during swallowing with cup and straw sips. Minimal to miriam overt aspi ration was observed with nectar thick liquids during swallowing with cup and straw sips. Minimal overt aspiration was observed with honey thick liquids du ring swallowing with cup and straw sips. CONCLUSION: Aspiration a cross multiple consistencies as above. Please see the report from speech path ology for complete details. Dictated by: Marcos Medina M.D. on 04/25/2018 at 18:39 Electronically approved by: Marcos Medina M.D. on 04/25/2018 at 18:39 Dictated By: MARCOS MEDINA MD Electronica lly Signed By: MARCOS MEDINA MD on 04/25/181838 Transcribed By: ARIELLA on 04/25 COPY TO: MICHOACANO ARSHAD MD Urine UFK8586-94-36 15:15:00* Test Item Value Reference Range Interpretation Comments Urine WBC (test code = 5821-4) 6-10 0-5 H [facility] McAllenUrine NEF8350-57-68 15:15:00* Test Item Value Reference Range Interpretation Comments Urine RBC (test code = 16989-8) 50- 0-5 H [facility] McAllenUrine Qhmocjus8301-37-85 15:15:00* Test Item Value Reference Range Interpretation Comments Urine Bacteria (test code = 34195-6) NONE NONE [facility]AllenUrine Epithelial Xmamz3479-61-77 15:15:00 * Test Item Value Reference Range Interpretation Comments Urine Epithelial Cells (test code = 59084-8) NONE NONE [facility] McAllenUrine Stcgq8919-81-71 14:37:00* Test Item Value Reference Range Interpretation Comments Urine Color (test code = 5778-6) RED YELLOW H [facility]AllenUrine Wmqsrbw1091-15-38 14:37:00* Test Item Value Reference Range Interpretation Comments Urine Clarity (test code = 36960-1) SL CLOUDY CLEAR H [facility] McAllenUrine Specific Xostnig4141-35-37 14:37:00 * Test Item Value Reference Range Interpretation Comments Urine Specific [facility] (test code = 5811-5) 1.010 1.010-1.02 5 [facility] McAllenUrine sS6886-09-42 14:37:00* Test Item Value Reference Range Interpretation Comments Urine pH (test code = 44430-9) 6 5-7 [facility] Leukocyte Negmaihw1911-13-54 14:37:00* Test Item Value Reference Range Interpretation Comments Urine Leukocyte Esterase (test code = 5799-2) 1+ NEGATIVE H [facility] Brxswkx4133-97-39 14:37:00* Test Item Value Reference Range Interpretation Comments Urine Nitrite (test code = 13703-6) NEGATIVE NEGATIVE [facility] Rzqlnsl4126-89-03 14:37:00* Test Item Value Reference Range Interpretation Comments Urine Protein (test code = 5804-0) 1+ NEGATIVE H [facility] Glucose (UA)2018-03-18 14:37:00* Test Item Value Reference Range Interpretation Comments Urine Glucose (UA) (test code = 2349-9) NEGATIVE NEGATIVE [facility] Admqoku1331-27-15 14:37:00* Test Item Value Reference Range Interpretation Comments Urine Ketones (test code = 92878-9) NEGATIVE NEGATIVE [facility] Zaisorfqypbs6000-28-01 14:37:00* Test Item Value Reference Range Interpretation Comments Urine Urobilinogen (test code = 54982-8) 0.2 0.2-1 [facility] Sammhjzlt4130-23-22 14:37:00* Test Item Value Reference Range Interpretation Comments Urine Bilirubin (test code = 1978-6) NEGATIVE NEGATIVE [facility]AllenUrine Oohzf6895-12-93 14:37:00* Test Item Value Reference Range Interpretation Comments Urine Blood (test code = 04353-6) 4+ NEGATIVE H [facility]odium Fimaq7842-30-40 14:23:00* Test Item Value Reference Range Interpretation Comments Sodium Level (test code = 2951-2) 143 136-145 [facility]AllenPotassium Cjasy6265-52-27 14:23:00* Test Item Value Reference Range Interpretation Comments Potassium Level (test code = 2823-3) 4.1 3.5-5.1 [facility] McAllenChloride Evneh4234-63-35 14:23:00* Test Item Value Reference Range Interpretation Comments Chloride Level (test code = 2075-0) 101 98-107 [facility] McAllenCarbon Dioxide Yepdl9418-85-30 14:23:00* Test Item Value Reference Range Interpretation Comments Carbon Dioxide Level (test code = 2028-9) 32 22-29 H [facility] McAllenAnion Ukd2890-19-96 14:23:00* Test Item Value Reference Range Interpretation Comments Anion Gap (test code = 88191-6) 14.1 8-16 [facility]AllenBlood Urea Qdypaprj8616-02-32 14:23:00* Test Item Value Reference Range Interpretation Comments Blood Urea Nitrogen (test code = 3094-0) 14 7-26 [facility] McAllenCreatinine2018-07-01 14:23:00* Test Item Value Reference Range Interpretation Comments Creatinine (test code = 2160-0) 0.84 0.72-1.25 [facility]AllenBUN/Creatinine Xrbnb9093-19-88 14:23:00* Test Item Value Reference Range Interpretation Comments BUN/Creatinine Ratio (test code = 3097-3) 17 6-25 [facility] McAllenEstimat Glomerular Filtration Rate 2018-03-18 14:23:00* Test Item Value Reference Range Interpretation Comments Estimat Glomerular Filtration Rate (test code = 57836-9) 60- >60 Ranges were taken from the National Kidney Disease Education Program and the [facility] Kid[facility] Foundation literature.Reference ranges:60 or greater: Ephmcu40-53 ( for 3 consecutive months): Chronic kidney disease 15 or less: Kidney failureSouth [facility] Health System McAllenGlucose Wxnah0040-44-32 14:23:00* Test Item Value Reference Range Interpretation Comments Glucose Level (test code = ZIP9277) 98 74-118 [facility] McAllenCalcium Ykqkt0585-57-96 14:23:00* Test Item Value Reference Range Interpretation Comments Calcium Level (test code = 21079-8) 9.7 8.4-10.2 [facility] McAllenTotal Irrbihtum1086-88-90 14:23:00* Test Item Value Reference Range Interpretation Comments Total Bilirubin (test code = 1975-2) 0.9 0.2-1.2 [facility] McAllenAspartate Amino Transf (AST/SGOT) 2018-03-18 14:23:00* Test Item Value Reference Range Interpretation Comments Aspartate Amino Transf (AST/SGOT) (test code = Aspartate Amino Transf (AST/SGOT)) 30 5-34 [facility] McAllenAlanine Aminotransferase (ALT/SGPT) 2018-03-18 14:23:00* Test Item Value Reference Range Interpretation Comments Alanine Aminotransferase (ALT/SGPT) (test code = 1742-6) 49 0-55 [facility] Qhfzcmi9577-41-45 14:23:00* Test Item Value Reference Range Interpretation Comments Total Protein (test code = 2885-2) 7.4 6.5-8.1 [facility] McAllenAlbumin2018-07-01 14:23:00* Test Item Value Reference Range Interpretation Comments Albumin (test code = 1751-7) 3.8 3.5-5.0 [facility] McAllenGlobulin2018-07-01 14:23:00* Test Item Value Reference Range Interpretation Comments Globulin (test code = 34810-3) 3.6 2.3-3.5 H [facility] McAllenAlbumin/Globulin Aplvu4043-30-44 14:23:00 * Test Item Value Reference Range Interpretation Comments Albumin/Globulin Ratio (test code = 1759-0) 1.1 0.8-2.0 [facility] McAllenAlkaline Aewpccvtrya8393-62-67 14:23:00* Test Item Value Reference Range Interpretation Comments Alkaline Phosphatase (test code = 6768-6) 100 40-150 [facility] Zqhymjztp1100-98-95 14:23:00* Test Item Value Reference Range Interpretation Comments Total Bilirubin (test code = 1975-2) 0.9 0.2-1.2 [facility] McAllenAspartate Amino Transf (AST/SGOT) 2018-03-18 14:23:00* Test Item Value Reference Range Interpretation Comments Aspartate Amino Transf (AST/SGOT) (test code = Aspartate Amino Transf (AST/SGOT)) 30 5-34 [facility] McAllenAlanine Aminotransferase (ALT/SGPT) 2018-03-18 14:23:00* Test Item Value Reference Range Interpretation Comments Alanine Aminotransferase (ALT/SGPT) (test code = 1742-6) 49 0-55 [facility] McAllenTotal Fqgnsqf9523-01-62 14:23:00* Test Item Value Reference Range Interpretation Comments Total Protein (test code = 2885-2) 7.4 6.5-8.1 [facility] McAllenAlbumin2018-07-01 14:23:00* Test Item Value Reference Range Interpretation Comments Albumin (test code = 1751-7) 3.8 3.5-5.0 [facility] McAllenGlobulin2018-07-01 14:23:00* Test Item Value Reference Range Interpretation Comments Globulin (test code = 27884-1) 3.6 2.3-3.5 H [facility] McAllenAlbumin/Globulin Tbgji0717-01-22 14:23:00 * Test Item Value Reference Range Interpretation Comments Albumin/Globulin Ratio (test code = 1759-0) 1.1 0.8-2.0 [facility] McAllenAlkaline Zyzyeqzdmcu7499-75-46 14:23:00* Test Item Value Reference Range Interpretation Comments Alkaline Phosphatase (test code = 6768-6) 100 40-150 [facility] McAllenWhite Blood Wqiyv3019-13-81 14:12:00* Test Item Value Reference Range Interpretation Comments White Blood Count (test code = 6690-2) 12.76 4.8-10.8 H [facility] McAllenRed Blood Gmcuu2531-33-80 14:12:00* Test Item Value Reference Range Interpretation Comments Red Blood Count (test code = 789-8) 5.19 4.3-5.7 [facility]AllenHemoglobin2018-07-01 14:12:00* Test Item Value Reference Range Interpretation Comments Hemoglobin (test code = 42277-1) 15.8 14.0-18.0 [facility]AllenHematocrit2018-07-01 14:12:00* Test Item Value Reference Range Interpretation Comments Hematocrit (test code = 4544-3) 46.5 38.2-49.6 [facility] McAllenMean Corpuscular Iikawe2648-91-05 14:12:00* Test Item Value Reference Range Interpretation Comments Mean Corpuscular Volume (test code = 787-2) 89.6 81-99 [facility] McAllenMean Corpuscular Sngqanelkg3075-00-42 14:12:00* Test Item Value Reference Range Interpretation Comments Mean Corpuscular Hemoglobin (test code = 785-6) 30.4 28-32 [facility] [facility] 2018-03-18 14:12:00* Test Item Value Reference Range Interpretation Comments Mean Corpuscular Hemoglobin Concent (test code = 786-4) 34.0 31-35 [facility]AllenRed Cell Distribution Shmga9439-48-22 14:12:00* Test Item Value Reference Range Interpretation Comments Red Cell Distribution Width (test code = 19251-8) 12.3 11.7 -14.4 [facility] McAllenPlatelet Ejuvr2273-44-59 14:12:00* Test Item Value Reference Range Interpretation Comments Platelet Count (test code = 777-3) 291 140-360 [facility]AllenNeutrophils (%) (Auto)2018-03-18 14:12:00 * Test Item Value Reference Range Interpretation Comments Neutrophils (%) (Auto) (test code = 81027-1) 60.4 38.7-80.0 [facility]AllenLymphocytes (%) (Auto)2018-03-18 14:12:00 * Test Item Value Reference Range Interpretation Comments Lymphocytes (%) (Auto) (test code = 736-9) 29.8 18.0-39.1 [facility]AllenMonocytes (%) (Auto)2018-03-18 14:12:00* Test Item Value Reference Range Interpretation Comments Monocytes (%) (Auto) (test code = 5905-5) 8.1 4.4-11.3 [facility]AllenEosinophils (%) (Auto)2018-03-18 14:12:00 * Test Item Value Reference Range Interpretation Comments Eosinophils (%) (Auto) (test code = 713-8) 1.0 0.0-6.0 [facility]AllenBasophils (%) (Auto)2018-03-18 14:12:00* Test Item Value Reference Range Interpretation Comments Basophils (%) (Auto) (test code = 706-2) 0.4 0.0-1.0 [facility]AllenIM GRANULOCYTES %2018-03-18 14:12:00* Test Item Value Reference Range Interpretation Comments IM GRANULOCYTES % (test code = IM GRANULOCYTES %) 0.3 0.0- 1.0 [facility]AllenNeutrophils # (Auto)2018-03-18 14:12:00* Test Item Value Reference Range Interpretation Comments Neutrophils # (Auto) (test code = 751-8) 7.7 2.1-6.9 H [facility]AllenLymphocytes # (Auto)2018-03-18 14:12:00* Test Item Value Reference Range Interpretation Comments Lymphocytes # (Auto) (test code = 15639-8) 3.8 1.0-3.2 H [facility]AllenMonocytes # (Auto)2018-03-18 14:12:00* Test Item Value Reference Range Interpretation Comments Monocytes # (Auto) (test code = 742-7) 1.0 0.2-0.8 H [facility]AllenEosinophils # (Auto)2018-03-18 14:12:00* Test Item Value Reference Range Interpretation Comments Eosinophils # (Auto) (test code = 711-2) 0.1 0.0-0.4 [facility]AllenBasophils # (Auto)2018-03-18 14:12:00* Test Item Value Reference Range Interpretation Comments Basophils # (Auto) (test code = 704-7) 0.1 0.0-0.1 [facility]AllenAbsolute Immature Granulocyte (auto 2018-03-18 14:12:00* Test Item Value Reference Range Interpretation Comments Absolute Immature Granulocyte (auto (sekou t code = Absolute Immature Granulocyte (auto) 0.04 0-0.1 [facility] McAllenProthrombin Ishp5756-46-84 14:12:00* Test Item Value Reference Range Interpretation Comments Prothrombin Time (test code = 5902-2) 13.2 11.9-14.5 [facility] McAllenProthromb Time International Ratio 2018-03-18 14:12:00* Test Item Value Reference Range Interpretation Comments Prothromb Time International Ratio (test code = 6301-6) 1.08 Oral Anticoagulant Therapy INR Values:1. Low Intensity Therapy 1.5 - 2.02 . Moderate Intensity Therapy 2.0 - 3.03. High Intensity Therapy(1) 2.5 - 3. 54. High Intensity Therapy(2) 3.0 - 4.05. Panic Value INR > 5.0 [facility] McAllenActivated Partial Thromboplast Time 2018-03-18 14:12:00* Test Item Value Reference Range Interpretation Comments Activated Partial Thromboplast Time (test code = 33417-5) 26.6 23.8-35.5 [facility] McAllenBlood Igkxqno4168-73-32 05:37:00* Test Item Value Reference Range Interpretation Comments Blood Culture (test code = 34493563) NO GROWTH AFTER 5 DAYS, FINAL REPORT [facility] McAllenUrine Valfv5947-63-08 10:30:00* Test Item Value Reference Range Interpretation Comments Urine Color (test code = 5778-6) YELLOW YELLOW [facility] McAllenUrine Sufpmqk4970-47-01 10:30:00* Test Item Value Reference Range Interpretation Comments Urine Clarity (test code = 91775-2) SL CLOUDY CLEAR [facility] McAllenUrine Specific Mlkkwvx0278-63-67 10:30:00 * Test Item Value Reference Range Interpretation Comments Urine Specific [facility] (test code = 5811-5) 1.020 1.010-1.02 5 [facility] McAllenUrine [id number] 10:30:00* Test Item Value Reference Range Interpretation Comments Urine pH (test code = 10370-9) 6.5 5-7 [facility]AllenUrine Leukocyte Wpiharru3489-38-93 10:30:00* Test Item Value Reference Range Interpretation Comments Urine Leukocyte Esterase (test code = 5799-2) TRACE NEGATIVE H [facility] McAllenUrine Gumatjv9083-05-26 10:30:00* Test Item Value Reference Range Interpretation Comments Urine Nitrite (test code = 15374-6) NEGATIVE NEGATIVE [facility] McAllenUrine Izrqahr0101-42-31 10:30:00* Test Item Value Reference Range Interpretation Comments Urine Protein (test code = 5804-0) NEGATIVE NEGATIVE [facility]AllenUrine Glucose (UA)2018-02-27 10:30:00* Test Item Value Reference Range Interpretation Comments Urine Glucose (UA) (test code = 2349-9) NEGATIVE NEGATIVE [facility] McAllenUrine Rwxohmg3195-62-54 10:30:00* Test Item Value Reference Range Interpretation Comments Urine Ketones (test code = 68398-0) NEGATIVE NEGATIVE [facility] McAllenUrine Tcoerbmqrzao9822-75-14 10:30:00* Test Item Value Reference Range Interpretation Comments Urine Urobilinogen (test code = 53649-0) 0.2 0.2-1 [facility] McAllenUrine Zazwamiqr5205-54-16 10:30:00* Test Item Value Reference Range Interpretation Comments Urine Bilirubin (test code = 1978-6) NEGATIVE NEGATIVE [facility] McAllenUrine Huged1252-12-89 10:30:00* Test Item Value Reference Range Interpretation Comments Urine Blood (test code = 20896-2) NEGATIVE NEGATIVE [facility] McAllenWhite Blood Uigwc6399-52-26 09:00:00* Test Item Value Reference Range Interpretation Comments White Blood Count (test code = 6690-2) 19.50 4.8-10.8 H [facility] McAllenRed Blood Bvzwk1067-57-14 09:00:00* Test Item Value Reference Range Interpretation Comments Red Blood Count (test code = 789-8) 5.01 4.3-5.7 [facility]AllenHemoglobin2018-06-12 09:00:00* Test Item Value Reference Range Interpretation Comments Hemoglobin (test code = 85573-1) 15.1 14.0-18.0 [facility]AllenHematocrit2018-06-12 09:00:00* Test Item Value Reference Range Interpretation Comments Hematocrit (test code = 4544-3) 44.5 38.2-49.6 [facility] McAllenMean Corpuscular Wnwixe7203-97-35 09:00:00* Test Item Value Reference Range Interpretation Comments Mean Corpuscular Volume (test code = 787-2) 88.8 81-99 [facility]AllenMean Corpuscular Terysuwhdp1648-10-41 09:00:00* Test Item Value Reference Range Interpretation Comments Mean Corpuscular Hemoglobin (test code = 785-6) 30.1 28-32 [facility] McAllenMean Corpuscular Hemoglobin Concent 2018-02-27 09:00:00* Test Item Value Reference Range Interpretation Comments Mean Corpuscular Hemoglobin Concent (test code = 786-4) 33.9 31-35 [facility] McAllenRed Cell Distribution Akeuo3586-78-75 09:00:00* Test Item Value Reference Range Interpretation Comments Red Cell Distribution Width (test code = 12070-7) 12.6 11.7 -14.4 [facility] McAllenPlatelet Gvifk4364-49-44 09:00:00* Test Item Value Reference Range Interpretation Comments Platelet Count (test code = 777-3) 283 140-360 [facility]AllenNeutrophils (%) (Auto)2018-02-27 09:00:00 * Test Item Value Reference Range Interpretation Comments Neutrophils (%) (Auto) (test code = 47559-8) 88.8 38.7-80.0 H [facility] McAllenLymphocytes (%) (Auto)2018-02-27 09:00:00 * Test Item Value Reference Range Interpretation Comments Lymphocytes (%) (Auto) (test code = 736-9) 8.3 18.0-39.1 L [facility]AllenMonocytes (%) (Auto)2018-02-27 09:00:00* Test Item Value Reference Range Interpretation Comments Monocytes (%) (Auto) (test code = 5905-5) 2.2 4.4-11.3 L [facility]AllenEosinophils (%) (Auto)2018-02-27 09:00:00 * Test Item Value Reference Range Interpretation Comments Eosinophils (%) (Auto) (test code = 713-8) 0.0 0.0-6.0 [facility]AllenBasophils (%) (Auto)2018-02-27 09:00:00* Test Item Value Reference Range Interpretation Comments Basophils (%) (Auto) (test code = 706-2) 0.1 0.0-1.0 [facility]AllenIM GRANULOCYTES %2018-02-27 09:00:00* Test Item Value Reference Range Interpretation Comments IM GRANULOCYTES % (test code = IM GRANULOCYTES %) 0.6 0.0- 1.0 [facility]AllenNeutrophils # (Auto)2018-02-27 09:00:00* Test Item Value Reference Range Interpretation Comments Neutrophils # (Auto) (test code = 751-8) 17.3 2.1-6.9 H [facility]AllenLymphocytes # (Auto)2018-02-27 09:00:00* Test Item Value Reference Range Interpretation Comments Lymphocytes # (Auto) (test code = 16079-5) 1.6 1.0-3.2 [facility]AllenMonocytes # (Auto)2018-02-27 09:00:00* Test Item Value Reference Range Interpretation Comments Monocytes # (Auto) (test code = 742-7) 0.4 0.2-0.8 [facility]AllenEosinophils # (Auto)2018-02-27 09:00:00* Test Item Value Reference Range Interpretation Comments Eosinophils # (Auto) (test code = 711-2) 0.0 0.0-0.4 [facility]AllenBasophils # (Auto)2018-02-27 09:00:00* Test Item Value Reference Range Interpretation Comments Basophils # (Auto) (test code = 704-7) 0.0 0.0-0.1 [facility] McAllenAbsolute Immature Granulocyte (auto 2018-02-27 09:00:00* Test Item Value Reference Range Interpretation Comments Absolute Immature Granulocyte (auto (sekou t code = Absolute Immature Granulocyte (auto) 0.12 0-0.1 H [facility] McAllenBlood Gctrpni0864-07-66 05:37:00* Test Item Value Reference Range Interpretation Comments Blood Culture (test code = 37921826) NO GROWTH AFTER [address] Mfrjx6434-71-31 06:02:00* Test Item Value Reference Range Interpretation Comments Sodium Level (test code = 2951-2) 143 136-145 [facility] McAllenPotassium Vyssg9436-45-68 06:02:00* Test Item Value Reference Range Interpretation Comments Potassium Level (test code = 2823-3) 4.1 3.5-5.1 [facility] McAllenChloride Qupsn4807-40-26 06:02:00* Test Item Value Reference Range Interpretation Comments Chloride Level (test code = 2075-0) 109 98-107 H [facility] McAllenCarbon Dioxide Vcaby6836-67-24 06:02:00* Test Item Value Reference Range Interpretation Comments Carbon Dioxide Level (test code = 2028-9) 24 22-29 [facility] McAllenAnion Ibx1579-80-12 06:02:00* Test Item Value Reference Range Interpretation Comments Anion Gap (test code = 29013-5) 14.1 8-16 [facility] McAllenBlood Urea Otiygxlt2967-44-00 06:02:00* Test Item Value Reference Range Interpretation Comments Blood Urea Nitrogen (test code = 3094-0) 8 7-26 [facility] McAllenCreatinine2018-06-11 06:02:00* Test Item Value Reference Range Interpretation Comments Creatinine (test code = 2160-0) 0.65 0.72-1.25 L [facility] McAllenBUN/Creatinine Duodf4217-17-80 06:02:00* Test Item Value Reference Range Interpretation Comments BUN/Creatinine Ratio (test code = 3097-3) 12 6-25 [facility] McAllenEstimat Glomerular Filtration Rate 2018-02-26 06:02:00* Test Item Value Reference Range Interpretation Comments Estimat Glomerular Filtration Rate (test code = 96116-6) 60- >60 Ranges were taken from the National Kidney Disease Education Program and the [facility] literature.Reference ranges:60 or greater: Gevfvy93-79 ( for 3 consecutive months): Chronic kidney disease 15 or less: Kidney failureSouth [facility] Health System McAllenGlucose Vurqr5729-65-04 06:02:00* Test Item Value Reference Range Interpretation Comments Glucose Level (test code = SBT8229) 131 74-118 H [facility] McAllenCalcium Ghtmj6634-72-70 06:02:00* Test Item Value Reference Range Interpretation Comments Calcium Level (test code = 72453-3) 9.1 8.4-10.2 [facility]AllenBedgib[facility] Hogvubq4615-50-12 20:13:00* Test Item Value Reference Range Interpretation Comments Bedside Glucose (test code = 97486-4) 137 70-120 H Meter ID: [id number] Glucose 2018-02-25 20:13:00* Test Item Value Reference Range Interpretation Comments Bedside Glucose (test code = 79293-3) 137 70-120 H Meter ID: [id number] Health System Ben Taub HospitalTotal Bilirubin 2018-02-25 12:32:00* Test Item Value Reference Range Interpretation Comments Total Bilirubin (test code = 1975-2) 0.4 0.2-1.2 [facility] McAllenAspartate Amino Transf (AST/SGOT) 2018-02-25 12:32:00* Test Item Value Reference Range Interpretation Comments Aspartate Amino Transf (AST/SGOT) (test code = Aspartate Amino Transf (AST/SGOT)) 17 5-34 [facility] McAllenAlanine Aminotransferase (ALT/SGPT) 2018-02-25 12:32:00* Test Item Value Reference Range Interpretation Comments Alanine Aminotransferase (ALT/SGPT) (test code = 1742-6) 22 0-55 [facility] McAllenTotal Murgvvk4482-58-23 12:32:00* Test Item Value Reference Range Interpretation Comments Total Protein (test code = 2885-2) 7.3 6.5-8.1 [facility] McAllenAlbumin2018-06-10 12:32:00* Test Item Value Reference Range Interpretation Comments Albumin (test code = 1751-7) 3.8 3.5-5.0 [facility] McAllenGlobulin2018-06-10 12:32:00* Test Item Value Reference Range Interpretation Comments Globulin (test code = 22613-5) 3.5 2.3-3.5 [facility] McAllenAlbumin/Globulin Mscot7114-14-67 12:32:00 * Test Item Value Reference Range Interpretation Comments Albumin/Globulin Ratio (test code = 1759-0) 1.1 0.8-2.0 [facility] McAllenAlkaline Ktvfamykhmg7965-65-14 12:32:00* Test Item Value Reference Range Interpretation Comments Alkaline Phosphatase (test code = 6768-6) 115 40-150 [facility] McAllenCT ABDOMEN/PELVIS J1562-27-65 16:44:00 [place] [address] Patient Name: ARIK VELIZ MR #: [id number] : 1975 Age/Sex: 42/M Req #: [id number] Adm Physician: Ordered by: RADHA KILGORE MD Report #: [id number] Location: ER Room /Bed: Procedure: CT/CT ABDOMEN/PELVIS W Ex am Date: Exam Time: REPORT STATUS: Signed EXAM: CT Abdomen and Pelvis WITH contrast INDICATION: Abdominal pain. Histor y of multiple sclerosis. COMPARISON: None. TECHNIQUE: Abdomen and pelvis wer e scanned utilizing a multidetector helical scanner from the lung base to the ischial tuberosities after administration of IV contrast. Coronal and sagittal reformations were obtained. Routine protocol was performed. Scan was performed when during portal venous phase. IV CONTRAST: 100 mL of Isovue-370 ORAL CONTRAST: None RADIATION DOSE: Total DLP: 57 2.34 mGy*cm Estimated effective dose: DLP x 0.015 mSv COMPLICATIONS: None FINDINGS: LINES and TUBES: There is a suprapubic catheter within the bladder. LOWER THORAX: Subsegmental atelec tasis in the lung bases. HEPATOBILIARY: No focal hepatic lesions. No b iliary ductal dilation. GALLBLADDER: No radio-opaque stones or sludge. No wall thickening. SPLEEN: No splenomegaly. PANCREAS: No focal masses or ductal dilatation. ADRENALS: No adrenal nodules KIDNEYS/URETE RS: Kidneys enhance symmetrically. No hydronephrosis. 1.3 cm hypodensity in the upper pole the right kidney (series 2, image 23) appears to contain thi n septations. Other tiny hypodensities in the right kidney are too small to ch aracterize. No stones. GI TRACT: The rectum is distended with mild, c ircumferential wall thickening of the distal rectum which could be due to buffer chrome adry constipation. No bowel obstruction. Appendix is normal. PELV IC ORGANS/BLADDER: The bladder is collapsed by a suprapubic catheter. A curvil inear density at the tip of the suprapubic catheter may be a portion of the ca theter or chronic bladder/prostate calcification. LYMPH NODES: No lymphaden opathy. VESSELS: Unremarkable. PERITONEUM / RETROPERITONEUM: No free a ir or fluid. BONES: Unremarkable. SOFT TISSUES: Unremarkable. IMPRESSION: 1. The rectum is distended. There is mild circumferen tial wall thickening of the distal rectum which may be due to chronic constipa tion. 2. The bladder is collapsed by a suprapubic catheter. A curvilinear density at the tip of the suprapubic catheter may represent a portion of the c atheter or a chronic bladder/prostate calcification. 3. Mildly complex c ystic lesion in the upper pole the right kidney. Recommend nonemergent renal p rotocol CT or MRI (with and without contrast) for further evaluation. Sig agustin by: Dr. Renuka Taylor M.D. on 02/24/2018 4:54 PM Dictated By: RENUKA TAYLOR MD 53 Transcribed By: ZO on 02/24/181653 COPY TO: RADHA KILGORE MD Urine Epithelial Hvazk2503-81-94 15:44:00* Test Item Value Reference Range Interpretation Comments Urine Epithelial Cells (test code = 97088-9) FEW NONE [facility] McAllenUrine ENX0338-11-51 15:41:00* Test Item Value Reference Range Interpretation Comments Urine WBC (test code = 5821-4) 50- 0-5 H [facility] McAllenUrine FSE1356-62-63 15:41:00* Test Item Value Reference Range Interpretation Comments Urine RBC (test code = 05476-1) 6-10 0-5 H [facility] McAllenUrine Gcjhqpbi6319-36-30 15:41:00* Test Item Value Reference Range Interpretation Comments Urine Bacteria (test code = 11475-5) FEW NONE [facility] McAllenAmylase Sgrlj4901-45-39 15:21:00* Test Item Value Reference Range Interpretation Comments Amylase Level (test code = 1798-8) 49 25-125 [facility] McAllenLipase2018-06-09 15:21:00* Test Item Value Reference Range Interpretation Comments Lipase (test code = 3040-3) 06 05-78 [facility] McAllenAmylase Sbshn4888-64-73 15:21:00* Test Item Value Reference Range Interpretation Comments Amylase Level (test code = 1798-8) 49 25-125 [facility] McAllenLipase2018-06-09 15:21:00* Test Item Value Reference Range Interpretation Comments Lipase (test code = 3040-3) 19 -78 [facility] McAllenAmylase Adley9952-04-14 15:21:00* Test Item Value Reference Range Interpretation Comments Amylase Level (test code = 1798-8) 49 25-125 [facility] McAllenLipase2018-06-09 15:21:00* Test Item Value Reference Range Interpretation Comments Lipase (test code = 3040-3) 19 [facility] McAllenAmylase Nvivm9972-50-41 15:21:00* Test Item Value Reference Range Interpretation Comments Amylase Level (test code = 1798-8) 49 25-125 [facility]2018-06-09 15:21:00* Test Item Value Reference Range Interpretation Comments Lipase (test code = 3040-3) 78 [facility] McAllenAmylase Iciir0457-92-17 15:21:00* Test Item Value Reference Range Interpretation Comments Amylase Level (test code = 1798-8) 49 25-125 [facility]2018-06-09 15:21:00* Test Item Value Reference Range Interpretation Comments Lipase (test code = 3040-3) [facility] McAllenBacteria urine wdrqsxa4843-65-31 10:45:00* Test Item Value Reference Range Interpretation Comments Urine Culture (test code = 630-4) Organism: CITROBACTER FREUNDII#2 [facility]Baun[facility] urine riynxqv1809-81-31 10:45:00* Test Item Value Reference Range Interpretation Comments Urine Culture (test code = 630-4) Organism: CITROBACTER FREUNDII#2 [facility]AllenBaun[facility] urine gjfadtz4609-50-59 10:45:00* Test Item Value Reference Range Interpretation Comments Urine Culture (test code = 630-4) Organism: CITROBACTER FREUNDII#2 [facility] McAllenBafleria urine soncbzo8658-55-22 10:45:00* Test Item Value Reference Range Interpretation Comments Urine Culture (test code = 630-4) Organism: CITROBACTER FREUNDII#2 [facility]Baun[facility] blood idevcda7739-21-34 14:44:00* Test Item Value Reference Range Interpretation Comments Blood Culture (test code = 600-7) Organism: STAPHYLOCOCCUS SP COAG NEG [facility] blood zrqnsrz1062-66-62 14:44:00* Test Item Value Reference Range Interpretation Comments Blood Culture (test code = 600-7) Organism: STAPHYLOCOCCUS SP COAG NEG [facility] McAllenBacterial blood oppsjfh1482-15-90 14:44:00* Test Item Value Reference Range Interpretation Comments Blood Culture (test code = 600-7) Organism: STAPHYLOCOCCUS SP COAG NEG [facility] McAllenPhosphorus Ncbak3950-72-19 09:09:00* Test Item Value Reference Range Interpretation Comments Phosphorus Level (test code = SEV3930) 2.4 2.3-4.7 [facility]2018-01-04 09:09:00* Test Item Value Reference Range Interpretation Comments Magnesium Level (test code = 92784-4) 1.8 1.3-2.1 [facility] Cihsq2316-12-30 09:09:00* Test Item Value Reference Range Interpretation Comments Phosphorus Level (test code = SGJ5080) 2.4 2.3-4.7 [facility] Usowl6162-91-69 09:09:00* Test Item Value Reference Range Interpretation Comments Magnesium Level (test code = 28290-7) 1.8 1.3-2.1 [facility] Bgwtq4485-70-91 09:09:00* Test Item Value Reference Range Interpretation Comments Phosphorus Level (test code = RWU4376) 2.4 2.3-4.7 [facility] Jpmzk7307-41-08 09:09:00* Test Item Value Reference Range Interpretation Comments Magnesium Level (test code = 65566-2) 1.8 1.3-2.1 [facility] Sgglf5665-24-27 09:09:00* Test Item Value Reference Range Interpretation Comments Phosphorus Level (test code = NXF2762) 2.4 2.3-4.7 [facility] McAllenLactic Acid Wgngt0435-79-73 22:56:00* Test Item Value Reference Range Interpretation Comments Lactic Acid Level (test code = Lactic Acid Level) 7.9 4.5- 19.8 [facility] McAllenLactic Acid Lhhyq4341-34-58 22:56:00* Test Item Value Reference Range Interpretation Comments Lactic Acid Level (test code = Lactic Acid Level) 7.9 4.5- 19.8 [facility] Amorphous Srilamik6678-44-32 21:03:00* Test Item Value Reference Range Interpretation Comments Urine Amorphous Sediment (test code = 8246-1) MODERATE FEW [facility] Zrfdb9482-55-96 21:03:00* Test Item Value Reference Range Interpretation Comments Urine Mucus (test code = 8247-9) FEW RARE [facility] Amorphous Xaldhyhr0235-06-22 21:03:00* Test Item Value Reference Range Interpretation Comments Urine Amorphous Sediment (test code = 8246-1) MODERATE FEW [facility] Iqnhj3646-95-79 21:03:00* Test Item Value Reference Range Interpretation Comments Urine Mucus (test code = 8247-9) FEW RARE [facility] Amorphous Qdvbymes6526-45-26 21:03:00* Test Item Value Reference Range Interpretation Comments Urine Amorphous Sediment (test code = 8246-1) MODERATE FEW [facility] Tjqky6081-77-31 21:03:00* Test Item Value Reference Range Interpretation Comments Urine Mucus (test code = 8247-9) FEW RARE [facility] Amorphous Bvqvnzmt6175-28-61 21:03:00* Test Item Value Reference Range Interpretation Comments Urine Amorphous Sediment (test code = 8246-1) MODERATE FEW [facility] Hrsdb5786-42-53 21:03:00* Test Item Value Reference Range Interpretation Comments Urine Mucus (test code = 8247-9) [facility]W [facility]ARE [facility]Influ[facility] Virus Types A,B Antigen 2017-09-18 20:09:00* Test Item Value Reference Range Interpretation Comments Influenza Virus Types A,B Antigen (test code = 99315-1) NEGATIVE NEGATIVE [facility] McAllenInfluenza Virus Types A,B Antigen 2017-09-18 20:09:00* Test Item Value Reference Range Interpretation Comments Influenza Virus Types A,B Antigen (test code = 96933-2) [facility]IVE [facility]IVE [facility] 2017-09-18 20:09:00* Test Item Value Reference Range Interpretation Comments Influenza Virus Types A,B Antigen (test code = 76886-6) NEGATIVE NEGATIVE [facility]B Antigen 2017-09-18 20:09:00* Test Item Value Reference Range Interpretation Comments Influenza Virus Types A,B Antigen (test code = 13034-1) NEGATIVE NEGATIVE [facility] [address] Patient Name: ARIK VELIZ MR #: [id number] : 1975 Age/Sex: 42/M Req #: [id number] Adm Physician: BERNARDO KELLEY MD Ordered by: BERNARDO KELLEY MD Report #: [id number] Location: MED/SURG2 Room/Bed: [facility] Procedure: [id number] DX/[facility] XRAY LINE PLACEMENT Exam Date: 09/19/17 Exam Time : 1525 REPORT STATUS: Signed PROCEDURE: A single AP view of the chest . COMPARISON: Chest radiograph 09/25/2012 INDICATIONS: PICC LINE PALOMO CEMENT FINDINGS: Lines/tubes: Right PICC tip overlies the cavoatrial junction. Lungs: The lungs are well inflated. Mild left basilar atelecta sis. There is no evidence of pneumonia or pulmonary edema. Pleura: The re is no pleural effusion or pneumothorax. Heart and mediastinum: The hea rt and the mediastinum are unremarkable. Bones: No acute bony abnormality . IMPRESSION: 1. Right PICC tip overlies the cavoatrial junction. 2. No acute cardiopulmonary disease. Dictated by: Marcos Medina M.D. on 09/19/2017 at 15:42 Electronically approved by: Marcos Medina M.D. on 09/19/2017 at 15:42 Dictated By: MARCOS MEDINA MD Electronica lly Signed By: MARCOS MEDINA MD on 09/19/17 154 Transcribed By: ARIELLA on 09/19 154 COPY TO: BERNARDO KELLEY MD CT BRAIN WO [place] [address] Patient Name: ARIK VELIZ MR #: [id number] : 1975 Age/Sex: 42/M Req #: [id number] Adm Physician: Ordered by: LEMUEL BARRIOS MD Report #: [id number] Location: ER Room/Bed: Procedure: [id number] CT/CT BRAIN WO Exam Date: 10/05 Exam Time: 2029 REPORT STATUS: Signed EXAMINATION: Head CT without contrast. HISTORY:Headache. COMPARIS ON:CT brain from 09/25/2012. TECHNIQUE: Multidetector axial images were obtained from the foramen magnum to the vertex without contrast. The images were recon structed using brain and bone algorithms. Thin section brain images were refo rmatted into coronal and sagittal planes. Intravenous contrast: None IMAGE QUALITY: Acceptable. FINDINGS: Skull/scalp: No abnormality. Parenchyma: Nonspecific few, scattered supratentorial white matter hypode nsity are likely related to known demyelinating disease. Mild to moderate atro phy of the corpus callosum. No acute hemorrhage, mass or acute major vascular territorial infarct. Arteries: No density suggestive of thrombosis. Dural sinuses: No abnormal density suggestive of thrombosis. Ventricle s: Unchanged mild prominence of the lateral and third ventricles. Extra-ax ial spaces: No abnormal density. Brain volume: Normal for age. Product Merchandiser niocervical junction: No mass, Chiari malformation, or basilar invagination. Sella: No mass. Paranasal/mastoid sinuses: Imaged portions unremarka ble. IMPRESSION: No acute intracranial abnormality, particularly no acute hemorrhage, mass or acute major vascular territorial infarct. Interval d evelopment of mild supratentorial white matter microvascular disease, possibly related to known multiple sclerosis as described in MRI from 08/06/2012. Unchanged mild prominence of bilateral lateral and third ventricles and mild cerebral volume loss, advanced for patient's given age. Signed by: Dr. Jude Ward M.D. on 09/18/2017 9:30 PM Dictated By: RANJAN WARD MD El ectronically Signed By: RANJAN WARD MD on 09/18/172129 Transcribed By: TK HOPE on 09/18/172129 COPY TO: LEMUEL BARRIOS MD
--- NOTE | 2020-07-27 21:43 | Emergency Department Note ---
History of Present Illnes History of Present Illness Chief Complaint: Genitourinary History of Present Illness This is a 45 year old male PT PRESENTS TO ED WITH REPORT OF DISLODGED SUPRAPUBIC CATHETER; HOWEVER, CATHETER INTACT, PATENT, DRAINING; ER MD TO PTS BS, pt states he leaked urine around suprapubic catheter earlier and though is was out of place, . 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 Any updates have been documented here. Past Medical History Recent Fever: No Clinical Suspicion of Infectio: No New/Unexplained Change in Ment: No Past Medical History: Hypothyroidism, UTI's, Anxiety Other Medical History: Multiple sclerosis Past Surgical History: None Other Surgery: RIGHT WRIST SUPRAPUBIC CATH LT ANKLE Social History Smoking Cessation: Never Smoker Alcohol Use: None Any Illegal Drug Use: No Physically hurt or threatened: No Other Last Tetanus: UTD Any Pre-Existing Lines (PICC,: No Review of Systems Review of Systems Constitutional: Reports no symptoms EENTM: Reports no symptoms Cardiovascular: Reports no symptoms Respiratory: Reports no symptoms Gastrointestinal: Reports no symptoms Genitourinary: Reports as per HPI Musculoskeletal: Reports no symptoms Integumentary: Reports no symptoms Neurological: Reports no symptoms Psychological: Reports no symptoms Endocrine: Reports no symptoms Hematological/Lymphatic: Reports no symptoms Physical Exam Related Data Allergies: Coded Allergies: ceftriaxone (Verified Allergy, Severe, hives, SOB, redness, 06/16/18) levofloxacin (Verified Allergy, Severe, Rash, Hives, SOB, 06/16/18) Patient arrived to ER after taking Levaquin. He had red rash with hives noted to entire body. EMS had reported that patient had some SOB and tremors to left hand after taking medication. Patient has MS. Patient has had an allergic reaction before to this medication SEE NURSING NOTES. I have made sure that this medication is listed as an allergy so that it is not given to patient again in the future. ciprofloxacin (Verified Allergy, Unknown, 06/16/18) meropenem (Verified Allergy, Unknown, 06/16/18) Uncoded Allergies: TAPE (Allergy, Intermediate, 02/24/18) Triage Vital Signs Vital Signs Date Time Temp Pulse Resp B/P (MAP) Pulse Ox O2 Delivery O2 Flow Rate FiO2 07/27/20 21:29 98.1 78 16 148/101 100 Room Air Vital signs reviewed: Yes Physical Exam CONSTITUTIONAL Constitutional: Present well-developed, Present well-nourished; Absent distressed HENT HENT: Present normocephalic, Present atraumatic, Present oropharynx clear/moist, Present nose normal HENT L/R: Present left ext ear normal, Present right ext ear normal EYES Eyes: Reports PERRL, Reports conjunctivae normal NECK Neck: Present ROM normal PULMONARY Pulmonary: Present effort normal, Present breath sounds normal CARDIOVASCULAR Cardiovascular: Present regular rhythm, Present heart sounds normal, Present capillary refill normal, Present normal rate GASTROINTESTINAL supra pubic catheter present, clear raul urine is draining from freitas into [place] ection bag, freitas is not dislodged or blocked. Abdominal: Present soft, Present nontender, Present bowel sounds normal GENITOURINARY Genitourinary: Present exam deferred SKIN Skin: Present warm, Present dry MUSCULOSKELETAL Musculoskeletal: Present ROM normal NEUROLOGICAL Neurological: Present alert, Present oriented x 3, Present other (bed ridden, at baseline secondary to ms) PSYCHOLOGICAL Psychological: Present mood/affect normal, Present judgement normal Assessment & Plan Medical Decision Making MDM supra pubic catheter is functioning normally on arrival to er Assessment & Plan Final Impression: (1) Freitas catheter problem Depart Disposition: HOME, SELF-CARE Last Vital Signs Date Time Temp Pulse Resp B/P (MAP) Pulse Ox O2 Delivery O2 Flow Rate FiO2 07/27/20 21:30 78 17 144/89 100 Room Air 07/27/20 21:29 98.1 Home Meds Active Scripts Prednisone (PREDNISONE) 20 Mg Tab, 20 MG PO DAILY for 5 Days, TAB Prov:JOSETTE KELLEY MD 06/03/19 Polyethylene Glycol 3350 (MIRALAX) 17 Gm Powd.pack, 17 GM PO DAILY for 15 Days Prov:JOSETTE KELLEY MD 06/03/19 Sennosides/Docusate Sodium (SENNA S TABLET) 1 Each Tablet, 1 EA PO BID for 30 Days Prov:JOSETTE KELLEY MD 05/23/18 Famotidine (FAMOTIDINE) 20 Mg Tab, 20 MG PO BIDAC for 30 Days, TAB Prov:JOSETTE KELLEY MD 05/23/18 Reported Medications Oxybutynin Chloride (OXYBUTYNIN CHLORIDE) 5 Mg Tablet, 5 MG PO TID, #30 TAB 05/18/18 Tizanidine Hcl (TIZANIDINE HCL) 4 Mg Capsule, 4 MG BID 05/18/18 Lubiprostone (AMITIZA) 24 Mcg Capsule, 24 MCG PO BID, #60 CAP 05/18/18 Glatiramer (Copolymer-1) (COPAXONE) 20 Mg/Kit Syr, 40 MG SC THREE TIMES PER WEEK 05/18/18 Clonazepam (CLONAZEPAM) 0.5 Mg Tablet, 0.5 MG PO Q12H, TAB 05/18/18 Tramadol Hcl (ULTRAM) 50 Mg Tablet, 50 MG PO Q6H PRN for PAIN, #1 0 Refills 08/05/12 Citalopram Hydrobromide (CITALOPRAM HBR) 20 Mg Tablet, 20 MG PO DAILY, #1 0 Refills 08/05/12 IVETT BRYAN MD Jul 27, 2020 21:43
[2020-07-27 22:26] VITALS: BP 132/87
== END 2020-07-27 22:30 | disposition home or self-care (01) ==
LOC: ER 21:18
DX: Z46.6 Encounter for fitting and adjustment of urinary device (principal); G35 Multiple sclerosis; E03.9 Hypothyroidism, unspecified; F41.9 Anxiety disorder, unspecified
CPT/HCPCS: 99283

== ENCOUNTER 2020-08-14 21:20 | Emergency (ER) | payer MEDICARE, OTHER ==
[~2020-08-14] VITALS: Ht 170.2 cm; Wt 64.4 kg
[2020-08-14] MEDS ORDERED: ACETAMINOPHEN 650 MG SUPP PR ONE ×2 (21:45→21:46)
[2020-08-14] MEDS ORDERED: PIPER-TAZ 3.375 GM 50 ML IV ONE (21:45)
[2020-08-14] MEDS ORDERED: SODIUM CHLORIDE 0.9% 1000ML 1,000 ML IV ONE (21:45)
[2020-08-14] MEDS ORDERED: ACETAMINOPHEN 325 MG SUPP PR ONE (21:45)
[2020-08-14] MEDS ORDERED: PIPER-TAZ 3.375 GM 50 ML ONE (21:46)
[2020-08-14] MEDS ORDERED: ACETAMINOPHEN 325 MG SUPP ONE (21:46)
[2020-08-14 22:00] LABS: BASOPHILS % 0.2 % (0.0-1.0); EOSINOPHILS % 0.2 % (0.0-6.0); HEMATOCRIT 44.7 % (38.2-49.6); HEMOGLOBIN 15.2 g/dL (14.0-18.0); LYMPHOCYTES # (AUTO) 1.6 (1.0-3.2); LYMPHOCYTES % 26.3 % (18.0-39.1); MEAN CORPUSCULAR HEMOGLOBIN 29.6 pg (28-32); MONOCYTES # (AUTO) 0.5 (0.2-0.8); MONOCYTES % 8.5 % (4.4-11.3); NEUTROPHILS # (AUTO) 3.8 (2.1-6.9); NEUTROPHILS % 64.6 % (38.7-80.0); PLATELET COUNT 238 x10e3/uL (140-360); RED BLOOD COUNT 5.14 x10e6/uL (4.3-5.7); RED CELL DISTRIBUTION WIDTH 12.2 % (11.7-14.4)
[2020-08-14 22:19] LABS: ALANINE AMINOTRANSFERASE 24 IU/L (0-55); ALBUMIN 3.7 g/dL (3.5-5.0); ALKALINE PHOSPHATASE 134 IU/L (40-150); ANION GAP 16.2 mmol/L (8-16); BLOOD UREA NITROGEN 15 mg/dL (7-26); BUN/CREATININE RATIO 20 (6-25); CALCIUM 8.2 mg/dL (8.4-10.2); CARBON DIOXIDE 23 mmol/L (22-29); CHLORIDE 106 mmol/L (98-107); CREATININE, SERUM 0.74 mg/dL (0.72-1.25); EST GLOMERULAR FILTRATION RATE > 60 ML/MIN (60-); GLUCOSE 105 mg/dL (74-118); POTASSIUM 4.2 mmol/L (3.5-5.1); SODIUM 141 mmol/L (136-145)
[2020-08-14 22:44] LABS: BILIRUBIN,URINE NEGATIVE (NEGATIVE); CLARITY,URINE CLOUDY (CLEAR); COLOR,URINE YELLOW (YELLOW); KETONES,URINE 1+ (NEGATIVE); LEUKOCYTE ESTERASE ,URINE MODERATE (NEGATIVE); NITRITE,URINE POSITIVE (NEGATIVE); PROTEIN,URINE DIPSTICK 2+ (NEGATIVE); URINE UROBILINOGEN 1 mg/dL (0.2 - 1)
[2020-08-14 22:49] LABS: AMORPHOUS SEDIMENT,URINE FEW (FEW); BACTERIA,URINE MODERATE /HPF; EPITHELIAL CELLS,URINE FEW /LPF
[2020-08-15] MEDS ORDERED: AZITHROMYCIN 500MG/NS 250 ML 250 ML IV ONE
== END 2020-08-15 01:59 | disposition other institution (70) ==
LOC: ER 21:27
DX: U07.1 COVID-19 (principal); J18.9 Pneumonia, unspecified organism; R50.9 Fever, unspecified; N39.0 Urinary tract infection, site not specified; G35 Multiple sclerosis; E03.9 Hypothyroidism, unspecified; F41.9 Anxiety disorder, unspecified
CPT/HCPCS: 36415; 70450; 71045; 80053; 81001; 83605; 85025; 87040; 87086; 87186; 87400; 99285; J0456; J2543; J7030; U0002

== ENCOUNTER 2020-08-21 10:56 | Emergency (ER) | payer MEDICARE, OTHER ==
[~2020-08-21] VITALS: Ht 170.2 cm; Wt 64.4 kg
--- NOTE | 2020-08-21 11:15 | Emergency Department Note ---
History of Present Illnes History of Present Illness Chief Complaint: Genitourinary History of Present Illness This is a 45 year old male with PMH of MS brought from home after it was noted by home health that patient was having low UOP since yesterday. Seen at bedside NAD. (+) COVID per EMS . 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 Required: Yes Onset (how long ago): hour(s) Radiation: Reports non-radiation Severity: mild Onset quality: gradual Duration (how long): hour(s) Timing of current episode: constant Progression: unchanged Chronicity: recurrent Context: Denies recent illness, Denies recent surgery, Denies recent immobilization, Denies recent travel, Denies trauma/injury, Denies new medications, Denies hx of DVT/PE, Denies non-compliance w/ medications, Denies other Relieving factors: none Exacerbating factors: none Associated symptoms: Denies denies other symptoms, Denies confusion, Denies chest pain, Denies cough, Denies diaphoresis, Denies fever/chills, Denies headaches, Denies loss of appetite, Denies malaise, Denies nausea/vomiting, Denies rash, Denies seizure, Denies shortness of breath, Denies syncope, Denies weakness, Denies other Past Medical/Family History Physician Review I have reviewed the patient's past medical and family history. Any updates have been documented here. Past Medical History Recent Fever: No Clinical Suspicion of Infectio: No New/Unexplained Change in Ment: No Past Medical History: Hypothyroidism, UTI's, Anxiety Other Medical History: Multiple sclerosis Past Surgical History: None Other Surgery: RIGHT WRIST SUPRAPUBIC CATH LT ANKLE Social History Smoking Cessation: Never Smoker Alcohol Use: None Any Illegal Drug Use: No Other Last Tetanus: UTD Review of Systems Review of Systems Constitutional: Reports no symptoms EENTM: Reports no symptoms Cardiovascular: Reports no symptoms Respiratory: Reports no symptoms Gastrointestinal: Reports no symptoms Genitourinary: Reports pain Musculoskeletal: Reports no symptoms Integumentary: Reports no symptoms Neurological: Reports no symptoms Psychological: Reports no symptoms Endocrine: Reports no symptoms Hematological/Lymphatic: Reports no symptoms Physical Exam Related Data Allergies: Coded Allergies: ceftriaxone (Verified Allergy, Severe, hives, SOB, redness, 9/29/18) levofloxacin (Verified Allergy, Severe, Rash, Hives, SOB, 06/16/18) Patient arrived to ER after taking Levaquin. He had red rash with hives noted to entire body. EMS had reported that patient had some SOB and tremors to left hand after taking medication. Patient has MS. Patient has had an allergic reaction before to this medication SEE NURSING NOTES. I have made sure that this medication is listed as an allergy so that it is not given to patient again in the future. ciprofloxacin (Verified Allergy, Unknown, 06/16/18) meropenem (Verified Allergy, Unknown, 06/16/18) Uncoded Allergies: TAPE (Allergy, Intermediate, 02/24/18) Triage Vital Signs Vital Signs Date Time Temp Pulse Resp B/P (MAP) Pulse Ox O2 Delivery O2 Flow Rate FiO2 08/21/20 11:04 97.8 80 16 152/94 98 Room Air Vital signs reviewed: Yes Physical Exam CONSTITUTIONAL Constitutional: Present well-developed, Present well-nourished HENT HENT: Present normocephalic, Present atraumatic, Present oropharynx clear/moist, Present nose normal HENT L/R: Present left ext ear normal, Present right ext ear normal EYES Eyes: Reports PERRL, Reports conjunctivae normal NECK Neck: Present ROM normal PULMONARY Pulmonary: Present effort normal, Present breath sounds normal CARDIOVASCULAR Cardiovascular: Present regular rhythm, Present heart sounds normal, Present ca pillary refill normal, Present normal rate GASTROINTESTINAL Abdominal: Present other (suprapubic catheter intact. No periorifice erythema noted) GENITOURINARY Genitourinary: Present exam deferred SKIN Skin: Present warm, Present dry MUSCULOSKELETAL Musculoskeletal: Present ROM normal NEUROLOGICAL Neurological: Present alert, Present abnormal DTRs, Present abnormal gait PSYCHOLOGICAL Psychological: Present mood/affect normal, Present judgement normal Results Laboratory Lab results reviewed: Yes Laboratory comments Laboratory Tests Test 08/21/20 11:30 Urine Color Yellow (YELLOW) Urine Clarity Sl cloudy (CLEAR) Urine pH 6.5 (5 - 7) Urine Specific Dalton >=1.030 (1.010-1.025) Urine Protein 1+ (NEGATIVE) Urine Glucose (UA) Negative (NEGATIVE) Urine Ketones >=160 (NEGATIVE) Urine Blood Moderate (NEGATIVE) Urine Nitrite Positive (NEGATIVE) Urine Bilirubin Small (NEGATIVE) Urine Urobilinogen 2.0 mg/dL (0.2 - 1) Urine Leukocyte Esterase Small (NEGATIVE) Urine RBC 6-10 /HPF (0-5) Urine WBC 11-20 /HPF (0-5) Urine Epithelial Cells Few /LPF (NONE) Urine Bacteria Few /HPF (NONE) Imaging Imaging results reviewed: Yes Impressions [place] [address] Patient Name: ARIK VELIZ MR #: [id number] : 1975 Age/Sex: 45/M Req #: [id number] Adm Physician: Ordered by: JUANITO HOPE DO Report #: [id number] Location: ER Room/Bed: Procedure: [id number] DX/CHEST SINGLE (PORTABLE) Exam Date: 08/21/20 Exam Time: 1210 REPORT STATUS: Signed X-ray chest frontal view History: Covid positive Comparison: 08/14/2020 Findings: Lines and tubes: Not applicable Central airways: Unremarkable Cardiac silhouette: Unremarkable Great vessels: Unremarkable Mediastinal silhouettes: Unremarkable Pleura: No pleural effusion, pneumothorax or thickening Diaphragms: Unremarkable Lungs: The left lung is partially obscured by the patient's left hand. There is presence of discoid opacities in the left lung base. The previously seen opacification has improved. Skeletal structures: Unremarkable Extrathoracic soft tissues: Unremarkable Impression: Significant improvement in the appearance of the left lung infiltrate, at least in part because of a deeper inspiratory effort on this exam. Signed by: Augustine Moore MD on 08/21/2020 12:28 PM Dictated By: AUGUSTINE MOORE MD 1228 Transcribed By: ZO on 08/21/20 1228 COPY TO: JUANITO HOPE DO~ [facility] [address] [place] [address] Patient Name: ARIK VELIZ MR #: [id number] : 1975 Age/Sex: 45/M Req #: [id number] Adm Physician: Ordered by: JUANITO HOPE DO Report #: [id number] Location: ER Room/Bed: Procedure: [id number] CT/CT ABDOMEN/PELVIS WO Exam Date: 08/21/20 Exam Time: 1202 REPORT STATUS: Signed EXAM: CT ABDOMEN AND PELVIS WITHOUT CONTRAST CLINICAL INDICATION: Blocked catheter TECHNIQUE: CT abdomen and pelvis was performed, without IV contrast, as per department protocol. Axial, sagittal, and coronal reconstructions were obtained. IV CONTRAST: Not administered, limiting sensitivity of this exam for evaluation of solid visceral organs, vascular structures, and retroperitoneum. ORAL CONTRAST: Not administered, limiting sensitivity of this exam for evaluation of bowel, retroperitoneum, and intraabdominal fluid collections. RADIATION DOSE REDUCTION: This exam was performed according to the departmental dose-optimization program which includes automated exposure control, adjustment of the mA and/or kV according to patient size and/or use of iterative reconstruction technique. COMPARISON: None FINDINGS: The patient is unable to move his arm out of the field. This causes streak artifact in the upper abdomen and interferes with interpretation of the exam. LOWER CHEST: Scattered hazy groundglass opacities in the left lung base. LIVER: No pathologic process. GALLBLADDER: Unremarkable BILE DUCTS: No pathologic process. PANCREAS: No pathologic process. SPLEEN: No pathologic process. ADRENALS: No pathologic process. KIDNEYS AND URETERS: No pathologic process. URINARY BLADDER: A suprapubic catheter in place. The bladder is decompressed. This suggests that the catheter is functioning. GASTROINTESTINAL TRACT: No pathologic process. Significant gaseous distention of the sigmoid colon. Fecal matter in the rectum. APPENDIX: No inflammatory changes in region of appendix. LYMPH NODES: No lymphadenopathy. PERITONEUM/MESENTERY: No free air, significant free fluid, mass or fluid collection. VESSELS: No vascular abnormality. ADDITIONAL RETROPERITONEAL FINDINGS: None. REPRODUCTIVE ORGANS: No pathologic process. ABDOMINAL AND PELVIC ZUÑIGA: No pathologic process. MUSCULOSKELETAL: No pathologic process. ADDITIONAL FINDINGS: None. IMPRESSION: No significant abnormality in the abdomen and pelvis, evaluation limited by lack of IV contrast and artifact from the inability to move and out of the field. The suprapubic catheter is in place and with a decompressed bladder seems to be functioning.. Standardized Report: [id number]. Signed by: Augustine Moore MD on 08/21/2020 12:42 PM Dictated By: AUGUSTINE MOORE MD 124 Transcribed By: ZO on 08/21/20 1242 COPY TO: JUANITO HOPE DO~ Assessment & Plan Medical Decision Making MDM Diff Dx : freitas obstruction, UTI, intra-abdominal pathology Reassessment Reassessment time: 11:23 Reassessment Attempted to contacted to Dr Paz . freitas with free flowing urine. CTS confirms placement. Plan to transfer patient back to home. Patient standign appointment to f/u with Urology later in the month Assessment & Plan Final Impression: (1) Urinary tract infection (2) Indwelling catheter present on admission Last Vital Signs Date Time Temp Pulse Resp B/P (MAP) Pulse Ox O2 Delivery O2 Flow Rate FiO2 08/21/20 11:04 97.8 80 16 152/94 98 Room Air Home Meds Active Scripts Prednisone (PREDNISONE) 20 Mg Tab, 20 MG PO DAILY for 5 Days, TAB Prov:JOSETTE KELLEY MD 06/03/19 Polyethylene Glycol 3350 (MIRALAX) 17 Gm Powd.pack, 17 GM PO DAILY for 15 Days Prov:JOSETTE KELLEY MD 06/03/19 Sennosides/Docusate Sodium (SENNA S TABLET) 1 Each Tablet, 1 EA PO BID for 30 Days Prov:JOSETTE KELLEY MD 05/23/18 Famotidine (FAMOTIDINE) 20 Mg Tab, 20 MG PO BIDAC for 30 Days, TAB Prov:JOSETTE KELLEY MD 05/23/18 Reported Medications Oxybutynin Chloride (OXYBUTYNIN CHLORIDE) 5 Mg Tablet, 5 MG PO TID, #30 TAB 05/18/18 Tizanidine Hcl (TIZANIDINE HCL) 4 Mg Capsule, 4 MG BID 05/18/18 Lubiprostone (AMITIZA) 24 Mcg Capsule, 24 MCG PO BID, #60 CAP 05/18/18 Glatiramer (Copolymer-1) (COPAXONE) 20 Mg/Kit Syr, 40 MG SC THREE TIMES PER WEEK 05/18/18 Clonazepam (CLONAZEPAM) 0.5 Mg Tablet, 0.5 MG PO Q12H, TAB 05/18/18 Tramadol Hcl (ULTRAM) 50 Mg Tablet, 50 MG PO Q6H PRN for PAIN, #1 0 Refills 08/05/12 Citalopram Hydrobromide (CITALOPRAM HBR) 20 Mg Tablet, 20 MG PO DAILY, #1 0 Refills 08/05/12 JUANITO HOPE DO Aug 21, 2020 11:15
--- NOTE | 2020-08-21 11:38 | NUR ---
Multiple scans of patient's bladder were done with the bladder scanner. All areas surrounding the catheter and multiple angles were scanned to help ensure accuracy. Average bladder residual volume 24ml. Catheter insertion site clean and dry. Small amounts of urine is seen flowing from catheter.
[2020-08-21 11:47] LABS: CLARITY,URINE SL CLOUDY (CLEAR); COLOR,URINE YELLOW (YELLOW)
[2020-08-21 11:48] LABS: KETONES,URINE >=160 (NEGATIVE); LEUKOCYTE ESTERASE ,URINE SMALL (NEGATIVE); NITRITE,URINE POSITIVE (NEGATIVE); PROTEIN,URINE DIPSTICK 1+ (NEGATIVE)
[2020-08-21 11:49] LABS: BILIRUBIN,URINE SMALL (NEGATIVE)
[2020-08-21 11:57] LABS: BACTERIA,URINE FEW /HPF; EPITHELIAL CELLS,URINE FEW /LPF
--- NOTE | 2020-08-21 12:31 | Diagnostic Imaging Report ---
X-ray chest frontal view History: Covid positive Comparison: 08/14/2020 Findings: Lines and tubes: Not applicable Central airways: Unremarkable Cardiac silhouette: Unremarkable Great vessels: Unremarkable Mediastinal silhouettes: Unremarkable Pleura: No pleural effusion, pneumothorax or thickening Diaphragms: Unremarkable Lungs: The left lung is partially obscured by the patient's left hand. There is presence of discoid opacities in the left lung base. The previously seen opacification has improved. Skeletal structures: Unremarkable Extrathoracic soft tissues: Unremarkable Impression: Significant improvement in the appearance of the left lung infiltrate, at least in part because of a deeper inspiratory effort on this exam. Signed by: Lamberto Del Cid MD on 08/21/2020 12:28 PM
--- NOTE | 2020-08-21 12:46 | Diagnostic Imaging Report ---
EXAM: CT ABDOMEN AND PELVIS WITHOUT CONTRAST CLINICAL INDICATION: Blocked catheter TECHNIQUE: CT abdomen and pelvis was performed, without IV contrast, as per department protocol. Axial, sagittal, and coronal reconstructions were obtained. IV CONTRAST: Not administered, limiting sensitivity of this exam for evaluation of solid visceral organs, vascular structures, and retroperitoneum. ORAL CONTRAST: Not administered, limiting sensitivity of this exam for evaluation of bowel, retroperitoneum, and intraabdominal fluid collections. RADIATION DOSE REDUCTION: This exam was performed according to the departmental dose-optimization program which includes automated exposure control, adjustment of the mA and/or kV according to patient size and/or use of iterative reconstruction technique. COMPARISON: None FINDINGS: The patient is unable to move his arm out of the field. This causes streak artifact in the upper abdomen and interferes with interpretation of the exam. LOWER CHEST: Scattered hazy groundglass opacities in the left lung base. LIVER: No pathologic process. GALLBLADDER: Unremarkable BILE DUCTS: No pathologic process. PANCREAS: No pathologic process. SPLEEN: No pathologic process. ADRENALS: No pathologic process. KIDNEYS AND URETERS: No pathologic process. URINARY BLADDER: A suprapubic catheter in place. The bladder is decompressed. This suggests that the catheter is functioning. GASTROINTESTINAL TRACT: No pathologic process. Significant gaseous distention of the sigmoid colon. Fecal matter in the rectum. APPENDIX: No inflammatory changes in region of appendix. LYMPH NODES: No lymphadenopathy. PERITONEUM/MESENTERY: No free air, significant free fluid, mass or fluid collection. VESSELS: No vascular abnormality. ADDITIONAL RETROPERITONEAL FINDINGS: None. REPRODUCTIVE ORGANS: No pathologic process. ABDOMINAL AND PELVIC ZUÑIGA: No pathologic process. MUSCULOSKELETAL: No pathologic process. ADDITIONAL FINDINGS: None. IMPRESSION: No significant abnormality in the abdomen and pelvis, evaluation limited by lack of IV contrast and artifact from the inability to move and out of the field. The suprapubic catheter is in place and with a decompressed bladder seems to be functioning.. Standardized Report: [id number]. Signed by: Lamberto Del Cid MD on 08/21/2020 12:42 PM
--- OUTSIDE RECORDS SUMMARY | 2020-08-21 13:04 | XMS REPORT | Clinical Summary ---
Author Author BRITTANY eyetok [employer] 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 Active citalopram (CeleXA) 20 MG Take 20 mg by 0 tablet mouth daily. Active lubiprostone (AMITIZA) 24 Take 24 mcg 0 MCG capsule by mouth 2 (two) times daily. Active oxybutynin (DITROPAN) 5 Take 5 mg by 0 MG tablet mouth 3 (three) times daily. Active tiZANidine (Zanaflex) 4 Take 4 mg by 0 MG tablet mouth 2 (two) times daily. Active traMADoL (Ultram) 50 mg Take 50 mg by 0 tablet mouth every 6 (six) hours as needed. Active glatiramer 20 mg/mL Syrg Inject 20 0 mg/mL subcutaneousl y 3 (three) times a week MON/WED/FRI. Active sulfamethoxazole-trimetho Take 1 tablet 0 prim (BACTRIM DS) 800-160 by mouth 2 mg per tablet (two) times daily. 08/15/2020 Discontinued (Error) clonazePAM (KlonoPIN) 0.5 Every 12 0 MG tablet Hours 08/15/2020 Discontinued (Error) lubiprostone (AMITIZA) 24 Take 24 mcg 0 MCG capsule by mouth 2 (two) times daily. Active Problems Problem Noted Date UTI (urinary tract infection) 08/15/2020 COVID-19 08/15/2020 Encounters Care Team Description Date Type Specialty Jose Llamas MD Jarrouge, Elie G., MD COVID-19 (Primary Dx) 08/15/2020 [facility] after 08[facility]21/2019 Social History Date Tobacco Use Types Packs/Day Years Used Never Smoker Smokeless Tobacco: Never Used Drinks/Week oz/Week Comments Alcohol Use Not Currently Sex Assigned at Date Recorded Not on file Last Filed Vital Signs Reading Time Taken Comments Vital Sign 134/76 08/15/2020 11:20 AM [facility] Blood Pressure 79 08/15/2020 11:20 AM [facility] Pulse 36.8 C (98.3 F) 08/15/2020 11:20 AM [facility] Temperature 19 08/15/2020 11:20 AM [facility] Respiratory Rate 95% 08/15/2020 11:20 AM [facility] Oxygen Saturation - - Inhaled Oxygen Concentration 77.9 kg (171 lb 11.8 oz) 08/15/2020 2:52 AM [facility] Weight 170.2 cm (5' 7") 08/15/2020 2:52 AM [facility] Height 26.9 08/15/2020 2:52 AM [facility] Body Mass Index Plan of Treatment Health Maintenance Due Date Last Done Comments LIPID PANEL 2012 Medicare IPPE (WELCOME TO 09/18/2019 MEDICARE) INFLUENZA VACCINE (#1) 2020 Results Not on fileafter 08/21/2019 Insurance Type Payer Benefit Subscriber ID Effective Phone Address Plan / Dates Group Maps Contracted [employer] CIGNA [id number] 2019-P [employer] resent NG ALL Medicaid Contracted MEDICAID - MEDICAID [facility]GD [facility] [id number] [id number] CARE COMM STAR resent PLAN Advance Directives For more information, please contact: [phone] Date Inactivated Comments Code Status Date Activated 08/15/2020 5:21 PM Full Code 08/15/2020 4:48 AM This code status was determined by: Patient
--- OUTSIDE RECORDS SUMMARY | 2020-08-21 13:06 | XMS REPORT | Continuity of Care Document ---
Author Author [facility] t Organization [facility] Address [address] [place] [address] Phone Unavailable Care Team Providers Care Real Estate Branch Manager Name Role Phone MD MICHOACANO ARSHAD MD PCP EMIGDIO HOPE Attphys Unavailable Kraig Llamas MD Attphys [phone] Jass Elias MD Attphys Anne BRYAN Attphys Unavailable JOSETTE KELLEY Attphys Unavailable FRAN NEHEMCARMEN Attphys Unavailable MICHOACANO ARSHAD Attphys Unavailable Emiliano KILGORE Attphys Unavailable JOSETTE KELLEY Admmikala Unavailable Payers Payer Name Policy Type Policy Number Effective Date Expiration Date Agatha [facility] [id number] Contracted [id number] 2019 00:00:00 [facility] MEDICAID - MEDICAID FORMERLY [facility] STAR [id number] 2017- PresentMedicaid Contracted [id number] 2016 00:00:00 [facility] [id number] 2019 00:00 :00 [facility] Roberto Carlos Garcia [id number] 2010 00:00:00 [facility] Problems Condition Name Condition Details Condition Category Status Onset Date Resolution Date Last Treatment Date Treating Clinician Comments Source UTI (urinary tract infection) UTI (urinary tract infection) Disease Active 2020-08-15 00:00:00 [facility] COVID-19 COVID-19 Disease Active 2020-08-15 00:00:00 [facility] 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 Problem Active 2015-05-02 00:00:00 [facility] Multiple sclerosis Multiple sclerosis Problem Active 2015-05-02 00:00:0 0 [facility] Allergic reaction Allergic reaction Problem Active [facility] Atrophic urethritis Atrophic urethritis Problem Active [facility] Confusion Confusion Problem Active [facility] Presence of suprapubic catheter Suprapubic catheter Problem Active [facility] Obstruction of Torres catheter Complication, blocked Torres cathet er Problem Active [facility] Indwelling catheter present on admission Indwelling ca theter present on admission Problem Active [facility] Problem with Torres catheter Torres catheter problem Problem Active [facility] Abdominal pain Abdominal pain Problem Active [facility] Obstruction of suprapubic catheter Problem Active [facility] Pneumonia due to severe acute respiratory syndrome coronavir us 2 (SARS-CoV-2) Problem Active [facility] Fever Problem Active [facility] Allergies, Adverse Reactions, Alerts Allergy Name Allergy Type Status Severity Reaction(s) Onset Date Inacti ve Date Treating Clinician Comments Source ciprofloxacin DA Active 2020-08-10 00:00:00 [facility] adhesive tape DA Active SV 2020-08-10 00:00:00 [facility] ceftriaxone DA Active U 2020-08-10 00:00:00 [facility] meropenem DA Active U 2020-08-10 00:00:00 [facility] levofloxacin DA Active SV 2020-08-10 00:00:00 [facility] ciprofloxacin DA Active SV 2019-09-18 00:00:00 [facility] adhesive tape DA Active SV 2019-09-18 00:00:00 [facility] ceftriaxone DA Active U 2019-09-18 00:00:00 [facility] meropenem DA Active U 2019-09-18 00:00:00 [facility] levofloxacin DA Active SV 2019-09-18 00:00:00 [facility] ciprofloxacin DA Active SV 2019-07-22 00:00:00 [facility] adhesive tape DA Active SV 2019-07-22 00:00:00 [facility] ceftriaxone DA Active U 2019-07-22 00:00:00 [facility] meropenem DA Active U 2019-07-22 00:00:00 [facility] levofloxacin DA Active SV 2019-07-22 00:00:00 [facility] ciprofloxacin DA Active SV 2019-07-03 00:00:00 [facility] adhesive tape DA Active SV 2019-07-03 00:00:00 [facility] ceftriaxone DA Active U 2019-07-03 00:00:00 [facility] meropenem DA Active U 2019-07-03 00:00:00 [facility] levofloxacin DA Active SV 2019-07-03 00:00:00 [facility] ceftriaxone DA Active U 2019-04-15 00:00:00 [facility] meropenem DA Active U 2019-04-15 00:00:00 [facility] ciprofloxacin DA Active SV 2019-03-04 00:00:00 [facility] meropenem DA Active SV 2019-03-04 00:00:00 [facility] ceftriaxone DA Active MO 2019-01-18 00:00:00 [facility] levofloxacin DA Active U 2019-01-18 00:00:00 [facility] Ciprofloxacin Allergy to substance Active 2018-06-16 00:00: 00 [facility] Ceftriaxone Allergy to substance Active Severe hives, SOB, re dness 2018-06-16 00:00:00 [facility] Meropenem Allergy to substance Active 2018-06-16 00:00:00 [facility] Levofloxacin Allergy to substance Active Severe Rash, Hives, SOB 2018-06-16 00:00:00 [facility] Ceftriaxone Drug Allergy Active Severe 2018-06-16 00:00:00 Other reaction(s): hives, SOB, redness [facility] Meropenem Drug Allergy Active 2018-06-16 00:00:00 Other reaction(s): Meropenem [facility] TAPE Allergy to substance Active Moderate 2018-02-24 00:00:00 [facility] ciprofloxacin DA Active SV 2018-01-08 00:00:00 [facility] adhesive tape DA Active SV 2018-01-08 00:00:00 [facility] levofloxacin DA Active SV 2018-01-08 00:00:00 [facility] Adhesive Tape Drug Allergy Active Severe 2018-01-08 00:00:00 Other reaction(s): TAPE [facility] Ciprofloxacin Drug Allergy Active 2018-01-08 00:00:00 Other reaction(s): Ciprofloxacin [facility] levofloxacin DA Active U 2016-10-31 00:00:00 [facility] Levofloxacin Drug Allergy Active Severe 2016-10-31 00:00:00 Other reaction(s): Rash, Hives, SOB [facility] Family History Family Member Diagnosis Comments Start Date Stop Date Source 32 MOTHER Family history of malignant neoplasm of breast [facility] 32 MOTHER Family history of hypertension [facility] Social History Social Habit Start Date Stop Date Quantity Comments Source Sex Assigned At [facility] Tobacco use and exposure 2020-08-15 00:00:00 2020-08-15 00:00:00 Zofia gary [facility] Alcohol intake 2020-08-15 00:00:00 2020-08-15 00:00:00 Ex-drinker (fi nding) [facility] Smoking Status Start Date Stop Date Source Never smoker [facility] Medications Ordered Medication Name Filled Medication Name Start Date Stop Da te Current Medication? Ordering Clinician Indication Dosage Frequency Signature (SIG) Comments Components Source clonazePAM (KlonoPIN) 0.125 MG disintegrating tablet 2 15:21:38 Yes .5mg Take 0.5 mg by mouth every 12 (twelve) h ours. [facility] citalopram (CeleXA) 20 MG tablet 2020-08-15 15:21:38 Yes 20mg QD Take 20 mg by mouth daily. [facility] lubiprostone (AMITIZA) 24 MCG capsule 2020-08-15 15:21:38 Y es 24ug Q.5D Take 24 mcg by mouth 2 (two) times daily. [facility] oxybutynin (DITROPAN) 5 MG tablet 2020-08-15 15:21:38 Ye s 5mg Q.[id number] Take 5 mg by mouth 3 (three) times daily. [facility] tiZANidine (Zanaflex) 4 MG tablet 2020-08-15 15:21:38 Yes 4mg Q.5D Take 4 mg by mouth 2 (two) times daily. [facility] traMADoL (Ultram) 50 mg tablet 2020-08-15 15:21:38 Yes 50mg Take 50 mg by mouth every 6 (six) hours as needed. [facility] glatiramer 20 mg/mL Syrg 2020-08-15 15:21:38 Yes 20mg/mL Q.[id number] Inject 20 mg/mL subcutaneously 3 (three) times a week MON/WED/FRI. [facility] sulfamethoxazole-trimethoprim (BACTRIM DS) 800-160 mg per ta blet 2020-08-15 15:21:38 Yes 1{tbl} Q.5D Take 1 tablet by mouth 2 (two ) times daily. [facility] lubiprostone (AMITIZA) 24 MCG capsule 2020-08-15 10:17 :43 2020-08-15 00:00:00 No 24ug Q.5D Take 24 mcg by mouth 2 (two) times daily . [facility] clonazePAM (KlonoPIN) 0.5 MG tablet 2020-08-15 10:15:1 2 2020-08-15 00:00:00 No Every 12 Hours [facility] Polyethylene Glycol 3350 (Miralax) 17 Gm POWD.PACK Ronn yethylene Glycol 3350 (Miralax) 17 Gm POWD.PACK 2019-06-03 08:14:00 Yes 17 Daily [facility] Prednisone Prednisone 2019-06-03 08:14:00 Yes 20 Mely ly [facility] Ciprofloxacin Hcl (Cipro) 500 Mg TABLET Ciprofloxacin Hcl (C ipro) 500 Mg TABLET 2018-06-25 10:24:00 2019-06-03 00:00:00 No 500 Every 12 Hours [facility] Famotidine Famotidine 2018-05-23 08:14:00 Yes 20 Twice Daily Before Meals [facility] Sennosides/Docusate Sodium (Senna S Tablet) 1 Each TAB LET Sennosides/Docusate Sodium (Senna S Tablet) 1 Each TABLET 2018-05-23 08:14:00 Yes 1 Twice A Day [facility] Famotidine Famotidine 2018-02-27 09:07:00 2018-05-18 00:00:00 No 20 Twice Daily Before Meals [facility] Prednisone Prednisone 2018-02-27 09:07:00 2018-05-18 00:00:00 No 20 Daily [facility] Citalopram Hydrobromide (Citalopram Hbr) 20 Mg TABLET Citalopram Hydrobromide (Citalopram Hbr) 20 Mg TABLET Yes 20 Daily [facility] Clonazepam Clonazepam Yes .5 Every 12 Hours [facility] Glatiramer (Copolymer-1) (Copaxone) 20 Mg/Kit SYR Glat iramer (Copolymer-1) (Copaxone) 20 Mg/Kit SYR Yes 40 Three Times P er Week [facility] Lubiprostone (Amitiza) 24 Mcg CAPSULE Lubiprostone (Amitiza) 24 Mcg CAPSULE Yes 24 Twice A Day [facility] Oxybutynin Chloride Oxybutynin Chloride Yes 5 Three Times A Day [facility] Tizanidine Hcl Tizanidine Hcl Yes 4 Twice A Da y [facility] Tramadol Hcl (Ultram) 50 Mg TABLET Tramadol Hcl (Ultram) 50 Mg TABLET Yes 50 Every 6 Hours as needed for Pain [facility] Glatiramer (Copolymer-1) (Copaxone) 20 Mg/Kit SYR Glat iramer (Copolymer-1) (Copaxone) 20 Mg/Kit SYR 2018-05-18 00:00:00 No 20 Daily [facility] Lubiprostone (Amitiza) 24 Mcg CAPSULE Lubiprostone (Amitiza) 24 Mcg CAPSULE 2018-05-18 00:00:00 No 24 Twice A Day [facility] Multivitamins (Multivitamin) 1 Each CAPSULE Multivitam ins (Multivitamin) 1 Each CAPSULE 2018-05-18 00:00:00 No 1 Rt Daily [facility] Tizanidine Hcl Tizanidine Hcl 2018-05-18 00:00:00 No 2 Twice A Day [facility] Clonazepam Clonazepam 2017-09-18 00:00:00 No .5 Twi ce A Day [facility] Hydrocodone Bit/Acetaminophen (Cortez 10-325 Tablet) 1 Each TABLET Hydrocodone Bit/Acetaminophen (Cortez 10-325 Tablet) 1 Each TABLET 2017-09-18 00:00:00 No 10 Every 4 Hours as needed for Pain [facility] Cefuroxime Axetil (Ceftin) 500 Mg TABLET Cefuroxime Ax etil (Ceftin) 500 Mg TABLET 2014-09-05 00:00:00 No 500 Twice A Day [facility] Docusate Sodium (Colace) 100 Mg CAPSULE Docusate Sodium (Col aidee) 100 Mg CAPSULE 2014-09-05 00:00:00 No 100 Rt Daily [facility] Lactulose Lactulose 2014-09-05 00:00:00 No 30 Every 6 Hours for Constipation [facility] Oxybutynin Chloride Oxybutynin Chloride 2014-09-05 00:00:00 No 5 Twice A Day [facility] Clonazepam Clonazepam 2012-09-26 00:00:00 No Rt Bid [facility] Glatiramer (Copolymer-1) (Copaxone) 20 Mg KIT Glatiram er (Copolymer-1) (Copaxone) 20 Mg KIT 2012-09-26 00:00:00 No 20 Rt Daily [facility] Levofloxacin (Levaquin) 500 Mg TABLET Levofloxacin (Levaquin) 50 0 Mg TABLET 2012-09-26 00:00:00 No 500 Daily [facility] Tyanidine Tyanidine 2012-09-26 00:00:00 No Twice A Day [facility] Vital Signs Vital Name Observation Time Observation Value Comments Source Systolic blood pressure 2020-08-15 11:20:00 134 mm[Hg] [facility] Diastolic blood pressure 2020-08-15 11:20:00 76 mm[Hg] [facility] Heart rate 2020-08-15 11:20:00 79 /min [facility] Body temperature 2020-08-15 11:20:00 36.83 Korin [facility] Respiratory rate 2020-08-15 11:20:00 19 /min [facility] Oxygen saturation in Arterial blood by Pulse oximetry 2019-09 11:20:00 95 /min [facility] Body height 2020-08-15 02:52:00 170.2 cm [facility] Body weight 2020-08-15 02:52:00 77.9 kg [facility] BMI 2020-08-15 02:52:00 26.90 kg/m2 [facility] Oxygen saturation by Pulse oximetry 2020-08-15 00:27:00 97 /min [facility] Weight 2020-08-14 21:24:00 142 [lb_av] [facility] BMI (Body Mass Index) 2020-08-14 21:24:00 22.2 kg/m2 [facility] Body Temperature 2020-07-27 22:26:00 98.0 [degF] [facility] Heart Rate 2020-07-27 22:26:00 79 /min [facility] Respiratory rate 2020-07-27 22:26:00 17 /min [facility] BP Systolic 2020-07-27 22:26:00 132 mm[Hg] [facility] BP Diastolic 2020-07-27 22:26:00 87 mm[Hg] [facility] Oxygen saturation by Pulse oximetry 2020-07-27 21:30:00 100 /min [facility] Weight 2020-07-27 21:29:00 142 [lb_av] [facility] BMI (Body Mass Index) 2020-07-27 21:29:00 22.2 kg/m2 [facility] Procedures Procedure Date / Time Performed Performing Clinician [facility] e Computed tomography of brain without radiopaque contrast 2020-07 00:00:00 [facility] Plan of Care Planned Activity Planned Date Details Comments Source Future Scheduled Test 2020-05-19 00:00:00 INFLUENZA VACCINE (#1) [code = INFLUENZA VACCINE (#1)] [facility] Future Scheduled Test 2019-09-18 00:00:00 Medicare IPPE (WEL COME TO MEDICARE) [code = Medicare IPPE (WELCOME TO MEDICARE)] [facility] Future Scheduled Test 2012 00:00:00 Lipid panel (proce dure) [code = 73817692] [facility] Encounters Start Date/Time End Date/Time Encounter Type Admission Type Attendi RUST Care Department Encounter ID Source 2020-08-14 21:27:00 2020-08-15 01:59:00 Departed Emergency Room 1 IVETT BRYAN [facility] [id number] [facility] 2020-07-27 21:18:00 2020-07-27 22:30:00 Departed Emergency Room [facility] [id number] [facility] 2019-05-27 19:42:00 2019-06-03 11:07:00 Discharged Inpatient 1 JOSETTE KELLEY [facility] [id number] [facility] 2019-04-08 08:35:00 2019-04-08 08:35:00 Registered Clinic 3 AMALIA PETERS [facility] [id number] [facility] 2019-03-01 18:36:00 2019-03-01 21:00:00 Departed Emergency Room [facility] [id number] [facility] 2018-08-15 11:35:00 2018-08-22 20:00:00 Discharged Inpatient [facility] [id number] [facility] 2018-06-16 21:55:00 2018-06-25 13:07:00 Discharged Inpatient 1 JOSETTE KELLEY [facility] [id number] [facility] 2018-05-18 20:41:00 2018-05-23 15:25:00 Discharged Inpatient 1 JOSETTE KELLEY [facility] [id number] [facility] 2018-04-25 12:58:00 2018-04-25 12:58:00 Registered Clinic 3 MICHOACANO ARSHAD [facility] [id number] [facility] 2018-03-18 12:39:00 2018-03-18 17:22:00 Departed Emergency Room [facility] [id number] [facility] 2018-02-24 18:06:00 2018-02-27 13:30:00 Discharged Inpatient (obs) 1 KI KILGOREPH [facility] [id number] [facility] 2017-09-18 23:35:00 2017-09-22 19:07:00 Discharged Inpatient ER JOSETTE KELLEY [facility] [id number] [facility] Results Test Description Test Time Test Comments Results Result Comments Source CT ABDOMEN/PELVIS WO 2020-08-21 12:35:00 [facility] 1975 Sex: [place] [address] Patient Name: ARIK VELIZ MR #: [id number] : 1975 Age/Sex: 45/M Req #: [id number] [facility] Physician: Ordered by: EMIGDIO HOPE DO Report #: [id number] Location: ER Room/Bed: Procedure: [id number] CT/CT ABDOMEN/PELVIS WO Exam Date: 08/21/20 Exam Time: 1202 REPORT STATUS: Signed EXAM: CT ABDOMEN AND PELVIS WITHOUT CONTRAST CLINICAL INDICATION: Blocked catheter TECHNIQUE: CT abdomen and pelvis was performed, without IV contrast, as per department protocol. Axial, sagittal, and coronal reconstructions were obtained. IV CONTRAST: Not administered, limiting sensitivity of this exam for evaluation of solid visceral organs, vascular structures, and retroperitoneum. ORAL CONTRAST: Not administered, limiting sensitivity of this exam for evaluation of bowel, retroperitoneum, and intraabdominal fluid collections. RADIATION DOSE REDUCTION: This exam was performed according to the departmental dose-optimization program which includes automated exposure control, adjustment of the mA and/or kV according to patient size and/or use of iterative reconstruction technique. COMPARISON: None FINDINGS: The patient is unable to move his arm out of the field. This causes streak artifact in the upper abdomen and interferes with interpretation of the exam. LOWER CHEST: Scattered hazy groundglass opacities in the left lung base. LIVER: No pathologic process. GALLBLADDER: Unremarkable BILE DUCTS: No pathologic process. PANCREAS: No pathologic process. SPLEEN: No pathologic process. ADRENALS: No pathologic process. KIDNEYS AND URETERS: No pathologic process. URINARY BLADDER: A suprapubic catheter in place. The bladder is decompressed. This suggests that the catheter is functioning. GASTROINTESTINAL TRACT: No pathologic process. Significant gaseous distention of the sigmoid colon. Fecal matter in the rectum. APPENDIX: No inflammatory changes in region of appendix. LYMPH NODES: No lymphadenopathy. PERITONEUM/MESENTERY: No free air, significant free fluid, mass or fluid collection. VESSELS: No vascular abnormality. ADDITIONAL RETROPERITONEAL FINDINGS: None. REPRODUCTIVE ORGANS: No pathologic process. ABDOMINAL AND PELVIC ZUÑIGA: No pathologic process. MUSCULOSKELETAL: No pathologic process. ADDITIONAL FINDINGS: None. IMPRESSION: No significant abnormality in the abdomen and pelvis, evaluation limited by lack of IV contrast and artifact from the inability to move and out of the field. The suprapubic catheter is in place and with a decompressed bladder seems to be functioning.. Standardized Report: [id number]. Signed by: Lamberto Moore MD on 08/21/2020 12:42 PM Dictated By: LAMBERTO MOOER MD 124 Transcribed By: ZO on 08/21/20 124 COPY TO: EIMGDIO HOPE SINGLE (PORTABLE) 2020-08-21 12:25:00 [facility] : 1975 Sex: M [facility] [address] [address] Patient Name: ARIK VELIZ MR #: [id number] : 1975 Age/Sex: 45/M Req #: [id number] Adm Physician: Ordered by: EMIGDIO HOPE DO Report #: [id number] Location: ER Room/Bed: Procedure: [id number] DX/CHEST SINGLE (PORTABLE) Exam Date: 08/21/20 Exam Time: 1210 REPORT STATUS: Signed X-ray chest frontal view History: Covid positive Comparison: 08/14/2020 Findings: Lines and tubes: Not applicable Central airways: Unremarkable Cardiac silhouette: Unremarkable Great vessels: Unremarkable Mediastinal silhouettes: Unremarkable Pleura: No pleural effusion, pneumothorax or thickening Diaphragms: Unremarkable Lungs: The left lung is partially obscured by the patient's left hand. There is presence of discoid opacities in the left lung base. The previously seen opacification has improved. Skeletal structures: Unremarkable Extrathoracic soft tissues: Unremarkable Impression: Significant improvement in the appearance of the left lung infiltrate, at least in part because of a deeper inspiratory effort on this exam. Signed by: Lamberto Moore MD on 08/21/2020 12:28 PM Dictated By: LAMBERTO MOORE MD 27 Transcribed By: ZO on 08/21/201227 COPY TO: EMIGDIO HOPE DO CT BRAIN WO 2020-08-14 23:27:00 [facility] : 1975 Sex: [place] [address] Patient Name: ARIK VELIZ MR #: [id number] : 1975 Age/Sex: 45/M Req #: [id number] Adm Physician: Ordered by: IVETT BRYAN MD Report #: [id number] Location: Room/Bed: Procedure: [id number] CT/CT BRAIN WO Exam Date: 08/14/20 Exam Time: 2300 REPORT STATUS: Signed EXAMINATION: Head CT without contrast. HISTORY:Fever, altered mental status. COMPARISON:CT brain from 09/18/2017. TECHNIQUE: Multidetector axial images were obtained from the foramen magnum to the vertex without contrast. The images were reconstructed using brain and bone algorithms. Thin section brain images were reformatted into coronal and sagittal planes. Dose modulation, iterative reconstruction, and/or weight based adjustment of the mA/kV was utilized to reduce the radiation dose to as low as reasonably achievable. Intravenous contrast: None IMAGE QUALITY: Acceptable. FINDINGS: Skull/scalp: No lytic or blastic. lesions. No surgical changes. Parenchyma: No abnormal density. No acute hemorrhage, mass or acute major vascular territorial infarct. Arteries: No density suggestive of thrombosis. Dural sinuses: No abnormal density suggestive of thrombosis. Ventricles: Moderate dilatation of bilateral frontal horn and body of lateral ventricles. Mild dilatation of the third ventricle. Extra-axial spaces: No abnormal density. Brain volume: Moderate bilateral frontal cerebral volume loss, advanced for patient's given age. Craniocervical junction: No mass, Chiari malformation, or basilar invagination. Sella: No mass. Paranasal/mastoid sinuses: Mild mucosal thickening in bilateral ethmoid sinuses. IMPRESSION: 1. N o acute intracranial abnormality, particularly no acute hemorrhage, mass or acute major vascular territorial infarct. 2. Mild to moderate ventricular dilatation particularly involving the lateral and third ventricles disproportionate to the amount of volume loss may represent chronic communicating type hydrocephalus in appropriate clinical setting. 3. Moderate bifrontal cerebral volume loss. Signed by: Dr. Ranjan Ward M.D. on 08/14/2020 11:34 PM Dictated By: RANJAN WARD MD 33 Transcribed By: ZO on 08/14/202333 COPY TO: IVETT BRYAN MD Influenza virus A and B antigen identification by immu nofluorescence 2020-08-14 22:58:00 Test Item Influenza Virus Types A,B Antigen (test code = 35669-7) NEGATIVE NEGATIVE [facility] less than one hour [id number] 22:58:00* Test Item Value Reference Range Interpretation Comments Coronavirus (PCR) (test code = Coronavirus (PCR)) DETECTED NOTD ETECTED SARS-COV2/RT-PCR CEPHEIDResults are for the detection of SARS-COV-2 RNA. The KAL S-COV-2 RNA is generally detectable in nasopharyngeal swab specimens during the acute phase of infection. Positive results are indicitive of active infection wi th SARS-COV-2; clinical correlation with patient history and other diagnostic in formation is necessary to determine patient infection status. Positive results d o not rule out bacterial infection or co-infection with other viruses. The agent detected may not be the definite cause of the disease.The limit of detection for this assay is 250 copies/mLThe SARS-CoV-2 test is a rapid, real-time RT-PCR test intended for the qualitative detection of nucleic acid from SARS-CoV-2 in leobardo opharyngeal swab specimen collected from individuals suspected of COVID-19 by [facility] healthcare provider. This test has not been Food and Drug Administration (FD A) cleared or approved and has been authorized by FDA under an Emergency Use Aut horization (EUA). This EUA will be effective until the declaration that circumst ances exist justifying the authorization of the emergency use of in vitro diagno stic test for detection and or diagnosis of COVID-19 is terminated under section 564(b) of the Act, or the the EUA is revoked under 564(g) of the ACT.[facility] SINGLE (PORTABLE)2020-08-14 22:46:00 [facility] 1975 Sex: [place] [address] Patient Name: ARIK VELIZ MR #: [id number] : 1975 Age/Sex: 45/M Req #: [id number] Adm Physician: Ordered by: IVETT BRYAN MD Report #: [id number] Location: Room/Bed: Procedure: [id number] DX/CHEST SINGLE (PORTABLE) Ex am Date: 08/14/20 Exam Time: 2219 REPORT STATUS: Signed EXAMINATION: CHEST SINGLE (P ORTABLE) INDICATION: Y fever 20200814 Y COMPARISON: 05/27/2019 FINDINGS: AP view TUBES and LINES: Non e. LUNGS: Limited by body habitus and low lung volumes. Left lower lung f ield opacification. PLEURA: No pleural effusion or pneumothorax. HE ART AND MEDIASTINUM: The cardiomediastinal silhouette is enlarged, accentuate d by low lung volumes. BONES AND SOFT TISSUES: No acute osseous lesion . Soft tissues are unremarkable. UPPER ABDOMEN: No free air under the di aphragm. IMPRESSION: Limited as above. Left lower lung field opaci fication, concerning for pneumonia. Signed by: Dr. Jhonatan Carreon MD on 08/14/2020 10:49 PM Dictated By: JHONATAN CARREON MD 48 Transcribed By: ZO on 08/14/202248 COPY TO: IVETT BRYAN MD Urine color determination 2020-08-14 22:26:00* Test Item Value Reference Range Interpretation Comments Urine Color (test code = 5778-6) YELLOW [facility]LLOW [facility] [id number] 22:26:00* Test Item Value Reference Range Interpretation Comments Urine Clarity (test code = 81161-0) CLOUDY CLEAR [facility] Urine by Test strip 2020-08-14 22:26:00* Test Item Value Reference Range Interpretation Comments Urine Specific [place] (test code = 5811-5) 1.020 1.010-1.02 5 [facility] pH measurement by automated test [id number] 22:26:00* Test Item Value Reference Range Interpretation Comments Urine pH (test code = 03335-2) 8.5 5-7 [facility] leukocyte esterase detection by zedyqkku1173-73-93 22:26:00* Test Item Value Reference Range Interpretation Comments Urine Leukocyte Esterase (test code = 5799-2) MODERATE NEGATIVE [facility] nitrite hniyzbwbi9092-31-93 22:26:00* Test Item Value Reference Range Interpretation Comments Urine Nitrite (test code = 70497-4) POSITIVE NEGATIVE [facility] protein measurement by test strip (mass/volume)2020-08-14 22:26:00* Test Item Value Reference Range Interpretation Comments Urine Protein (test code = 5804-0) 2+ NEGATIVE [facility] glucose zukdrfblh1186-54-37 22:26:00* Test Item Value Reference Range Interpretation Comments Urine Glucose (UA) (test code = 2349-9) NEGATIVE NEGATIVE [facility] ketones detection by automated test jetgc3153-03-15 22:26:00* Test Item Value Reference Range Interpretation Comments Urine Ketones (test code = 14267-9) 1+ NEGATIVE [facility] urobilinogen measurement by test strip (mass/volume)2020-08-14 22:26:00* Test Item Value Reference Range Interpretation Comments Urine Urobilinogen (test code = 96857-6) 1 mg/dL 0.2-1 [facility] total bilirubin measurement (mass/volume)2020-08-14 22:26:00* Test Item Value Reference Range Interpretation Comments Urine Bilirubin (test code = 1978-6) NEGATIVE NEGATIVE [facility] erythrocytes bumureapd1345-79-92 22:26:00* Test Item Value Reference Range Interpretation Comments Urine Blood (test code = 90077-7) MODERATE NEGATIVE [facility] TylerAutom[facility] urine sediment leukocyte count by microscopy (number/high power field)2020-08-14 22:26:00* Test Item Value Reference Range Interpretation Comments Urine WBC (test code = 5821-4) 11-20 /[HPF] 0-5 [facility] TylerErythrocytes detection in urine sediment by light bjwsauneie2921-23-77 22:26:00* Test Item Value Reference Range Interpretation Comments Urine RBC (test code = 92664-9) 6-10 /[HPF] 0-5 [facility] TylerBacteria detection in urine sediment by light nzwhanulhr3224-21-72 22:26:00* Test Item Value Reference Range Interpretation Comments Urine Bacteria (test code = 93295-9) MODERATE /[HPF] NONE [facility] TylerEpithelial cells detection in urine sediment by light evplwtufrh1007-83-25 22:26:00* Test Item Value Reference Range Interpretation Comments Urine Epithelial Cells (test code = 93309-3) FEW /[LPF] NONE [facility] TylerAmorphous sediment detection in urine sediment by light vbxwumjbak8243-34-16 22:26:00* Test Item Value Reference Range Interpretation Comments Urine Amorphous Sediment (test code = 8246-1) FEW FEW [facility] TylerBacterial urine ixudlss3728-64-91 22:26:00* Test Item Value Reference Range Interpretation Comments Urine Culture (test code = 630-4) PROTEUS PENNERI [facility] TylerBlood leukocytes automated count (number/volume)2020-08-14 21:55:00* Test Item Value Reference Range Interpretation Comments White Blood Count (test code = 6690-2) 5.90 10*3/uL 4.8-10.8 [facility] TylerBlood erythrocytes automated count (number/volume)2020-08-14 21:55:00* Test Item Value Reference Range Interpretation Comments Red Blood Count (test code = 789-8) 5.14 10*6/mL 4.3-5.7 [facility] TylerBlood hemoglobin measurement (moles/volume)2020-08-14 21:55:00* Test Item Value Reference Range Interpretation Comments Hemoglobin (test code = 43056-9) 15.2 g/dL 14.0-18.0 [facility] TylerAutomated blood hematocrit (volume fraction)2020-08-14 21:55:00* Test Item Value Reference Range Interpretation Comments Hematocrit (test code = 4544-3) 44.7 % 38.2-49.6 [facility] TylerAutom[facility] erythrocyte mean corpuscular hyhkrt0723-90-92 21:55:00* Test Item Value Reference Range Interpretation Comments Mean Corpuscular Volume (test code = 787-2) 87.0 81-99 [facility] TylerAutom[facility] erythrocyte mean corpuscular hemoglobin (mass per erythrocyte)2020-08-14 21:55:00* Test Item Value Reference Range Interpretation Comments Mean Corpuscular Hemoglobin (test code = 785-6) 29.6 pg 28-32 [facility] TylerAutom[facility] erythrocyte mean corpuscular hemoglobin concentration measurement (mass/volume)2020-08-14 21:55:00* Test Item Value Reference Range Interpretation Comments Mean Corpuscular Hemoglobin Concent (test code = 786-4) 34.0 g/dL 31-35 [facility] TylerRDW YjnMs-Cvo5618-55-27 21:55:00* Test Item Value Reference Range Interpretation Comments Red Cell Distribution Width (test code = 79360-3) 12.2 % 11.7 -14.4 [facility] TylerAutom[facility] blood platelet count (count/volume)2020-08-14 21:55:00* Test Item Value Reference Range Interpretation Comments Platelet Count (test code = 777-3) 238 10*3/uL 140-360 [facility] TylerAutom[facility] blood segmented neutrophil count as percentage of total zmtormzswv1846-85-92 21:55:00* Test Item Value Reference Range Interpretation Comments Neutrophils (%) (Auto) (test code = 35125-3) 64.6 % 38.7-80.0 [facility] TylerAutom[facility] blood lymphocyte count as percentage ot total hsgmtlzcbc9792-64-51 21:55:00* Test Item Value Reference Range Interpretation Comments Lymphocytes (%) (Auto) (test code = 736-9) 26.3 % 18.0-39.1 [facility] TylerAutom[facility] blood monocyte count as percentage of total xbcjhihcyn7429-40-51 21:55:00* Test Item Value Reference Range Interpretation Comments Monocytes (%) (Auto) (test code = 5905-5) 8.5 % 4.4-11.3 [facility] TylerAutom[facility] blood eosinophil count as percentage of total hfnhwlerpp6446-47-14 21:55:00* Test Item Value Reference Range Interpretation Comments Eosinophils (%) (Auto) (test code = 713-8) 0.2 % 0.0-6.0 [facility] TylerAutom[facility] blood basophil count as percentage of total wbwhpndxmu6486-22-57 21:55:00* Test Item Value Reference Range Interpretation Comments Basophils (%) (Auto) (test code = 706-2) 0.2 % 0.0-1.0 [facility] TylerFluoroscopic procedure less than one hour rtpgzgsi7837-76-24 21:55:00* Test Item Value Reference Range Interpretation Comments IM GRANULOCYTES % (test code = IM GRANULOCYTES %) 0.2 % 0.0- 1.0 [facility] TylerAutom[facility] blood neutrophil count 2020-08-14 21:55:00* Test Item Value Reference Range Interpretation Comments Neutrophils # (Auto) (test code = 751-8) 3.8 2.1-6.9 [facility] TylerBlood lymphocytes count (number/volume) 2020-08-14 21:55:00* Test Item Value Reference Range Interpretation Comments Lymphocytes # (Auto) (test code = 99891-4) 1.6 1.0-3.2 [facility] monocytes automated count (number/volume)2020-08-14 21:55:00* Test Item Value Reference Range Interpretation Comments Monocytes # (Auto) (test code = 742-7) 0.5 0.2-0.8 [facility] TylerAutomated blood eosinophil count 2020-08-14 21:55:00* Test Item Value Reference Range Interpretation Comments Eosinophils # (Auto) (test code = 711-2) 0.0 0.0-0.4 [facility] TylerAutomated blood basophil count (count/volume)2020-08-14 21:55:00* Test Item Value Reference Range Interpretation Comments Basophils # (Auto) (test code = 704-7) 0.0 0.0-0.1 [facility] TylerFluoroscopic procedure less than one hour tccksgfc3311-23-82 21:55:00* Test Item Value Reference Range Interpretation Comments Absolute Immature Granulocyte (auto (sekou t code = Absolute Immature Granulocyte (auto) 0.01 10*3/uL 0-0.1 [facility] plasma sodium measurement (moles/volume)2020-08-14 21:55:00* Test Item Value Reference Range Interpretation Comments Sodium Level (test code = 2951-2) 141 mmol/L 136-145 [facility]ville[facility] or plasma potassium measurement (moles/volume)2020-08-14 21:55:00* Test Item Value Reference Range Interpretation Comments Potassium Level (test code = 2823-3) 4.2 mmol/L 3.5-5.1 [facility]ville[facility] or plasma chloride measurement (moles/volume)2020-08-14 21:55:00* Test Item Value Reference Range Interpretation Comments Chloride Level (test code = 2075-0) 106 mmol/L 98-107 [facility]ville[facility] or plasma carbon dioxide, total measurement (moles/volume)2020-08-14 21:55:00* Test Item Value Reference Range Interpretation Comments Carbon Dioxide Level (test code = 2028-9) 23 mmol/L 22-29 [facility]villeerum or plasma anion zkh9025-15-76 21:55:00* Test Item Value Reference Range Interpretation Comments Anion Gap (test code = 20956-1) 16.2 mmol/L 8-16 [facility]villeer[facility] or plasma urea nitrogen measurement (mass/volume)2020-08-14 21:55:00* Test Item Value Reference Range Interpretation Comments Blood Urea Nitrogen (test code = 3094-0) 15 mg/dL 7-26 [facility]ville[facility] or plasma creatinine measurement (mass/volume)2020-08-14 21:55:00* Test Item Value Reference Range Interpretation Comments Creatinine (test code = 2160-0) 0.74 mg/dL 0.72-1.25 [facility]ville[facility] or plasma urea nitrogen/creatinine mass zcidp6222-65-21 21:55:00* Test Item Value Reference Range Interpretation Comments BUN/Creatinine Ratio (test code = 3097-3) 20 6-25 [facility] TylerEstimated glomerular filtration rate (GFR) lyfjxafienrxg7712-32-98 21:55:00* Test Item Value Reference Range Interpretation Comments Estimat Glomerular Filtration Rate (test code = 896504587) > 60 mL/ min >60 Ranges were taken from the National Kidney Disease Education Program and the [facility] literature.Reference ranges:60 or greater: Lsewts32-49 ( for 3 consecutive months): Chronic kidney disease 15 or less: Kidney failureUT Health TylerGlucose mbffhdgorgv7619-73-84 21:55:00* Test Item Value Reference Range Interpretation Comments Glucose Level (test code = TJW8758) 105 mg/dL 74-118 [facility] or plasma calcium measurement (mass/volume)2020-08-14 21:55:00* Test Item Value Reference Range Interpretation Comments Calcium Level (test code = 05445-0) 8.2 mg/dL 8.4-10.2 [facility]ville[facility] or plasma total bilirubin measurement (mass/volume)2020-08-14 21:55:00* Test Item Value Reference Range Interpretation Comments Total Bilirubin (test code = 1975-2) 0.2 mg/dL 0.2-1.2 [facility] TylerFluoroscopic procedure less than one hour ztddyncr3936-44-68 21:55:00* Test Item Value Reference Range Interpretation Comments Aspartate Amino Transf (AST/SGOT) (test code = Aspartate Amino Transf (AST/SGOT)) 23 [IU]/L 5-34 [facility]ville[facility] or plasma alanine aminotransferase measurement (enzymatic activity/volume)2020-08-14 21:55:00* Test Item Value Reference Range Interpretation Comments Alanine Aminotransferase (ALT/SGPT) (test code = 1742-6) 24 [IU]/L 0-55 [facility] or plasma protein measurement (mass/volume)2020-08-14 21:55:00* Test Item Value Reference Range Interpretation Comments Total Protein (test code = 2885-2) 7.5 g/dL 6.5-8.1 [facility] or plasma albumin measurement (mass/volume)2020-08-14 21:55:00* Test Item Value Reference Range Interpretation Comments Albumin (test code = 1751-7) 3.7 g/dL 3.5-5.0 [facility] TylerPlasma globulin measurement (mass/volume) 2020-08-14 21:55:00* Test Item Value Reference Range Interpretation Comments Globulin (test code = 43963-0) 3.8 g/dL 2.3-3.5 [facility] or plasma albumin/globulin mass davok0418-63-93 21:55:00* Test Item Value Reference Range Interpretation Comments Albumin/Globulin Ratio (test code = 1759-0) 1.0 0.8-2.0 [facility] or plasma alkaline phosphatase measurement (enzymatic activity/volume)2020-08-14 21:55:00* Test Item Value Reference Range Interpretation Comments Alkaline Phosphatase (test code = 6768-6) 134 [IU]/L 40-150 [facility] TylerFluoroscopic procedure less than one hour rbkkzwmv1564-85-30 21:36:00* Test Item Value Reference Range Interpretation Comments Lactic Acid Level (test code = Lactic Acid Level) 0.6 mmol/L 0.5- 2.0 [facility] TylerBlood aaytkjv8164-63-06 21:36:00* Test Item Value Reference Range Interpretation Comments Blood Culture (test code = 36162400) NO GROWTH AFTER 48 HOURS [facility] TylerBASIC METABOLIC [id number] 17:04:00 * Test Item Value Reference Range Interpretation Comments SODIUM (test code = NA) 140 mmol/L 135-148 N POTASSIUM (test code = K) 4.6 mmol/L 3.5-5.1 N CHLORIDE (test code = CL) 102 mmol/L 101-109 N CARBON DIOXIDE (test code = CO2) 29.2 mmol/L 21-32 N ANION GAP (test code = GAP) 13 mmol/L 10-20 N GLUCOSE (test code = GLU) 90 mg/dL 74-106 N BLOOD UREA NITROGEN (test code = BUN) 18 mg/dL 3-21 N GLOMERULAR FILTRATION RATE (test code = GFR) > 60 mL/min >=60 Estimated GFR by using Modified MDRD formula.Chronic kidney disease is defined as either kidney damageor GFR <60 mL/min/1.73 m2 for >3 months. CREATININE (test code = CREAT) 0.65 mg/dL 0.55-1.3 N BUN/CREATININE RATIO (test code = BUN/CREA) 27.7 10-20 H CALCIUM (test code = CA) 8.7 mg/dL 8.4-10.2 N CBC W/AUTO [id number] 16:58:00* Test Item Value Reference Range Interpretation Comments WHITE BLOOD CELL (test code = WBC) 6.9 K/mm3 4.5-12.5 N RED BLOOD CELL (test code = RBC) 5.09 mill/mm3 4.0-5.8 N HEMOGLOBIN (test code = HGB) 15.2 gram/dL 13.0-17.5 N HEMATOCRIT (test code = HCT) 45.4 % 42.0-52.0 N MEAN CELL VOLUME (test code = MCV) 89.2 fL 80-98 N MEAN CELL HGB (test code = MCH) 29.9 picogram 27.0-33.0 N MEAN CELL HGB CONCETRATION (test code = MCHC) 33.5 gram/dL 33.0-36. 0 N RED CELL DISTRIBUTION WIDTH (test code = RDW) 12.0 % 11.6-16. 2 N RED CELL DISTRIBUTION WIDTH SD (test code = RDW-SD) 39.8 fL 37 .0-51.0 N PLATELET COUNT (test code = PLT) 245 K/mm3 150-450 N MEAN PLATELET VOLUME (test code = MPV) 10.4 fL 6.7-11.0 N NEUTROPHIL % (test code = NT%) 43.8 % 39.0-69.0 N LYMPHOCYTE % (test code = LY%) 35.1 % 25.0-55.0 N MONOCYTE % (test code = MO%) 20.1 % 0.0-10.0 H EOSINOPHIL % (test code = EO%) 0.3 % 0.0-5.0 N BASOPHIL % (test code = BA%) 0.4 % 0.0-1.0 N NEUTROPHIL # (test code = NT#) 3.04 K/mm3 1.8-7.7 N LYMPHOCYTE # (test code = LY#) 2.43 K/mm3 1.0-5.0 N MONOCYTE # (test code = MO#) 1.39 K/mm3 0-0.8 H EOSINOPHIL # (test code = EO#) 0.02 K/mm3 0.0-0.5 N BASOPHIL # (test code = BA#) 0.03 K/mm3 0.0-0.2 N MANUAL DIFF REQUIRED (test code = MDIFF) NO - CT ABD PELVIS W/O [id number] 16:12:00 [facility] ([facility])Name: ARIK VELIZ : 1975 Sex: M Name: MARICRUZ ARIK IRAHETA [facility] : 7 Age/S: 45 / M [address] [facility] Unit #: [id number] Loc: [place] [address] Phys: Blayne Hardy Acct: [id number] Dis Date: Status: PRE ER PHONE #: [phone] Exam Date: 08/10/2020 1558 FAX #: [phone] Re ason: TORRES CATHETER NOT DRAINING EXAMS: CPT CODE: [id number] CT ABD PELVIS W/O CONT 52472 HISTORY: Torres catheter not draining . COMPARISON: November 27, 2016. Location: [facility]. CT of abdomen and pelvis: Stone protocol. Automated exposure control. CT ABDOMEN: Lung bases demonstrating dependent changes on the left side. No effusion. Noncontrast liver is partiall y being obscured by beam hardening artifact from patient's overlying arms. No discrete mass or architectural distortion. Gallbladder is without radi opaque stones. The liver measured 18.4 cm in length. The spl een is not enlarged. The stomach distended incompletely however it is norm al in appearance. Noncontrast pancreas is within normal limits. Th e pancreatic tail is slightly obscured as it blends with the small bowel a nd difficult to assess. Right adrenal nodule measuring 2 cm with average [place] unit measurement of 37. This is new from previous exam statistic ally representing adenoma. No hydroureteronephrosis or calyc eal stones. No perinephric collections. No pathologic adenop athy. Unremarkable unopacified abdominal and pelvic vasculature. No bowel obstruction or colitis or diverticulitis or enteritis. Moder ate distention of the transverse colon with air. No inflammatory change. CT PELVIS: Appendix is not inflamed. Small appendicol ith proximally. Moderate distention of the large bowel with air especially the sigmoid colon measuring up to 8 cm in width. No inflammation. Small b owel loops are unremarkable. Decompressed urinary bladder wi th Torres catheter from a supraumbilical PAGE 1 Signed Report (CONTINUED) Name: ARIK VELIZ [facility] : 1975 Age/S: 45 / M [address] [facility] Unit #: [id number] Loc: [place] [phone] Phys: Blayne Hardy MD Acct: [id number] Dis Date: Status: PRE ER PHONE #: [phone] Exam Date: 08/10/2020 15 58 FAX #: [phone] Reason: TORRES CATHETER NOT DRAIN ING EXAMS: CPT CODE: [id number] CT ABD PELVIS W/O CONT 02396 <Continued> location. Small amount of air is noted. Prostate demonstrating coarse calcification and is not enlarged. No pelvic pathologic adenopathy. Subcutaneous tissues and the musculature are normal in appearance. No lytic or blastic lesions are noted within the bony skeleton. DJD. Osteopenia. IMPRESSION: Supraumbilical Torres catheter within a decompressed urinary bladder with small amount of air. Wall thickening likely from underdistention. Correlate with urinalysis. No hydroureteronephrosis or calyceal stones. Uninflamed appendix with small appendicolith proximally. No bowel obstruction. Moderate distention of transverse and sigmoid colon likely ileus. No colitis, diverticulitis or enteritis. No free fluid or free air. 2 cm right adrenal nodule is new from previous examination statistically representing adenoma Incidental Adrenal Mass (> 1cm) on CT or MR Imaging features are diagnostic: Myelolipoma or ca++ = benign, no f/u HU < 10 or signal dropout on chemical shift MR = adenoma.* Imaging features NOT diagnostic: 1-4 cm: Prior imaging: Stable > 1 year = benign* Enlarging = concerning for malignancy. Consider bx or resection No prior imaging, no history of cancer: Benign imaging features?: presume benign*. Consider 12 mo f/u CT or MR Suspicious imaging features: Unenhanced CT or chemical shift MR HU < 10 or signal dropout on CS-MR: adenoma HU >10 or no signal dropout on CS-MR ? adrenal washout CT (see below) PAGE 2 Signed Report (CONTINUED) Name: ARIK VELIZ [facility] : 1975 Age/S: 45 / M [address] [facility] Unit #: [id number] Loc: [place] [address] Phys: Blayne Hardy MD Acct: [id number] Dis Date: Status: PRE ER PHONE #: [phone] Exam Date: 08/10/2020 1558 FAX #: [phone] Reason: TORRES CATHETER NOT DRAINING EXAMS: CPT CODE: [id number] CT ABD PELVIS W/O CONT 64131 <Continued> No prior imaging, history of cancer: Consider PET, unenhanced CT or chemical shift MRI HU < 10 or signal dropout on CS-MR: adenoma HU >10 or no signal dropout on CS-MR ? adrenal washout CT (see below) ADRENAL WASHOUT CT ? No enhancement (< 10 HU) = cyst or hemorrhage. Benign, no f/u ? APW/RPW >60/40% = adenoma* ? APW/RPW <60/40% = indeterminate. Consider CS-MR is not done. Biopsy if appropriate >4cm: ? No history of cancer: consider resection ? History of cancer: consider PET or biopsy * Consider biochemical eval if pt has clinical signs or sx of adrenal hyperfxn. ? Benign imaging features = homogenous, low density, smooth margins Suspicious imaging features = heterogeneous, necrosis, irregular margins Consider biochemical testing to exclude pheochromocytoma Reference: Rk Rodríguez et al. Managing Incidental Findings on Abdominal CT: White Paper of the ACR Incidental Findings Committee. J Am Nicki Radiol 2010; 7: 754-773). at 1612 Reported and signed by: Joseph Shannon M.D. CC: Blayne Hardy MD; [place] [employer] Technologist:Jossie Condon CTDI: DLP: Trnscb Date/Time: 08/10/2020 (1611) t.SDR.TH4 Orig Print D/T: S: 08/10/2020 (0344) PAGE 3 Signed Report - CT HEAD/BRAIN W/O [id number] 21:57:00 [facility])Name: ARIK VELIZ : 1975 Sex: M Name: MARICRUZ IRAHETAARIK [facility] : 7 Age/S: 45 / M [address] [facility] Unit #: [id number] Loc: [place] [address] Phys: Blayne Hardy Acct: [id number] Dis Date: Status: REG ER PHONE #: [phone] Exam Date: 08/07/2020 215 FAX #: [phone] Re ason: mental status change EXAMS: CPT CODE: [id number] CT HEAD/BRAIN W/O CONT 47169 EXAM: CT of the head without contras t; INFORMATION: Mental status change; TECHNIQUE AND FINDINGS: CT dose reduction protocol; 2.5 mm axial scans; Ther e is no evidence of intra or extra-axial hemorrhage, mass lesions or midli ne shift. Similar to a study from May 08, 2018 there is mild periventri cular gliosis and there is moderate symmetric dilatation of the ventricles ; prominent sulci near the frontal lobes. The calvarium is intact. IMPRESSION: 1. No evidence of intracranial hemorrhage or acute territorial infarction. 2. No significant change compare d with a study from April 2018, showing mild chronic ischemic white mat ter changes and moderate atrophy. Location code: at 215 Reported and signed by: Waldo Reyes M.D. CC: Blayne Hardy MD; [place] Technologist:SHILOH MCCOLLUM RT(R),RDMS,CT CTD I: DLP: Trnscb Date/Time: 08/07/2020 (2156) t.MAGYR.GRW Orig Print D/T: S: 08/07/2020 (2199) PAGE 1 Signed Report COVID 19 INHOUSE [id number] 20:49:00* Test Item Value Reference Range Interpretation Comments COVID 19 INHOUSE AG (test code = [id number]) NEGATIVE BASIC METABOLIC [id number] 20:32:00* Test Item Value Reference Range Interpretation Comments SODIUM (test code = NA) 139 mmol/L 136-145 N POTASSIUM (test code = K) 3.9 mmol/L 3.5-5.1 N CHLORIDE (test code = CL) 102 mmol/L 101-109 N CARBON DIOXIDE (test code = CO2) 27.9 mmol/L 21-32 N ANION GAP (test code = GAP) 13 mmol/L 10-20 N GLUCOSE (test code = GLU) 101 mg/dL 74-106 N BLOOD UREA NITROGEN (test code = BUN) 11 mg/dL 3-21 N GLOMERULAR FILTRATION RATE (test code = GFR) > 60 mL/min >=60 Estimated GFR by using Modified MDRD formula.Chronic kidney disease is defined as either kidney damageor GFR <60 mL/min/1.73 m2 for >3 months. CREATININE (test code = CREAT) 0.80 mg/dL 0.55-1.3 N BUN/CREATININE RATIO (test code = BUN/CREA) 13.8 10-20 N CALCIUM (test code = CA) 8.8 mg/dL 8.4-10.2 N HEPATIC FUNCTION [id number] 20:32:00* Test Item Value Reference Range Interpretation Comments TOTAL PROTEIN (test code = PROT) 7.6 g/dL 6.5-8.4 N ALBUMIN (test code = ALB) 3.7 g/dL 3.4-4.8 N GLOBULIN (test code = GLOB) 3.9 G/DL 1-10 N ALBUMIN/GLOBULIN RATIO (test code = A/G) 0.95 RATIO 0.75-1.50 N BILIRUBIN TOTAL (test code = BILT) 0.20 mg/dL 0.0-1.0 N BILIRUBIN DIRECT (test code = BILD) 0.10 mg/dL 0.0-0.30 N SGOT/AST (test code = AST) 16 U/L 6-32 N SGPT/ALT (test code = ALT) 25 U/L 12-78 N N ote: Change in REFERENCE RANGE due to new reagent method. ALKALINE PHOSPHATASE TOTAL (test code = ALKP) 141 U/L 38-126 H [id number] 20:32:00* Test Item Value Reference Range Interpretation Comments TROPONIN-I (test code = TROPI) <0.015 ng/mL 0.00-0.056 N BASIC METABOLIC [id number] 20:25:00* Test Item Value Reference Range Interpretation Comments SODIUM (test code = NA) 139 mmol/L 136-145 N POTASSIUM (test code = K) 3.9 mmol/L 3.5-5.1 N CHLORIDE (test code = CL) 102 mmol/L 101-109 N CARBON DIOXIDE (test code = CO2) 27.9 mmol/L 21-32 N ANION GAP (test code = GAP) 13 mmol/L 10-20 N GLUCOSE (test code = GLU) 101 mg/dL 74-106 N BLOOD UREA NITROGEN (test code = BUN) 11 mg/dL 3-21 N GLOMERULAR FILTRATION RATE (test code = GFR) > 60 mL/min >=60 Estimated GFR by using Modified MDRD formula.Chronic kidney disease is defined as either kidney damageor GFR <60 mL/min/1.73 m2 for >3 months. CREATININE (test code = CREAT) 0.80 mg/dL 0.55-1.3 N BUN/CREATININE RATIO (test code = BUN/CREA) 13.8 10-20 N CALCIUM (test code = CA) 8.8 mg/dL 8.4-10.2 N HEPATIC FUNCTION [id number] 20:25:00* Test Item Value Reference Range Interpretation Comments TOTAL PROTEIN (test code = PROT) gram/dL 6.4-8.2 ALBUMIN (test code = ALB) g/dL 3.4-5.0 GLOBULIN (test code = GLOB) g/dL 2.7-4.2 ALBUMIN/GLOBULIN RATIO (test code = A/G) 0.75-1.50 BILIRUBIN TOTAL (test code = BILT) mg/dL 0.2-1.2 BILIRUBIN DIRECT (test code = BILD) mg/dL 0.0-0.20 SGOT/AST (test code = AST) IUnit/L 15-37 SGPT/ALT (test code = ALT) U/L 10-69 ALKALINE PHOSPHATASE TOTAL (test code = ALKP) IUnit/L 45-117 [id number]-[id number] 20:25:00* Test Item Value Reference Range Interpretation Comments TROPONIN-I (test code = TROPI) ng/mL 0-0.045 LACTIC [id number] 20:22:00* Test Item Value Reference Range Interpretation Comments LACTIC ACID (test code = LACT) 0.9 MMOL/L 0.4-1.9 N URINALYSIS [id number] 20:16:00* Test Item Value Reference Range Interpretation Comments [...] UA BLOOD DIPSTICK (test code = FAIZAN) 150 (3+) Flynn/uL NEGATIVE A UA PH DIPSTICK (test [...] A UA WBC (test code = WBCU) 6-10 per HPF 0-5 A UA RBC (test code = RBCU) 5-10 per HPF 0-5 A UA EPITHELIAL CELLS (test code = EPIU) Moderate (5-10/hpf) per HPF Few UA BACTERIA (test code = BACU) MANY per HPF NONE A UA TRIPLE PHOSPHATE CRYSTALS (test code = TRPHOSU) MANY per LPF NON E UA AMORPHOUS SEDIMENT (test code = AMORU) MODERATE per LPF NONE A Urine Source? Clean CatchCBC W/AUTO [id number] 20:08:00* Test Item Value Reference Range Interpretation Comments WHITE BLOOD CELL (test code = WBC) 8.9 K/mm3 4.5-12.5 N RED BLOOD CELL (test code = RBC) 4.85 mill/mm3 4.0-5.8 N HEMOGLOBIN (test code = HGB) 14.7 gram/dL 13.0-17.5 N HEMATOCRIT (test code = HCT) 44.1 % 42.0-52.0 N MEAN CELL VOLUME (test code = MCV) 90.9 fL 80-98 N MEAN CELL HGB (test code = MCH) 30.3 picogram 27.0-33.0 N MEAN CELL HGB CONCETRATION (test code = MCHC) 33.3 gram/dL 33.0-36. 0 N RED CELL DISTRIBUTION WIDTH (test code = RDW) 11.9 % 11.6-16. 2 N RED CELL DISTRIBUTION WIDTH SD (test code = RDW-SD) 40.4 fL 37 .0-51.0 N PLATELET COUNT (test code = PLT) 283 K/mm3 150-450 N MEAN PLATELET VOLUME (test code = MPV) 10.1 fL 6.7-11.0 N NEUTROPHIL % (test code = NT%) 73.1 % 39.0-69.0 H LYMPHOCYTE % (test code = LY%) 11.4 % 25.0-55.0 L MONOCYTE % (test code = MO%) 14.4 % 0.0-10.0 H EOSINOPHIL % (test code = EO%) 0.7 % 0.0-5.0 N BASOPHIL % (test code = BA%) 0.3 % 0.0-1.0 N NEUTROPHIL # (test code = NT#) 6.48 K/mm3 1.8-7.7 N LYMPHOCYTE # (test code = LY#) 1.01 K/mm3 1.0-5.0 N MONOCYTE # (test code = MO#) 1.28 K/mm3 0-0.8 H EOSINOPHIL # (test code = EO#) 0.06 K/mm3 0.0-0.5 N BASOPHIL # (test code = BA#) 0.03 K/mm3 0.0-0.2 N MANUAL DIFF REQUIRED (test code = MDIFF) NO - XR CHEST 1 [id number] 19:39:00 [facility] 1975 Sex: M Name: ARIK GONZALEZ [facility] : 7 Age/S:45 /M [address] [facility] Unit#:[id number] L oc: [place] [address] Phys: Blayne Hardy Dis Date: PHONE #: [phone] Status: PRE ER FAX #: [phone] Exam Date: 08/07/2020 Reason: CODE SEPSIS EXAMS: CPT CODE: [id number] XR CHEST 1 V 43053 EXAM: Chest x-ray, one view; INFO RMATION: Code sepsis; IMPRESSION: 1. Platelike atelectas is in the left lung base secondary to elevation of the diaphragm. 2. Otherwise, no significant change compared with a study from 2019; no pulmonary infiltrates; no effusions; no pneumothorax. 3. Unremarkable cardiac mediastinal silhouette. Location code: [facility] at 1939 Reported and signed by: Waldo Reyes M.D. CC: Blayne Rose MD; [place] Arshad Technologist: ANGELA MCCOLLUM RT(R),RDMS,CT Trnscrpt Data: 08/07/2020 (1938) t.MAGY HOOD Orig Print D/T: S: 08/07/2020 (1941) PAGE 1 Signed Report URINALYSIS [id number] 12:47:00* Test Item Value Reference Range Interpretation Comments [...] HPF NONE A Urine Source? Clean CatchURINALYSIS [id number] 12:39:00* Test Item Value Reference Range Interpretation [...] HPF NONE Urine Source? Clean CatchBASIC METABOLIC [id number] 13:38:00* Test Item Value Reference Range Interpretation [...] = CA) 8.9 mg/dL 8.4-10.2 N URINALYSIS [id number] 13:01:00* Test Item Value Reference Range Interpretation [...] HPF NONE A Urine Source? Clean CatchURINALYSIS [id number] 13:00:00* Test Item Value Reference Range Interpretation [...] Source? Clean Catch- XR ABDOMEN AP 1 [id number] 13:30:00 Name: ARIK VELIZ [facility] : 1975 Age/S:44 /M [address] [facility] Unit#:[id number] Loc: [place] [address] Phys: Zacarias Cook MD Dis Date: PHONE #: [phone] Status: REG ER FAX #: [phone] Exam Date: 02/04/2020 Re ason: suprapubic catheter placement EXAMS: CPT CODE: [id number] XR ABDOMEN AP 1 V 52016 HISTORY: Suprapubic catheter placeme nt. 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 [...] st: Adilia Patino RT(R)(CT) Trnscrpt Data: 2019 (1359) t.SDR.TH4 Orig Print D/T: S: 02/04/2020 (13 33) PAGE 1 Signed Report URINALYSIS [id number] 16:06:00* Test Item Value Reference Range Interpretation [...] Urine Source? Clean Catch- XR CHEST 1 [id number] 12:20:00 FAX: Mag Santillan DO [place]: St: [facility] FAX: [place] Weber MD [phone] Name: ARIK VELIZ [facility] : 1975 Age/S: 44/M [address] Unit #: [id number] Loc: [place] [address] Phys: Mag Santillan DO Acct: [id number] Dis Date: Status: REG ER PHONE #: [phone] Exam Date: 11/05/2019 1150 FAX #: [phone] Reason: CODE SEPSIS EXAMS: CPT CODE: [id number] XR CHEST 1 V 01169 REASON FOR EXAM: CODE SEPSIS Exam Order Da te: 11/05/2019 10:57 AM Ordering M.D.: Mag Santillan DO PROCEDURE: - XR CHEST 1 V COMPARISON: Chest x-ray April FINDINGS: The lungs are hypoinflated but clear. Th ere is no pleural effusion or pneumothorax. Pulmonary vascularity is withi n normal limits. Cardiomediastinal silhouette is normal in size fo r technique. The mediastinal contours are within normal limits. Musculoskeletal structures are within normal limits. The visua lized upper abdomen is within normal limits. IMPRESSION: No acute cardiopulmonary process. Location: [facility] at 1220 Reported and signed by: Andrae Knight MD CC: Artem Santillan DO; [place] Arshad Technologist: Isabel CONWAY(R) Trnscrd Date/Time/By: 11/05/2019 (1220) : By: celso [id number] Orig Print D/T: S: 11/05/2019 (3725) P AGE 3 Signed Report BASIC METABOLIC [id number] 12:17:00* Test Item Value Reference Range Interpretation [...] CA) 9.2 mg/dL 8.5-10.1 N HEPATIC FUNCTION [id number] 12:17:00* Test Item Value Reference Range Interpretation [...] reference range due to change in reagent. [id number] 12:17:00* Test Item Value Reference Range Interpretation Comments TROPONIN-I (test code = TROPI) <0.015 ng/mL 0-0.045 N LACTIC [id number] 12:17:00* Test Item Value Reference Range Interpretation Comments LACTIC ACID (test code = LACT) 1.2 mmol/L 0.4-1.9 N BASIC METABOLIC [id number] 12:04:00* Test Item Value Reference Range Interpretation [...] code = CA) mg/dL 8.5-10.1 HEPATIC FUNCTION [id number] 12:04:00* Test Item Value Reference Range Interpretation [...] TOTAL (test code = ALKP) IUnit/L 45-117 [id number] 12:04:00* Test Item Value Reference Range Interpretation Comments TROPONIN-I (test code = TROPI) ng/mL 0-0.045 CBC W/AUTO [id number] 12:00:00* Test Item Value Reference Range Interpretation [...] (test code = MDIFF) NO CBC W/AUTO [id number] 11:59:00* Test Item Value Reference Range Interpretation [...] # (test code = BA#) K/mm3 0.0-0.2 [id number] 12:18:00* Test Item Value Reference Range Interpretation Comments GLUBED (test code = GLUBED) 104 mg/dL 74-106 N Performed by certified operator automated process at [facility] COMPREHENSIVE METABOLIC [id number] 05:29:00* Test Item Value Reference Range Interpretation [...] due to change in reagent. COMPREHENSIVE METABOLIC [id number] 05:21:00* Test Item Value Reference Range Interpretation [...] code = ALKP) IUnit/L 45-117 CBC W/AUTO [id number] 05:05:00* Test Item Value Reference Range Interpretation [...] (test code = MDIFF) NO COMPREHENSIVE METABOLIC [id number] 05:45:00* Test Item Value Reference Range Interpretation [...] due to change in reagent. COMPREHENSIVE METABOLIC [id number] 05:40:00* Test Item Value Reference Range Interpretation [...] code = ALKP) IUnit/L 45-117 CBC W/AUTO [id number] 05:05:00* Test Item Value Reference Range Interpretation [...] = NRBC#) 0.00 K/mm3 0.0-0.1 N URINALYSIS [id number] 11:43:00* Test Item Value Reference Range Interpretation [...] OFBU) NONE NONE Urine Source? Clean CatchURINALYSIS [id number] 11:38:00* Test Item Value Reference Range Interpretation [...] NONE NONE Urine Source? Clean CatchBASIC METABOLIC [id number] 11:30:00* Test Item Value Reference Range Interpretation [...] CA) 9.1 mg/dL 8.5-10.1 N HEPATIC FUNCTION [id number] 11:30:00* Test Item Value Reference Range Interpretation [...] reference range due to change in reagent. [id number] 11:30:00* Test Item Value Reference Range Interpretation Comments LIPASE (test code = LIP) 92 U/L 73.0-393.0 N BASIC METABOLIC [id number] 11:23:00* Test Item Value Reference Range Interpretation [...] code = CA) mg/dL 8.5-10.1 HEPATIC FUNCTION [id number] 11:23:00* Test Item Value Reference Range Interpretation [...] TOTAL (test code = ALKP) IUnit/L 45-117 [id number] 11:23:00* Test Item Value Reference Range Interpretation Comments LIPASE (test code = LIP) U/L 73.0-393.0 CBC W/O [id number] 11:17:00* Test Item Value Reference Range Interpretation [...] MPV) 10.9 fL 6.7-11.0 N CBC W/O [id number] 11:11:00* Test Item Value Reference Range Interpretation [...] (test code = MPV) fL 6.7-11.0 URINALYSIS [id number] 15:39:00* Test Item Value Reference Range Interpretation [...] AMORU) MODERATE #/LPF Urine Source? CatheterCOMPREHENSIVE METABOLIC [id number] 05:59:00* Test Item Value Reference Range Interpretation [...] due to change in reagent. COMPREHENSIVE METABOLIC [id number] 05:44:00* Test Item Value Reference Range Interpretation [...] code = ALKP) IUnit/L 45-117 CBC W/AUTO [id number] 05:18:00* Test Item Value Reference Range Interpretation [...] NRBC#) 0.00 K/mm3 0.0-0.1 N CBC W/AUTO [id number] 05:17:00* Test Item Value Reference Range Interpretation [...] # (test code = BA#) K/mm3 0.0-0.2 [id number] 17:23:00* Test Item Value Reference Range Interpretation Comments GLUBED (test code = GLUBED) 99 mg/dL 74-106 N Performed by certified operator automated process at [facility] URINALYSIS [id number] 13:38:00* Test Item Value Reference Range Interpretation [...] NONE A Urine Source? Clean CatchBASIC METABOLIC [id number] 13:21:00* Test Item Value Reference Range Interpretation [...] CA) 9.3 mg/dL 8.5-10.1 N HEPATIC FUNCTION [id number] 13:21:00* Test Item Value Reference Range Interpretation [...] due to change in reagent. CBC W/AUTO [id number] 13:14:00* Test Item Value Reference Range Interpretation [...] NRBC#) 0.00 K/mm3 0.0-0.1 N BASIC METABOLIC [id number] 13:12:00* Test Item Value Reference Range Interpretation [...] code = CA) mg/dL 8.5-10.1 HEPATIC FUNCTION [id number] 13:12:00* Test Item Value Reference Range Interpretation [...] (test code = ALKP) IUnit/L 45-117 Sodium Tlxak6740-29-55 11:47:00* Test Item Value Reference Range Interpretation Comments Sodium Level (test code = 2951-2) 144 136-145 [facility] Qduum5790[facility] 11:47:00* Test Item Value Reference Range Interpretation Comments Potassium Level (test code = 2823-3) 3.9 3.5-5.1 [facility]loride Lgpug2095-76-80 11:47:00* Test Item Value Reference Range Interpretation Comments Chloride Level (test code = 2075-0) 108 98-107 H [facility] TylerCarbon Dioxide Kgblh6718-67-63 11:47:00* Test Item Value Reference Range Interpretation Comments Carbon Dioxide Level (test code = 2028-9) 27 22-29 [facility] TylerAnion [id number] 11:47:00* Test Item Value Reference Range Interpretation Comments Anion Gap (test code = 00619-0) 12.9 8-16 [facility] TylerBlood Urea Bpupcdjd2425-25-25 11:47:00* Test Item Value Reference Range Interpretation Comments Blood Urea Nitrogen (test code = 3094-0) 8 7-26 [facility] TylerCreatinine2019-09-15 11:47:00* Test Item Value Reference Range Interpretation Comments Creatinine (test code = 2160-0) 0.64 0.72-1.25 L [facility] TylerBUN/Creatinine Vjgap4241-43-73 11:47:00* Test Item Value Reference Range Interpretation Comments BUN/Creatinine Ratio (test code = 3097-3) 13 6- [facility] TylerEstimat Glomerular Filtration Rate 2019-06-02 11:47:00* Test Item Value Reference Range Interpretation Comments Estimat Glomerular Filtration Rate (test code = 525000730) > 60 >60 Ranges were taken from the National Kidney Disease Education Program and the [facility] Foundation literature.Reference ranges:60 or greater: Qecoyv65-65 ( for 3 consecutive months): Chronic kidney disease 15 or less: Kidney failureUT Health TylerGlucose Pdunh0230-62-96 11:47:00* Test Item Value Reference Range Interpretation Comments Glucose Level (test code = GMW2430) 162 74-118 H [facility] TylerCalcium Ytlvs7205-19-70 11:47:00* Test Item Value Reference Range Interpretation Comments Calcium Level (test code = 30778-3) 8.9 8.4-10.2 [facility] TylerWhite Blood Fxpyv9982-63-92 11:32:00* Test Item Value Reference Range Interpretation Comments White Blood Count (test code = 6690-2) 13.27 4.8-10.8 H [facility] TylerRed Blood Qcllv9112-49-05 11:32:00* Test Item Value Reference Range Interpretation Comments Red Blood Count (test code = 789-8) 4.69 4.3-5.7 [facility] TylerHemoglobin2019-09-15 11:32:00* Test Item Value Reference Range Interpretation Comments Hemoglobin (test code = 37552-7) 14.2 14.0-18.0 [facility] TylerHematocrit2019-09-15 11:32:00* Test Item Value Reference Range Interpretation Comments Hematocrit (test code = 4544-3) 41.6 38.2-49.6 [facility] TylerMean Corpuscular Ixyoll4351-11-24 11:32:00* Test Item Value Reference Range Interpretation Comments Mean Corpuscular Volume (test code = 787-2) 88.7 81-99 [facility] TylerMean Corpuscular Dkjkvcibbd9323-88-24 11:32:00* Test Item Value Reference Range Interpretation Comments Mean Corpuscular Hemoglobin (test code = 785-6) 30.3 28-32 [facility] TylerMean Corpuscular Hemoglobin Concent 2019-06-02 11:32:00* Test Item Value Reference Range Interpretation Comments Mean Corpuscular Hemoglobin Concent (test code = 786-4) 34.1 31-35 [facility] TylerRed Cell Distribution Omnmg8010-06-92 11:32:00* Test Item Value Reference Range Interpretation Comments Red Cell Distribution Width (test code = 05690-2) 12.7 11.7 -14.4 [facility] TylerPlatelet Xdalo0400-83-84 11:32:00* Test Item Value Reference Range Interpretation Comments Platelet Count (test code = 777-3) 333 140-360 [facility] TylerNeutrophils (%) (Auto)2019-06-02 11:32:00 * Test Item Value Reference Range Interpretation Comments Neutrophils (%) (Auto) (test code = 88418-0) 84.7 38.7-80.0 H [facility] TylerLymphocytes (%) (Auto)2019-06-02 11:32:00 * Test Item Value Reference Range Interpretation Comments Lymphocytes (%) (Auto) (test code = 736-9) 9.8 18.0-39.1 L [facility] TylerMonocytes (%) (Auto)2019-06-02 11:32:00* Test Item Value Reference Range Interpretation Comments Monocytes (%) (Auto) (test code = 5905-5) 4.9 4.4-11.3 [facility] TylerEosinophils (%) (Auto)2019-06-02 11:32:00 * Test Item Value Reference Range Interpretation Comments Eosinophils (%) (Auto) (test code = 713-8) 0.1 0.0-6.0 [facility] TylerBasophils (%) (Auto)2019-06-02 11:32:00* Test Item Value Reference Range Interpretation Comments Basophils (%) (Auto) (test code = 706-2) 0.2 0.0-1.0 [facility] TylerIM GRANULOCYTES %2019-06-02 11:32:00* Test Item Value Reference Range Interpretation Comments IM GRANULOCYTES % (test code = IM GRANULOCYTES %) 0.3 0.0- 1.0 [facility] TylerNeutrophils # (Auto)2019-06-02 11:32:00* Test Item Value Reference Range Interpretation Comments Neutrophils # (Auto) (test code = 751-8) 11.3 2.1-6.9 H [facility] TylerLymphocytes # (Auto)2019-06-02 11:32:00* Test Item Value Reference Range Interpretation Comments Lymphocytes # (Auto) (test code = 81823-3) 1.3 1.0-3.2 [facility] TylerMonocytes # (Auto)2019-06-02 11:32:00* Test Item Value Reference Range Interpretation Comments Monocytes # (Auto) (test code = 742-7) 0.7 0.2-0.8 [facility] TylerEosinophils # (Auto)2019-06-02 11:32:00* Test Item Value Reference Range Interpretation Comments Eosinophils # (Auto) (test code = 711-2) 0.0 0.0-0.4 [facility] TylerBasophils # (Auto)2019-06-02 11:32:00* Test Item Value Reference Range Interpretation Comments Basophils # (Auto) (test code = 704-7) 0.0 0.0-0.1 [facility] TylerAbsolute Immature Granulocyte (auto 2019-06-02 11:32:00* Test Item Value Reference Range Interpretation Comments Absolute Immature Granulocyte (auto (sekou t code = Absolute Immature Granulocyte (auto) 0.04 0-0.1 [facility] TylerBlood Kraldvr5914-40-82 17:51:00* Test Item Value Reference Range Interpretation Comments Blood Culture (test code = 46923546) NO GROWTH AFTER 5 DAYS, FINAL REPORT [facility] TylerThyroid Stimulating Hormone (TSH) 2019-05-31 08:37:00* Test Item Value Reference Range Interpretation Comments Thyroid Stimulating Hormone (TSH) (test code = 45117-9) 0.420 0.350-4.940 [facility] TylerABDOMEN 2 EPNS1996-19-19 07:57:00 [place] [address] Patient Name: ARIK VELIZ MR #: [id number] : 1975 Age/Sex: 44/M Req #: [id number] Adm Physician: JOSETTE KELLEY MD Ordered by: PAGE CHAVEZ MD Report #: [id number] Location: MED/SURG3 Room/Bed: [facility] Procedure: [id number] DX /ABDOMEN 2 VIEW Exam Date: 05/31/19 [...] 05/31/2019 7: 59 AM Dictated By: REFUGIO RUBIO DO 8 Transcribed By: ZO on 05/31/19758 CO PY TO: PAGE CHAVEZ MD Urine Ebkfknn5003-49-47 07:26:00* Test Item Value Reference Range Interpretation Comments Urine Culture (test code = 630-4) Organism: PSEUDOMONAS AERUGINOSA [facility] [address] (KU)2019-05-28 14:43:00 [place] [address] Patient Name: ARIK VELIZ MR #: [id number] : [birth year] Age/Sex: 44/M Req #: [id number] Adm Physician: JOSETTE KELLEY MD Ordered by: JOSETTE KELLEY MD Report #: [id number] Location: MED/SURG3 Room/Bed: [facility] Procedure: [id number] DX/AB IVETTE (KUB) Exam Date: 05/28/19 Exam Time: 141 0 [...] By: EMIGDIO PIMENTEL MD 45 COPY TO: JOSETTE KELLEY MD Urine [id number] 14:10:00* Test Item Value Reference Range Interpretation Comments Urine WBC (test code = 5821-4) 6-10 0-5 H [facility] TylerUrine ZEL1686-36-76 14:10:00* Test Item Value Reference Range Interpretation Comments Urine RBC (test code = 91625-4) 11-20 0-5 H [facility] TylerUrine Pmmxyjor3497-55-50 14:10:00* Test Item Value Reference Range Interpretation Comments Urine Bacteria (test code = 27477-9) MODERATE NONE H [facility] TylerUrine Epithelial Guafd2113-99-65 14:10:00 * Test Item Value Reference Range Interpretation Comments Urine Epithelial Cells (test code = 20542-0) NONE NONE [facility] TylerUrine Usnbn3528-01-00 13:49:00* Test Item Value Reference Range Interpretation Comments Urine Color (test code = 5778-6) YELLOW YELLOW [facility] TylerUrine Maemseg3389-58-53 13:49:00* Test Item Value Reference Range Interpretation Comments Urine Clarity (test code = 94588-5) CLOUDY CLEAR H [facility] TylerUrine Specific Zqdbcab7295-68-33 13:49:00 * Test Item Value Reference Range Interpretation Comments Urine Specific [place] (test code = 5811-5) >=1.030 1.010-1.02 5 [facility] TylerUrine cW9993-91-05 13:49:00* Test Item Value Reference Range Interpretation Comments Urine pH (test code = 84957-8) 6 5-7 [facility] TylerU[facility] Leukocyte Mhyfyfth8410-85-45 13:49:00* Test Item Value Reference Range Interpretation Comments Urine Leukocyte Esterase (test code = 29959-0) SMALL NEGATIV E [facility] TylerUrine Bfmbrsg8021-04-94 13:49:00* Test Item Value Reference Range Interpretation Comments Urine Nitrite (test code = 67982-2) POSITIVE NEGATIVE H [facility] TylerUrine Lillwyc3117-03-41 13:49:00* Test Item Value Reference Range Interpretation Comments Urine Protein (test code = 37847-2) 2+ NEGATIVE H [facility] TylerUrine Glucose (UA)2019-05-28 13:49:00* Test Item Value Reference Range Interpretation Comments Urine Glucose (UA) (test code = 48896-1) NEGATIVE NEGATIVE [facility] TylerU[facility] Nazqdwa4379-14-39 13:49:00* Test Item Value Reference Range Interpretation Comments Urine Ketones (test code = 72732-6) TRACE NEGATIVE H [facility] TylerU[facility] Npfiljlbjhqw0046-39-69 13:49:00* Test Item Value Reference Range Interpretation Comments Urine Urobilinogen (test code = 78191-9) 1 0.2-1 [facility] TylerU[facility] Opdbixnuu6067-53-32 13:49:00* Test Item Value Reference Range Interpretation Comments Urine Bilirubin (test code = 1976-8) NEGATIVE NEGATIVE [facility] TylerU[facility] Bsdit5021-02-85 13:49:00* Test Item Value Reference Range Interpretation Comments Urine Blood (test code = 53611-5) 3+ NEGATIVE [facility] TylerTotal Ibgnxjmfo2539-44-57 08:44:00* Test Item Value Reference Range Interpretation Comments Total Bilirubin (test code = 1974-2) 0.8 0.2-1.2 [facility] TylerAspartate Amino Transf (AST/SGOT) 2019-05-28 08:44:00* Test Item Value Reference Range Interpretation Comments Aspartate Amino Transf (AST/SGOT) (test code = Aspartate Amino Transf (AST/SGOT)) 16 5-34 [facility] TylerAlanine Aminotransferase (ALT/SGPT) 2019-05-28 08:44:00* Test Item Value Reference Range Interpretation Comments Alanine Aminotransferase (ALT/SGPT) (test code = 1742-6) 30 0-55 [facility] TylerTotal Gpqezcg5366-93-76 08:44:00* Test Item Value Reference Range Interpretation Comments Total Protein (test code = 2885-2) 6.9 6.5-8.1 [facility] TylerAlbumin2019-09-10 08:44:00* Test Item Value Reference Range Interpretation Comments Albumin (test code = 1751-7) 3.7 3.5-5.0 [facility] TylerGlobulin2019-09-10 08:44:00* Test Item Value Reference Range Interpretation Comments Globulin (test code = 07964-5) 3.2 2.3-3.5 [facility] TylerAlbumin/Globulin Sdoiw3561-79-40 08:44:00 * Test Item Value Reference Range Interpretation Comments Albumin/Globulin Ratio (test code = 1759-0) 1.2 0.8-2.0 [facility] TylerAlkaline Oqgrcyykfrz5655-07-80 08:44:00* Test Item Value Reference Range Interpretation Comments Alkaline Phosphatase (test code = 6768-6) 119 40-150 [facility] TylerCHEST SINGLE (PORTABLE)2019-05-27 18:25:00 [facility] [address] [place] [address] Patient Name: ARIK VELIZ MR #: [id number] : 1975 Age/Sex: 44/M Req #: [id number] Adm Physician: Ordered by: ROGELIO CARSON, MICKIE CARSON Report #: [id number] Location: ER Room/Bed: Procedure: [id number] DX/CHEST SINGLE (PORTABLE) Exam Date: 05/27/19 Exam Time: 1755 REPORT STATUS: Signed EXAMINATION: CHEST SINGLE (PORTABLE) INDICATION: ERMD ORDE R [id number] 1755 Y COMPARISON: CT abdomen and pelvis 05/27/2019 and chest radiograph 06/16/2018 FINDINGS: AP view TUBES and LI MARIA R: None. LUNGS: Lungs are well inflated. Mild bibasilar atelectasis. There is no evidence of pneumonia or pulmonary edema. PLEURA: No pleura l effusion or pneumothorax. HEART AND MEDIASTINUM: The cardiomediastinal s ilhouette is unremarkable.. BONES AND SOFT TISSUES: No acute osseous les ion. Soft tissues are unremarkable. UPPER ABDOMEN: No free air under the diaphragm. IMPRESSION: No acute thoracic abnormality. Stable m ild bibasilar atelectasis. Signed by: Dr. Jina Beavers M.D. on 05/27/2019 6:26 PM Dictated By: JINA BAEVERS MD Electronical ly Signed By: JINA BEAVERS MD on 05/27/191825 Transcribed By: ELIAN SCALES on 05/27/191825 COPY TO: MICKIE MERCADO CT ABDOMEN/PELVIS WO 2019-05-27 18:20:00 [place] [address] Patient Name: ARIK VELIZ MR #: [id number] : 1975 Age/Sex: 44/M Req #: [id number] Adm Physician: Ordered by: MICKIE MERCADO MD, MD Report #: [id number] Location: ER Room/Bed: Procedure: [id number] CT/CT ABDOMEN/PELVIS WO Exam Date: 05/27/19 Exam Ti me: 1755 REPORT STATUS: Signed E XAM: CT Abdomen and Pelvis WITHOUT contrast INDICATION: STONE DANIEL COL [id number] Y COMPARISON: Renal ultrasound 04/08/[address] [...] DOSE: Total DLP: 427 mGy*cm Estimated effective dose : (DLP x 0.015 x size factor) mSv COMPLICATIONS: None FINDING S: LINES and TUBES: Suprapubic catheter within the urinary bladder is seen in adequate position. LOWER THORAX: Unremarkable HEPATOBILIARY: No focal hepatic lesions. No biliary ductal dilation. GALLBLADDER: No ra jeremy-opaque stones or sludge. No wall thickening. SPLEEN: No splenomegaly. PANCREAS: No focal masses or ductal dilatation. ADRENALS: No adrena l nodules KIDNEYS/URETERS: No hydronephrosis. No cystic or [...] Transcribed By: ZO on 05/27/191824 COPY TO: IVON MERCADOY B-Type Natriuretic Peptide 2019-05-27 18:19:00* Test Item Value Reference Range Interpretation Comments B-Type Natriuretic Peptide (test code = 18178-0) < 10.0 0-100 [facility] Kinase [id number] 18:18:00* Test Item Value Reference Range Interpretation Comments Creatine Kinase MB (test code = 74467-8) 0.50 0-5.0 [facility] TylerTroponin [id number] 18:18:00* Test Item Value Reference Range Interpretation Comments Troponin I (test code = HPE5097) < 0.001 0-0.300 [facility] TylerMagnesium Tturv6503-39-14 18:17:00* Test Item Value Reference Range Interpretation Comments Magnesium Level (test code = 24096-2) 2.1 1.3-2.1 [facility] TylerCreatine Krxupx4497-11-33 18:17:00* Test Item Value Reference Range Interpretation Comments Creatine Kinase (test code = 2157-6) 35 30-200 [facility] TylerLipase2019-09-09 18:17:00* Test Item Value Reference Range Interpretation Comments Lipase (test code = 3040-3) 18 8-78 [facility] TylerL[facility] Acid Shgjm4210-70-51 18:04:00* Test Item Value Reference Range Interpretation Comments Lactic Acid Level (test code = Lactic Acid Level) 5.8 4.5- 19.8 [facility] TylerProthrombin Uieb3054-10-78 18:02:00* Test Item Value Reference Range Interpretation Comments Prothrombin Time (test code = 5902-2) 12.9 11.9-14.5 [facility] TylerProthromb Time International Ratio 2019-05-27 18:02:00* Test Item Value Reference Range Interpretation Comments Prothromb Time International Ratio (test code = 6301-6) 0.92 Oral Anticoagulant Therapy INR Values:1. Low Intensity Therapy 1.5 - 2.02 . Moderate Intensity Therapy 2.0 - 3.03. High Intensity Therapy(1) 2.5 - 3. 54. High Intensity Therapy(2) 3.0 - 4.05. Panic Value INR > 5.0 [facility] TylerAct[facility] Partial Thromboplast Time 2019-05-27 18:02:00* Test Item Value Reference Range Interpretation Comments Activated Partial Thromboplast Time (test code = 53719-6) 32.9 23.8-35.5 [facility] TylerPROCALCITONIN (PCT)2019-05-13 01:33:00* Test Item Value Reference Range [...] into account the patients history. CBC W/AUTO [id number] 01:26:00* Test Item Value Reference Range Interpretation [...] (test code = MDIFF) NO CBC W/AUTO [id number] 01:24:00* Test Item Value Reference Range Interpretation [...] code = BA#) K/mm3 0.0-0.2 BASIC METABOLIC [id number] 00:38:00* Test Item Value Reference Range Interpretation [...] code = CA) 9.2 mg/dL 8.5-10.1 N [id number]-R7439-43-26 00:38:00* Test Item Value Reference Range Interpretation Comments TROPONIN-I (test code = TROPI) <0.015 ng/mL 0-0.045 N BASIC METABOLIC BKLCO9999-00-87 00:34:00* Test Item Value Reference Range Interpretation [...] CALCIUM (test code = CA) mg/dL 8.5-10.1 [id number]-I2985-97-26 00:34:00* Test Item Value Reference Range Interpretation Comments TROPONIN-I (test code = TROPI) ng/mL 0-0.045 LACTIC OYQO3275-95-04 00:34:00* Test Item Value Reference Range Interpretation Comments LACTIC ACID (test code = LACT) 0.8 mmol/L 0.4-1.9 N SPECIMEN COMMENTS: repeat if >2 repeat in 3 hours.- XR CHEST 1 [id number] 00:33:00 FAX: Michoacano Weber MD [phone] [place]: St: REG FAX: Aly Amaral MD Name: ARIK VELIZ [facility] : 1975 Age/S: 44/M [address] [facility] Unit #: [id number] Loc: [place] [address] Phys: Aly Amaral MD Acct: [id number] Dis Date: Status: REG ER PHONE #: [phone] Exam Date: 05/13/2019 0017 FAX #: [phone] Reason: CODE SEPSIS EXAMS: CPT CODE: [id number] XR CHEST 1 V 58889 EXAM: - XR CHEST 1 V HISTORY: [...] Other findings as mentioned above. at 0033 Rep orted and signed by: Marcello Davis MD CC: [place]oacano Arshad; Aly Almodovar MD Technologist: Ok Mustafa RT(R) Trnscrd Date/Time/By: 05/13/2019 (0033) : By: TerryMK M4 Orig Print D/T: S: 05/13/2019 (0037) PAGE 1 Signed Report US RENAL RETROPERITONEAL [id number] 10:14:00 [place] [address] Patient Name: ARIK VELIZ MR #: [id number] : 1975 Age/Sex: 44/M Req #: [id number] Adm Physician: Ordered by: AMALIA PETERS MD Report #: [id number] Location: US Room/Bed: Procedure: [id number] US /US RENAL RETROPERITONEAL COMP Exam Date: [...] None Cyst/Mass: None Bladder: Decompressed bladder with Torres ca theter. IMPRESSION: 1.2 x 1.0 x 1.1 cm cystic lesion at the upper pole of the right kidney with thin internal septations and minimal internal vasculari ty. Recommend follow-up on subsequent imaging. Signed by: Perlita Eaton MD on 04/08/2019 10:17 AM Dictated By: PERLITA EATON MD 1017 Transcribed By: ZO on 04/08/19 1017 COPY TO: AMALIA PETERS MD URINALYSIS [id number] 17:03:00* Test Item Value Reference Range Interpretation [...] FEW per LPF NONE A URINALYSIS W/O [id number] 17:03:00* Test Item Value Reference Range Interpretation Comments UA LEUKOCYTE ESTERASE W REFLEX (test code = LEUUR) 500 Sahil/uL (3+) NEGATIVE A URINALYSIS [id number] 16:56:00* Test Item Value Reference Range Interpretation [...] = BACU) per HPF NONE URINALYSIS W/O [id number] 16:56:00* Test Item Value Reference Range Interpretation Comments UA LEUKOCYTE ESTERASE W REFLEX (test code = LEUUR) 500 Sahil/uL (3+) NEGATIVE A URINALYSIS [id number] 16:56:00* Test Item Value Reference Range Interpretation [...] = BACU) per HPF NONE URINALYSIS W/O [id number] 16:56:00* Test Item Value Reference Range Interpretation Comments UA LEUKOCYTE ESTERASE W REFLEX (test code = LEUUR) 500 Sahil/uL (3+) NEGATIVE A COMPREHENSIVE METABOLIC [id number] 12:05:00* Test Item Value Reference Range Interpretation [...] = ALKP) 121 U/L 38-126 N LACTIC [id number] 12:05:00* Test Item Value Reference Range Interpretation Comments LACTIC ACID (test code = LACT) 0.6 MMOL/L 0.4-1.9 N CBC W/AUTO [id number] 11:44:00* Test Item Value Reference Range Interpretation [...] REQUIRED (test code = MDIFF) NO URINALYSIS [id number] 11:35:00* Test Item Value Reference Range Interpretation [...] LPF NONE A Urine Source? Clean CatchURINALYSIS [id number] 11:19:00* Test Item Value Reference Range Interpretation [...] per HPF NONE Urine Source? Clean CatchUrine Iyenfzz1710-65-76 08:16:00* Test Item Value Reference Range Interpretation Comments Urine Culture (test code = 630-4) Organism: PROTEUS MIRABILIS [facility] [id number] 19:35:00* Test Item Value Reference Range Interpretation Comments Urine WBC (test code = 5821-4) 11-20 0-5 H [facility] Tyler[facility] [id number] 19:35:00* Test Item Value Reference Range Interpretation Comments Urine RBC (test code = 89651-6) 6-10 0-5 H [facility] Tyler[facility] Czacevrr2758-24-38 19:35:00* Test Item Value Reference Range Interpretation Comments Urine Bacteria (test code = 58244-4) MANY NONE H [facility] Tyler[facility] Epithelial Rewue6743-64-78 19:35:00 * Test Item Value Reference Range Interpretation Comments Urine Epithelial Cells (test code = 97171-6) NONE NONE [facility] Zjgdc0627-47-31 19:29:00* Test Item Value Reference Range Interpretation Comments Urine Color (test code = 5778-6) YELLOW YELLOW [facility] Niizzxy7112-00-09 19:29:00* Test Item Value Reference Range Interpretation Comments Urine Clarity (test code = 09248-5) SL CLOUDY CLEAR H [facility] TylerU[facility] Specific Fwxeomy3551-73-66 19:29:00 * Test Item Value Reference Range Interpretation Comments Urine Specific [place] (test code = 5811-5) <=1.005 1.010-1.02 5 [facility] [id number] 19:29:00* Test Item Value Reference Range Interpretation Comments Urine pH (test code = 12902-0) 9 5-7 [facility] Leukocyte Iwrpyrgu6647-92-07 19:29:00* Test Item Value Reference Range Interpretation Comments Urine Leukocyte Esterase (test code = 30075-3) LARGE NEGATIV E [facility] Yfopuri0937-19-36 19:29:00* Test Item Value Reference Range Interpretation Comments Urine Nitrite (test code = 53429-8) POSITIVE NEGATIVE H [facility] Tyler[facility] Pdnxrdh5383-88-73 19:29:00* Test Item Value Reference Range Interpretation Comments Urine Protein (test code = 32468-9) 2+ NEGATIVE H [facility] Glucose (UA)2019-03-01 19:29:00* Test Item Value Reference Range Interpretation Comments Urine Glucose (UA) (test code = 22089-5) NEGATIVE NEGATIVE [facility] Gqrwvuq1552-85-13 19:29:00* Test Item Value Reference Range Interpretation Comments Urine Ketones (test code = 82530-9) TRACE NEGATIVE H [facility] Dxhnhigpswff6871-55-07 19:29:00* Test Item Value Reference Range Interpretation Comments Urine Urobilinogen (test code = 60053-1) 2 0.2-1 [facility] Ynyjcerfs5865-63-89 19:29:00* Test Item Value Reference Range Interpretation Comments Urine Bilirubin (test code = 1977-8) SMALL NEGATIVE [facility] Lmzct1892-71-18 19:29:00* Test Item Value Reference Range Interpretation Comments Urine Blood (test code = 81487-0) 1+ NEGATIVE [facility] PELVIS W/BDPD4003-21-72 14:33:00 Name: ARIK VELIZ [facility] : 1975 Age/S: 43 / M [address] Unit #: [id number] Loc: [place] [address] Phys: Marco Dutta DO Acct: [id number] Di s Date: Status: REG ER PHONE #: Exam Date: 01/18/2019 1351 FAX #: [phone] Reason: LUQ pain EXAMS: CPT CODE: [id number] CT ABD PELVIS W/CONT 54450 HISTORY: Left upper quadr ant pain. COMPARISON: [...] Unremarkable adrenals. Kidneys are free from hydroureteronephrosis. Homogeneou s enhancement. Bilateral excretion is noted. Subcentimeter low-attenuation lesion in the right kidney is too small to characterize at 7.7 mm. Follow -up. Widely patent abdominal and pelvic vasculature. No pathologic adenopathy. No bowel obstruction or colitis or diverticulit is or enteritis. Constipation. CT PELVIS: Appe ndix is normal. Pelvic bowel loops are unobstructed. Constipation with fec al impaction in the rectosigmoid colon. Suprapubic catheter within collapsed urinary bladder with calcifications within the dependent portio n of the urinary bladder. No pelvic pathologic adenopathy. No free fluid o r free air or abscess. The subcutaneous tissues and the musculatur e are normal in appearance. No lytic or blastic lesions are noted within t he bony skeleton. DJD. IMPRESSION: PAGE 1 Signed Report (CONTINUED) Name: ARIK VELIZ [facility] : 1975 Age/S: 43 / M [address] Unit #: [id number] Loc: [place] [address] Phys: Marco Dutta DO Acct: [id number] Dis Date: Status: REG ER PHONE #: [phone] Exam Date: 11/2018 1351 FAX #: [phone] Reason: LUQ pain EXAMS: CPT CODE: [id number] CT ABD PELVIS W/CONT 65289 <Continued> Suprapubic catheter within collapsed urinary bladder [...] Shannon M.D. CC: Marco Dutta DO Technologist:BETSY MATOS RT(R); Karin Looney CTDI: DLP: Trnscb Date/Time: 01/18/2019 (1433) [email or web address] Orig Print D/T: S: 01/18/2019 (1436) CTDI: DLP: PAGE 2 Signed Report BASIC METABOLIC [id number] 12:46:00* Test Item Value Reference Range Interpretation [...] CA) 9.3 mg/dL 8.5-10.1 N HEPATIC FUNCTION [id number] 12:46:00* Test Item Value Reference Range Interpretation [...] reference range due to change in reagent. [id number] 12:46:00* Test Item Value Reference Range Interpretation Comments LIPASE (test code = LIP) 75 U/L 73.0-393.0 N URINALYSIS [id number] 12:39:00* Test Item Value Reference Range Interpretation [...] #/HPF NONE A Urine Source? Clean CatchURINALYSIS GNFZGBNK0292-98-94 12:38:00* Test Item Value Reference Range Interpretation [...] HPF NONE Urine Source? Clean CatchBASIC METABOLIC [id number] 12:37:00* Test Item Value Reference Range Interpretation [...] code = CA) mg/dL 8.5-10.1 HEPATIC FUNCTION LSHPS8942-06-30 12:37:00* Test Item Value Reference Range Interpretation [...] TOTAL (test code = ALKP) IUnit/L 45-117 [id number] 12:37:00* Test Item Value Reference Range Interpretation Comments LIPASE (test code = LIP) U/L 73.0-393.0 CBC W/O [id number] 12:35:00* Test Item Value Reference Range Interpretation [...] MPV) 11.0 fL 6.7-11.0 N CBC W/O [id number] 12:24:00* Test Item Value Reference Range Interpretation [...] (test code = MPV) fL 6.7-11.0 Sodium Khtok7204-27-06 06:35:00* Test Item Value Reference Range Interpretation Comments Sodium Level (test code = 2951-2) 142 136-145 [facility] Dqeok5234-87-47 06:35:00* Test Item Value Reference Range Interpretation Comments Potassium Level (test code = 2823-3) 3.5 3.5-5.1 [facility] TylerChloride Wexjw3424-89-95 06:35:00* Test Item Value Reference Range Interpretation Comments Chloride Level (test code = 2075-0) 111 98-107 H [facility] TylerCarbon Dioxide Nagnv5957-59-54 06:35:00* Test Item Value Reference Range Interpretation Comments Carbon Dioxide Level (test code = 2028-9) 25 22-29 [facility] TylerAnion Egt8031-83-39 06:35:00* Test Item Value Reference Range Interpretation Comments Anion Gap (test code = 49448-6) 9.5 8-16 [facility] TylerBlood Urea Prksqkbw8203-85-61 06:35:00* Test Item Value Reference Range Interpretation Comments Blood Urea Nitrogen (test code = 3094-0) 7 7-26 [facility] TylerCreatinine2018-12-04 06:35:00* Test Item Value Reference Range Interpretation Comments Creatinine (test code = 2160-0) 0.61 0.72-1.25 L [facility] TylerBUN/Creatinine Vdpyl3471-70-17 06:35:00* Test Item Value Reference Range Interpretation Comments BUN/Creatinine Ratio (test code = 3097-3) 11 - [facility] TylerEstimat Glomerular Filtration Rate 2018-08-21 06:35:00* Test Item Value Reference Range Interpretation Comments Estimat Glomerular Filtration Rate (test code = 633697468) > 60 >60 Ranges were taken from the National Kidney Disease Education Program and the [facility] Kidney Foundation literature.Reference ranges:60 or greater: Qyynqv04-00 ( for 3 consecutive months): Chronic kidney disease 15 or less: Kidney failureUT Health TylerGlucose Byziw1123-99-91 06:35:00* Test Item Value Reference Range Interpretation Comments Glucose Level (test code = MUP2581) 104 74-118 [facility] TylerCalcium Xtmva5000-82-47 06:35:00* Test Item Value Reference Range Interpretation Comments Calcium Level (test code = 60911-1) 8.7 8.4-10.2 [facility] Xxegv2027-43-84 06:35:00* Test Item Value Reference Range Interpretation Comments Sodium Level (test code = 2951-2) 142 136-145 [facility] TylerPotassium Hzsde5294-10-10 06:35:00* Test Item Value Reference Range Interpretation Comments Potassium Level (test code = 2823-3) 3.5 3.5-5.1 [facility] TylerChloride Mekja6779-96-99 06:35:00* Test Item Value Reference Range Interpretation Comments Chloride Level (test code = 2075-0) 111 98-107 H [facility] TylerCarbon Dioxide Lsybt6895-56-07 06:35:00* Test Item Value Reference Range Interpretation Comments Carbon Dioxide Level (test code = 2028-9) 25 22-29 [facility] TylerAnion Uwi4039-51-06 06:35:00* Test Item Value Reference Range Interpretation Comments Anion Gap (test code = 82628-3) 9.5 8-16 [facility] TylerBlood Urea Pymyxwxr9888-27-92 06:35:00* Test Item Value Reference Range Interpretation Comments Blood Urea Nitrogen (test code = 3094-0) 7 7-26 [facility] TylerCreatinine2018-12-04 06:35:00* Test Item Value Reference Range Interpretation Comments Creatinine (test code = 2160-0) 0.61 0.72-1.25 L [facility] TylerBUN/Creatinine Aylqw3256-15-52 06:35:00* Test Item Value Reference Range Interpretation Comments BUN/Creatinine Ratio (test code = 3097-3) 11 6- [facility] TylerEstimat Glomerular Filtration Rate 2018-08-21 06:35:00* Test Item Value Reference Range Interpretation Comments Estimat Glomerular Filtration Rate (test code = 127478096) > 60 >60 Ranges were taken from the National Kidney Disease Education Program and the [facility] Kid[facility] Foundation literature.Reference ranges:60 or greater: Kjwfdy84-88 ( for 3 consecutive months): Chronic kidney disease 15 or less: Kidney failureUT Health TylerGlucose Fyusp5145-69-03 06:35:00* Test Item Value Reference Range Interpretation Comments Glucose Level (test code = FMD1753) 104 74-118 [facility] TylerCalcium Ymgvh8102-92-49 06:35:00* Test Item Value Reference Range Interpretation Comments Calcium Level (test code = 31080-8) 8.7 8.4-10.2 [facility] TylerWhite Blood Fslpl6314-33-63 06:34:00* Test Item Value Reference Range Interpretation Comments White Blood Count (test code = 6690-2) 8.46 4.8-10.8 [facility] TylerRed Blood Fgmgz3228-57-98 06:34:00* Test Item Value Reference Range Interpretation Comments Red Blood Count (test code = 789-8) 4.37 4.3-5.7 [facility] TylerHemoglobin2018-12-04 06:34:00* Test Item Value Reference Range Interpretation Comments Hemoglobin (test code = 13710-0) 12.4 14.0-18.0 L [facility] TylerHematocrit2018-12-04 06:34:00* Test Item Value Reference Range Interpretation Comments Hematocrit (test code = 4544-3) 37.4 38.2-49.6 L [facility] TylerMean Corpuscular Prgzjz4328-38-79 06:34:00* Test Item Value Reference Range Interpretation Comments Mean Corpuscular Volume (test code = 787-2) 85.6 81-99 [facility] TylerMean Corpuscular Kjmehbkqeo2145-64-66 06:34:00* Test Item Value Reference Range Interpretation Comments Mean Corpuscular Hemoglobin (test code = 785-6) 28.4 28-32 [facility] Corpuscular Hemoglobin Concent 2018-08-21 06:34:00* Test Item Value Reference Range Interpretation Comments Mean Corpuscular Hemoglobin Concent (test code = 786-4) 33.2 31-35 [facility] TylerRed Cell Distribution Wojin1948-30-32 06:34:00* Test Item Value Reference Range Interpretation Comments Red Cell Distribution Width (test code = 06673-2) 13.9 11.7 -14.4 [facility] TylerPlatelet Hvgkz6901-32-66 06:34:00* Test Item Value Reference Range Interpretation Comments Platelet Count (test code = 777-3) 287 140-360 [facility] TylerNeutrophils (%) (Auto)2018-08-21 06:34:00 * Test Item Value Reference Range Interpretation Comments Neutrophils (%) (Auto) (test code = 89815-0) 55.6 38.7-80.0 [facility] TylerLymphocytes (%) (Auto)2018-08-21 06:34:00 * Test Item Value Reference Range Interpretation Comments Lymphocytes (%) (Auto) (test code = 736-9) 29.4 18.0-39.1 [facility] TylerMonocytes (%) (Auto)2018-08-21 06:34:00* Test Item Value Reference Range Interpretation Comments Monocytes (%) (Auto) (test code = 5905-5) 10.2 4.4-11.3 [facility] TylerEosinophils (%) (Auto)2018-08-21 06:34:00 * Test Item Value Reference Range Interpretation Comments Eosinophils (%) (Auto) (test code = 713-8) 3.8 0.0-6.0 [facility] TylerBasophils (%) (Auto)2018-08-21 06:34:00* Test Item Value Reference Range Interpretation Comments Basophils (%) (Auto) (test code = 706-2) 0.5 0.0-1.0 [facility] TylerIM GRANULOCYTES %2018-08-21 06:34:00* Test Item Value Reference Range Interpretation Comments IM GRANULOCYTES % (test code = IM GRANULOCYTES %) 0.5 0.0- 1.0 [facility] TylerNeutrophils # (Auto)2018-08-21 06:34:00* Test Item Value Reference Range Interpretation Comments Neutrophils # (Auto) (test code = 751-8) 4.7 2.1-6.9 [facility] TylerLymphocytes # (Auto)2018-08-21 06:34:00* Test Item Value Reference Range Interpretation Comments Lymphocytes # (Auto) (test code = 90241-3) 2.5 1.0-3.2 [facility] TylerMonocytes # (Auto)2018-08-21 06:34:00* Test Item Value Reference Range Interpretation Comments Monocytes # (Auto) (test code = 742-7) 0.9 0.2-0.8 H [facility] TylerEosinophils # (Auto)2018-08-21 06:34:00* Test Item Value Reference Range Interpretation Comments Eosinophils # (Auto) (test code = 711-2) 0.3 0.0-0.4 [facility] TylerBasophils # (Auto)2018-08-21 06:34:00* Test Item Value Reference Range Interpretation Comments Basophils # (Auto) (test code = 704-7) 0.0 0.0-0.1 [facility] TylerAbsolute Immature Granulocyte (auto 2018-08-21 06:34:00* Test Item Value Reference Range Interpretation Comments Absolute Immature Granulocyte (auto (sekou t code = Absolute Immature Granulocyte (auto) 0.04 0-0.1 [facility] TylerWhite Blood Eevxj4561-93-27 06:34:00* Test Item Value Reference Range Interpretation Comments White Blood Count (test code = 6690-2) 8.46 4.8-10.8 [facility] TylerRed Blood Dwssj1130-38-62 06:34:00* Test Item Value Reference Range Interpretation Comments Red Blood Count (test code = 789-8) 4.37 4.3-5.7 [facility] TylerHemoglobin2018-12-04 06:34:00* Test Item Value Reference Range Interpretation Comments Hemoglobin (test code = 47382-1) 12.4 14.0-18.0 L [facility] TylerHematocrit2018-12-04 06:34:00* Test Item Value Reference Range Interpretation Comments Hematocrit (test code = 4544-3) 37.4 38.2-49.6 L [facility] TylerMean Corpuscular Wdbupy2414-68-87 06:34:00* Test Item Value Reference Range Interpretation Comments Mean Corpuscular Volume (test code = 787-2) 85.6 81-99 [facility] TylerMean Corpuscular Xyfokasiyi7766-33-38 06:34:00* Test Item Value Reference Range Interpretation Comments Mean Corpuscular Hemoglobin (test code = 785-6) 28.4 28-32 [facility] TylerMean Corpuscular Hemoglobin Concent 2018-08-21 06:34:00* Test Item Value Reference Range Interpretation Comments Mean Corpuscular Hemoglobin Concent (test code = 786-4) 33.2 31-35 [facility] TylerRed Cell Distribution Apkwa6360-71-69 06:34:00* Test Item Value Reference Range Interpretation Comments Red Cell Distribution Width (test code = 33313-9) 13.9 11.7 -14.4 [facility] TylerPlatelet Gjlkv9327-15-91 06:34:00* Test Item Value Reference Range Interpretation Comments Platelet Count (test code = 777-3) 287 140-360 [facility] TylerNeutrophils (%) (Auto)2018-08-21 06:34:00 * Test Item Value Reference Range Interpretation Comments Neutrophils (%) (Auto) (test code = 59056-7) 55.6 38.7-80.0 [facility] TylerLymphocytes (%) (Auto)2018-08-21 06:34:00 * Test Item Value Reference Range Interpretation Comments Lymphocytes (%) (Auto) (test code = 736-9) 29.4 18.0-39.1 [facility] TylerMonocytes (%) (Auto)2018-08-21 06:34:00* Test Item Value Reference Range Interpretation Comments Monocytes (%) (Auto) (test code = 5905-5) 10.2 4.4-11.3 [facility] TylerEosinophils (%) (Auto)2018-08-21 06:34:00 * Test Item Value Reference Range Interpretation Comments Eosinophils (%) (Auto) (test code = 713-8) 3.8 0.0-6.0 [facility] TylerBasophils (%) (Auto)2018-08-21 06:34:00* Test Item Value Reference Range Interpretation Comments Basophils (%) (Auto) (test code = 706-2) 0.5 0.0-1.0 [facility] TylerIM GRANULOCYTES %2018-08-21 06:34:00* Test Item Value Reference Range Interpretation Comments IM GRANULOCYTES % (test code = IM GRANULOCYTES %) 0.5 0.0- 1.0 [facility] TylerNeutrophils # (Auto)2018-08-21 06:34:00* Test Item Value Reference Range Interpretation Comments Neutrophils # (Auto) (test code = 751-8) 4.7 2.1-6.9 [facility] TylerLymphocytes # (Auto)2018-08-21 06:34:00* Test Item Value Reference Range Interpretation Comments Lymphocytes # (Auto) (test code = 63990-6) 2.5 1.0-3.2 [facility] TylerMonocytes # (Auto)2018-08-21 06:34:00* Test Item Value Reference Range Interpretation Comments Monocytes # (Auto) (test code = 742-7) 0.9 0.2-0.8 H [facility] TylerEosinophils # (Auto)2018-08-21 06:34:00* Test Item Value Reference Range Interpretation Comments Eosinophils # (Auto) (test code = 711-2) 0.3 0.0-0.4 [facility] TylerBasophils # (Auto)2018-08-21 06:34:00* Test Item Value Reference Range Interpretation Comments Basophils # (Auto) (test code = 704-7) 0.0 0.0-0.1 [facility] Immature Granulocyte (auto 2018-08-21 06:34:00* Test Item Value Reference Range Interpretation Comments Absolute Immature Granulocyte (auto (sekou t code = Absolute Immature Granulocyte (auto) 0.04 0-0.1 [facility] TylerUrine Ibkfelg6069-16-22 08:24:00* Test Item Value Reference Range Interpretation Comments Urine Culture (test code = 630-4) Organism: PSEUDOMONAS AERUGINOSA [facility] TylerUrine Tegdskj0317-82-25 08:24:00* Test Item Value Reference Range Interpretation Comments Urine Culture (test code = 630-4) Organism: PSEUDOMONAS AERUGINOSA [facility] TylerU[facility] Gmkfjtg8217-71-17 05:48:00* Test Item Value Reference Range Interpretation Comments Urine Culture (test code = 630-4) Organism: PROTEUS MIRABILIS [facility] Rqnmytd0571-83-71 05:48:00* Test Item Value Reference Range Interpretation Comments Urine Culture (test code = 630-4) Organism: PROTEUS MIRABILIS [facility] Zkwcmpd0890-05-52 05:48:00* Test Item Value Reference Range Interpretation Comments Urine Culture (test code = 630-4) Organism: PROTEUS MIRABILIS [facility] Tyler[facility] Hfftx4279-87-69 22:34:00* Test Item Value Reference Range Interpretation Comments Urine Color (test code = 5778-6) YELLOW YELLOW [facility] TylerU[facility] Yxqoddh4708-26-42 22:34:00* Test Item Value Reference Range Interpretation Comments Urine Clarity (test code = 34602-2) TURBID CLEAR [facility] Ecnlsqi2860-11-48 22:34:00 * Test Item Value Reference Range Interpretation Comments Urine Specific [place] (test code = 5811-5) 1.005 1.010-1.02 5 L [facility] TylerU[facility] oD6587-32-00 22:34:00* Test Item Value Reference Range Interpretation Comments Urine pH (test code = 74471-6) 9 5-7 H [facility] Tyler[facility] Leukocyte Nnmgpygn1933-31-29 22:34:00* Test Item Value Reference Range Interpretation Comments Urine Leukocyte Esterase (test code = 5799-2) 2+ NEGATIVE [facility] Gdeokdy1264-22-50 22:34:00* Test Item Value Reference Range Interpretation Comments Urine Nitrite (test code = 32957-2) POSITIVE NEGATIVE [facility] Rgguflz9934-69-36 22:34:00* Test Item Value Reference Range Interpretation Comments Urine Protein (test code = 5804-0) 3+ NEGATIVE [facility] Glucose (UA)2018-08-13 22:34:00* Test Item Value Reference Range Interpretation Comments Urine Glucose (UA) (test code = 2349-9) NEGATIVE NEGATIVE [facility] Gsvkyvl6536-78-40 22:34:00* Test Item Value Reference Range Interpretation Comments Urine Ketones (test code = 39331-5) TRACE NEGATIVE H [facility] Tyler[facility] Lsedomvhdwnr1402-15-80 22:34:00* Test Item Value Reference Range Interpretation Comments Urine Urobilinogen (test code = 17818-8) 0.2 0.2-1 [facility] Tyler[facility] Ykvxljvor1145-20-28 22:34:00* Test Item Value Reference Range Interpretation Comments Urine Bilirubin (test code = 1978-6) NEGATIVE NEGATIVE [facility] TylerU[facility] Tdsmi3997-45-58 22:34:00* Test Item Value Reference Range Interpretation Comments Urine Blood (test code = 27434-2) TRACE NEGATIVE H [facility] TylerU[facility] CKK3684-69-26 22:34:00* Test Item Value Reference Range Interpretation Comments Urine WBC (test code = 5821-4) 6-10 0-5 H [facility] TylerU[facility] TMF6630-36-58 22:34:00* Test Item Value Reference Range Interpretation Comments Urine RBC (test code = 43323-4) 0-5 0-5 [facility] Tyler[facility] Vcxzmqcg5801-13-95 22:34:00* Test Item Value Reference Range Interpretation Comments Urine Bacteria (test code = 28438-5) MANY NONE H [facility] TylerUrine Epithelial Htjtq5777-20-49 22:34:00 * Test Item Value Reference Range Interpretation Comments Urine Epithelial Cells (test code = 03393-6) RARE NONE [facility] TylerTotal Yipcuxqxj8362-70-67 14:20:00* Test Item Value Reference Range Interpretation Comments Total Bilirubin (test code = 1975-2) 0.4 0.2-1.2 [facility] TylerAspartate Amino Transf (AST/SGOT) 2018-08-13 14:20:00* Test Item Value Reference Range Interpretation Comments Aspartate Amino Transf (AST/SGOT) (test code = Aspartate Amino Transf (AST/SGOT)) 22 5-34 [facility] TylerAlanine Aminotransferase (ALT/SGPT) 2018-08-13 14:20:00* Test Item Value Reference Range Interpretation Comments Alanine Aminotransferase (ALT/SGPT) (test code = 1742-6) 18 0-55 [facility] TylerTotal Zxnhmew5655-51-42 14:20:00* Test Item Value Reference Range Interpretation Comments Total Protein (test code = 2885-2) 7.8 6.5-8.1 [facility] TylerAlbumin2018-11-26 14:20:00* Test Item Value Reference Range Interpretation Comments Albumin (test code = 1751-7) 4.1 3.5-5.0 [facility] TylerGlobulin2018-11-26 14:20:00* Test Item Value Reference Range Interpretation Comments Globulin (test code = 68481-1) 3.7 2.3-3.5 H [facility] TylerAlbumin/Globulin Qghwq9242-81-59 14:20:00 * Test Item Value Reference Range Interpretation Comments Albumin/Globulin Ratio (test code = 1759-0) 1.1 0.8-2.0 [facility] TylerAlkaline Pdbtflpnmxn6166-90-60 14:20:00* Test Item Value Reference Range Interpretation Comments Alkaline Phosphatase (test code = 6768-6) 106 40-150 [facility] TylerTotal Xqiekkcei5292-88-33 14:20:00* Test Item Value Reference Range Interpretation Comments Total Bilirubin (test code = 1975-2) 0.4 0.2-1.2 [facility] TylerAspartate Amino Transf (AST/SGOT) 2018-08-13 14:20:00* Test Item Value Reference Range Interpretation Comments Aspartate Amino Transf (AST/SGOT) (test code = Aspartate Amino Transf (AST/SGOT)) 22 5-34 [facility] TylerAlanine Aminotransferase (ALT/SGPT) 2018-08-13 14:20:00* Test Item Value Reference Range Interpretation Comments Alanine Aminotransferase (ALT/SGPT) (test code = 1742-6) 18 0-55 [facility] TylerTotal Lfxcszv9970-22-72 14:20:00* Test Item Value Reference Range Interpretation Comments Total Protein (test code = 2885-2) 7.8 6.5-8.1 [facility] TylerAlbumin2018-11-26 14:20:00* Test Item Value Reference Range Interpretation Comments Albumin (test code = 1751-7) 4.1 3.5-5.0 [facility] TylerGlobulin2018-11-26 14:20:00* Test Item Value Reference Range Interpretation Comments Globulin (test code = 37303-3) 3.7 2.3-3.5 H [facility] TylerAlbumin/Globulin Oxkqb6176-16-18 14:20:00 * Test Item Value Reference Range Interpretation Comments Albumin/Globulin Ratio (test code = 1759-0) 1.1 0.8-2.0 [facility] TylerAlkaline Zihrisjikba8202-01-37 14:20:00* Test Item Value Reference Range Interpretation Comments Alkaline Phosphatase (test code = 6768-6) 106 40-150 [facility] Qwngi2355-11-97 07:18:00* Test Item Value Reference Range Interpretation Comments Sodium Level (test code = 2951-2) 143 136-145 [facility] TylerPotassium Hhkkq4907-40-73 07:18:00* Test Item Value Reference Range Interpretation Comments Potassium Level (test code = 2823-3) 3.6 3.5-5.1 [facility] TylerChloride Jlasq7927-45-87 07:18:00* Test Item Value Reference Range Interpretation Comments Chloride Level (test code = 2075-0) 112 98-107 H [facility] TylerCarbon Dioxide Ysecy6854-45-88 07:18:00* Test Item Value Reference Range Interpretation Comments Carbon Dioxide Level (test code = 2028-9) 28 22-29 [facility] TylerAnion Xkj5926-16-49 07:18:00* Test Item Value Reference Range Interpretation Comments Anion Gap (test code = 91015-6) 6.6 8-16 L [facility] TylerBlood Urea Geklqqxy7671-49-67 07:18:00* Test Item Value Reference Range Interpretation Comments Blood Urea Nitrogen (test code = 3094-0) 6 7-26 L [facility] TylerCreatinine2018-10-07 07:18:00* Test Item Value Reference Range Interpretation Comments Creatinine (test code = 2160-0) 0.66 0.72-1.25 L [facility] TylerBUN/Creatinine Jdraa3806-40-02 07:18:00* Test Item Value Reference Range Interpretation Comments BUN/Creatinine Ratio (test code = 3097-3) 9 6-25 [facility] TylerEstimat Glomerular Filtration Rate 2018-06-24 07:18:00* Test Item Value Reference Range Interpretation Comments Estimat Glomerular Filtration Rate (test code = 846405786) 60- >60 Ranges were taken from the National Kidney Disease Education Program and the [facility] Kidney Foundation literature.Reference ranges:60 or greater: Vwrvic30-51 ( for 3 consecutive months): Chronic kidney disease 15 or less: Kidney failureUT Health TylerGlucose Pjund0205-50-16 07:18:00* Test Item Value Reference Range Interpretation Comments Glucose Level (test code = WQT7354) 91 74-118 [facility] TylerCalcium Uwppa4290-67-98 07:18:00* Test Item Value Reference Range Interpretation Comments Calcium Level (test code = 40804-0) 9.5 8.4-10.2 [facility] TylerWhite Blood Tbgjs2048-07-14 06:21:00* Test Item Value Reference Range Interpretation Comments White Blood Count (test code = 6690-2) 9.68 4.8-10.8 [facility] TylerRed Blood Tmvth8099-96-75 06:21:00* Test Item Value Reference Range Interpretation Comments Red Blood Count (test code = 789-8) 4.32 4.3-5.7 [facility] TylerHemoglobin2018-10-07 06:21:00* Test Item Value Reference Range Interpretation Comments Hemoglobin (test code = 95576-3) 12.5 14.0-18.0 L [facility] TylerHematocrit2018-10-07 06:21:00* Test Item Value Reference Range Interpretation Comments Hematocrit (test code = 4544-3) 37.7 38.2-49.6 L [facility] TylerMean Corpuscular Swoslx7777-44-70 06:21:00* Test Item Value Reference Range Interpretation Comments Mean Corpuscular Volume (test code = 787-2) 87.3 81-99 REVIEWEDUT Health TylerMean Corpuscular Hemoglobin 2018-06-24 06:21:00* Test Item Value Reference Range Interpretation Comments Mean Corpuscular Hemoglobin (test code = 785-6) 28.9 28-32 [facility] TylerMean Corpuscular Hemoglobin Concent 2018-06-24 06:21:00* Test Item Value Reference Range Interpretation Comments Mean Corpuscular Hemoglobin Concent (test code = 786-4) 33.2 31-35 [facility] TylerRed Cell Distribution Zvamx8648-02-60 06:21:00* Test Item Value Reference Range Interpretation Comments Red Cell Distribution Width (test code = 46330-0) 13.0 11.7 -14.4 [facility] TylerPlatelet Iyaoe7901-56-85 06:21:00* Test Item Value Reference Range Interpretation Comments Platelet Count (test code = 777-3) 366 140-360 H [facility] TylerNeutrophils (%) (Auto)2018-06-24 06:21:00 * Test Item Value Reference Range Interpretation Comments Neutrophils (%) (Auto) (test code = 59033-2) 52.9 38.7-80.0 [facility] TylerLymphocytes (%) (Auto)2018-06-24 06:21:00 * Test Item Value Reference Range Interpretation Comments Lymphocytes (%) (Auto) (test code = 736-9) 35.6 18.0-39.1 [facility] TylerMonocytes (%) (Auto)2018-06-24 06:21:00* Test Item Value Reference Range Interpretation Comments Monocytes (%) (Auto) (test code = 5905-5) 7.7 4.4-11.3 [facility] TylerEosinophils (%) (Auto)2018-06-24 06:21:00 * Test Item Value Reference Range Interpretation Comments Eosinophils (%) (Auto) (test code = 713-8) 2.9 0.0-6.0 [facility] TylerBasophils (%) (Auto)2018-06-24 06:21:00* Test Item Value Reference Range Interpretation Comments Basophils (%) (Auto) (test code = 706-2) 0.5 0.0-1.0 [facility] TylerIM GRANULOCYTES %2018-06-24 06:21:00* Test Item Value Reference Range Interpretation Comments IM GRANULOCYTES % (test code = IM GRANULOCYTES %) 0.4 0.0- 1.0 [facility] TylerNeutrophils # (Auto)2018-06-24 06:21:00* Test Item Value Reference Range Interpretation Comments Neutrophils # (Auto) (test code = 751-8) 5.1 2.1-6.9 [facility] TylerLymphocytes # (Auto)2018-06-24 06:21:00* Test Item Value Reference Range Interpretation Comments Lymphocytes # (Auto) (test code = 64137-4) 3.5 1.0-3.2 H [facility] TylerMonocytes # (Auto)2018-06-24 06:21:00* Test Item Value Reference Range Interpretation Comments Monocytes # (Auto) (test code = 742-7) 0.8 0.2-0.8 [facility] TylerEosinophils # (Auto)2018-06-24 06:21:00* Test Item Value Reference Range Interpretation Comments Eosinophils # (Auto) (test code = 711-2) 0.3 0.0-0.4 [facility] TylerBasophils # (Auto)2018-06-24 06:21:00* Test Item Value Reference Range Interpretation Comments Basophils # (Auto) (test code = 704-7) 0.1 0.0-0.1 [facility] TylerAbsolute Immature Granulocyte (auto 2018-06-24 06:21:00* Test Item Value Reference Range Interpretation Comments Absolute Immature Granulocyte (auto (sekou t code = Absolute Immature Granulocyte (auto) 0.04 0-0.1 [facility] TylerBlood Cddxquj4044-25-28 20:11:00* Test Item Value Reference Range Interpretation Comments Blood Culture (test code = 87444898) NO GROWTH AFTER 5 DAYS, FINAL REPORT [facility] TylerBlood Xahslsh6817-13-70 20:11:00* Test Item Value Reference Range Interpretation Comments Blood Culture (test code = 07081203) NO GROWTH AFTER 5 DAYS, FINAL REPORT [facility] TylerBlood Bnpbprs7011-44-72 20:11:00* Test Item Value Reference Range Interpretation Comments Blood Culture (test code = 73970041) NO GROWTH AFTER 5 DAYS, FINAL REPORT [facility] TylerCT ABDOMEN/PELVIS EA1905-52-49 14:57:00 [place] [address] Patient Name: ARIK VELZI MR #: [id number] : 1975 Age/Sex: 43/M Req #: [id number] Adm Physician: JOSETTE KELLEY MD Ordered by: CAROLINA PETESR MD Report #: [id number] Location: ED/SURG3 Room/Bed: [facility] Procedure: [id number] CT/CT A BDOMEN/PELVIS WO Exam Date: 06/20/18 [...] bladder is excluded from the study. No foca l hepatic lesions. No biliary ductal dilation. GALLBLADDER: [...] 3:12 PM Dictated By: WU LESTER MD 1512 Transcribed By: ZO on 06/20/18 1512 COPY TO: CAROLINA PETERS MD Bacterial urine yfsvipx1979-96-07 05:51:00* Test Item Value Reference Range Interpretation Comments Urine Culture (test code = 630-4) Organism: KLEBSIELLA PNEUMONIAE-E SBL [facility] TylerBlood Cpbmdtl1022-23-43 10:29:00* Test Item Value Reference Range Interpretation Comments Blood Culture (test code = 600-7) Organism: STAPHYLOCOCCUS SP COAG NEG [facility] TylerBlood Lkhiuym0388-87-24 10:29:00* Test Item Value Reference Range Interpretation Comments Blood Culture (test code = 600-7) Organism: STAPHYLOCOCCUS SP COAG NEG [facility] TylerBlood Rozaulr8684-50-16 10:29:00* Test Item Value Reference Range Interpretation Comments Blood Culture (test code = 600-7) Organism: STAPHYLOCOCCUS SP COAG NEG [facility] TylerDifferential Total Cells Counted 2018-06-18 07:48:00* Test Item Value Reference Range Interpretation Comments Differential Total Cells Counted (test code = Differen tial Total Cells Counted) 100 [facility] TylerNeutrophils % (Manual)2018-06-18 07:48:00 * Test Item Value Reference Range Interpretation Comments Neutrophils % (Manual) (test code = 47116-3) 65 40-74 [facility] TylerLymphocytes % (Manual)2018-06-18 07:48:00 * Test Item Value Reference Range Interpretation Comments Lymphocytes % (Manual) (test code = 737-7) 28 19-48 [facility] TylerMonocytes % (Manual)2018-06-18 07:48:00* Test Item Value Reference Range Interpretation Comments Monocytes % (Manual) (test code = 744-3) 5 3.4-9.0 [facility] TylerReactive Vercvbgzwzh9239-51-75 07:48:00* Test Item Value Reference Range Interpretation Comments Reactive Lymphocytes (test code = 95683-8) 2 [facility] TylerPlatelet Ccwwwzpq0343-18-30 07:48:00* Test Item Value Reference Range Interpretation Comments Platelet Estimate (test code = 68148-5) ADEQUATE [facility] TylerPlatelet Morphology Bshlywj9369-37-52 07:48:00* Test Item Value Reference Range Interpretation Comments Platelet Morphology Comment (test code = 72593-5) NORMAL [facility] TylerRed Cell Morphology Cqfxfzy5151-11-00 07:48:00* Test Item Value Reference Range Interpretation Comments Red Cell Morphology Comment (test code = 6742-1) NORMAL [facility] TylerDifferential Total Cells Counted 2018-06-18 07:48:00* Test Item Value Reference Range Interpretation Comments Differential Total Cells Counted (test code = Differen tial Total Cells Counted) 100 [facility] TylerNeutrophils % (Manual)2018-06-18 07:48:00 * Test Item Value Reference Range Interpretation Comments Neutrophils % (Manual) (test code = 92657-7) 65 40-74 [facility] TylerLymphocytes % (Manual)2018-06-18 07:48:00 * Test Item Value Reference Range Interpretation Comments Lymphocytes % (Manual) (test code = 737-7) 28 19-48 [facility] TylerMonocytes % (Manual)2018-06-18 07:48:00* Test Item Value Reference Range Interpretation Comments Monocytes % (Manual) (test code = 744-3) 5 3.4-9.0 [facility] TylerReactive Llhdemdaxjn6562-06-50 07:48:00* Test Item Value Reference Range Interpretation Comments Reactive Lymphocytes (test code = 21101-7) 2 [facility] TylerPlatelet Ypnshxxn3034-42-28 07:48:00* Test Item Value Reference Range Interpretation Comments Platelet Estimate (test code = 39319-3) ADEQUATE [facility] TylerPlatelet Morphology Gdmdaui9618-56-77 07:48:00* Test Item Value Reference Range Interpretation Comments Platelet Morphology Comment (test code = 50058-4) NORMAL [facility] TylerRed Cell Morphology Grtainv8603-79-64 07:48:00* Test Item Value Reference Range Interpretation Comments Red Cell Morphology Comment (test code = 6742-1) NORMAL [facility] TylerDifferential Total Cells Counted 2018-06-18 07:48:00* Test Item Value Reference Range Interpretation Comments Differential Total Cells Counted (test code = Differen tial Total Cells Counted) 100 [facility] TylerNeutrophils % (Manual)2018-06-18 07:48:00 * Test Item Value Reference Range Interpretation Comments Neutrophils % (Manual) (test code = 97732-7) 65 40-74 [facility] TylerLymphocytes % (Manual)2018-06-18 07:48:00 * Test Item Value Reference Range Interpretation Comments Lymphocytes % (Manual) (test code = 737-7) 28 19-48 [facility] TylerMonocytes % (Manual)2018-06-18 07:48:00* Test Item Value Reference Range Interpretation Comments Monocytes % (Manual) (test code = 744-3) 5 3.4-9.0 [facility] TylerReactive Oqnakumvsoq1907-13-78 07:48:00* Test Item Value Reference Range Interpretation Comments Reactive Lymphocytes (test code = 06786-0) 2 [facility] TylerPlatelet Noctbytc0509-58-46 07:48:00* Test Item Value Reference Range Interpretation Comments Platelet Estimate (test code = 22335-8) ADEQUATE [facility] TylerPlatelet Morphology Uvvexsi7959-92-51 07:48:00* Test Item Value Reference Range Interpretation Comments Platelet Morphology Comment (test code = 95630-8) NORMAL [facility] TylerRed Cell Morphology Nmnodtu6201-59-92 07:48:00* Test Item Value Reference Range Interpretation Comments Red Cell Morphology Comment (test code = 6742-1) NORMAL [facility] TylerTotal Dtayxhcvp9803-88-60 08:14:00* Test Item Value Reference Range Interpretation Comments Total Bilirubin (test code = 1975-2) 0.3 0.2-1.2 [facility] TylerAspartate Amino Transf (AST/SGOT) 2018-06-17 08:14:00* Test Item Value Reference Range Interpretation Comments Aspartate Amino Transf (AST/SGOT) (test code = Aspartate Amino Transf (AST/SGOT)) 16 5-34 [facility] TylerAlanine Aminotransferase (ALT/SGPT) 2018-06-17 08:14:00* Test Item Value Reference Range Interpretation Comments Alanine Aminotransferase (ALT/SGPT) (test code = 1742-6) 14 0-55 [facility] TylerTotal Qkianub7839-03-08 08:14:00* Test Item Value Reference Range Interpretation Comments Total Protein (test code = 2885-2) 6.2 6.5-8.1 L [facility] TylerAlbumin2018-09-30 08:14:00* Test Item Value Reference Range Interpretation Comments Albumin (test code = 1751-7) 3.4 3.5-5.0 L [facility] TylerGlobulin2018-09-30 08:14:00* Test Item Value Reference Range Interpretation Comments Globulin (test code = 00340-5) 2.8 2.3-3.5 [facility] TylerAlbumin/Globulin Imvgh2495-55-23 08:14:00 * Test Item Value Reference Range Interpretation Comments Albumin/Globulin Ratio (test code = 1759-0) 1.2 0.8-2.0 [facility] TylerAlkaline Fgyreqmhqsd4911-10-24 08:14:00* Test Item Value Reference Range Interpretation Comments Alkaline Phosphatase (test code = 6768-6) 97 40-150 [facility] TylerUrine Cpsbt3987-23-57 21:33:00* Test Item Value Reference Range Interpretation Comments Urine Color (test code = 5778-6) YELLOW YELLOW [facility] TylerUrine Aixwnqz0448-37-54 21:33:00* Test Item Value Reference Range Interpretation Comments Urine Clarity (test code = 37192-8) HAZY CLEAR [facility] TylerUrine Specific Jczthds7794-70-90 21:33:00 * Test Item Value Reference Range Interpretation Comments Urine Specific [place] (test code = 5811-5) 1.005 1.010-1.02 5 L [facility] TylerUrine pM1318-34-77 21:33:00* Test Item Value Reference Range Interpretation Comments Urine pH (test code = 94861-3) 6 5-7 [facility] TylerUrine Leukocyte Dtkuldeq8578-97-26 21:33:00* Test Item Value Reference Range Interpretation Comments Urine Leukocyte Esterase (test code = 5799-2) TRACE NEGATIVE H [facility] TylerUrine Bvyzdwq3210-73-80 21:33:00* Test Item Value Reference Range Interpretation Comments Urine Nitrite (test code = 85280-0) POSITIVE NEGATIVE H [facility] TylerUrine Rjwgvcs1020-25-10 21:33:00* Test Item Value Reference Range Interpretation Comments Urine Protein (test code = 5804-0) NEGATIVE NEGATIVE [facility] TylerUrine Glucose (UA)2018-06-16 21:33:00* Test Item Value Reference Range Interpretation Comments Urine Glucose (UA) (test code = 2349-9) NEGATIVE NEGATIVE [facility] TylerUrine Tkkadse1020-01-25 21:33:00* Test Item Value Reference Range Interpretation Comments Urine Ketones (test code = 02383-4) NEGATIVE NEGATIVE [facility] Bcqoorneykkp1377-28-19 21:33:00* Test Item Value Reference Range Interpretation Comments Urine Urobilinogen (test code = 40245-5) 0.2 0.2-1 [facility] TylerU[facility] Gfwsvtkcg4437-61-01 21:33:00* Test Item Value Reference Range Interpretation Comments Urine Bilirubin (test code = 1978-6) NEGATIVE NEGATIVE [facility] Gdcyt6791-92-10 21:33:00* Test Item Value Reference Range Interpretation Comments Urine Blood (test code = 19873-4) 4+ NEGATIVE H [facility] YMQ8506-83-63 21:33:00* Test Item Value Reference Range Interpretation Comments Urine WBC (test code = 5821-4) 50- 0-5 H [facility] SWO2887-44-53 21:33:00* Test Item Value Reference Range Interpretation Comments Urine RBC (test code = 02887-8) 50- 0-5 H [facility] TylerU[facility] Mtaazkyn2310-67-24 21:33:00* Test Item Value Reference Range Interpretation Comments Urine Bacteria (test code = 67769-5) MODERATE NONE H [facility] TylerUrine Epithelial Scbqw3686-93-54 21:33:00 * Test Item Value Reference Range Interpretation Comments Urine Epithelial Cells (test code = 65521-0) FEW NONE [facility] Yraej3223-19-96 21:33:00* Test Item Value Reference Range Interpretation Comments Urine Yeast (test code = 07752-0) MODERATE NONE H [facility] Uoawz4684-65-73 21:33:00* Test Item Value Reference Range Interpretation Comments Urine Yeast (test code = 71547-6) MODERATE NONE H [facility] Pxwxh6369-87-46 21:33:00* Test Item Value Reference Range Interpretation Comments Urine Yeast (test code = 03229-5) MODERATE NONE [facility]-06-16 20:51:00 [facility] [address] [place] [address] Patient Name: ARIK VELIZ MR #: [id number] : 1975 Age/Sex: 43/M Req #: [id number] Adm Physician: Ordered by: LEMUEL BARRIOS MD Report #: [id number] Location: ER Room/Bed: Procedure: [id number] DX/CHEST SINGLE (PORTABLE) Ex am Date: 06/16/18 [...] 06/16/182050 COPY TO: LEMUEL MCMULLEN MD Magnesium Hvtcu7534-64-16 20:20:00* Test Item Value Reference Range Interpretation Comments Magnesium Level (test code = 36252-8) 2.0 1.3-2.1 [facility] TylerMagnesium Mhmwo9588-67-21 20:20:00* Test Item Value Reference Range Interpretation Comments Magnesium Level (test code = 97983-2) 2.0 1.3-2.1 [facility] TylerMagnesium Tvfde1070-08-77 20:20:00* Test Item Value Reference Range Interpretation Comments Magnesium Level (test code = 65455-4) 2.0 1.3-2.1 [facility] TylerLactic Acid Mpzgn0484-95-74 20:14:00* Test Item Value Reference Range Interpretation Comments Lactic Acid Level (test code = Lactic Acid Level) 12.0 4.5- 19.8 [facility] TylerLactic Acid Vrpqe2027-88-14 20:14:00* Test Item Value Reference Range Interpretation Comments Lactic Acid Level (test code = Lactic Acid Level) 12.0 4.5- 19.8 [facility] TylerLactic Acid Pttfa1272-27-92 20:14:00* Test Item Value Reference Range Interpretation Comments Lactic Acid Level (test code = Lactic Acid Level) 12.0 4.5- 19.8 [facility] TylerProthrombin Qaer0793-34-91 20:10:00* Test Item Value Reference Range Interpretation Comments Prothrombin Time (test code = 5902-2) 13.2 11.9-14.5 [facility]Pro[facility] International Ratio 2018-06-16 20:10:00* Test Item Value Reference Range Interpretation Comments Prothromb Time International Ratio (test code = 6301-6) 0.92 Oral Anticoagulant Therapy INR Values:1. Low Intensity Therapy 1.5 - 2.02 . Moderate Intensity Therapy 2.0 - 3.03. High Intensity Therapy(1) 2.5 - 3. 54. High Intensity Therapy(2) 3.0 - 4.05. Panic Value INR > 5.0 [facility] TylerAct[facility] Partial Thromboplast Time 2018-06-16 20:10:00* Test Item Value Reference Range Interpretation Comments Activated Partial Thromboplast Time (test code = 49722-6) 34.0 23.8-35.5 [facility] TylerProthrombin Fegn8904-19-67 20:10:00* Test Item Value Reference Range Interpretation Comments Prothrombin Time (test code = 5902-2) 13.2 11.9-14.5 [facility] TylerProthromb Time International Ratio 2018-06-16 20:10:00* Test Item Value Reference Range Interpretation Comments Prothromb Time International Ratio (test code = 6301-6) 0.92 Oral Anticoagulant Therapy INR Values:1. Low Intensity Therapy 1.5 - 2.02 . Moderate Intensity Therapy 2.0 - 3.03. High Intensity Therapy(1) 2.5 - 3. 54. High Intensity Therapy(2) 3.0 - 4.05. Panic Value INR > 5.0 [facility] TylerAct[facility] Partial Thromboplast Time 2018-06-16 20:10:00* Test Item Value Reference Range Interpretation Comments Activated Partial Thromboplast Time (test code = 93675-8) 34.0 23.8-35.5 [facility] TylerProthrombin Mdwq3456-25-20 20:10:00* Test Item Value Reference Range Interpretation Comments Prothrombin Time (test code = 5902-2) 13.2 11.9-14.5 [facility] TylerProthromb Time International Ratio 2018-06-16 20:10:00* Test Item Value Reference Range Interpretation Comments Prothromb Time International Ratio (test code = 6301-6) 0.92 Oral Anticoagulant Therapy INR Values:1. Low Intensity Therapy 1.5 - 2.02 . Moderate Intensity Therapy 2.0 - 3.03. High Intensity Therapy(1) 2.5 - 3. 54. High Intensity Therapy(2) 3.0 - 4.05. Panic Value INR > 5.0 [facility] TylerAct[facility] Partial Thromboplast Time 2018-06-16 20:10:00* Test Item Value Reference Range Interpretation Comments Activated Partial Thromboplast Time (test code = 74932-9) 34.0 23.8-35.5 [facility] TylerHemoglobin2018-09-05 07:07:00* Test Item Value Reference Range Interpretation Comments Hemoglobin (test code = 83574-9) 11.8 14.0-18.0 L [facility] TylerHematocrit2018-09-05 07:07:00* Test Item Value Reference Range Interpretation Comments Hematocrit (test code = 4544-3) 35.5 38.2-49.6 L [facility] TylerBlood Fhialgb5988-91-19 21:56:00* Test Item Value Reference Range Interpretation Comments Blood Culture (test code = 33844281) NO GROWTH AFTER 72 HOURS [facility] TylerWhite Blood Mdrbo6408-71-37 05:25:00* Test Item Value Reference Range Interpretation Comments White Blood Count (test code = 6690-2) 12.29 4.8-10.8 H [facility] TylerRed Blood Aqaby4127-48-76 05:25:00* Test Item Value Reference Range Interpretation Comments Red Blood Count (test code = 789-8) 2.44 4.3-5.7 L [facility] TylerMean Corpuscular Spfeiz9366-02-20 05:25:00* Test Item Value Reference Range Interpretation Comments Mean Corpuscular Volume (test code = 787-2) 90.2 81-99 [facility] TylerMean Corpuscular Nbzmkuoiyg1709-67-39 05:25:00* Test Item Value Reference Range Interpretation Comments Mean Corpuscular Hemoglobin (test code = 785-6) 30.3 28-32 [facility] TylerMean Corpuscular Hemoglobin Concent 2018-05-21 05:25:00* Test Item Value Reference Range Interpretation Comments Mean Corpuscular Hemoglobin Concent (test code = 786-4) 33.6 31-35 [facility] TylerRed Cell Distribution Wwxab4139-45-86 05:25:00* Test Item Value Reference Range Interpretation Comments Red Cell Distribution Width (test code = 31697-1) 12.8 11.7 -14.4 [facility] TylerPlatelet Oatvp0652-56-51 05:25:00* Test Item Value Reference Range Interpretation Comments Platelet Count (test code = 777-3) 348 140-360 [facility] TylerNeutrophils (%) (Auto)2018-05-21 05:25:00 * Test Item Value Reference Range Interpretation Comments Neutrophils (%) (Auto) (test code = 85127-4) 54.7 38.7-80.0 [facility] TylerLymphocytes (%) (Auto)2018-05-21 05:25:00 * Test Item Value Reference Range Interpretation Comments Lymphocytes (%) (Auto) (test code = 736-9) 33.8 18.0-39.1 [facility] TylerMonocytes (%) (Auto)2018-05-21 05:25:00* Test Item Value Reference Range Interpretation Comments Monocytes (%) (Auto) (test code = 5905-5) 6.8 4.4-11.3 [facility] TylerEosinophils (%) (Auto)2018-05-21 05:25:00 * Test Item Value Reference Range Interpretation Comments Eosinophils (%) (Auto) (test code = 713-8) 3.3 0.0-6.0 [facility] TylerBasophils (%) (Auto)2018-05-21 05:25:00* Test Item Value Reference Range Interpretation Comments Basophils (%) (Auto) (test code = 706-2) 0.7 0.0-1.0 [facility] TylerIM GRANULOCYTES %2018-05-21 05:25:00* Test Item Value Reference Range Interpretation Comments IM GRANULOCYTES % (test code = IM GRANULOCYTES %) 0.7 0.0- 1.0 [facility] TylerNeutrophils # (Auto)2018-05-21 05:25:00* Test Item Value Reference Range Interpretation Comments Neutrophils # (Auto) (test code = 751-8) 6.7 2.1-6.9 [facility] TylerLymphocytes # (Auto)2018-05-21 05:25:00* Test Item Value Reference Range Interpretation Comments Lymphocytes # (Auto) (test code = 44867-9) 4.2 1.0-3.2 H [facility] TylerMonocytes # (Auto)2018-05-21 05:25:00* Test Item Value Reference Range Interpretation Comments Monocytes # (Auto) (test code = 742-7) 0.8 0.2-0.8 [facility] TylerEosinophils # (Auto)2018-05-21 05:25:00* Test Item Value Reference Range Interpretation Comments Eosinophils # (Auto) (test code = 711-2) 0.4 0.0-0.4 [facility] TylerBasophils # (Auto)2018-05-21 05:25:00* Test Item Value Reference Range Interpretation Comments Basophils # (Auto) (test code = 704-7) 0.1 0.0-0.1 [facility] TylerAbsolute Immature Granulocyte (auto 2018-05-21 05:25:00* Test Item Value Reference Range Interpretation Comments Absolute Immature Granulocyte (auto (sekou t code = Absolute Immature Granulocyte (auto) 0.09 0-0.1 [facility] TylerVancomycin Level Pqfcob4482-34-79 23:27:00* Test Item Value Reference Range Interpretation Comments Vancomycin Level Trough (test code = 4092-3) 7.2 5.0-10.0 [facility]ell[facility] Aizgss0130-37-32 23:27:00* Test Item Value Reference Range Interpretation Comments Vancomycin Level Trough (test code = 4092-3) 7.2 5.0-10.0 [facility] TylerVancomycin Level Plxpql1355-79-18 23:27:00* Test Item Value Reference Range Interpretation Comments Vancomycin Level Trough (test code = 4092-3) 7.2 5.0-10.0 [facility] Levellandycin Level Vhptky0378-74-96 23:27:00* Test Item Value Reference Range Interpretation Comments Vancomycin Level Trough (test code = 4092-3) 7.2 5.0-10.0 [facility] Blsqxnc3409-38-48 16:20:00* Test Item Value Reference Range Interpretation Comments Bedside Glucose (test code = 42179-9) 130 70-120 H Meter ID: [id number] [facility] Glucose 2018-05-19 16:20:00* Test Item Value Reference Range Interpretation Comments Bedside Glucose (test code = 02867-9) 130 70-120 H Meter ID: [id number]'s Hospital [facility]ioside Glucose 2018-05-19 16:20:00* Test Item Value Reference Range Interpretation Comments Bedside Glucose (test code = 54601-4) 130 70-120 H Meter ID: [id number] [facility] Glucose 2018-05-19 16:20:00* Test Item Value Reference Range Interpretation Comments Bedside Glucose (test code = 51986-4) 130 70-120 H Meter ID: [id number] Regional Medical Center at Greenvilleodium Level 2018-05-19 05:47:00* Test Item Value Reference Range Interpretation Comments Sodium Level (test code = 2951-2) 136 136-145 [facility] TylerPotassium Gqxbs0235-18-29 05:47:00* Test Item Value Reference Range Interpretation Comments Potassium Level (test code = 2823-3) 4.0 3.5-5.1 [facility] TylerChloride Cbmxv1262-91-36 05:47:00* Test Item Value Reference Range Interpretation Comments Chloride Level (test code = 2075-0) 105 98-107 [facility] TylerCarbon Dioxide Qmifk0433-59-52 05:47:00* Test Item Value Reference Range Interpretation Comments Carbon Dioxide Level (test code = 2028-9) 22 22-29 [facility] TylerAnion Roc6654-51-53 05:47:00* Test Item Value Reference Range Interpretation Comments Anion Gap (test code = 13617-2) 13.0 8-16 [facility] TylerBlood Urea Lidvnafz4123-55-99 05:47:00* Test Item Value Reference Range Interpretation Comments Blood Urea Nitrogen (test code = 3094-0) 14 7-26 [facility] TylerCreatinine2018-09-01 05:47:00* Test Item Value Reference Range Interpretation Comments Creatinine (test code = 2160-0) 0.63 0.72-1.25 L [facility] TylerBUN/Creatinine Ibvzs4936-20-74 05:47:00* Test Item Value Reference Range Interpretation Comments BUN/Creatinine Ratio (test code = 3097-3) 22 6-25 [facility] TylerEstimat Glomerular Filtration Rate 2018-05-19 05:47:00* Test Item Value Reference Range Interpretation Comments Estimat Glomerular Filtration Rate (test code = 90645-8) 60- >60 Ranges were taken from the National Kidney Disease Education Program and the [facility] literature.Reference ranges:60 or greater: Jftsdz04-59 ( for 3 consecutive months): Chronic kidney disease 15 or less: Kidney failureUT Health TylerGlucose Lorsz1181-03-62 05:47:00* Test Item Value Reference Range Interpretation Comments Glucose Level (test code = ZLI8643) 132 74-118 H [facility] TylerCalcium Dlrbj2405-39-10 05:47:00* Test Item Value Reference Range Interpretation Comments Calcium Level (test code = 99649-9) 8.8 8.4-10.2 [facility] TylerLactic Acid Yvdfn1850-72-38 22:13:00* Test Item Value Reference Range Interpretation Comments Lactic Acid Level (test code = Lactic Acid Level) 17.6 4.5- 19.8 [facility] TylerCT PELVIS W5958-35-63 21:41:00 [facility] [address] [address] Patient Name: ARIK VELIZ MR #: [id number] : 1975 Age/Sex: 43/M Req #: [id number] Adm Physician: JOSETTE KELLEY MD Ordered by: SANDRO LUCIANO NEGATIVE CLEANER Report #: [id number] Location : [facility] Room/Bed: [place] [address] Procedure: [id number] CT/C T PELVIS W Exam Date: 05/18/18 Exam Time: 2124 REPORT STATUS: Signed Exam: CT cystogram Indication: Blood coming out o f penis, history of suprapubic catheter Comparison: CT of the abdomen and pelv is with IV contrast February 24, 2018 Findings: [...] on 05/18/2018 9:51 PM Dictated By: ARLETTE TAVAREZ MD [facility] Signed By: ARLETTE TAVAREZ MD on 05/18/182150 Transcribed By: ZO on 05/18/182150 COPY TO: SANDRO LUCIANO NEGATIVE CLEANER Differential Total Cells Prpyufc9192-00-82 20:34:00* Test Item Value Reference Range Interpretation Comments Differential Total Cells Counted (test code = Differen tial Total Cells Counted) 100 [facility] TylerNeutrophils % (Manual)2018-05-18 20:34:00 * Test Item Value Reference Range Interpretation Comments Neutrophils % (Manual) (test code = 85495-2) 95 40-74 H [facility] TylerLymphocytes % (Manual)2018-05-18 20:34:00 * Test Item Value Reference Range Interpretation Comments Lymphocytes % (Manual) (test code = 737-7) 1 19-48 L [facility] TylerMonocytes % (Manual)2018-05-18 20:34:00* Test Item Value Reference Range Interpretation Comments Monocytes % (Manual) (test code = 744-3) 2 3.4-9.0 L [facility] TylerEosinophils % (Manual)2018-05-18 20:34:00 * Test Item Value Reference Range Interpretation Comments Eosinophils % (Manual) (test code = 714-6) 1 0-7 [facility] TylerReactive Lfwehbisjac4782-25-51 20:34:00* Test Item Value Reference Range Interpretation Comments Reactive Lymphocytes (test code = 23670-3) 1 [facility] TylerPlatelet Krupnbsa1942-21-81 20:34:00* Test Item Value Reference Range Interpretation Comments Platelet Estimate (test code = 56799-6) SLIGHTLY INCREASED [facility] TylerPlatelet Morphology Spbvmjz8808-25-02 20:34:00* Test Item Value Reference Range Interpretation Comments Platelet Morphology Comment (test code = 32308-5) NORMAL [facility] TylerRed Cell Morphology Gwrvqkg3038-79-57 20:34:00* Test Item Value Reference Range Interpretation Comments Red Cell Morphology Comment (test code = 6742-1) NORMAL [facility] TylerEosinophils % (Manual)2018-05-18 20:34:00 * Test Item Value Reference Range Interpretation Comments Eosinophils % (Manual) (test code = 714-6) 1 0-7 [facility] TylerEosinophils % (Manual)2018-05-18 20:34:00 * Test Item Value Reference Range Interpretation Comments Eosinophils % (Manual) (test code = 714-6) 1 0-7 [facility] TylerEosinophils % (Manual)2018-05-18 20:34:00 * Test Item Value Reference Range Interpretation Comments Eosinophils % (Manual) (test code = 714-6) 1 0-7 [facility] TylerUrine YEB7842-17-63 19:52:00* Test Item Value Reference Range Interpretation Comments Urine WBC (test code = 5821-4) 6-10 0-5 H [facility] TylerUrine KMM0095-00-09 19:52:00* Test Item Value Reference Range Interpretation Comments Urine RBC (test code = 47046-5) 0-5 0-5 [facility] TylerUrine Ppenwksj6021-78-93 19:52:00* Test Item Value Reference Range Interpretation Comments Urine Bacteria (test code = 48130-4) MANY NONE H [facility] TylerUrine Epithelial Bcogj7815-99-40 19:52:00 * Test Item Value Reference Range Interpretation Comments Urine Epithelial Cells (test code = 92938-5) FEW NONE [facility] TylerUrine Pucmn7605-64-56 19:51:00* Test Item Value Reference Range Interpretation Comments Urine Color (test code = 5778-6) YELLOW YELLOW [facility] TylerUrine Gyabjdy0507-83-73 19:51:00* Test Item Value Reference Range Interpretation Comments Urine Clarity (test code = 55879-2) CLEAR CLEAR [facility] TylerU[facility] Specific Vydwwvk1305-65-92 19:51:00 * Test Item Value Reference Range Interpretation Comments Urine Specific [place] (test code = 5811-5) 1.025 1.010-1.02 5 [facility] TylerUrine iK3708-51-73 19:51:00* Test Item Value Reference Range Interpretation Comments Urine pH (test code = 03806-4) 6 5-7 [facility] Tyler[facility] Leukocyte Ipqrwxyr1174-97-27 19:51:00* Test Item Value Reference Range Interpretation Comments Urine Leukocyte Esterase (test code = 5799-2) TRACE NEGATIVE H [facility] TylerUrine Gsiwpqc3307-38-26 19:51:00* Test Item Value Reference Range Interpretation Comments Urine Nitrite (test code = 11827-0) NEGATIVE NEGATIVE [facility] TylerU[facility] Xyihsix0068-55-04 19:51:00* Test Item Value Reference Range Interpretation Comments Urine Protein (test code = 5804-0) NEGATIVE NEGATIVE [facility] TylerUrine Glucose (UA)2018-05-18 19:51:00* Test Item Value Reference Range Interpretation Comments Urine Glucose (UA) (test code = 2349-9) NEGATIVE NEGATIVE [facility] TylerU[facility] Aonhxzk9912-08-72 19:51:00* Test Item Value Reference Range Interpretation Comments Urine Ketones (test code = 36630-6) NEGATIVE NEGATIVE [facility] TylerU[facility] Ausenqjgxxoq4677-69-44 19:51:00* Test Item Value Reference Range Interpretation Comments Urine Urobilinogen (test code = 43505-3) 0.2 0.2-1 [facility] TylerUrine Dkfqojggp2194-51-87 19:51:00* Test Item Value Reference Range Interpretation Comments Urine Bilirubin (test code = 1978-6) NEGATIVE NEGATIVE [facility] TylerU[facility] Alnwm4968-65-93 19:51:00* Test Item Value Reference Range Interpretation Comments Urine Blood (test code = 80949-5) TRACE NEGATIVE H [facility] TylerProthrombin Ibik0693-91-88 19:46:00* Test Item Value Reference Range Interpretation Comments Prothrombin Time (test code = 5902-2) 13.2 11.9-14.5 [facility] TylerProthromb Time International Ratio 2018-05-18 19:46:00* Test Item Value Reference Range Interpretation Comments Prothromb Time International Ratio (test code = 6301-6) 1.08 Oral Anticoagulant Therapy INR Values:1. Low Intensity Therapy 1.5 - 2.02 . Moderate Intensity Therapy 2.0 - 3.03. High Intensity Therapy(1) 2.5 - 3. 54. High Intensity Therapy(2) 3.0 - 4.05. Panic Value INR > 5.0 [facility] TylerAct[facility] Partial Thromboplast Time 2018-05-18 19:46:00* Test Item Value Reference Range Interpretation Comments Activated Partial Thromboplast Time (test code = 49969-5) 31.5 23.8-35.5 [facility] TylerMODIFIED BA. CDXSSVU1497-26-58 18:39:00 [place] [address] Patient Name: ARIK VELIZ MR #: [id number] : 1975 Age/Sex: 43/M Req #: [id number] Adm Physician: Ordered by: MICHOACANO ARSHAD MD Report #: [id number] Location: DX Room/Bed : Procedure: [id number] DX/MODIFIED BA. SWALLOW Exam Date: 04/25/18 Exam [...] 04/25 COPY TO: MICHOACANO ARSHAD MD Urine GFF9732-30-68 15:15:00* Test Item Value Reference Range Interpretation Comments Urine WBC (test code = 5821-4) 6-10 0-5 H [facility] TylerU[facility] JOI9523-74-76 15:15:00* Test Item Value Reference Range Interpretation Comments Urine RBC (test code = 49928-7) 50- 0-5 H [facility] TylerUrine Heutbbva5415-21-56 15:15:00* Test Item Value Reference Range Interpretation Comments Urine Bacteria (test code = 40888-8) NONE NONE [facility] TylerU[facility] Epithelial Dyvta5470-39-69 15:15:00 * Test Item Value Reference Range Interpretation Comments Urine Epithelial Cells (test code = 62391-3) NONE NONE [facility] TylerU[facility] Orrzv0170-01-56 14:37:00* Test Item Value Reference Range Interpretation Comments Urine Color (test code = 5778-6) RED YELLOW H [facility] TylerUrine Cttqkgw6435-88-99 14:37:00* Test Item Value Reference Range Interpretation Comments Urine Clarity (test code = 92009-3) SL CLOUDY CLEAR H [facility] TylerUrine Specific Yrwszvf1864-84-61 14:37:00 * Test Item Value Reference Range Interpretation Comments Urine Specific [place] (test code = 5811-5) 1.010 1.010-1.02 5 [facility] TylerU[facility] aY8637-10-87 14:37:00* Test Item Value Reference Range Interpretation Comments Urine pH (test code = 06854-1) 6 5-7 [facility] TylerU[facility] Leukocyte Wvbozbba4687-10-48 14:37:00* Test Item Value Reference Range Interpretation Comments Urine Leukocyte Esterase (test code = 5799-2) 1+ NEGATIVE H [facility] TylerUrine Pmhwqav8063-09-98 14:37:00* Test Item Value Reference Range Interpretation Comments Urine Nitrite (test code = 29205-7) NEGATIVE NEGATIVE [facility] TylerU[facility] Vyjmfos7373-24-60 14:37:00* Test Item Value Reference Range Interpretation Comments Urine Protein (test code = 5804-0) 1+ NEGATIVE H [facility] TylerUrine Glucose (UA)2018-03-18 14:37:00* Test Item Value Reference Range Interpretation Comments Urine Glucose (UA) (test code = 2349-9) NEGATIVE NEGATIVE [facility] TylerUrine Hlldsis4391-27-53 14:37:00* Test Item Value Reference Range Interpretation Comments Urine Ketones (test code = 25830-9) NEGATIVE NEGATIVE [facility] TylerU[facility] Lopnukelsztd0261-05-63 14:37:00* Test Item Value Reference Range Interpretation Comments Urine Urobilinogen (test code = 67971-3) 0.2 0.2-1 [facility] TylerU[facility] Nnahrpgtb2548-17-39 14:37:00* Test Item Value Reference Range Interpretation Comments Urine Bilirubin (test code = 1978-6) NEGATIVE NEGATIVE [facility] TylerU[facility] Zdjxe8453-62-82 14:37:00* Test Item Value Reference Range Interpretation Comments Urine Blood (test code = 73866-4) 4+ NEGATIVE H [facility]ville[facility] Zlgap3400-73-64 14:23:00* Test Item Value Reference Range Interpretation Comments Sodium Level (test code = 2951-2) 143 136-145 [facility] TylerPotassium Gakjb1475-55-33 14:23:00* Test Item Value Reference Range Interpretation Comments Potassium Level (test code = 2823-3) 4.1 3.5-5.1 [facility] TylerChloride Vnurz6417-47-33 14:23:00* Test Item Value Reference Range Interpretation Comments Chloride Level (test code = 2075-0) 101 98-107 [facility] TylerCarbon Dioxide Bknhv0617-73-39 14:23:00* Test Item Value Reference Range Interpretation Comments Carbon Dioxide Level (test code = 2028-9) 32 22-29 H [facility] TylerAnion Jmt0933-79-73 14:23:00* Test Item Value Reference Range Interpretation Comments Anion Gap (test code = 21620-6) 14.1 8-16 [facility] TylerBlood Urea Pnhclqoq2312-93-35 14:23:00* Test Item Value Reference Range Interpretation Comments Blood Urea Nitrogen (test code = 3094-0) 14 7-26 [facility] TylerCreatinine2018-07-01 14:23:00* Test Item Value Reference Range Interpretation Comments Creatinine (test code = 2160-0) 0.84 0.72-1.25 [facility] TylerBUN/Creatinine Ogpxb6950-30-70 14:23:00* Test Item Value Reference Range Interpretation Comments BUN/Creatinine Ratio (test code = 3097-3) 17 6-25 [facility] TylerEstimat Glomerular Filtration Rate 2018-03-18 14:23:00* Test Item Value Reference Range Interpretation Comments Estimat Glomerular Filtration Rate (test code = 08288-2) 60- >60 Ranges were taken from the National Kidney Disease Education Program and the [facility] Kidney Foundation literature.Reference ranges:60 or greater: Hsqwdt34-29 ( for 3 consecutive months): Chronic kidney disease 15 or less: Kidney failureUT Health TylerGlucose Nakrr1911-69-63 14:23:00* Test Item Value Reference Range Interpretation Comments Glucose Level (test code = DAF9333) 98 74-118 [facility] TylerCalcium Hshwe5682-44-70 14:23:00* Test Item Value Reference Range Interpretation Comments Calcium Level (test code = 65714-6) 9.7 8.4-10.2 [facility] TylerTotal Dygarhjid1829-44-19 14:23:00* Test Item Value Reference Range Interpretation Comments Total Bilirubin (test code = 1975-2) 0.9 0.2-1.2 [facility] TylerAspartate Amino Transf (AST/SGOT) 2018-03-18 14:23:00* Test Item Value Reference Range Interpretation Comments Aspartate Amino Transf (AST/SGOT) (test code = Aspartate Amino Transf (AST/SGOT)) 30 5-34 [facility] TylerAlanine Aminotransferase (ALT/SGPT) 2018-03-18 14:23:00* Test Item Value Reference Range Interpretation Comments Alanine Aminotransferase (ALT/SGPT) (test code = 1742-6) 49 0-55 [facility] TylerTotal Kpvmwxk1429-47-37 14:23:00* Test Item Value Reference Range Interpretation Comments Total Protein (test code = 2885-2) 7.4 6.5-8.1 [facility] TylerAlbumin2018-07-01 14:23:00* Test Item Value Reference Range Interpretation Comments Albumin (test code = 1751-7) 3.8 3.5-5.0 [facility] TylerGlobulin2018-07-01 14:23:00* Test Item Value Reference Range Interpretation Comments Globulin (test code = 52336-3) 3.6 2.3-3.5 H [facility] TylerAlbumin/Globulin Rgtts3253-01-02 14:23:00 * Test Item Value Reference Range Interpretation Comments Albumin/Globulin Ratio (test code = 1759-0) 1.1 0.8-2.0 [facility] TylerAlkaline Aewwuwglsxf6765-62-49 14:23:00* Test Item Value Reference Range Interpretation Comments Alkaline Phosphatase (test code = 6768-6) 100 40-150 [facility] TylerTotal Fkatqerar1801-33-77 14:23:00* Test Item Value Reference Range Interpretation Comments Total Bilirubin (test code = 1975-2) 0.9 0.2-1.2 [facility] TylerAspartate Amino Transf (AST/SGOT) 2018-03-18 14:23:00* Test Item Value Reference Range Interpretation Comments Aspartate Amino Transf (AST/SGOT) (test code = Aspartate Amino Transf (AST/SGOT)) 30 5-34 [facility] TylerAlanine Aminotransferase (ALT/SGPT) 2018-03-18 14:23:00* Test Item Value Reference Range Interpretation Comments Alanine Aminotransferase (ALT/SGPT) (test code = 1742-6) 49 0-55 [facility] TylerTotal Uzwqnsm8738-36-52 14:23:00* Test Item Value Reference Range Interpretation Comments Total Protein (test code = 2885-2) 7.4 6.5-8.1 [facility] TylerAlbumin2018-07-01 14:23:00* Test Item Value Reference Range Interpretation Comments Albumin (test code = 1751-7) 3.8 3.5-5.0 [facility] TylerGlobulin2018-07-01 14:23:00* Test Item Value Reference Range Interpretation Comments Globulin (test code = 79387-7) 3.6 2.3-3.5 H [facility] TylerAlbumin/Globulin Bxkjd1903-41-18 14:23:00 * Test Item Value Reference Range Interpretation Comments Albumin/Globulin Ratio (test code = 1759-0) 1.1 0.8-2.0 [facility] TylerAlkaline Dikwlwzcgls7407-18-08 14:23:00* Test Item Value Reference Range Interpretation Comments Alkaline Phosphatase (test code = 6768-6) 100 40-150 [facility] TylerWhite Blood Jtwkz3534-80-48 14:12:00* Test Item Value Reference Range Interpretation Comments White Blood Count (test code = 6690-2) 12.76 4.8-10.8 H [facility] TylerRed Blood Ivncr4116-54-14 14:12:00* Test Item Value Reference Range Interpretation Comments Red Blood Count (test code = 789-8) 5.19 4.3-5.7 [facility] TylerHemoglobin2018-07-01 14:12:00* Test Item Value Reference Range Interpretation Comments Hemoglobin (test code = 02470-0) 15.8 14.0-18.0 [facility] TylerHematocrit2018-07-01 14:12:00* Test Item Value Reference Range Interpretation Comments Hematocrit (test code = 4544-3) 46.5 38.2-49.6 [facility] TylerMean Corpuscular Vqbasv5775-25-48 14:12:00* Test Item Value Reference Range Interpretation Comments Mean Corpuscular Volume (test code = 787-2) 89.6 81-99 [facility] Corpuscular Fdlrqdreus7039-30-59 14:12:00* Test Item Value Reference Range Interpretation Comments Mean Corpuscular Hemoglobin (test code = 785-6) 30.4 28-32 [facility] Corpuscular Hemoglobin Concent 2018-03-18 14:12:00* Test Item Value Reference Range Interpretation Comments Mean Corpuscular Hemoglobin Concent (test code = 786-4) 34.0 31-35 [facility] Tyler[facility] Cell Distribution Nlhpr2859-96-76 14:12:00* Test Item Value Reference Range Interpretation Comments Red Cell Distribution Width (test code = 43592-0) 12.3 11.7 -14.4 [facility] TylerPlatelet Jsfjn3219-60-86 14:12:00* Test Item Value Reference Range Interpretation Comments Platelet Count (test code = 777-3) 291 140-360 [facility] TylerNeutrophils (%) (Auto)2018-03-18 14:12:00 * Test Item Value Reference Range Interpretation Comments Neutrophils (%) (Auto) (test code = 24737-2) 60.4 38.7-80.0 [facility] TylerLymphocytes (%) (Auto)2018-03-18 14:12:00 * Test Item Value Reference Range Interpretation Comments Lymphocytes (%) (Auto) (test code = 736-9) 29.8 18.0-39.1 [facility] TylerMonocytes (%) (Auto)2018-03-18 14:12:00* Test Item Value Reference Range Interpretation Comments Monocytes (%) (Auto) (test code = 5905-5) 8.1 4.4-11.3 [facility] TylerEosinophils (%) (Auto)2018-03-18 14:12:00 * Test Item Value Reference Range Interpretation Comments Eosinophils (%) (Auto) (test code = 713-8) 1.0 0.0-6.0 [facility] TylerBasophils (%) (Auto)2018-03-18 14:12:00* Test Item Value Reference Range Interpretation Comments Basophils (%) (Auto) (test code = 706-2) 0.4 0.0-1.0 [facility] TylerIM GRANULOCYTES %2018-03-18 14:12:00* Test Item Value Reference Range Interpretation Comments IM GRANULOCYTES % (test code = IM GRANULOCYTES %) 0.3 0.0- 1.0 [facility] TylerNeutrophils # (Auto)2018-03-18 14:12:00* Test Item Value Reference Range Interpretation Comments Neutrophils # (Auto) (test code = 751-8) 7.7 2.1-6.9 H [facility] TylerLymphocytes # (Auto)2018-03-18 14:12:00* Test Item Value Reference Range Interpretation Comments Lymphocytes # (Auto) (test code = 83975-9) 3.8 1.0-3.2 H [facility] TylerMonocytes # (Auto)2018-03-18 14:12:00* Test Item Value Reference Range Interpretation Comments Monocytes # (Auto) (test code = 742-7) 1.0 0.2-0.8 H [facility] TylerEosinophils # (Auto)2018-03-18 14:12:00* Test Item Value Reference Range Interpretation Comments Eosinophils # (Auto) (test code = 711-2) 0.1 0.0-0.4 [facility] TylerBasophils # (Auto)2018-03-18 14:12:00* Test Item Value Reference Range Interpretation Comments Basophils # (Auto) (test code = 704-7) 0.1 0.0-0.1 [facility] TylerAbsolute Immature Granulocyte (auto 2018-03-18 14:12:00* Test Item Value Reference Range Interpretation Comments Absolute Immature Granulocyte (auto (sekou t code = Absolute Immature Granulocyte (auto) 0.04 0-0.1 [facility] TylerProthrombin Qczd7371-90-11 14:12:00* Test Item Value Reference Range Interpretation Comments Prothrombin Time (test code = 5902-2) 13.2 11.9-14.5 [facility] TylerProthromb Time International Ratio 2018-03-18 14:12:00* Test Item Value Reference Range Interpretation Comments Prothromb Time International Ratio (test code = 6301-6) 1.08 Oral Anticoagulant Therapy INR Values:1. Low Intensity Therapy 1.5 - 2.02 . Moderate Intensity Therapy 2.0 - 3.03. High Intensity Therapy(1) 2.5 - 3. 54. High Intensity Therapy(2) 3.0 - 4.05. Panic Value INR > 5.0 [facility] TylerActivated Partial Thromboplast Time 2018-03-18 14:12:00* Test Item Value Reference Range Interpretation Comments Activated Partial Thromboplast Time (test code = 63562-4) 26.6 23.8-35.5 [facility] TylerBlood Oujgmtr1357-48-92 05:37:00* Test Item Value Reference Range Interpretation Comments Blood Culture (test code = 51125269) NO GROWTH AFTER 5 DAYS, FINAL REPORT [facility] TylerUrine Tmpru1361-20-23 10:30:00* Test Item Value Reference Range Interpretation Comments Urine Color (test code = 5778-6) YELLOW YELLOW [facility] TylerUrine Oughgwr7104-26-65 10:30:00* Test Item Value Reference Range Interpretation Comments Urine Clarity (test code = 06696-8) SL CLOUDY CLEAR [facility] TylerU[facility] Specific Zaoxrml4608-04-29 10:30:00 * Test Item Value Reference Range Interpretation Comments Urine Specific [place] (test code = 5811-5) 1.020 1.010-1.02 5 [facility] TylerUrine aB3947-05-72 10:30:00* Test Item Value Reference Range Interpretation Comments Urine pH (test code = 05450-5) 6.5 5-7 [facility] TylerU[facility] Leukocyte Ipfkmedt0490-18-61 10:30:00* Test Item Value Reference Range Interpretation Comments Urine Leukocyte Esterase (test code = 5799-2) TRACE NEGATIVE H [facility] TylerUrine Qvrrqnr6397-21-00 10:30:00* Test Item Value Reference Range Interpretation Comments Urine Nitrite (test code = 12435-0) NEGATIVE NEGATIVE [facility] TylerU[facility] Iiuutkz0052-96-93 10:30:00* Test Item Value Reference Range Interpretation Comments Urine Protein (test code = 5804-0) NEGATIVE NEGATIVE [facility] TylerUrine Glucose (UA)2018-02-27 10:30:00* Test Item Value Reference Range Interpretation Comments Urine Glucose (UA) (test code = 2349-9) NEGATIVE NEGATIVE [facility] TylerUrine Ppfwugu3133-54-75 10:30:00* Test Item Value Reference Range Interpretation Comments Urine Ketones (test code = 63554-2) NEGATIVE NEGATIVE [facility] TylerU[facility] Ilwxvhclngct3986-65-17 10:30:00* Test Item Value Reference Range Interpretation Comments Urine Urobilinogen (test code = 73035-7) 0.2 0.2-1 [facility] TylerU[facility] Krarbqtyo2677-60-18 10:30:00* Test Item Value Reference Range Interpretation Comments Urine Bilirubin (test code = 1978-6) NEGATIVE NEGATIVE [facility] TylerU[facility] Ydyxn3169-85-88 10:30:00* Test Item Value Reference Range Interpretation Comments Urine Blood (test code = 70051-4) NEGATIVE NEGATIVE [facility] TylerWhite Blood Skxxf9687-05-26 09:00:00* Test Item Value Reference Range Interpretation Comments White Blood Count (test code = 6690-2) 19.50 4.8-10.8 H [facility] TylerRed Blood Uxvox7360-17-90 09:00:00* Test Item Value Reference Range Interpretation Comments Red Blood Count (test code = 789-8) 5.01 4.3-5.7 [facility] TylerHemoglobin2018-06-12 09:00:00* Test Item Value Reference Range Interpretation Comments Hemoglobin (test code = 82657-7) 15.1 14.0-18.0 [facility] TylerHematocrit2018-06-12 09:00:00* Test Item Value Reference Range Interpretation Comments Hematocrit (test code = 4544-3) 44.5 38.2-49.6 [facility] TylerMean Corpuscular Fpxwtu9124-05-75 09:00:00* Test Item Value Reference Range Interpretation Comments Mean Corpuscular Volume (test code = 787-2) 88.8 81-99 [facility] TylerMean Corpuscular Tfyfbdgpec0142-21-95 09:00:00* Test Item Value Reference Range Interpretation Comments Mean Corpuscular Hemoglobin (test code = 785-6) 30.1 28-32 [facility] TylerMean Corpuscular Hemoglobin Concent 2018-02-27 09:00:00* Test Item Value Reference Range Interpretation Comments Mean Corpuscular Hemoglobin Concent (test code = 786-4) 33.9 31-35 [facility] TylerRed Cell Distribution Njred7340-98-87 09:00:00* Test Item Value Reference Range Interpretation Comments Red Cell Distribution Width (test code = 49630-2) 12.6 11.7 -14.4 [facility] TylerPlatelet Fijxk6853-83-19 09:00:00* Test Item Value Reference Range Interpretation Comments Platelet Count (test code = 777-3) 283 140-360 [facility] TylerNeutrophils (%) (Auto)2018-02-27 09:00:00 * Test Item Value Reference Range Interpretation Comments Neutrophils (%) (Auto) (test code = 25653-6) 88.8 38.7-80.0 H [facility] TylerLymphocytes (%) (Auto)2018-02-27 09:00:00 * Test Item Value Reference Range Interpretation Comments Lymphocytes (%) (Auto) (test code = 736-9) 8.3 18.0-39.1 L [facility] TylerMonocytes (%) (Auto)2018-02-27 09:00:00* Test Item Value Reference Range Interpretation Comments Monocytes (%) (Auto) (test code = 5905-5) 2.2 4.4-11.3 L [facility] TylerEosinophils (%) (Auto)2018-02-27 09:00:00 * Test Item Value Reference Range Interpretation Comments Eosinophils (%) (Auto) (test code = 713-8) 0.0 0.0-6.0 [facility] TylerBasophils (%) (Auto)2018-02-27 09:00:00* Test Item Value Reference Range Interpretation Comments Basophils (%) (Auto) (test code = 706-2) 0.1 0.0-1.0 [facility] TylerIM GRANULOCYTES %2018-02-27 09:00:00* Test Item Value Reference Range Interpretation Comments IM GRANULOCYTES % (test code = IM GRANULOCYTES %) 0.6 0.0- 1.0 [facility] TylerNeutrophils # (Auto)2018-02-27 09:00:00* Test Item Value Reference Range Interpretation Comments Neutrophils # (Auto) (test code = 751-8) 17.3 2.1-6.9 H [facility] TylerLymphocytes # (Auto)2018-02-27 09:00:00* Test Item Value Reference Range Interpretation Comments Lymphocytes # (Auto) (test code = 80074-0) 1.6 1.0-3.2 [facility] TylerMonocytes # (Auto)2018-02-27 09:00:00* Test Item Value Reference Range Interpretation Comments Monocytes # (Auto) (test code = 742-7) 0.4 0.2-0.8 [facility] TylerEosinophils # (Auto)2018-02-27 09:00:00* Test Item Value Reference Range Interpretation Comments Eosinophils # (Auto) (test code = 711-2) 0.0 0.0-0.4 [facility] TylerBasophils # (Auto)2018-02-27 09:00:00* Test Item Value Reference Range Interpretation Comments Basophils # (Auto) (test code = 704-7) 0.0 0.0-0.1 [facility] TylerAbsolute Immature Granulocyte (auto 2018-02-27 09:00:00* Test Item Value Reference Range Interpretation Comments Absolute Immature Granulocyte (auto (sekou t code = Absolute Immature Granulocyte (auto) 0.12 0-0.1 H [facility] TylerBlood Xafyqjq4832-42-77 05:37:00* Test Item Value Reference Range Interpretation Comments Blood Culture (test code = 75358430) NO GROWTH AFTER 24 HOURS [facility] Fjoxx1401-22-10 06:02:00* Test Item Value Reference Range Interpretation Comments Sodium Level (test code = 2951-2) 143 136-145 [facility] TylerPotassium Aypel1500-72-22 06:02:00* Test Item Value Reference Range Interpretation Comments Potassium Level (test code = 2823-3) 4.1 3.5-5.1 [facility] TylerChloride Qmuco5728-91-87 06:02:00* Test Item Value Reference Range Interpretation Comments Chloride Level (test code = 2075-0) 109 98-107 H [facility] TylerCarbon Dioxide Gwgpa2668-71-71 06:02:00* Test Item Value Reference Range Interpretation Comments Carbon Dioxide Level (test code = 2028-9) 24 22-29 [facility] TylerAnion Ahy8729-33-64 06:02:00* Test Item Value Reference Range Interpretation Comments Anion Gap (test code = 83968-0) 14.1 8-16 [facility] TylerBlood Urea Jykqlprm9467-55-96 06:02:00* Test Item Value Reference Range Interpretation Comments Blood Urea Nitrogen (test code = 3094-0) 8 7-26 [facility] TylerCreatinine2018-06-11 06:02:00* Test Item Value Reference Range Interpretation Comments Creatinine (test code = 2160-0) 0.65 0.72-1.25 L [facility] TylerBUN/Creatinine Uqhls0076-04-10 06:02:00* Test Item Value Reference Range Interpretation Comments BUN/Creatinine Ratio (test code = 3097-3) 12 6- [facility] TylerEstimat Glomerular Filtration Rate 2018-02-26 06:02:00* Test Item Value Reference Range Interpretation Comments Estimat Glomerular Filtration Rate (test code = 51479-1) 60- >60 Ranges were taken from the National Kidney Disease Education Program and the [facility] Foundation literature.Reference ranges:60 or greater: Lcmkbs72-78 ( for 3 consecutive months): Chronic kidney disease 15 or less: Kidney failureUT Health TylerGlucose Ivscs0038-05-84 06:02:00* Test Item Value Reference Range Interpretation Comments Glucose Level (test code = IGS4950) 131 74-118 H [facility] TylerCalcium Zmuup5667-08-47 06:02:00* Test Item Value Reference Range Interpretation Comments Calcium Level (test code = 64800-0) 9.1 8.4-10.2 [facility] TylerBedside Kymfzui7359-06-28 20:13:00* Test Item Value Reference Range Interpretation Comments Bedside Glucose (test code = 19572-7) 137 70-120 H Meter ID: [id number] [facility] 2018-02-25 20:13:00* Test Item Value Reference Range Interpretation Comments Bedside Glucose (test code = 30690-4) 137 70-120 H Meter ID: [id number] Mark's Medical CenterTotal Bilirubin 2018-02-25 12:32:00* Test Item Value Reference Range Interpretation Comments Total Bilirubin (test code = 1975-2) 0.4 0.2-1.2 [facility] TylerAspartate Amino Transf (AST/SGOT) 2018-02-25 12:32:00* Test Item Value Reference Range Interpretation Comments Aspartate Amino Transf (AST/SGOT) (test code = Aspartate Amino Transf (AST/SGOT)) 17 5-34 [facility] TylerAlanine Aminotransferase (ALT/SGPT) 2018-02-25 12:32:00* Test Item Value Reference Range Interpretation Comments Alanine Aminotransferase (ALT/SGPT) (test code = 1742-6) 22 0-55 [facility] TylerTotal Qbznupp7159-99-31 12:32:00* Test Item Value Reference Range Interpretation Comments Total Protein (test code = 2885-2) 7.3 6.5-8.1 [facility] TylerAlbumin2018-06-10 12:32:00* Test Item Value Reference Range Interpretation Comments Albumin (test code = 1751-7) 3.8 3.5-5.0 [facility] TylerGlobulin2018-06-10 12:32:00* Test Item Value Reference Range Interpretation Comments Globulin (test code = 32826-6) 3.5 2.3-3.5 [facility] TylerAlbumin/Globulin Myxve3840-55-80 12:32:00 * Test Item Value Reference Range Interpretation Comments Albumin/Globulin Ratio (test code = 1759-0) 1.1 0.8-2.0 [facility] TylerAlkaline Uyqxhdfywsa3892-14-62 12:32:00* Test Item Value Reference Range Interpretation Comments Alkaline Phosphatase (test code = 6768-6) 115 40-150 [facility] TylerCT ABDOMEN/PELVIS K7460-64-81 16:44:00 [facility] [address] [address] Patient Name: ARIK VELIZ MR #: [id number] : 1975 Age/Sex: 42/M Req #: [id number] Adm Physician: Ordered by: RADHA KILGORE MD Report #: [id number] Location: ER Room /Bed: Procedure: [id number] CT/CT ABDOMEN/PELVIS W Ex am Date: Exam [...] obtained. Routine protocol was performed. Scan was performe d when during portal venous phase. 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 No bowel obstruction. Appendix is [...] 4:54 PM Dictated By: RENUKA TAYLOR MD 2626 Transcribed By: ZO on 02/24/18 6716 COPY TO: RADHA KILGORE MD Urine Epithelial Ljqzq2248-65-36 15:44:00* Test Item Value Reference Range Interpretation Comments Urine Epithelial Cells (test code = 41146-2) FEW NONE [facility] TylerU[facility] JRD5849-45-96 15:41:00* Test Item Value Reference Range Interpretation Comments Urine WBC (test code = 5821-4) 50- 0-5 H [facility] TylerUrine TBF2996-93-40 15:41:00* Test Item Value Reference Range Interpretation Comments Urine RBC (test code = 38100-3) 6-10 0-5 H [facility] TylerUrine Lbrbkesv6651-19-18 15:41:00* Test Item Value Reference Range Interpretation Comments Urine Bacteria (test code = 80412-7) FEW NONE [facility] TylerAmylase Xqsxu4060-69-63 15:21:00* Test Item Value Reference Range Interpretation Comments Amylase Level (test code = 1798-8) 49 25-125 [facility] TylerLipase2018-06-09 15:21:00* Test Item Value Reference Range Interpretation Comments Lipase (test code = 3040-3) [facility] TylerAmylase Tcnuv8533-54-48 15:21:00* Test Item Value Reference Range Interpretation Comments Amylase Level (test code = 1798-8) 49 -125 [facility] TylerLipase2018-06-09 15:21:00* Test Item Value Reference Range Interpretation Comments Lipase (test code = 3040-3) [facility] TylerAmylase Ubgpc3870-10-90 15:21:00* Test Item Value Reference Range Interpretation Comments Amylase Level (test code = 1798-8) 49 -125 [facility] TylerLipase2018-06-09 15:21:00* Test Item Value Reference Range Interpretation Comments Lipase (test code = 3040-3) [facility] TylerAmylase Ihtdt5822-76-05 15:21:00* Test Item Value Reference Range Interpretation Comments Amylase Level (test code = 1798-8) 49 -125 [facility] TylerLipase2018-06-09 15:21:00* Test Item Value Reference Range Interpretation Comments Lipase (test code = 3040-3) [facility] TylerAmylase Hjykd4069-63-70 15:21:00* Test Item Value Reference Range Interpretation Comments Amylase Level (test code = 1798-8) 49 -125 [facility] TylerLipase2018-06-09 15:21:00* Test Item Value Reference Range Interpretation Comments Lipase (test code = 3040-3) [facility] TylerBacterial urine hebgaqc0949-30-29 10:45:00* Test Item Value Reference Range Interpretation Comments Urine Culture (test code = 630-4) Organism: CITROBACTER FREUNDII#2 [facility] TylerBacteria urine ficriae9007-11-03 10:45:00* Test Item Value Reference Range Interpretation Comments Urine Culture (test code = 630-4) Organism: CITROBACTER FREUNDII#2 [facility] xpyqpcy5509-49-72 10:45:00* Test Item Value Reference Range Interpretation Comments Urine Culture (test code = 630-4) Organism: CITROBACTER FREUNDII#2 [facility] TylerBacteria urine lcsuebf3333-95-87 10:45:00* Test Item Value Reference Range Interpretation Comments Urine Culture (test code = 630-4) Organism: CITROBACTER FREUNDII#2 [facility] blood dfzlijm5495-68-77 14:44:00* Test Item Value Reference Range Interpretation Comments Blood Culture (test code = 600-7) Organism: STAPHYLOCOCCUS SP COAG NEG [facility] blood ioosqkz1981-39-66 14:44:00* Test Item Value Reference Range Interpretation Comments Blood Culture (test code = 600-7) Organism: STAPHYLOCOCCUS SP COAG NEG [facility] blood jfozxyi5485-23-60 14:44:00* Test Item Value Reference Range Interpretation Comments Blood Culture (test code = 600-7) Organism: STAPHYLOCOCCUS SP COAG NEG [facility] TylerPhosphorus Dkela5203-17-76 09:09:00* Test Item Value Reference Range Interpretation Comments Phosphorus Level (test code = ZFB5482) 2.4 2.3-4.7 [facility] TylerMagnesium Hfpbp8970-74-64 09:09:00* Test Item Value Reference Range Interpretation Comments Magnesium Level (test code = 86994-4) 1.8 1.3-2.1 [facility] TylerPhosphorNorthwest Center for Behavioral Health – WoodwardQpimy2137-94-59 09:09:00* Test Item Value Reference Range Interpretation Comments Phosphorus Level (test code = ZVQ9860) 2.4 2.3-4.7 [facility] Americagnesium Ftlwk1641-38-20 09:09:00* Test Item Value Reference Range Interpretation Comments Magnesium Level (test code = 72833-2) 1.8 1.3-2.1 [facility] TylerPhosphorus Jhcjv6221-65-50 09:09:00* Test Item Value Reference Range Interpretation Comments Phosphorus Level (test code = HYV9129) 2.4 2.3-4.7 [facility] Americagnesium Ezudg9960-44-01 09:09:00* Test Item Value Reference Range Interpretation Comments Magnesium Level (test code = 65010-0) 1.8 1.3-2.1 [facility] TylerPhosphorus Rxzlc1940-19-31 09:09:00* Test Item Value Reference Range Interpretation Comments Phosphorus Level (test code = WWO8491) 2.4 2.3-4.7 [facility] TylerLactic Acid Ztuvx9916-63-57 22:56:00* Test Item Value Reference Range Interpretation Comments Lactic Acid Level (test code = Lactic Acid Level) 7.9 4.5- 19.8 [facility] TylerLactic Acid Phkhp4442-59-05 22:56:00* Test Item Value Reference Range Interpretation Comments Lactic Acid Level (test code = Lactic Acid Level) 7.9 4.5- 19.8 [facility] TylerUrine Amorphous Povizjjo9139-03-73 21:03:00* Test Item Value Reference Range Interpretation Comments Urine Amorphous Sediment (test code = 8246-1) MODERATE FEW [facility] Picku9521-59-21 21:03:00* Test Item Value Reference Range Interpretation Comments Urine Mucus (test code = 8247-9) FEW RARE [facility] Amorphous Thzgqahc9388-08-73 21:03:00* Test Item Value Reference Range Interpretation Comments Urine Amorphous Sediment (test code = 8246-1) MODERATE FEW [facility] Cxmdo8744-93-19 21:03:00* Test Item Value Reference Range Interpretation Comments Urine Mucus (test code = 8247-9) FEW RARE H [facility] TylerU[facility] Amorphous Iberpwvx0345-20-63 21:03:00* Test Item Value Reference Range Interpretation Comments Urine Amorphous Sediment (test code = 8246-1) MODERATE FEW H [facility] Poprn7983-35-69 21:03:00* Test Item Value Reference Range Interpretation Comments Urine Mucus (test code = 8247-9) FEW RARE H [facility] TylerU[facility] Amorphous Mdwxsoqs3886-03-17 21:03:00* Test Item Value Reference Range Interpretation Comments Urine Amorphous Sediment (test code = 8246-1) MODERATE FEW H [facility] HospitalU[facility] Jecxc1141-53-53 21:03:00* Test Item Value Reference Range Interpretation Comments Urine Mucus (test code = 8247-9) FEW RARE [facility] HospitalInfluenza Virus Types A,B Antigen 2017-09-18 20:09:00* Test Item Value Reference Range Interpretation Comments Influenza Virus Types A,B Antigen (test code = 73923-3) NEGATIVE NEGATIVE [facility] TylerInfluenza Virus Types A,B Antigen 2017-09-18 20:09:00* Test Item Value Reference Range Interpretation Comments Influenza Virus Types A,B Antigen (test code = 38973-6) NEGATIVE NEGATIVE [facility] TylerInfluenza Virus Types A,B Antigen 2017-09-18 20:09:00* Test Item Value Reference Range Interpretation Comments Influenza Virus Types A,B Antigen (test code = 62908-0) NEGATIVE NEGATIVE [facility] TylerInfluenza Virus Types A,B Antigen 2017-09-18 20:09:00* Test Item Value Reference Range Interpretation Comments Influenza Virus Types A,B Antigen (test code = 27617-7) NEGATIVE NEGATIVE [facility] TylerCHE[facility] X[facility] LINE PLAC[facility] [place] [address] Patient Name: ARIK VELIZ MR #: [id number] : 1975 Age/Sex: 42/M Req #: [id number] Adm Physician: JOSETTE KELLEY MD Ordered by: JOSETTE KELLEY MD Report #: [id number] Location: MED/SURG2 Room/Bed: 203-1 Procedure: [id number] DX/YVROSE ST XRAY LINE PLACEMENT Exam Date: 09/19/17 [...] Signed By: MARCOS MEDINA MD on 09/19/17 1542 Transcribed By: ARIELLA on 09/19 1542 COPY TO: JOSETTE KELLEY MD CT BRAIN WO [address] [place] [address] Patient Name: ARIK VELIZ MR #: [id number] : 1975 Age/Sex: 42/M Req #: [id number] Adm Physician: Ordered by: LEMUEL BARRIOS MD Report #: [id number] Location: ER Room/Bed: Procedure: [id number] CT/CT BRAIN WO Exam Date: 10/05 Exam [...] abnormal density. Brain volume: Normal for age. Ware Tester niocervical junction: No mass, Chiari malformation, or [...]
== END 2020-08-21 14:23 | disposition home or self-care (01) ==
LOC: ER 11:10
DX: N39.0 Urinary tract infection, site not specified (principal); G35 Multiple sclerosis; E03.9 Hypothyroidism, unspecified; F41.9 Anxiety disorder, unspecified
CPT/HCPCS: 71045; 74176; 81001; 99284

== ENCOUNTER → 2021-04-01 | Day surgery (SDC) | payer MEDICARE, OTHER ==
[~2021-04-01] MED LIST changes: +B&O 60MG R/S 60 MG SUPP PR ONE; +COPAXONE20 MG/KIT; +DEXAMETHASONE SOD PHOS INJ 4 MG/ML VIAL ONE; +FENTANYL CITRATE/PF 100MCG/2 ML INJ ONE; +GENTAMICIN 80MG/NS 100 ML 200 ML IV ONE; +IOPAMIDOL 300MG/ML 50ML INFUS..BTL IV ONE; +LIDOCAINE HCL 2% LOCAL INJ 5 ML SDV VIAL INJ ONE; +LINZESS145 MCG PO; +ONDANSETRON HCL INJ 2MG/ML 2ML 2 MG/ML VIAL ONE; +POVIDONE IODINE 0.05% 0.05 % ML PO ONE; +PROPOFOL IV EMULSION 10 MG/ML 20 ML VIAL ONE; +SERTRALINE HCL50 MG PO; +SEVOFLURANE INHAL SOLN 250 ML PEN BTL ONE; +SODIUM CHLORIDE 0.9% 250ML 250 ML ONE; +Vancomycin IV 1 GM VIAL ONE
[2021-04-01 13:05] VITALS: BP 142/94
== END | disposition home or self-care (01) ==
LOC: OR 09:29
PROVIDERS: ATTEND Urology
DX: N21.0 Calculus in bladder (principal); Z43.5 Encounter for attention to cystostomy; N39.0 Urinary tract infection, site not specified; G82.50 Quadriplegia, unspecified; G35 Multiple sclerosis; I69.369 Other paralytic syndrome following cerebral infarction affecting unspecified side; I69.328 Other speech and language deficits following cerebral infarction; I49.3 Ventricular premature depolarization; Z88.6 Allergy status to analgesic agent; Z88.1 Allergy status to other antibiotic agents; Z91.048 Other nonmedicinal substance allergy status; Z20.822 Contact with and (suspected) exposure to COVID-19
CPT/HCPCS: 51705; 52005; 52318; 74420; 93005; C1758; J1100; J1580; J2001; J2405; J2704; J3010; J3370; J7050; Q9967; U0002

== ENCOUNTER 2021-04-12 11:10 | Emergency (ER) | payer MEDICARE, OTHER ==
[~2021-04-12] VITALS: Ht 170.2 cm; Wt 64.4 kg
[~2021-04-12 11:10] MED LIST changes: -B&O 60MG R/S 60 MG SUPP PR ONE; -DEXAMETHASONE SOD PHOS INJ 4 MG/ML VIAL ONE; -FENTANYL CITRATE/PF 100MCG/2 ML INJ ONE; -GENTAMICIN 80MG/NS 100 ML 200 ML IV ONE; -IOPAMIDOL 300MG/ML 50ML INFUS..BTL IV ONE; -LIDOCAINE HCL 2% LOCAL INJ 5 ML SDV VIAL INJ ONE; -ONDANSETRON HCL INJ 2MG/ML 2ML 2 MG/ML VIAL ONE; -POVIDONE IODINE 0.05% 0.05 % ML PO ONE; -PROPOFOL IV EMULSION 10 MG/ML 20 ML VIAL ONE; -SEVOFLURANE INHAL SOLN 250 ML PEN BTL ONE; -SODIUM CHLORIDE 0.9% 250ML 250 ML ONE; -Vancomycin IV 1 GM VIAL ONE
[2021-04-12 13:08] LABS: CLARITY,URINE CLOUDY (CLEAR); COLOR,URINE RED (YELLOW)
[2021-04-12 13:09] LABS: KETONES,URINE 1+ (NEGATIVE); LEUKOCYTE ESTERASE ,URINE LARGE (NEGATIVE); NITRITE,URINE POSITIVE (NEGATIVE); PROTEIN,URINE DIPSTICK >=300 (NEGATIVE); URINE UROBILINOGEN 1 mg/dL (0.2 - 1)
[2021-04-12] MEDS ORDERED: BACTRIM DS TAB1 EACH PO (13:19)
[2021-04-12 13:22] LABS: BACTERIA,URINE FEW /HPF; CALCIUM OXALATE CRYSTALS,UR FEW (FEW); EPITHELIAL CELLS,URINE MODERATE /LPF; RBC,URINE 0-5 /HPF (0-5); WBC,URINE (MAN) 0-5 /HPF (0-5)
[2021-04-12] MEDS ORDERED: FLEET ENEMA133 ML PR (13:25)
[2021-04-12 13:40] VITALS: BP 134/98
== END 2021-04-12 14:45 | disposition home or self-care (01) ==
LOC: ER 11:50
DX: N39.0 Urinary tract infection, site not specified (principal); K56.41 Fecal impaction; G35 Multiple sclerosis; Z87.440 Personal history of urinary (tract) infections; Z88.1 Allergy status to other antibiotic agents; Z91.048 Other nonmedicinal substance allergy status; G82.50 Quadriplegia, unspecified
CPT/HCPCS: 74176; 81001; 99284

== ENCOUNTER 2022-01-18 10:39 | Emergency (ER) | payer MEDICARE, OTHER ==
[~2022-01-18] VITALS: Ht 170.2 cm; Wt 64.4 kg
[~2022-01-18 10:39] MED LIST changes: +BACTRIM DS TAB1 EACH PO; +FLEET ENEMA133 ML PR
[2022-01-18 11:40] LABS: BASOPHILS # (AUTO) 0.1 (0.0-0.1); BASOPHILS % 0.5 % (0.0-1.0); EOSINOPHILS # (AUTO) 0.1 (0.0-0.4); EOSINOPHILS % 1.5 % (0.0-6.0); HEMATOCRIT 45.1 % (38.2-49.6); HEMOGLOBIN 15.2 g/dL (14.0-18.0); LYMPHOCYTES # (AUTO) 2.1 (1.0-3.2); LYMPHOCYTES % 22.4 % (18.0-39.1); MEAN CORPUSCULAR HEMOGLOBIN 30.3 pg (28-32); MEAN CORPUSCULAR HGB CONC 33.7 g/dL (31-35); MONOCYTES # (AUTO) 0.6 (0.2-0.8); MONOCYTES % 6.5 % (4.4-11.3); NEUTROPHILS # (AUTO) 6.5 (2.1-6.9); NEUTROPHILS % 68.9 % (38.7-80.0); PLATELET COUNT 350 x10e3/uL (140-360); RED BLOOD COUNT 5.01 x10e6/uL (4.3-5.7); RED CELL DISTRIBUTION WIDTH 12.4 % (11.7-14.4)
[2022-01-18 11:53] LABS: ALBUMIN 3.8 g/dL (3.5-5.0); CREATININE, SERUM 0.66 mg/dL (0.72-1.25)
[2022-01-18] MEDS ORDERED: IOPAMIDOL 370 MG/ML 100 ML INFUS..BTL INJ ONE (12:42)
[2022-01-18] MEDS ORDERED: LIDOCAINE HCL 1% LOCAL INJ 20 ML VIAL ONE (12:49)
[2022-01-18 13:41] LABS: COLOR,URINE BROWN (YELLOW)
[2022-01-18 13:42] LABS: CLARITY,URINE SL CLOUDY (CLEAR); KETONES,URINE NEGATIVE (NEGATIVE); LEUKOCYTE ESTERASE ,URINE SMALL (NEGATIVE); NITRITE,URINE NEGATIVE (NEGATIVE); PROTEIN,URINE DIPSTICK TRACE (NEGATIVE); URINE UROBILINOGEN 0.2 mg/dL (0.2 - 1)
[2022-01-18 13:49] LABS: BACTERIA,URINE FEW /HPF; RBC,URINE >50 /HPF (0-5)
[2022-01-18 13:50] LABS: EPITHELIAL CELLS,URINE RARE /LPF
== END 2022-01-18 15:26 | disposition home or self-care (01) ==
LOC: ER 10:50
DX: Z46.6 Encounter for fitting and adjustment of urinary device (principal); G35 Multiple sclerosis; E03.9 Hypothyroidism, unspecified; F41.9 Anxiety disorder, unspecified; Z74.01 Bed confinement status
CPT/HCPCS: 36415; 51705; 74470; 75984; 80053; 81001; 85025; 87086; 87186; 99284; J2001; Q9967

== ENCOUNTER 2022-02-16 13:27 | Emergency (ER) | payer MEDICARE, OTHER ==
[~2022-02-16] VITALS: Ht 170.2 cm; Wt 64.4 kg
[2022-02-16] MEDS ORDERED: LACTATED RINGER'S 1,000 ML INJ ONE ×3 (14:00→15:15)
[2022-02-16 14:09] LABS: BASOPHILS # (AUTO) 0.1 (0.0-0.1); BASOPHILS % 0.2 % (0.0-1.0); HEMATOCRIT 48.4 % (38.2-49.6); HEMOGLOBIN 15.9 g/dL (14.0-18.0); LYMPHOCYTES # (AUTO) 1.1 (1.0-3.2); LYMPHOCYTES % 3.9 % (18.0-39.1); MEAN CORPUSCULAR HEMOGLOBIN 30.5 pg (28-32); MEAN CORPUSCULAR HGB CONC 32.9 g/dL (31-35); MEAN CORPUSCULAR VOLUME 92.7 fL (81-99); MONOCYTES # (AUTO) 1.9 (0.2-0.8); MONOCYTES % 6.6 % (4.4-11.3); NEUTROPHILS # (AUTO) 24.9 (2.1-6.9); NEUTROPHILS % 88.7 % (38.7-80.0); PLATELET COUNT 271 x10e3/uL (140-360); RED BLOOD COUNT 5.22 x10e6/uL (4.3-5.7); RED CELL DISTRIBUTION WIDTH 12.2 % (11.7-14.4)
[2022-02-16 14:23] LABS: INR 0.95; PROTHROMBIN TIME 13.5 seconds (11.9-14.5)
[2022-02-16 14:25] LABS: CLARITY,URINE CLOUDY (CLEAR); COLOR,URINE YELLOW (YELLOW)
[2022-02-16 14:26] LABS: AMPHETAMINES SCREEN,URINE NEGATIVE (NEGATIVE); BENZODIAZEPINES SCREEN,URINE NEGATIVE (NEGATIVE); KETONES,URINE NEGATIVE (NEGATIVE); LEUKOCYTE ESTERASE ,URINE LARGE (NEGATIVE); NITRITE,URINE POSITIVE (NEGATIVE); PHENCYCLIDINE SCREEN,URINE NEGATIVE (NEGATIVE); PROTEIN,URINE DIPSTICK 2+ (NEGATIVE); URINE UROBILINOGEN 2 mg/dL (0.2 - 1)
[2022-02-16] MEDS ORDERED: PIPERACILLIN/TAZOBACTAM 4.5 GM in SODIUM CHLORIDE 0.9% 100 ML IV SCH (14:35)
[2022-02-16 14:36] LABS: BACTERIA,URINE MODERATE /HPF; RBC,URINE 0-5 /HPF (0-5); TRIPLE PHOSPHATE CRYSTAL,UR MANY (FEW)
[2022-02-16 14:37] LABS: AMORPHOUS SEDIMENT,URINE MANY (FEW)
[2022-02-16 15:01] LABS: CALCIUM 9.2 mg/dL (8.4-10.2); CREATININE, SERUM 0.7 mg/dL (0.72-1.25)
[2022-02-16] MEDS ORDERED: LACTATED RINGER'S 500 ML IV ONE (15:15)
[2022-02-16 15:50] LABS: SALICYLATE < 5.0 mg/dL (0-30)
[2022-02-16] MEDS ORDERED: LACTATED RINGER'S 1,000 ML IV ONE (18:00)
[2022-02-16] MEDS ORDERED: LACTATED RINGER'S 1,000 ML ONE (18:03)
[2022-02-16] MEDS ORDERED: ACETAMINOPHEN 1000 MG/100 ML IV STA (23:00)
[2022-02-17 00:27] VITALS: BP 124/88
== END 2022-02-17 00:10 | disposition other institution (70) ==
LOC: ER 13:35
DX: A41.9 Sepsis, unspecified organism (principal); G35 Multiple sclerosis; N39.0 Urinary tract infection, site not specified; Z20.822 Contact with and (suspected) exposure to COVID-19
CPT/HCPCS: 36415; 70450; 71045; 80053; 80307; 80320; 80329 ×2; 81001; 83605; 84484; 85025; 85610; 87040; 87086; 87186; 93005; 99284; J0131; J7121; U0002; J7120

== ENCOUNTER 2022-08-15 09:58 | Emergency (ER) | payer MEDICARE, OTHER ==
[~2022-08-15] VITALS: Ht 185.4 cm; Wt 90.7 kg
[2022-08-15 13:48] LABS: BASOPHILS # (AUTO) 0.1 (0.0-0.1); BASOPHILS % 0.5 % (0.0-1.0); EOSINOPHILS # (AUTO) 0.1 (0.0-0.4); EOSINOPHILS % 0.5 % (0.0-6.0); HEMATOCRIT 48.6 % (38.2-49.6); HEMOGLOBIN 15.9 g/dL (14.0-18.0); LYMPHOCYTES # (AUTO) 2.3 (1.0-3.2); LYMPHOCYTES % 17.1 % (18.0-39.1); MEAN CORPUSCULAR HEMOGLOBIN 30.3 pg (28-32); MEAN CORPUSCULAR HGB CONC 32.7 g/dL (31-35); MEAN CORPUSCULAR VOLUME 92.7 fL (81-99); MONOCYTES # (AUTO) 0.8 (0.2-0.8); MONOCYTES % 6.3 % (4.4-11.3); NEUTROPHILS % 75.3 % (38.7-80.0); PLATELET COUNT 336 x10e3/uL (140-360); RED BLOOD COUNT 5.24 x10e6/uL (4.3-5.7); RED CELL DISTRIBUTION WIDTH 12.1 % (11.7-14.4)
[2022-08-15 14:13] LABS: ALBUMIN 4.5 g/dL (3.5-5.0); ALBUMIN/GLOBULIN RATIO 1.4 (0.8-2.0); CALCIUM 9.6 mg/dL (8.4-10.2); CREATININE, SERUM 0.62 mg/dL (0.72-1.25)
[2022-08-15 15:42] LABS: CLARITY,URINE CLOUDY (CLEAR); COLOR,URINE AMBER (YELLOW); KETONES,URINE 2+ (NEGATIVE); LEUKOCYTE ESTERASE ,URINE MODERATE (NEGATIVE); NITRITE,URINE POSITIVE (NEGATIVE); PROTEIN,URINE DIPSTICK >=300 (NEGATIVE); URINE UROBILINOGEN 1 mg/dL (0.2 - 1)
[2022-08-15 16:03] LABS: BACTERIA,URINE MODERATE /HPF; RBC,URINE 21-50 /HPF (0-5)
[2022-08-15] MEDS ORDERED: BACTRIM DS TAB1 EACH PO (16:27)
[2022-08-15] MEDS ORDERED: SODIUM CHLORIDE 0.9% 1000ML 1,000 ML IV ONE (16:45)
[2022-08-15 19:00] VITALS: BP 143/70
== END 2022-08-15 19:10 | disposition home or self-care (01) ==
LOC: ER 10:14
DX: Z43.5 Encounter for attention to cystostomy (principal); G35 Multiple sclerosis; Z88.1 Allergy status to other antibiotic agents; Z91.048 Other nonmedicinal substance allergy status; N39.0 Urinary tract infection, site not specified
CPT/HCPCS: 36415; 74176; 80053; 81001; 85025; 99284; J7030

== ENCOUNTER 2022-10-05 10:06 | Emergency (ER) | payer MEDICARE, OTHER ==
[~2022-10-05] VITALS: Ht 185.4 cm; Wt 90.7 kg
== END 2022-10-05 13:59 | disposition home or self-care (01) ==
LOC: ER 10:13
DX: Z46.6 Encounter for fitting and adjustment of urinary device (principal); E03.9 Hypothyroidism, unspecified; G35 Multiple sclerosis; F41.9 Anxiety disorder, unspecified; Z86.73 Personal history of transient ischemic attack (TIA), and cerebral infarction without residual deficits
CPT/HCPCS: 72192; 87086; 87186; 99283

== ENCOUNTER 2024-01-09 16:21 | Emergency (ER) | payer MEDICARE, OTHER ==
[~2024-01-09] VITALS: Ht 170.2 cm; Wt 72.6 kg
[2024-01-09 17:57] LABS: BASOPHILS # (AUTO) 0.1 (0.0-0.1); BASOPHILS % 0.6 % (0.0-1.0); EOSINOPHILS # (AUTO) 0.1 (0.0-0.4); EOSINOPHILS % 0.9 % (0.0-6.0); HEMATOCRIT 43.6 % (38.2-49.6); HEMOGLOBIN 15.2 g/dL (14.0-18.0); LYMPHOCYTES # (AUTO) 2.7 (1.0-3.2); LYMPHOCYTES % 25.6 % (18.0-39.1); MEAN CORPUSCULAR HEMOGLOBIN 31.7 pg (28-32); MEAN CORPUSCULAR HGB CONC 34.9 g/dL (31-35); MONOCYTES # (AUTO) 0.7 (0.2-0.8); MONOCYTES % 6.4 % (4.4-11.3); NEUTROPHILS # (AUTO) 7.1 (2.1-6.9); NEUTROPHILS % 66.2 % (38.7-80.0); PLATELET COUNT 327 x10e3/uL (140-360); RED BLOOD COUNT 4.79 x10e6/uL (4.3-5.7); RED CELL DISTRIBUTION WIDTH 12.3 % (11.7-14.4); WHITE BLOOD COUNT 10.66 x10e3/uL (4.8-10.8)
[2024-01-09 18:11] LABS: ANION GAP 17.7 mmol/L (8-16); BILIRUBIN,TOTAL 0.3 mg/dL (0.2-1.2); CALCIUM 9.6 mg/dL (8.4-10.2); CREATININE, SERUM 0.7 mg/dL (0.72-1.25); POTASSIUM 4.7 mmol/L (3.5-5.1); TOTAL PROTEIN 7.9 g/dL (6.5-8.1)
[2024-01-09 20:43] VITALS: O2SAT 98
[2024-01-10 07:25] LABS: INR 0.92
[2024-01-10 07:26] LABS: PARTIAL THROMBOPLASTIN TIME 34.1 seconds (23.8-35.5)
== END 2024-01-09 21:39 | disposition home or self-care (01) ==
LOC: ER 16:26
DX: T83.018A Breakdown (mechanical) of other urinary catheter, initial encounter (principal); G35 Multiple sclerosis; Z86.73 Personal history of transient ischemic attack (TIA), and cerebral infarction without residual deficits; E03.9 Hypothyroidism, unspecified; Z87.440 Personal history of urinary (tract) infections
CPT/HCPCS: 36415; 80053; 85025; 85610; 85730; 99283

== ENCOUNTER → 2024-12-24 | Day surgery (SDC) | payer MEDICARE, OTHER ==
[~2024-12-24] MED LIST changes: +BACLOFEN10 MG PO; +CALCIUM PO; -COPAXONE20 MG/KIT; +COPAXONE20 MG/KIT IM; +EPHEDRINE SULFATE INJ 50 MG/ML VIAL ONE; +FENTANYL CITRATE/PF 100MCG/2 ML INJ ONE; +GENTAMICIN 80MG/NS 100 ML 200 ML IV ONE; +LACTATED RINGER'S 1,000 ML ONE; +LIDOCAINE HCL 2% LOCAL INJ 5 ML SDV VIAL INJ ONE; +MIDAZOLAM HCL 2 MG/2 ML VIAL ONE; +NEOSTIGMINE 1 MG/ML 10ML VIAL ONE; +ONDANSETRON HCL INJ 2MG/ML 2ML 2 MG/ML VIAL ONE; +PROPOFOL IV EMULSION 10 MG/ML 20 ML VIAL ONE; +SEVOFLURANE INHAL SOLN 250 ML PEN BTL ONE; +SUGAMMADEX SODIUM 200 MG/2 ML VIAL IV ONE; +VITAMIN C1000 MG PO; +VITAMIN D3125 MCG PO; +ZINC PO
[2024-12-24 13:42] VITALS: TEMP 97.8
[2024-12-24 16:00] VITALS: BP 130/79; PULSE 76; RESP 16; O2SAT 100
== END | disposition home or self-care (01) ==
LOC: OR 09:56
PROVIDERS: ATTEND Urology
DX: N21.0 Calculus in bladder (principal); R33.9 Retention of urine, unspecified; G82.50 Quadriplegia, unspecified; N39.0 Urinary tract infection, site not specified; Z43.5 Encounter for attention to cystostomy; G35 Multiple sclerosis; F32.A Depression, unspecified; Z88.6 Allergy status to analgesic agent; Z88.1 Allergy status to other antibiotic agents; Z91.048 Other nonmedicinal substance allergy status; Z79.899 Other long term (current) drug therapy
CPT/HCPCS: 51705; 52318; 74420; 88300; 93005; C1758; J1580; J2003; J2250; J2405; J2704; J2710; J3010; J7121